=== PATIENT | female | born 1960 | race Caucasian/White ===

== ENCOUNTER 2017-05-07 09:15 | Emergency (ER) | payer OTHER ==
--- OUTSIDE RECORDS SUMMARY | 2017-05-07 09:17 | XMS REPORT | Clinical Summary ---
:1960 Author Organization [facility] Address [address] [place] [address] Care Team Providers Name Role Phone Lizzie Shaffer MD Primary Care Provider Allergies Active Allergy Reactions Severity Noted Date Comments Chlorhexidine Rash Low 12/01/2014 blisters Hydrocodone-Acetaminophen Hives 10/24/2010 Can tolerate acetaminophen Can tolerate acetaminophen Tramadol Hives 09/25/2015 Current Medications Prescription Sig. Disp. Refills Start Date End Date Status diltiazem CD (CARTIA TAKE 1 01/30/2016 Active XT) 120 MG 24 hr CAPSULE BY capsule MOUTH DAILY escitalopram Take 10 mg by Active (LEXAPRO) 10 MG mouth. tablet pantoprazole Take 40 mg by 09/21/2015 Active (PROTONIX) 40 MG EC mouth. tablet zolpidem (AMBIEN) 10 Take 10 mg by Active mg tablet mouth. cholecalciferol, Take 5,000 Active vitamin D3, (VITAMIN Units by D3) 5,000 unit mouth. capsule glatiramer Inject 40 mg 11/03/2015 Active (COPAXONE) 40 mg/mL under the syringe skin. nitroglycerin Place 1 Active (NITROSTAT) 0.4 MG tablet under SL tablet the tongue. ALPRAZolam (XANAX) TK 1 T PO D 2 02/24/2016 Active 0.5 MG tablet PRN. ondansetron ODT Take 4 mg by Active (ZOFRAN-ODT) 4 MG mouth every 8 disintegrating (eight) hours tablet as needed for nausea or vomiting. CALCIUM ORAL Take 1 tablet Active by mouth daily. docusate sodium Take 1 60 capsule 0 04/17/2016 Discontinued (COLACE) 50 MG capsule (50 7 capsule mg total) by mouth 2 (two) times a day for 30 days. docusate sodium Take 1 60 capsule 0 05/06/2016 (COLACE) 50 MG capsule (50 7 capsule mg total) by mouth 2 (two) times a day for 30 days. Active Problems Problem Noted Date S/P laparoscopic surgery 05/04/2016 Encounters Date Type Specialty Care Team Description 04/30/2017 Procedure Pass Gastroenterology 05/16/2016 Office Visit General Surgery Dustin Uriostegui, Stomach pain ( Primary Dx); MD History of dysphagia; Diarrhea, unspecified type; Essential hypertension; History of congestive heart disease; H/O iron deficiency anemia; Status post bariatric surgery; BMI 27.0-27.9,adult 05/04/2016 - Hospital Encounter General Surgery Dustin Uriostegui, 05/06/2016 MD after 05/06/2016 Family History Medical History Relation Name Comments Throat cancer Father Pulmonary fibrosis Maternal Aunt Diabetes Mother Heart disease Mother Pulmonary fibrosis Mother Relation Name Status Comments Father Maternal Aunt Mother Social History Tobacco Use Types Packs/Day Years Used Date Never Smoker Smokeless Tobacco: Never Used Alcohol Use Drinks/Week oz/Week Comments No Sex Assigned at Date Recorded Not on file Last Filed Vital Signs Vital Sign Reading Time Taken Blood Pressure 113/72 05/16/2016 1:52 PM CDT Pulse 85 05/16/2016 1:52 PM CDT Temperature 37.1 C (98.7 F) 05/16/2016 1:52 PM CDT Respiratory Rate 18 05/06/2016 4:01 PM CDT Oxygen Saturation 97% 05/16/2016 1:52 PM CDT Inhaled Oxygen Concentration - - Weight 67.6 kg (149 lb) 05/16/2016 1:52 PM CDT Height 157.5 cm (5' 2") 05/16/2016 1:52 PM CDT Body Mass Index 27.25 05/16/2016 1:52 PM CDT Plan of Treatment Health Maintenance Due Date Last Done Comments PAP SMEAR 1981 COLONOSCOPY 2010 MAMMOGRAM 2010 INFLUENZA VACCINE 09/10/2016 09/13/2013 Implants Implanted Type Area Highway Design Engineer Device Expiration Model / Identifier Date Serial / Lot Pacemaker-05/18/2015 Pacemaker Subclavian [id number] / Implanted: 05/18/2015 (Quantity not on file) [id number] / Dilator Baln Fxdwr [id number] 12-13.5-15mm Cre - [id number] Surgical N/A: N/A [facility] [id number] / Implanted: 04/17/2016 (Quantity not on file) Implants; / Expanders; Extenders; Surgical Wires Results XR Abdomen 2 Vw Ap W Upright And/Or Decubitus (05/06/2016 8:37 AM) Specimen Performing Laboratory [facility] [address] [place] [address] Narrative EXAM:XR ABDOMEN 2 VW AP W UPRIGHT AND OR DECUBITUS HISTORY:ABDOMINAL PAIN COMPARISON:None available IMPRESSION: 1. Bowel gas pattern is nonobstructive. 2. Ill-defined linear radiopaque material projects over the left mid abdomen which may reflect postoperative changes or calcifications in the inferior pole the left kidney. 3. The visualized osseous structures are intact. 4. The patient is status post cholecystectomy. [facility]-[id number] Procedure Note Interface, Radiology Results Incoming - 05/06/2016 8:49 AM CDT EXAM: XR ABDOMEN 2 VW AP W UPRIGHT AND OR DECUBITUS HISTORY: ABDOMINAL PAIN COMPARISON: None available IMPRESSION: 1. Bowel gas pattern is nonobstructive. 2. Ill-defined linear radiopaque material projects over the left mid abdomen which may reflect postoperative changes or calcifications in the inferior pole the left kidney. 3. The visualized osseous structures are intact. 4. The patient is status post cholecystectomy. [facility]-[id number] Urinalysis, automated with microscopy (05/06/2016 8:35 AM) Component Value Ref Range Color, UA Colorless Appearance, UA Clear Specific gravity, UA 1.008 1.001 - 1.035 pH, UA 5.0 5.0 - 8.5 Protein, UA Negative Negative Glucose, UA Negative Negative Ketones, UA 1+ (A) Negative Bilirubin, UA Negative Negative Blood, UA Negative Negative Nitrite, UA Negative Negative Urobilinogen, UA <2.0 <2.0 Leukocyte esterase, UA Trace (A) Negative Epithelial cells, UA <1 /HPF WBC, UA 3 0 - 4 /HPF RBC, UA <1 0 - 2 /HPF Bacteria, UA Few None seen Yeast, UA None seen Yeast with pseudohyphae, UA None seen Specimen Performing Laboratory Urine [facility] DEPARTMENT OF PATHOLOGY AND GENOMIC MEDICINE [address] [place] [address] after 05/06/2016 Insurance Payer Benefit Plan / Group Subscriber ID Type Phone Address MEDICARE MEDICARE PART A AND B xxxxxxxxxx Medicare [place], [place] MEDICA[place] MEDICAID xxxxxxxxx Medicaid Home: [address] [phone] [place] [id number]
--- OUTSIDE RECORDS SUMMARY | 2017-05-07 09:18 | XMS REPORT | Clinical Summary ---
:1960 Author Organization [facility] Address [address] [place] [address] Phone Care Team Providers Name Role Phone Unavailable Primary Care Provider Unavailable Allergies Active Allergy Reactions Severity Noted Date Comments Tramadol Hives High 09/18/2015 Hydrocodone-Acetaminophen Hives 07/18/2014 Can tolerate acetaminophen Chlorhexidine Rash Low 07/18/2014 blisters Current Medications Prescription Sig. Disp. Refills Start End Date Status Date escitalopram Take 10 mg by Active oxalate (LEXAPRO) mouth nightly . 10 MG tablet diltiazem (DILACOR Take 120 mg by Active XR) 120 MG 24 hr mouth nightly . capsule pantoprazole Take 1 tablet (40 30 tablet 2 Active (PROTONIX) 40 MG mg total) by mouth 6 tablet daily. temazepam Take 15 mg by Active (RESTORIL) 15 mg mouth nightly. capsule glatiramer Inject 40 mg Active (COPAXONE) 40 subcutaneously 3 mg/mL Syrg (three) times a week. doxepin (SILENOR) Take 6 mg by mouth Active 6 mg Tab nightly. dicyclomine Take 1 capsule (10 60 capsule 11 03/25/19 Active (BENTYL) 10 MG mg total) by mouth 8 19 capsule 2 (two) times daily. sucralfate Take 1 tablet (1 g 90 tablet 03/25/19 Active (CARAFATE) 1 gram total) by mouth 3 8 19 tablet (three) times daily before meals. zolpidem (AMBIEN) Take 10 mg by Active 10 mg tablet mouth every night as needed for Insomnia. zolpidem (AMBIEN) Take 10 mg by 03/13/19 Discontinued 10 mg tablet mouth every night 18 as needed for Insomnia. aspirin 81 MG EC Take 81 mg by 03/13/19 Discontinued tablet mouth daily. 18 fingolimod 0.5 mg Take 0.5 mg by 03/13/19 Discontinued Cap mouth daily. 18 HYDROmorphone Take 1 tablet (2 30 tablet 0 04/04/19 (DILAUDID) 2 MG mg total) by mouth 8 18 tablet every 4 (four) hours as needed for up to 10 days. Max Daily Amount: 12 mg ondansetron Take 1 tablet (4 20 tablet 0 04/01/19 (ZOFRAN-ODT) 4 MG mg total) by mouth 8 18 disintegrating every 6 (six) tablet hours as needed for up to 7 days. pantoprazole Take 1 tablet (40 60 tablet 11 04/15/19 Discontinued (PROTONIX) 40 MG mg total) by mouth 8 18 tablet 2 (two) times daily. metoclopramide Take 1 tablet (5 120 tablet 04/04/19 (REGLAN) 5 MG mg total) by mouth 8 18 tablet 4 (four) times daily for 10 days. Active Problems Problem Noted Date Chest pain 03/21/2017 S/P ERCP 03/19/2017 Nausea & vomiting 03/19/2017 RUQ abdominal pain 09/12/2015 Multiple sclerosis, relapsing-remitting (HCC) 09/12/2015 Depression 09/12/2015 Biliary dilatation (sphincter of Oddi stricture), h/o Vamshi-en-Y, s/p open 03/2015 ERCP 09/13 History of cholecystectomy 09/12/2015 Esophageal stricture 09/12/2015 Status post balloon dilatation of esophageal stricture 09/12/2015 Cellulitis of chest wall 07/04/2015 Bradycardia 05/18/2015 Complete rupture of rotator cuff 08/04/2014 Encounters Date Type Specialty Care Team Description 04/30/2017 Hospital Encounter Gastroenterology Shoshana Julian MD 04/30/2017 Procedure Pass Gastroenterology 04/30/2017 Surgery Gastroenterology Shoshana Julian UPPER ENDOSCOPY MD Edward 04/29/2017 Anesthesia Event Gastroenterology Wiliam Andujar MD 04/14/2017 Hospital Encounter Pre-Admission Testing 03/21/2017 Orders Only General Internal Medicine 03/19/2017 - Hospital Encounter General Internal Shoshana Julian Bradycardia 03/25/2017 Medicine MD Edward (Primary Dx);Chest Massumi, pain, unspecified Rossy type;History of Abolfathian, cholecystectomy;S/ MD P ERCP;Status post Evelyn Walters balloon dilatation MD Rei of esophageal stricture 03/19/2017 Procedure Pass Gastroenterology 03/19/2017 Surgery Gastroenterology Shoshana Julian ERCP,BILIARY STENT MD Edward 03/18/2017 Anesthesia Event Gastroenterology Spring Luna MD 03/13/2017 Hospital Encounter Pre-Admission Testing Shohsana Julian MD after 05/06/2016 Social History Tobacco Use Types Packs/Day Years Used Date Never Smoker Smokeless Tobacco: Never Used Alcohol Use Drinks/Week oz/Week Comments No Sex Assigned at Date Recorded Not on file Last Filed Vital Signs Vital Sign Reading Time Taken Blood Pressure 105/71 04/30/2017 1:35 PM CDT Pulse 62 04/30/2017 1:35 PM CDT Temperature 36.5 C (97.7 F) 04/30/2017 1:35 PM CDT Respiratory Rate 18 04/30/2017 1:35 PM CDT Oxygen Saturation 100% 04/30/2017 1:35 PM CDT Inhaled Oxygen Concentration - - Weight 73.3 kg (161 lb 11.2 oz) 04/30/2017 11:05 AM CDT Height 157.5 cm (5' 2") 04/30/2017 11:05 AM CDT Body Mass Index 29.58 04/30/2017 11:05 AM CDT Plan of Treatment Not on file Implants Implanted Type Area Bell Person Device Identifier Expiration Date Model / Serial / Lot Advisa Dr Héctor Riley / [id number] [employer] 09/23/2016 [id number] / Implanted: Qty: 1 on 05/18/2015 [id number] / Explanted Type Area Bell Person Device Expiration Date Model / Identifier Serial / Lot Sys Del Axios Stent [id number] - [id number] Stents-Pe [employer] 2018 [id number] / Implanted: Qty: 1 on 03/19/2017 by Shoshana Julian MD ripheral / Explanted: Qty: 1 on 04/30/2017 Procedures Procedure Name Priority Date/Time Associated Diagnosis Comments UPPER ENDOSCOPY 04/30/2017 1:00 PM CDT Bile duct disease Special Needs (OVERSTITCH) ERCP,BALLOON SWEEPING 03/19/2017 1:00 PM STEREOPLOTTER OPERATOR Abnormal results of liver function studies Case Notes Doctor req 90 minutes for this surgery Special Needs (FLUORO, LINEAR SCOPE) PROCEDURE W/ C-ARM 03/19/2017 1:00 PM STEREOPLOTTER OPERATOR Abnormal results of liver function studies Case Notes Doctor req 90 minutes for this surgery Special Needs (FLUORO, LINEAR SCOPE) UPPER ENDOSCOPY,FNA 03/19/2017 1:00 PM STEREOPLOTTER OPERATOR Abnormal results of liver W/ULTRASOUND function studies Case Notes Doctor req 90 minutes for this surgery Special Needs (FLUORO, LINEAR SCOPE) ERCP,BILIARY STENT 03/19/2017 1:00 PM STEREOPLOTTER OPERATOR Abnormal results of liver function studies Case Notes Doctor req 90 minutes for this surgery Special Needs (FLUORO, LINEAR SCOPE) after 05/06/2016 Results REPORT OF PROCEDURE - ENDOSCOPY URL (05/06/2017 9:38 AM)Only the most recent of2 resultswithin the time period is included.RHYTHM STRIP - SCAN (03/27/2017 11 :32 AM)Only the most recent of2 resultswithin the time period is included.ARRYTHMIA IMPLANT REPORT - SCAN (03/27/2017 8:51 AM)POC-Glucose meter (03/25/2017 8:21 AM)Only the most recent of20 resultswithin the time period is included. Component Value Ref Range POC-Glucose Meter 73Comment: TESTED AT [address] 70 - 110 mg/dL [address] Specimen Performing Laboratory Blood [facility] [address] [address] CBC with platelet count + automated diff (03/25/2017 5:05 AM)Only the most recent of6 resultswithin the time period is included. Component Value Ref Range WBC 5.7 3.5 - 10.5 K/L RBC 3.67 (L) 3.93 - 5.22 M/L Hemoglobin 11.8 11.2 - 15.7 GM/DL Hematocrit 36.6 34.1 - 44.9 % MCV 99.7 (H) 79.4 - 94.8 fL MCH 32.2 25.6 - 32.2 pg MCHC 32.2 32.2 - 35.5 GM/DL RDW 12.6 11.7 - 14.4 % Platelets 187 150 - 450 K/CU MM MPV 9.7 9.4 - 12.3 fL nRBC 0 0 - 0 /100 WBC % Neutros 63 % % Lymphs 18 % % Monos 14 % % Eos 5 % % Baso 1 % # Neutros 3.56 1.56 - 6.13 K/L # Lymphs 1.02 (L) 1.18 - 3.74 K/L # Monos 0.78 (H) 0.24 - 0.36 K/L # Eos 0.26 0.04 - 0.36 K/L # Baso 0.03 0.01 - 0.08 K/L Immature Granulocytes-Relative 0 0 - 1 % Specimen Performing Laboratory Blood - Line, Venous [address] [address] CBC with platelet count + automated diff (03/25/2017 5:05 AM)Only the most recent of6 resultswithin the time period is included. Specimen Performing Laboratory Blood Narrative The following orders were created for panel order CBC with platelet count + automated diff. Procedure Abnormality Status --------- ------ CBC with platelet count ...[[id number]]AbnormalFinal result Please view results for these tests on the individual orders. Magnesium (03/25/2017 5:05 AM)Only the most recent of6 resultswithin the time period is included. Component Value Ref Range Magnesium 1.6 1.6 - 2.6 mg/dL Specimen Performing Laboratory Blood - Line, Venous [address] [address] Basic Metabolic Panel (03/25/2017 5:05 AM)Only the most recent of7 resultswithin the time period is included. Component Value Ref Range Sodium 141 136 - 145 meq/L Potassium 4.1 3.5 - 5.1 meq/L Chloride 104 98 - 107 meq/L CO2 29 22 - 29 meq/L BUN 9 7 - 21 mg/dL Creatinine 0.93 0.57 - 1.25 mg/dL Glucose 87 70 - 105 mg/dL Calcium 9.0 8.4 - 10.2 mg/dL EGFR 62Comment: ESTIMATED GFR IS NOT ACCURATE mL/min/1.73 sq m CREATININE CLEARANCE IN PREDICTING GLOMERULAR FILTRATION RATE. ESTIMATED GFR IS NOT APPLICABLE FOR DIALYSIS PATIENTS. Specimen Performing Laboratory Blood - Line, Venous [facility] [address] [address] [address] abdomen/pelvis without iv contrast (03/25/2017 12:08 AM) Specimen Performing Laboratory GE RIS Narrative FINAL REPORT CT of the abdomen and pelvis, without contrast Clinical History:right lower quad pain right lower quadrant pain Technique: CT of the abdomen and pelvis is performed without intravenous contrast administration. This exam was performed according to our departmental dose optimization program which includes automated exposure control, adjustment of the mA and/or kV according to patient's size and/or use of iterative reconstructive technique. Comparison Film:None Discussion: There is mild scarring or atelectasis at the lung bases. Mild pneumobilia, without significant ductal dilatation. No discrete liver lesion is identified on this noncontrast exam. Gallbladder is absent. The spleen, pancreas, adrenal glands have a unremarkable unenhanced appearance. Kidneys demonstrate no hydronephrosis, radiopaque stone, No evidence of bowel obstruction or abnormal bowel wall thickening. Normal appendix. There is postsurgical change of the stomach, with evidence of prior gastric bypass. In the pelvis, bladder is unremarkable. Uterus is absent. No adnexal mass. There is no ascites, free air, or lymphadenopathy. Osseous structures demonstrate mild degenerative changes. Impression: No acute process identified in the abdomen or pelvis. Status post cholecystectomy. Pneumobilia. Postsurgical change of the stomach. Signed: Lillie Carlson MD Report Verified Date/Time:03/25/2017 08:00:47 Reading Location: [facility] Diagnostic Imaging Reading Room - [place] [address] Procedure Note Interface, External Ris In - 03/25/2017 8:03 AM STEREOPLOTTER OPERATOR FINAL REPORT CT of the abdomen and pelvis, without contrast Clinical History: right lower quad pain right lower quadrant pain Technique: CT of the abdomen and pelvis is performed without intravenous contrast administration. This exam was performed according to our departmental dose optimization program which includes automated exposure control, adjustment of the mA and/or kV according to patient's size and/or use of iterative reconstructive technique. Comparison Film: None Discussion: There is mild scarring or atelectasis at the lung bases. Mild pneumobilia, without significant ductal dilatation. No discrete liver lesion is identified on this noncontrast exam. Gallbladder is absent. The spleen, pancreas, adrenal glands have a unremarkable unenhanced appearance. Kidneys demonstrate no hydronephrosis, radiopaque stone, No evidence of bowel obstruction or abnormal bowel wall thickening. Normal appendix. There is postsurgical change of the stomach, with evidence of prior gastric bypass. In the pelvis, bladder is unremarkable. Uterus is absent. No adnexal mass. There is no ascites, free air, or lymphadenopathy. Osseous structures demonstrate mild degenerative changes. Impression: No acute process identified in the abdomen or pelvis. Status post cholecystectomy. Pneumobilia. Postsurgical change of the stomach. Signed: Lillie Carlson MD Report Verified Date/Time: 03/25/2017 08:00:47 Reading Location: [facility] Diagnostic Imaging Reading Room - [place] [address] Urinalysis w/Microscopic + Reflex to Culture (03/23/2017 6:03 PM) Component Value Ref Range Color, UA Light Yellow Clarity, UA Clear Specific [place], UA 1.006 1.001 - 1.035 pH, UA 7.0 5.0 - 8.0 Protein, UA Negative Negative Glucose, UA Negative Negative Ketones, UA Negative Negative Bilirubin, UA Negative Negative Blood, UA Negative Negative Nitrite, UA Negative Negative Leukocytes, UA Negative Negative Urobilinogen, UA 0.2 0.2 - 1.0 mg/dL RBC, UA 0 /HPF WBC, UA 1 /HPF Squam Epithel, UA 1 /HPF Specimen Source Specimen Performing Laboratory Urine - Urine, Sterile Collection [address] [address] XR abdomen / KUB 1 view (03/23/2017 12:27 PM) Specimen Performing Laboratory GE RIS Narrative FINAL REPORT Technique: Frontal images of the abdomen COMPARISON: 03/19/2015 FINDINGS: Bowel gas pattern is nonspecific. Some residual contrast in the colon seen. No gross free intraperitoneal air. A stent projects in the upper abdomen centrally. No acute skeletal abnormality. Signed: Joby Hoffman MD Report Verified Date/Time:03/23/2017 12:49:51 Reading Location: [address] Transitional Reading Room Procedure Note Interface, External Ris In - 03/23/2017 12:52 PM STEREOPLOTTER OPERATOR FINAL REPORT Technique: Frontal images of the abdomen COMPARISON: 03/19/2015 FINDINGS: Bowel gas pattern is nonspecific. Some residual contrast in the colon seen. No gross free intraperitoneal air. A stent projects in the upper abdomen centrally. No acute skeletal abnormality. Signed: Joby Hoffman MD Report Verified Date/Time: 03/23/2017 12:49:51 Reading Location: [address] Transitional Reading Room 12 lead (03/23/2017 11:22 AM)Only the most recent of2 resultswithin the time period is included. Specimen Performing Laboratory GE MUSE Narrative Ventricular Rate 65 BPM Atrial Rate 65 BPM P-R Interval 140 ms QRS Duration 78 ms Q-T Interval 400 ms QTC Calculation(Bazett) 416 ms P [place] 28 degrees R [place] 23 degrees T [place] 22 degrees Normal sinus rhythm Normal ECG When compared with ECG of21 Mar 2017 Sinus rhythm replaced electronic atrial pacing Confirmed by MD BAZZI YOCHAI ([id number]) on 03/24/2017 6:50:30 AM Procedure Note Interface, External Ris In - 03/24/2017 6:50 AM STEREOPLOTTER OPERATOR Ventricular Rate 65 BPM Atrial Rate 65 BPM P-R Interval 140 ms QRS Duration 78 ms Q-T Interval 400 ms QTC Calculation(Bazett) 416 ms P [place] 28 degrees R [place] 23 degrees T [place] 22 degrees Normal sinus rhythm Normal ECG When compared with ECG of 21 Mar 2017 Sinus rhythm replaced electronic atrial pacing Confirmed by MD BAZZI YOCHAI ([id number]) on 03/24/2017 6:50:30 AM Lipase (03/23/2017 4:53 AM)Only the most recent of4 resultswithin the time period is included. Component Value Ref Range Lipase 71 8 - 78 U/L Specimen Performing Laboratory Blood [facility] [address] [address] Amylase (03/23/2017 4:53 AM)Only the most recent of4 resultswithin the time period is included. Component Value Ref Range Amylase 93 25 - 125 U/L Specimen Performing Laboratory Blood [address] [address] Hepatic function panel (03/23/2017 4:53 AM)Only the most recent of3 resultswithin the time period is included. Component Value Ref Range Protein, Total 6.0 6.0 - 8.3 gm/dL Albumin 3.6 3.5 - 5.0 g/dL Total Bilirubin 0.6 0.2 - 1.2 mg/dL Bilirubin, Direct 0.2 0.1 - 0.5 mg/dL Alkaline Phosphatase 78 40 - 150 U/L AST 18 5 - 34 U/L ALT 24 6 - 55 U/L Specimen Performing Laboratory Blood [address] [address] ECHOCARDIOGRAM REPORT - SCAN (03/22/2017 2:20 PM)Troponin I (03/21/2017 4:33 PM)Only the most recent of3 resultswithin the time period is included. Component Value Ref Range Troponin I <0.01 0.00 - 0.03 ng/mL Specimen Performing Laboratory Blood - Central Venous Line [address] [address] Narrative Troponin I (TnI) levels must be interpreted in the context of the presenting symptoms and the clinical findings. Elevated TnI levels indicate myocardial damage, but are not specific for ischemic heart disease. Elevated TnI levels are seen in patients with other cardiac conditions (including myocarditis and congestive heart failure), and slight TnI elevations occur in patients with other conditions, including sepsis, renal failure, acidosis, acute neurological disease, and persistent tachyarrhythmia. Creatine Kinase (CK), Total and MB (03/21/2017 4:33 PM)Only the most recent of2 resultswithin the time period is included. Component Value Ref Range Total CK 116 29 - 200 U/L CK-MB 1.1 0.0 - 6.6 ng/mL MB Relative Index 0.9 % Specimen Performing Laboratory Blood - Central Venous Line [address] [address] Narrative CK-MB Reference Range: <6.7Normal 6.7-10.0Borderline >10.0 Abnormal Limited 2D Echocardiogram (03/21/2017 3:28 PM) Component Value Ref Range Ejection Fraction Specimen Performing Laboratory [facility] ECHO HEARTLAB MKCKPETER CPACS Narrative Transthoracic Echocardiography Report (TTE) Demographics Patient Name Wagner ARMANDOte of Study 03/21/2017 RHEA [id number] GenderFemale Visit Number [id number] RaceCaucasian [id number] Number [id number] Number Date of Birth1960 Referring Physician Evelyn Walters MD Age56 year(s) Church Business Administrator Tawanna Tee, [facility] [place] AnalystIzostacy Barth Interpreting Physician LEONARDA Reyna Procedure Type of Study TTE procedure:LIMITED 2D ECHOCARDIOGRAM (CLARICE) Indications:Suspected Pericardial conditions. Clinical History Anemia HGB 11.1 HCT 34.6 % 2011 PPM Height: 62 inches Weight: 72.12 kg (159 lbs) BSA: 1.73 m^2 BMI: 29.08 kg/m^2 HR: 60 bpm BP: 113/60 mmHg Summary Limited 2D exam (no Doppler) to address study indication (pericardial effusion). No evidence of LV hypertrophy. The left ventricle is chamber size (by PSLAX dimension) is normal (female - LVIDd 3.8-5.2cm) . All of the LV segments contract normally . Global LV systolic function normal . Estimated LVEF by qualitative assessment is normal (55-60%) . Degree of diastolic dysfunction (LAP assessment) is inconclusive due to 2D only . RV pacing wire is visualized . The right ventricular chamber size and systolic function are within normal limits. No pericardial effusion is visualized. Signature Findings Technical Quality: Technically adequate exam. Left Ventricle Limited 2D exam (no Doppler) to address study indication (pericardial effusion). No evidence of LV hypertrophy. The left ventricle is chamber size (by PSLAX dimension) is normal (female - LVIDd 3.8-5.2cm) . All of the LV segments contract normally . Global LV systolic function normal . Estimated LVEF by qualitative assessment is normal (55-60%) . Degree of diastolic dysfunction (LAP assessment) is inconclusive due to 2D only . Left AtriumLA size is normal (16-34 ml/m2) . Right VentricleRV pacing wire is visualized . The right ventricular chamber size and systolic function are within normal limits. Right Atrium RA pacing wire is visualized . RA cavity size is normal . Aortic Valve Normal AoV structure and function. Mitral Valve Normal MV structure. Tricuspid ValveTV structure is normal. Pulmonic Valve PV is not well visualized. AortaAortic root size (SInus of Valsalva diameter) is normal . PericardiumNo pericardial effusion is visualized. IVC/SVC/PA/PV/PleuralThe estimated RA pressure by IVC dynamics 5-10mmHg . Chambers/Structures Left Atrium LA Volume: 40.75 ml LA Area: 17.99 cm^ 2 LA Vol. Index: 24 ml/m^2 Left Ventricle LVIDd: 4.09 cm LV Septum Diastolic: 0.65 cm LV PW Diastolic: 0.69 cm Right Atrium RA Vol. (Sngl Plane): 39.5 ml Aorta Ao Root S of Moni.: 2.74 cm Procedure Note Interface, External Ris In - 03/22/2017 1:51 PM STEREOPLOTTER OPERATOR Transthoracic Echocardiography Report (TTE) Demographics Patient Name ANTONIETTA ARMANDO Date of Study 03/21/2017 RHEA Gender Female Visit Number [id number] Race Room Number [id number] Number Date of 1960 Referring Physician Evelyn Walters MD Age 56 year(s) Church Business Administrator Tawanna Tee [facility] [place] Gas Leak Inspector Mariah Barth Interpreting Physician LEONARDA Reyna Procedure Type of Study TTE procedure:LIMITED 2D ECHOCARDIOGRAM (CLARICE) Indications:Suspected Pericardial conditions. Clinical History Anemia HGB 11.1 HCT 34.6 % 2011 PPM Height: 62 inches Weight: 72.12 kg (159 lbs) BSA: 1.73 m^2 BMI: 29.08 kg/m^2 HR: 60 bpm BP: 113/60 mmHg Summary Limited 2D exam (no Doppler) to address study indication (pericardial effusion). No evidence of LV hypertrophy. The left ventricle is chamber size (by PSLAX dimension) is normal (female - LVIDd 3.8-5.2cm) . All of the LV segments contract normally . Global LV systolic function normal . Estimated LVEF by qualitative assessment is normal (55-60%) . Degree of diastolic dysfunction (LAP assessment) is inconclusive due to 2D only . RV pacing wire is visualized . The right ventricular chamber size and systolic function are within normal limits. No pericardial effusion is visualized. Signature Findings Technical Quality: Technically adequate exam. Left Ventricle Limited 2D exam (no Doppler) to address study indication (pericardial effusion). No evidence of LV hypertrophy. The left ventricle is chamber size (by PSLAX dimension) is normal (female - LVIDd 3.8-5.2cm) . All of the LV segments contract normally . Global LV systolic function normal . Estimated LVEF by qualitative assessment is normal (55-60%) . Degree of diastolic dysfunction (LAP assessment) is inconclusive due to 2D only . Left Atrium LA size is normal (16-34 ml/m2) . Right Ventricle RV pacing wire is visualized . The right ventricular chamber size and systolic function are within normal limits. Right Atrium RA pacing wire is visualized . RA cavity size is normal . Aortic Valve Normal AoV structure and function. Mitral Valve Normal MV structure. Tricuspid Valve TV structure is normal. Pulmonic Valve PV is not well visualized. Aorta Aortic root size (SInus of Valsalva diameter) is normal . Pericardium No pericardial effusion is visualized. IVC/SVC/PA/PV/Pleural The estimated RA pressure by IVC dynamics 5-10mmHg . Chambers/Structures Left Atrium LA Volume: 40.75 ml LA Area: 17.99 cm^2 LA Vol. Index: 24 ml/m^2 Left Ventricle LVIDd: 4.09 cm LV Septum Diastolic: 0.65 cm LV PW Diastolic: 0.69 cm Right Atrium RA Vol. (Sngl Plane): 39.5 ml Aorta Ao Root S of Moni.: 2.74 cm XR chest 1 view portable / bedside (03/21/2017 9:49 AM) Specimen Performing Laboratory [facility] RIS Narrative FINAL REPORT Chest one view AP 03/21/2017 9:51 AM CLINICAL INDICATION: chest pain COMPARISON: 07/04/2015 IMPRESSION: Bibasilar subsegmental opacities suggest atelectasis. Cardiomediastinal contours are within normal limits. The central pulmonary vasculature is not engorged. Signed: Eric Nichols MD Report Verified Date/Time:03/21/2017 09:52:14 Reading Location: [facility] Radiology Reading Room Procedure Note Interface, External Ris In - 03/21/2017 9:54 AM STEREOPLOTTER OPERATOR FINAL REPORT Chest one view AP 03/21/2017 9:51 AM CLINICAL INDICATION: chest pain COMPARISON: 07/04/2015 IMPRESSION: Bibasilar subsegmental opacities suggest atelectasis. Cardiomediastinal contours are within normal limits. The central pulmonary vasculature is not engorged. Signed: Eric Nichols MD Report Verified Date/Time: 03/21/2017 09:52:14 Reading Location: [facility] Radiology Reading Room Endoscopic Retrograde Cholangiopancreatography (03/19/2017 2:50 PM) Specimen Performing Laboratory [facility] RIS Narrative FINAL REPORT Fluoroscopy. History: Intraoperative. Findings:Radiologist was not present for the exam.Fluoroscopy was not performed by the undersigned. Please see operative report for details. Fluoroscopy Time: 166 min. Nine images IMPRESSION: Intraoperative fluoroscopy. Please see operative report for details. Signed: Manny Contreras MD Report Verified Date/Time:03/19/2017 23:51:13 Reading Location: [address] Consult Reading Room Procedure Note Interface, External Ris In - 03/19/2017 11:53 PM STEREOPLOTTER OPERATOR FINAL REPORT Fluoroscopy. History: Intraoperative. Findings: Radiologist was not present for the exam. Fluoroscopy was not performed by the undersigned. Please see operative report for details. Fluoroscopy Time: 166 min. Nine images IMPRESSION: Intraoperative fluoroscopy. Please see operative report for details. Signed: Manny Contreras MD Report Verified Date/Time: 03/19/2017 23:51:13 Reading Location: [address] Consult Reading Room Hemoglobin (03/19/2017 11:28 AM) Component Value Ref Range Hemoglobin 12.6 11.2 - 15.7 GM/DL Specimen Performing Laboratory Blood [facility] [address] [id number] Narrative PREOP after 05/06/2016
--- OUTSIDE RECORDS SUMMARY | 2017-05-07 09:19 | XMS REPORT ---
:1960 [facility] Address [address] [place] [address] [address]. [address] [place] [address] Care Team Providers Name Role Phone GAY SHEPHERD Unavailable Unavailable Problems This patient has no known problems. Allergies, Adverse Reactions, Alerts This patient has no known allergies or adverse reactions. Medications This patient has no known medications. Results Test Description Test Time Test Comments Text Results Atomic Results Result Comments POCT-GLUCOSE METER 2017-03-25 08:31:00 Test Item Value Reference Range Comments POC-GLUCOSE METER (BEEmtrics) (test 73 mg/dL 70-110 TESTED AT [facility] [address] [facility] bocg=0871) [facility] [address] CT, [id number] 08:00:00Reason for exam:->right lower quad painWhat is the patient's sedation requirement?->No SedationIs the patient ?-> NoFINAL REPORT CT of the abdomen and pelvis, without contrast Clinical History: right lower quad painright lower quadrant pain Technique: CT of the abdomen and pelvis is performedwithout intravenous contrast administration. This exam was performed [...] a unremarkable unenhanced appearance. Kidneys demonstrate no hydronephrosis , radiopaque stone, No evidence of bowel obstruction or abnormal bowel wallthickening. Normal appendix. There is postsurgical change of the stomach, with evidence of prior gastric bypass. In the pelvis, bladder is unremarkable. Uterus is absent. No adnexal mass. There is no ascites, free air, or lymphadenopathy. Osseous structures demonstrate mild degenerative changes. Impression: No acute process identified in the abdomen or pelvis. Status post cholecystectomy. Pneumobilia. Postsurgical change of the stomach. Signed: Lillie Carlson Verified Date/Time: 03/25/2017 08:00:47 Reading Location: [facility] Diagnostic Imaging Reading Room - [place] [address] [id number] 06:09:00 Test Item Value Reference Range Comments MAGNESIUM (BEAKER) (test pect=340) 1.6 mg/dL 1.6-2.6 BASIC METABOLIC [id number] 06:09:00 Test Item Value Reference Range Comments SODIUM (BEAKER) (test 141 meq/L 136-145 yvfq=892) POTASSIUM (BEAKER) (test 4.1 meq/L 3.5-5.1 ecdh=015) CHLORIDE (BEAKER) (test 104 meq/L 98-107 dxsm=421) CO2 (BEAKER) (test 29 meq/L 22-29 tpsk=530) BLOOD UREA NITROGEN 9 mg/dL 7-21 (BEAKER) (test fljd=517) CREATININE (BEAKER) (test 0.93 mg/dL 0.57-1.25 dcho=745) GLUCOSE RANDOM (BEAKER) 87 mg/dL 70-105 (test dqfc=981) CALCIUM (BEAKER) (test 9.0 mg/dL 8.4-10.2 hutn=969) EGFR (BEAKER) (test 62 mL/min/1.73 sq m ESTIMATED GFR IS NOT aikr=7625) ACCURATE CREATININE CLEARANCE IN PREDICTING GLOMERULAR FILTRATION RATE. ESTIMATED GFR IS NOT APPLICABLE FOR DIALYSIS PATIENTS. CBC W/PLT COUNT & AUTO [id number] 05:43:00 Test Item Value Reference Range Comments WHITE BLOOD CELL COUNT (BEAKER) (test xqcw=329) 5.7 K/ L 3.5-10.5 RED BLOOD CELL COUNT (BEAKER) (test vwnv=419) 3.67 M/ L 3.93-5.22 HEMOGLOBIN (BEAKER) (test oogu=186) 11.8 GM/DL 11.2-15.7 HEMATOCRIT (BEAKER) (test ugoj=441) 36.6 % 34.1-44.9 MEAN CORPUSCULAR VOLUME (BEAKER) (test lqhp=236) 99.7 fL 79.4-94.8 MEAN CORPUSCULAR HEMOGLOBIN (BEAKER) (test 32.2 pg 25.6-32.2 alom=830) MEAN CORPUSCULAR HEMOGLOBIN CONC (BEAKER) (test 32.2 GM/DL 32.2-35.5 zdfd=523) RED CELL DISTRIBUTION WIDTH (BEAKER) (test 12.6 % 11.7-14.4 zelb=101) PLATELET COUNT (BEAKER) (test iykj=363) 187 K/CU MM 150-450 MEAN PLATELET VOLUME (BEAKER) (test kdak=218) 9.7 fL 9.4-12.3 NUCLEATED RED BLOOD CELLS (BEAKER) (test 0 /100 WBC 0-0 sece=984) NEUTROPHILS RELATIVE PERCENT (BEAKER) (test 63 % nbhw=243) LYMPHOCYTES RELATIVE PERCENT (BEAKER) (test 18 % naww=996) MONOCYTES RELATIVE PERCENT (BEAKER) (test 14 % jlyu=619) EOSINOPHILS RELATIVE PERCENT (BEAKER) (test 5 % ewzc=897) BASOPHILS RELATIVE PERCENT (BEAKER) (test 1 % cixd=556) NEUTROPHILS ABSOLUTE COUNT (BEAKER) (test 3.56 K/ L 1.56-6.13 gmlz=829) LYMPHOCYTES ABSOLUTE COUNT (BEAKER) (test 1.02 K/ L 1.18-3.74 dzzk=544) MONOCYTES ABSOLUTE COUNT (BEAKER) (test 0.78 K/ L 0.24-0.36 jxxp=892) EOSINOPHILS ABSOLUTE COUNT (BEAKER) (test 0.26 K/ L 0.04-0.36 vhkl=928) BASOPHILS ABSOLUTE COUNT (BEAKER) (test 0.03 K/ L 0.01-0.08 emtq=783) IMMATURE GRANULOCYTES-RELATIVE PERCENT (BEAKER) 0 % 0-1 (test dwlj=0977) POCT-GLUCOSE [id number] 23:29:00 Test Item Value Reference Range Comments POC-GLUCOSE METER (BEAKER) 101 mg/dL 70-110 TESTED AT [facility] [address] [facility] (test rbtw=5148) [facility] [address] POCT-GLUCOSE [id number] 17:46:00 Test Item Value Reference Range Comments POC-GLUCOSE METER (BEAKER) 90 mg/dL 70-110 TESTED AT [facility] [address] [facility] (test ombg=3874) [facility] [address] POCT-GLUCOSE [id number] 12:51:00 Test Item Value Reference Range Comments POC-GLUCOSE METER (BEAKER) 89 mg/dL 70-110 TESTED AT [place] [id number] [facility] (test dlfn=3418) [facility] [address] POCT-GLUCOSE [id number] 08:48:00 Test Item Value Reference Range Comments POC-GLUCOSE METER (BEAKER) 199 mg/dL 70-110 TESTED AT [address] (test ieca=8290) [facility] [address] [id number] 08:16:00 Test Item Value Reference Range Comments MAGNESIUM (BEAKER) (test ffft=150) 1.6 mg/dL 1.6-2.6 BASIC METABOLIC [id number] 08:16:00 Test Item Value Reference Range Comments SODIUM (BEAKER) (test 139 meq/L 136-145 npqm=254) POTASSIUM (BEAKER) (test 3.8 meq/L 3.5-5.1 eeyh=378) CHLORIDE (BEAKER) (test 103 meq/L 98-107 dppa=368) CO2 (BEAKER) (test 24 meq/L 22-29 yqzm=537) BLOOD UREA NITROGEN 12 mg/dL 7-21 (BEAKER) (test vzih=035) CREATININE (BEAKER) (test 0.92 mg/dL 0.57-1.25 vufy=255) GLUCOSE RANDOM (BEAKER) 95 mg/dL 70-105 (test biko=759) CALCIUM (BEAKER) (test 8.5 mg/dL 8.4-10.2 zunw=010) EGFR (BEAKER) (test 63 mL/min/1.73 sq m ESTIMATED GFR IS NOT gsvg=6214) ACCURATE CREATININE CLEARANCE IN PREDICTING GLOMERULAR FILTRATION RATE. ESTIMATED GFR IS NOT APPLICABLE FOR DIALYSIS PATIENTS. CBC W/PLT COUNT & AUTO [id number] 06:41:00 Test Item Value Reference Range Comments WHITE BLOOD CELL COUNT (BEAKER) (test smgl=661) 7.1 K/ L 3.5-10.5 RED BLOOD CELL COUNT (BEAKER) (test braa=799) 3.74 M/ L 3.93-5.22 HEMOGLOBIN (BEAKER) (test qfla=844) 12.1 GM/DL 11.2-15.7 HEMATOCRIT (BEAKER) (test lmut=468) 37.9 % 34.1-44.9 MEAN CORPUSCULAR VOLUME (BEAKER) (test bvck=747) 101.3 fL 79.4-94.8 MEAN CORPUSCULAR HEMOGLOBIN (BEAKER) (test 32.4 pg 25.6-32.2 svam=498) MEAN CORPUSCULAR HEMOGLOBIN CONC (BEAKER) (test 31.9 GM/DL 32.2-35.5 vmym=844) RED CELL DISTRIBUTION WIDTH (BEAKER) (test 12.6 % 11.7-14.4 xccx=162) PLATELET COUNT (BEAKER) (test lape=706) 187 K/CU MM 150-450 MEAN PLATELET VOLUME (BEAKER) (test pvqj=529) 9.8 fL 9.4-12.3 NUCLEATED RED BLOOD CELLS (BEAKER) (test 0 /100 WBC 0-0 qrqr=096) NEUTROPHILS RELATIVE PERCENT (BEAKER) (test 67 % rkqr=519) LYMPHOCYTES RELATIVE PERCENT (BEAKER) (test 17 % umkn=814) MONOCYTES RELATIVE PERCENT (BEAKER) (test 12 % xwge=353) EOSINOPHILS RELATIVE PERCENT (BEAKER) (test 4 % mplt=701) BASOPHILS RELATIVE PERCENT (BEAKER) (test 0 % txrs=323) NEUTROPHILS ABSOLUTE COUNT (BEAKER) (test 4.71 K/ L 1.56-6.13 tuln=436) LYMPHOCYTES ABSOLUTE COUNT (BEAKER) (test 1.16 K/ L 1.18-3.74 ghml=055) MONOCYTES ABSOLUTE COUNT (BEAKER) (test 0.87 K/ L 0.24-0.36 eyzr=070) EOSINOPHILS ABSOLUTE COUNT (BEAKER) (test 0.26 K/ L 0.04-0.36 zrwa=562) BASOPHILS ABSOLUTE COUNT (BEAKER) (test 0.03 K/ L 0.01-0.08 ghzb=136) IMMATURE GRANULOCYTES-RELATIVE PERCENT (BEAKER) 0 % 0-1 (test fytp=2036) POCT-GLUCOSE [id number] 22:19:00 Test Item Value Reference Range Comments POC-GLUCOSE METER (BEAKER) 116 mg/dL 70-110 TESTED AT [address] (test lbqp=0615) [place] [id number] POCT-GLUCOSE [id number] 21:16:00 Test Item Value Reference Range Comments POC-GLUCOSE METER (BEAKER) 117 mg/dL 70-110 TESTED AT [address] (test huto=5664) [place] [address] URINALYSIS W/ REFLEX URINE [id number] 18:57:00 Test Item Value Reference Range Comments COLOR (BEAKER) (test nrer=809) Light Yellow CLARITY (BEAKER) (test revf=341) Clear SPECIFIC GRAVITY UA (BEAKER) (test hfcd=352) 1.006 1.001-1.035 PH UA (BEAKER) (test osle=372) 7.0 5.0-8.0 PROTEIN UA (BEAKER) (test tjty=683) Negative Negative GLUCOSE UA (BEAKER) (test ybnt=847) Negative Negative KETONES UA (BEAKER) (test qafx=492) Negative Negative BILIRUBIN UA (BEAKER) (test tzyd=857) Negative Negative BLOOD UA (BEAKER) (test kyib=192) Negative Negative NITRITE UA (BEAKER) (test gpqx=432) Negative Negative LEUKOCYTE ESTERASE UA (BEAKER) (test qzwk=246) Negative Negative UROBILINOGEN UA (BEAKER) (test hdzn=683) 0.2 mg/dL 0.2-1.0 RBC UA (BEAKER) (test yjqu=700) 0 /HPF WBC UA (BEAKER) (test xmut=495) 1 /HPF SQUAMOUS EPITHELIAL (BEAKER) (test rmxu=529) 1 /HPF SOURCE(BEAKER) (test kmwn=1699) POCT-GLUCOSE [id number] 17:05:00 Test Item Value Reference Range Comments POC-GLUCOSE METER (BEAKER) 92 mg/dL 70-110 TESTED AT [address] (test zlum=7720) [place] [address] RAD, ABDOMEN/KUB, 1 VIEW [id number] 12:49:00Reason for exam:->abdominal painShould this be performed at the bedside?->YesFINAL REPORT Technique: Frontal images of the abdomen COMPARISON: 03/19/2015 FINDINGS : Bowel gas pattern is nonspecific. Some residual contrast in the colon seen. No gross free intraperitoneal air. A stent projects in the upper abdomen centrally. No acute skeletal abnormality. Signed: Steph Hoffman MDReport Verified Date/Time: 03/23/2017 12:49:51 Reading Location: [facility] C013T Transitional Reading Room 12: 49 PMPOCT-GLUCOSE [id number] 08:59:00 Test Item Value Reference Range Comments POC-GLUCOSE METER (BEAKER) 107 mg/dL 70-110 TESTED AT [facility] [address] [facility] (test sxes=5807) [facility] [address] [id number] 07:02:00 Test Item Value Reference Range Comments MAGNESIUM (BEAKER) (test qgzi=664) 1.8 mg/dL 1.6-2.6 BASIC METABOLIC [id number] 07:02:00 Test Item Value Reference Range Comments SODIUM (BEAKER) (test 142 meq/L 136-145 yaht=306) POTASSIUM (BEAKER) (test 4.1 meq/L 3.5-5.1 ngym=836) CHLORIDE (BEAKER) (test 103 meq/L 98-107 xloc=855) CO2 (BEAKER) (test 30 meq/L 22-29 tspy=788) BLOOD UREA NITROGEN 15 mg/dL 7-21 (BEAKER) (test dule=665) CREATININE (BEAKER) (test 0.93 mg/dL 0.57-1.25 nlaf=536) GLUCOSE RANDOM (BEAKER) 83 mg/dL 70-105 (test rpey=124) CALCIUM (BEAKER) (test 8.8 mg/dL 8.4-10.2 rczo=668) EGFR (BEAKER) (test 62 mL/min/1.73 sq m ESTIMATED GFR IS NOT xvim=2966) ACCURATE CREATININE CLEARANCE IN PREDICTING GLOMERULAR FILTRATION RATE. ESTIMATED GFR IS NOT APPLICABLE FOR DIALYSIS PATIENTS. HEPATIC FUNCTION [id number] 07:02:00 Test Item Value Reference Range Comments TOTAL PROTEIN (BEAKER) (test vcxe=571) 6.0 gm/dL 6.0-8.3 ALBUMIN (BEAKER) (test nzil=8036) 3.6 g/dL 3.5-5.0 BILIRUBIN TOTAL (BEAKER) (test klix=656) 0.6 mg/dL 0.2-1.2 BILIRUBIN DIRECT (BEAKER) (test hytd=623) 0.2 mg/dL 0.1-0.5 ALKALINE PHOSPHATASE (BEAKER) (test equo=719) 78 U/L 40-150 AST (SGOT) (BEAKER) (test xdsc=424) 18 U/L 5-34 ALT (SGPT) (BEAKER) (test sufl=740) 24 U/L 6-55 [id number] 07:02:00 Test Item Value Reference Range Comments AMYLASE (BEAKER) (test zeoz=196) 93 U/L 25-125 [id number] 07:02:00 Test Item Value Reference Range Comments LIPASE (BEAKER) (test tofr=061) 71 U/L 8-78 CBC W/PLT COUNT & AUTO [id number] 05:52:00 Test Item Value Reference Range Comments WHITE BLOOD CELL COUNT (BEAKER) (test xyyj=488) 7.5 K/ L 3.5-10.5 RED BLOOD CELL COUNT (BEAKER) (test yslg=141) 3.60 M/ L 3.93-5.22 HEMOGLOBIN (BEAKER) (test umxv=400) 11.9 GM/DL 11.2-15.7 HEMATOCRIT (BEAKER) (test omlj=921) 36.4 % 34.1-44.9 MEAN CORPUSCULAR VOLUME (BEAKER) (test rpzx=820) 101.1 fL 79.4-94.8 MEAN CORPUSCULAR HEMOGLOBIN (BEAKER) (test 33.1 pg 25.6-32.2 jeai=518) MEAN CORPUSCULAR HEMOGLOBIN CONC (BEAKER) (test 32.7 GM/DL 32.2-35.5 yvnx=248) RED CELL DISTRIBUTION WIDTH (BEAKER) (test 12.6 % 11.7-14.4 kbuy=074) PLATELET COUNT (BEAKER) (test yptb=468) 182 K/CU MM 150-450 MEAN PLATELET VOLUME (BEAKER) (test naii=022) 9.8 fL 9.4-12.3 NUCLEATED RED BLOOD CELLS (BEAKER) (test 0 /100 WBC 0-0 dtyo=159) NEUTROPHILS RELATIVE PERCENT (BEAKER) (test 70 % nkkc=953) LYMPHOCYTES RELATIVE PERCENT (BEAKER) (test 15 % cheh=992) MONOCYTES RELATIVE PERCENT (BEAKER) (test 12 % pjpo=818) EOSINOPHILS RELATIVE PERCENT (BEAKER) (test 3 % mzso=371) BASOPHILS RELATIVE PERCENT (BEAKER) (test 0 % zfud=097) NEUTROPHILS ABSOLUTE COUNT (BEAKER) (test 5.22 K/ L 1.56-6.13 mcrw=995) LYMPHOCYTES ABSOLUTE COUNT (BEAKER) (test 1.11 K/ L 1.18-3.74 yszc=965) MONOCYTES ABSOLUTE COUNT (BEAKER) (test 0.89 K/ L 0.24-0.36 xyno=474) EOSINOPHILS ABSOLUTE COUNT (BEAKER) (test 0.20 K/ L 0.04-0.36 thwx=022) BASOPHILS ABSOLUTE COUNT (BEAKER) (test 0.02 K/ L 0.01-0.08 iide=155) IMMATURE GRANULOCYTES-RELATIVE PERCENT (BEAKER) 0 % 0-1 (test vypw=8549) POCT-GLUCOSE [id number] 21:26:00 Test Item Value Reference Range Comments POC-GLUCOSE METER (BEAKER) 96 mg/dL 70-110 TESTED AT [address] (test pcba=9400) [place] [address] POCT-GLUCOSE [id number] 17:51:00 Test Item Value Reference Range Comments POC-GLUCOSE METER (BEAKER) 104 mg/dL 70-110 TESTED AT [address] (test fpzk=8564) [place] [address] POCT-GLUCOSE [id number] 15:36:00 Test Item Value Reference Range Comments POC-GLUCOSE METER (BEAKER) 101 mg/dL 70-110 TESTED AT [address] (test wizl=8734) [place] [id number] CBC W/PLT COUNT & AUTO [id number] 07:20:00 Test Item Value Reference Range Comments WHITE BLOOD CELL COUNT (BEAKER) (test epyb=835) 6.3 K/ L 3.5-10.5 RED BLOOD CELL COUNT (BEAKER) (test wkuc=839) 3.58 M/ L 3.93-5.22 HEMOGLOBIN (BEAKER) (test lpgl=919) 11.5 GM/DL 11.2-15.7 HEMATOCRIT (BEAKER) (test zpbr=984) 36.3 % 34.1-44.9 MEAN CORPUSCULAR VOLUME (BEAKER) (test ezgq=343) 101.4 fL 79.4-94.8 MEAN CORPUSCULAR HEMOGLOBIN (BEAKER) (test 32.1 pg 25.6-32.2 qkgp=451) MEAN CORPUSCULAR HEMOGLOBIN CONC (BEAKER) (test 31.7 GM/DL 32.2-35.5 ivna=744) RED CELL DISTRIBUTION WIDTH (BEAKER) (test 12.7 % 11.7-14.4 xnln=393) PLATELET COUNT (BEAKER) (test nhvw=146) 172 K/CU MM 150-450 MEAN PLATELET VOLUME (BEAKER) (test yxwx=957) 10.0 fL 9.4-12.3 NUCLEATED RED BLOOD CELLS (BEAKER) (test 0 /100 WBC 0-0 izcm=331) NEUTROPHILS RELATIVE PERCENT (BEAKER) (test 65 % upaz=426) LYMPHOCYTES RELATIVE PERCENT (BEAKER) (test 18 % xrtv=116) MONOCYTES RELATIVE PERCENT (BEAKER) (test 12 % dsio=107) EOSINOPHILS RELATIVE PERCENT (BEAKER) (test 4 % rpka=564) BASOPHILS RELATIVE PERCENT (BEAKER) (test 1 % ygzu=002) NEUTROPHILS ABSOLUTE COUNT (BEAKER) (test 4.10 K/ L 1.56-6.13 dflv=255) LYMPHOCYTES ABSOLUTE COUNT (BEAKER) (test 1.13 K/ L 1.18-3.74 mcrl=387) MONOCYTES ABSOLUTE COUNT (BEAKER) (test 0.76 K/ L 0.24-0.36 scsh=819) EOSINOPHILS ABSOLUTE COUNT (BEAKER) (test 0.25 K/ L 0.04-0.36 dsvl=925) BASOPHILS ABSOLUTE COUNT (BEAKER) (test 0.03 K/ L 0.01-0.08 ursu=597) IMMATURE GRANULOCYTES-RELATIVE PERCENT (BEAKER) 0 % 0-1 (test hqnn=7614) [id number] 06:50:00 Test Item Value Reference Range Comments MAGNESIUM (BEAKER) (test tdke=419) 2.0 mg/dL 1.6-2.6 BASIC METABOLIC [id number] 06:50:00 Test Item Value Reference Range Comments SODIUM (BEAKER) (test 144 meq/L 136-145 ukkp=109) POTASSIUM (BEAKER) (test 3.8 meq/L 3.5-5.1 vbbs=583) CHLORIDE (BEAKER) (test 107 meq/L 98-107 ndmb=836) CO2 (BEAKER) (test 29 meq/L 22-29 chhk=039) BLOOD UREA NITROGEN 9 mg/dL 7-21 (BEAKER) (test nrlr=771) CREATININE (BEAKER) (test 0.79 mg/dL 0.57-1.25 sdjd=348) GLUCOSE RANDOM (BEAKER) 81 mg/dL 70-105 (test faty=766) CALCIUM (BEAKER) (test 8.6 mg/dL 8.4-10.2 hrnd=035) EGFR (BEAKER) (test 75 mL/min/1.73 sq m ESTIMATED GFR IS NOT odas=3169) ACCURATE CREATININE CLEARANCE IN PREDICTING GLOMERULAR FILTRATION RATE. ESTIMATED GFR IS NOT APPLICABLE FOR DIALYSIS PATIENTS. HEPATIC FUNCTION [id number] 06:50:00 Test Item Value Reference Range Comments TOTAL PROTEIN (BEAKER) (test ucak=949) 5.8 gm/dL 6.0-8.3 ALBUMIN (BEAKER) (test wztb=4648) 3.5 g/dL 3.5-5.0 BILIRUBIN TOTAL (BEAKER) (test nthw=455) 0.8 mg/dL 0.2-1.2 BILIRUBIN DIRECT (BEAKER) (test eqcg=298) 0.3 mg/dL 0.1-0.5 ALKALINE PHOSPHATASE (BEAKER) (test eaqj=277) 75 U/L 40-150 AST (SGOT) (BEAKER) (test dqsw=851) 17 U/L 5-34 ALT (SGPT) (BEAKER) (test maiv=089) 27 U/L 6-55 [id number] 06:50:00 Test Item Value Reference Range Comments AMYLASE (BEAKER) (test uqbm=345) 85 U/L 25-125 [id number] 06:50:00 Test Item Value Reference Range Comments LIPASE (BEAKER) (test subv=604) 49 U/L 8-78 POCT-GLUCOSE [id number] 21:14:00 Test Item Value Reference Range Comments POC-GLUCOSE METER (BEAKER) 107 mg/dL 70-110 TESTED AT [address] (test fpos=0279) [facility] [address] CREATINE KINASE (CK), TOTAL AND [id number] 17:48:00 Test Item Value Reference Range Comments CREATINE KINASE TOTAL (BEAKER) (test gcwv=540) 116 U/L 29-200 CREATINE KINASE-MB (BEAKER) (test byda=744) 1.1 ng/mL 0.0-6.6 CREATINE KINASE-MB INDEX (BEAKER) (test fvjv=493) 0.9 % CK-MB Reference Range:<6.7 Normal6.7-10.0 Borderline>10.0 AbnormalTROPONIN [id number] 17:48:00 Test Item Value Reference Range Comments TROPONIN I (BEAKER) (test oydd=514) < ng/mL 0.00-0.03 Troponin I (TnI) levels must be interpreted [...] failure, acidosis, acute neurological disease, and persistent tachyarrhythmia.TROPONIN [id number] 17:48:00 Test Item Value Reference Range Comments TROPONIN I (BEAKER) (test hehe=579) < ng/mL 0.00-0.03 Troponin I (TnI) levels must be interpreted [...] failure, acidosis, acute neurological disease, and persistent tachyarrhythmia.[id number] 17:46:00 Test Item Value Reference Range Comments LIPASE (BEAKER) (test htsi=896) 108 U/L 8-78 [id number] 17:46:00 Test Item Value Reference Range Comments AMYLASE (BEAKER) (test vucy=470) 122 U/L 25-125 POCT-GLUCOSE [id number] 17:08:00 Test Item Value Reference Range Comments POC-GLUCOSE METER (BEAKER) 112 mg/dL 70-110 TESTED AT [facility] [address] [facility] (test rqdd=5956) [facility] [address] POCT-GLUCOSE [id number] 11:41:00 Test Item Value Reference Range Comments POC-GLUCOSE METER (BEAKER) 100 mg/dL 70-110 TESTED AT [facility] [address] [facility] (test afmm=9292) [facility] [address] CREATINE KINASE (CK), TOTAL AND [id number] 11:13:00 Test Item Value Reference Range Comments CREATINE KINASE TOTAL (BEAKER) (test beja=058) 112 U/L 29-200 CREATINE KINASE-MB (BEAKER) (test eubj=261) 1.1 ng/mL 0.0-6.6 CREATINE KINASE-MB INDEX (BEAKER) (test vugj=657) 1.0 % CK-MB Reference Range:<6.7 Normal6.7-10.0 Borderline>10.0 AbnormalTROPONIN [id number] 11:13:00 Test Item Value Reference Range Comments TROPONIN I (BEAKER) (test kktx=474) < ng/mL 0.00-0.03 Troponin I (TnI) levels must be interpreted [...] failure, acidosis, acute neurological disease, and persistent tachyarrhythmia.[id number] 11:05:00 Test Item Value Reference Range Comments LIPASE (BEAKER) (test zxuh=146) 48 U/L 8-78 [id number] 11:05:00 Test Item Value Reference Range Comments AMYLASE (BEAKER) (test jerh=018) 129 U/L 25-125 HEPATIC FUNCTION [id number] 11:05:00 Test Item Value Reference Range Comments TOTAL PROTEIN (BEAKER) (test bajw=354) 6.0 gm/dL 6.0-8.3 ALBUMIN (BEAKER) (test wyvo=9633) 3.7 g/dL 3.5-5.0 BILIRUBIN TOTAL (BEAKER) (test dimq=565) 0.4 mg/dL 0.2-1.2 BILIRUBIN DIRECT (BEAKER) (test bzwn=549) 0.2 mg/dL 0.1-0.5 ALKALINE PHOSPHATASE (BEAKER) (test fwyf=210) 78 U/L 40-150 AST (SGOT) (BEAKER) (test plsq=946) 22 U/L 5-34 ALT (SGPT) (BEAKER) (test aaaq=049) 33 U/L 6-55 RAD, CHEST, 1 VIEW, NON [id number] 09:52:00Reason for exam:->chest painShould this be performed at the bedside?->YesFINAL REPORT Chest one view AP 03/21/2017 9:51 AM CLINICAL INDICATION: chest pain COMPARISON: 07/04/2015 IMPRESSION: Bibasilar subsegmental opacities suggest atelectasis. Cardiomediastinal contours are within normal limits. The central pulmonary vasculature is not engorged. Signed:Eric Whyte Verified Date/Time: 03/21/2017 09:52:14 Reading Location: [facility] Radiology Reading Room POCT-GLUCOSE [id number] 08:55:00 Test Item Value Reference Range Comments POC-GLUCOSE METER (BEAKER) 104 mg/dL 70-110 TESTED AT [facility] [address] [facility] (test ijwe=4274) [facility] [address] [id number] 02:59:00 Test Item Value Reference Range Comments MAGNESIUM (BEAKER) (test cbhl=691) 1.3 mg/dL 1.6-2.6 BASIC METABOLIC [id number] 02:59:00 Test Item Value Reference Range Comments SODIUM (BEAKER) (test 139 meq/L 136-145 iect=266) POTASSIUM (BEAKER) (test 3.9 meq/L 3.5-5.1 fapy=265) CHLORIDE (BEAKER) (test 105 meq/L 98-107 aesv=485) CO2 (BEAKER) (test 26 meq/L 22-29 putp=549) BLOOD UREA NITROGEN 15 mg/dL 7-21 (BEAKER) (test vjpf=810) CREATININE (BEAKER) (test 0.81 mg/dL 0.57-1.25 ymrd=171) GLUCOSE RANDOM (BEAKER) 95 mg/dL 70-105 (test jitv=927) CALCIUM (BEAKER) (test 8.4 mg/dL 8.4-10.2 kjyh=914) EGFR (BEAKER) (test 73 mL/min/1.73 sq m ESTIMATED GFR IS NOT vltl=8214) ACCURATE CREATININE CLEARANCE IN PREDICTING GLOMERULAR FILTRATION RATE. ESTIMATED GFR IS NOT APPLICABLE FOR DIALYSIS PATIENTS. CBC W/PLT COUNT & AUTO [id number] 02:44:00 Test Item Value Reference Range Comments WHITE BLOOD CELL COUNT (BEAKER) (test iaap=799) 10.8 K/ L 3.5-10.5 RED BLOOD CELL COUNT (BEAKER) (test lkqy=689) 3.44 M/ L 3.93-5.22 HEMOGLOBIN (BEAKER) (test kemv=348) 11.1 GM/DL 11.2-15.7 HEMATOCRIT (BEAKER) (test jhtp=822) 34.6 % 34.1-44.9 MEAN CORPUSCULAR VOLUME (BEAKER) (test rvmb=852) 100.6 fL 79.4-94.8 MEAN CORPUSCULAR HEMOGLOBIN (BEAKER) (test 32.3 pg 25.6-32.2 enag=681) MEAN CORPUSCULAR HEMOGLOBIN CONC (BEAKER) (test 32.1 GM/DL 32.2-35.5 ngpa=154) RED CELL DISTRIBUTION WIDTH (BEAKER) (test 12.9 % 11.7-14.4 uzpw=187) PLATELET COUNT (BEAKER) (test qjqp=174) 168 K/CU MM 150-450 MEAN PLATELET VOLUME (BEAKER) (test gzze=396) 9.6 fL 9.4-12.3 NUCLEATED RED BLOOD CELLS (BEAKER) (test 0 /100 WBC 0-0 nimo=579) NEUTROPHILS RELATIVE PERCENT (BEAKER) (test 74 % knza=691) LYMPHOCYTES RELATIVE PERCENT (BEAKER) (test 15 % noqd=960) MONOCYTES RELATIVE PERCENT (BEAKER) (test 9 % xkbj=587) EOSINOPHILS RELATIVE PERCENT (BEAKER) (test 2 % elbo=069) BASOPHILS RELATIVE PERCENT (BEAKER) (test 0 % notf=485) NEUTROPHILS ABSOLUTE COUNT (BEAKER) (test 7.97 K/ L 1.56-6.13 pyfv=541) LYMPHOCYTES ABSOLUTE COUNT (BEAKER) (test 1.58 K/ L 1.18-3.74 ulos=257) MONOCYTES ABSOLUTE COUNT (BEAKER) (test 0.99 K/ L 0.24-0.36 zrus=917) EOSINOPHILS ABSOLUTE COUNT (BEAKER) (test 0.19 K/ L 0.04-0.36 rqlo=891) BASOPHILS ABSOLUTE COUNT (BEAKER) (test 0.03 K/ L 0.01-0.08 xfea=256) IMMATURE GRANULOCYTES-RELATIVE PERCENT (BEAKER) 0 % 0-1 (test zbim=2433) POCT-GLUCOSE [id number] 22:51:00 Test Item Value Reference Range Comments POC-GLUCOSE METER (BEAKER) 102 mg/dL 70-110 TESTED AT [address] (test dycn=6118) [place] [id number] POCT-GLUCOSE [id number] 17:12:00 Test Item Value Reference Range Comments POC-GLUCOSE METER (BEAKER) 103 mg/dL 70-110 TESTED AT [address] (test jnro=3346) [place] [id number] POCT-GLUCOSE [id number] 13:24:00 Test Item Value Reference Range Comments POC-GLUCOSE METER (BEAKER) 93 mg/dL 70-110 TESTED AT [address] (test tgvi=7161) [place] [id number] 01:37:00 Test Item Value Reference Range Comments MAGNESIUM (BEAKER) (test mitt=909) 1.6 mg/dL 1.6-2.6 BASIC METABOLIC [id number] 01:37:00 Test Item Value Reference Range Comments SODIUM (BEAKER) (test 138 meq/L 136-145 nxgv=137) POTASSIUM (BEAKER) (test 5.0 meq/L 3.5-5.1 dzgk=996) CHLORIDE (BEAKER) (test 107 meq/L 98-107 ydtz=091) CO2 (BEAKER) (test 24 meq/L 22-29 tpnh=935) BLOOD UREA NITROGEN 17 mg/dL 7-21 (BEAKER) (test fcmk=016) CREATININE (BEAKER) (test 0.77 mg/dL 0.57-1.25 fijk=442) GLUCOSE RANDOM (BEAKER) 127 mg/dL 70-105 (test sqfa=706) CALCIUM (BEAKER) (test 8.4 mg/dL 8.4-10.2 koqf=260) EGFR (BEAKER) (test 78 mL/min/1.73 sq m ESTIMATED GFR IS NOT [id number]) ACCURATE CREATININE CLEARANCE IN PREDICTING GLOMERULAR FILTRATION RATE. ESTIMATED GFR IS NOT APPLICABLE FOR DIALYSIS PATIENTS. CBC W/PLT COUNT & AUTO [id number] 01:26:00 Test Item Value Reference Range Comments WHITE BLOOD CELL COUNT (BEAKER) (test fsrq=443) 10.0 K/ L 3.5-10.5 RED BLOOD CELL COUNT (BEAKER) (test tgrb=508) 3.65 M/ L 3.93-5.22 HEMOGLOBIN (BEAKER) (test xsuo=246) 11.9 GM/DL 11.2-15.7 HEMATOCRIT (BEAKER) (test fybh=706) 36.6 % 34.1-44.9 MEAN CORPUSCULAR VOLUME (BEAKER) (test xvyz=559) 100.3 fL 79.4-94.8 MEAN CORPUSCULAR HEMOGLOBIN (BEAKER) (test 32.6 pg 25.6-32.2 hehm=640) MEAN CORPUSCULAR HEMOGLOBIN CONC (BEAKER) (test 32.5 GM/DL 32.2-35.5 edni=058) RED CELL DISTRIBUTION WIDTH (BEAKER) (test 12.6 % 11.7-14.4 mult=142) PLATELET COUNT (BEAKER) (test tsme=647) 174 K/CU MM 150-450 MEAN PLATELET VOLUME (BEAKER) (test cdvo=493) 9.5 fL 9.4-12.3 NUCLEATED RED BLOOD CELLS (BEAKER) (test 0 /100 WBC 0-0 hrmq=722) NEUTROPHILS RELATIVE PERCENT (BEAKER) (test 89 % umjq=436) LYMPHOCYTES RELATIVE PERCENT (BEAKER) (test 7 % vxqz=022) MONOCYTES RELATIVE PERCENT (BEAKER) (test 3 % fjsm=506) EOSINOPHILS RELATIVE PERCENT (BEAKER) (test 0 % djrh=930) BASOPHILS RELATIVE PERCENT (BEAKER) (test 0 % wduw=653) NEUTROPHILS ABSOLUTE COUNT (BEAKER) (test 8.94 K/ L 1.56-6.13 xtjf=630) LYMPHOCYTES ABSOLUTE COUNT (BEAKER) (test 0.67 K/ L 1.18-3.74 uaxv=201) MONOCYTES ABSOLUTE COUNT (BEAKER) (test 0.34 K/ L 0.24-0.36 ixvs=860) EOSINOPHILS ABSOLUTE COUNT (BEAKER) (test 0.01 K/ L 0.04-0.36 rqvs=863) BASOPHILS ABSOLUTE COUNT (BEAKER) (test 0.01 K/ L 0.01-0.08 xlud=328) IMMATURE GRANULOCYTES-RELATIVE PERCENT (BEAKER) 0 % 0-1 (test tpue=2429) [place], [id number] 23:51:00Reason for exam:->abnormal liver function testFINAL REPORT Fluoroscopy. History: Intraoperative. Findings: Radiologist wasnot present for the exam. Fluoroscopy was not performed by the undersigned. Please see operative report for details. Fluoroscopy Time: 166 min.Nine images IMPRESSION:Intraoperative fluoroscopy. Please see operative report for details. Signed: Manny Contreras Verified Date/Time: 03/19/201723:51:13 Reading Location: [address] Consult Reading Room POCT-GLUCOSE [id number] 23:24:00 Test Item Value Reference Range Comments POC-GLUCOSE METER (BEAKER) 135 mg/dL 70-110 TESTED AT [address] (test uzyw=1502) [facility] [id number] BASIC METABOLIC [id number] 12:14:00 Test Item Value Reference Range Comments SODIUM (BEAKER) (test 139 meq/L 136-145 vpbm=550) POTASSIUM (BEAKER) (test 4.0 meq/L 3.5-5.1 bjll=084) CHLORIDE (BEAKER) (test 105 meq/L 98-107 lqxx=896) CO2 (BEAKER) (test 25 meq/L 22-29 ivtg=179) BLOOD UREA NITROGEN 19 mg/dL 7-21 (BEAKER) (test zenu=990) CREATININE (BEAKER) (test 0.76 mg/dL 0.57-1.25 qtey=349) GLUCOSE RANDOM (BEAKER) 83 mg/dL 70-105 (test mkrl=906) CALCIUM (BEAKER) (test 9.2 mg/dL 8.4-10.2 repc=571) EGFR (BEAKER) (test 79 mL/min/1.73 sq m ESTIMATED GFR IS NOT xbnt=2844) ACCURATE CREATININE CLEARANCE IN PREDICTING GLOMERULAR FILTRATION RATE. ESTIMATED GFR IS NOT APPLICABLE FOR DIALYSIS PATIENTS. [id number] 11:49:00 Test Item Value Reference Range Comments HEMOGLOBIN (BEAKER) (test pnog=413) 12.6 GM/DL 11.2-15.7 PREOP
[2017-05-07 12:12] LABS: Absolute Lymphocytes (CBC) 1.5 K/uL (0.7-4.9); Absolute Monocytes 0.6 K/uL (0.1-1.3); Absolute Neutrophil 4.2 K/uL (1.8-8.0); Basophils % 0.6 % (0-1.3); Eosinophils % 8.3 % (0-4.4); Hematocrit 43.3 % (36.0-45.0); Lymphocytes % 21.2 % (15.3-44.8); MCH 31.4 pg (27.0-35.0); MCV 95.7 fL (80-100); MPV 7.7 fL (7.6-11.3); RBC Red Blood Cell Count 4.52 M/uL (3.86-4.86)
[2017-05-07 12:28] LABS: Potassium 4.2 mEq/L (3.6-5.0)
[2017-05-07] MEDS ORDERED: KETOROLAC 30 MG/ML INJ ONE (12:30)
[2017-05-07] MEDS ORDERED: NA CHLORIDE 0.9% 500 ML ONE (12:30)
[2017-05-07 12:31] LABS: Albumin 4.3 g/dL (3.2-5.5); Bilirubin Total 0.5 mg/dL (0.3-1.2); Protein, Total 7.1 g/dL (6.0-8.3)
[2017-05-07] MEDS ORDERED: ONDANSETRON 4 MG/2 ML VIAL ONE (12:34)
--- NOTE | 2017-05-07 12:47 | RAD REPORT ---
EXAM DESCRIPTION: RAD - Chest Single View - 05/07/2017 12:11 pm CLINICAL HISTORY: Chest pain. COMPARISON: 11/13/2016 FINDINGS: Portable technique limits examination quality. The lungs are grossly clear. The heart is normal in size. No displaced fractures.Right-sided port cat heter is in place. Multilead pacer device noted. IMPRESSION: No acute intrathoracic process suspected.
--- NOTE | 2017-05-07 13:32 | EDPHYS ---
Physician Documentation [facility] Name: Antonietta Armando Age: 57 yrs Sex: Female : 1960 Arrival Date: 05/07/2017 Time: 09:18 Bed 23 Private MD: Lizzie Shaffer ED Physician Mark Phillips HPI: 05/07 11:49 This 57 yrs old Female presents to ER via Ambulatory with complaints of clare Swelling by port. 11:49 The patient or guardian reports chest pain that is located primarily in the substernal clare area. Onset: 3 day(s) ago. The pain does not radiate. The patient or guardian reports chest pain that is located primarily in the anterior chest wall. Onset: The symptoms/episode began/occurred 3 day(s) ago. The pain does not radiate. Associated signs and symptoms: The patient has no apparent associated signs or symptoms. The chest pain is described as. Severity of pain: At its worst the pain was moderate in the emergency department the pain is unchanged. 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 - Social history:: Smoking status: Patient/guardian denies using tobacco. - Family history:: not pertinent. ROS: 11:49 Constitutional: Negative for fever, chills, and weight loss, Eyes: Negative for injury, clare pain, redness, and discharge, ENT: Negative for injury, pain, and discharge, Neck: Negative for injury, pain, and swelling, Cardiovascular: Negative for chest pain, palpitations, and edema, Respiratory: Negative for shortness of breath, cough, wheezing, and pleuritic chest pain, Abdomen/GI: Negative for abdominal pain, nausea, vomiting, diarrhea, and constipation, Back: Negative for injury and pain, : Negative for injury, bleeding, discharge, and swelling, Skin: Negative for injury, rash, and discoloration, Neuro: Negative for headache, weakness, numbness, tingling, and seizure, Psych: Negative for depression, anxiety, suicide ideation, homicidal ideation, and hallucinations, Endocrine: Negative for neck swelling, polydipsia, polyuria, polyphagia, and marked weight changes, Hematologic/Lymphatic: Negative for swollen nodes, abnormal bleeding, and unusual bruising. 11:49 MS/extremity: Positive for pain, tenderness, of the anterior aspect of right upper chest. Exam: 11:49 Constitutional: This is a well developed, well nourished patient who is awake, alert, clare and in no acute distress. Head/Face: Normocephalic, atraumatic. Eyes: Pupils equal round and reactive to light, extra-ocular motions intact. Lids and lashes normal. Conjunctiva and sclera are non-icteric and not injected. Cornea within normal limits. Periorbital areas with no swelling, redness, or edema. ENT: Nares patent. No nasal discharge, no septal abnormalities noted. Tympanic membranes are normal and external auditory canals are clear. Oropharynx with no redness, swelling, or masses, exudates, or evidence of obstruction, uvula midline. Mucous membranes moist. Neck: Trachea midline, no thyromegaly or masses palpated, and no cervical lymphadenopathy. Supple, full range of motion without nuchal rigidity, or vertebral point tenderness. No Meningismus. Cardiovascular: Regular rate and rhythm with a normal S1 and S2. No gallops, murmurs, or rubs. Normal PMI, no JVD. No pulse deficits. Respiratory: Lungs have equal breath sounds bilaterally, clear to auscultation and percussion. No rales, rhonchi or wheezes noted. No increased work of breathing, no retractions or nasal flaring. Abdomen/GI: Soft, non-tender, with normal bowel sounds. No distension or tympany. No guarding or rebound. No evidence of tenderness throughout. Back: No spinal tenderness. No costovertebral tenderness. Full range of motion. Female : Normal external genitalia. Skin: Warm, dry with normal turgor. Normal color with no rashes, no lesions, and no evidence of cellulitis. MS/ Extremity: Pulses equal, no cyanosis. Neurovascular intact. Full, normal range of motion. Neuro: Awake and alert, GCS 15, oriented to person, place, time, and situation. Cranial nerves II-XII grossly intact. Motor strength 5/5 in all extremities. Sensory grossly intact. Cerebellar exam normal. Normal gait. Psych: Awake, alert, with orientation to person, place and time. Behavior, mood, and affect are within normal limits. 11:49 Chest/axilla: Inspection: normal, Palpation: tenderness, that is mild, that is moderate, of the right clavicle and anterior aspect of right upper chest. 11:49 Musculoskeletal/extremity: Extremities: all appear grossly normal, with no appreciated pain with palpation, DVT Exam: No signs of deep vein thrombosis. no pain, no swelling, no tenderness, negative Homans' sign noted on exam, no appreciated bluish discoloration, no erythema, no increased warmth. Vital Signs: 09:27 BP 118 / 97; Pulse 78; Resp 16; Temp 97.6(TE); Pulse Ox 98% on R/A; Weight 74.84 kg; ss Height 5 ft. 2 in. (157.48 cm); Pain 5/10; 12:24 BP 140 / 91; Pulse 70; Resp 16; Pulse Ox 99% on R/A; Pain 5/10; ss 09:27 Body Mass Index 30.18 (74.84 kg, 157.48 cm) MDM: 10:41 Patient medically screened. [facility] 11:52 Data reviewed: vital signs, nurses notes, lab test result(s), radiologic studies, plain clare films. 05/07 11:00 Order name: Urine Dipstick--Ancillary (enter results) 05/07 11:44 Order name: CBC with Diff [facility] 05/07 11:44 Order name: Comprehensive Metabolic Panel [facility] 05/07 11:44 Order name: Sed Rate [facility] 05/07 11:45 Order name: CBC with Automated Diff; Complete Time: 13:29 [facility] 05/07 11:45 Order name: Comprehensive Metabolic Panel; Complete Time: 12:35 [facility] 05/07 11:44 Order name: Chest Single View XRAY; Complete Time: 13:29 [facility] 05/07 11:45 Order name: Sedimentation Rate, Westergren; Complete Time: 13:29 [facility] 05/07 11:48 Order name: Blood Culture Adult (2) [facility] 05/07 11:48 Order name: Procalcitonin; Complete Time: 13:29 [facility] Administered Medications: 12:19 Drug: NS 0.9% 500 ml Route: IV; Rate: bolus; Site: left antecubital; 13:42 Follow up: IV Status: Completed infusion; IV Intake: 500ml ss 12:20 Drug: Zofran 4 mg Route: IVP; Site: left antecubital; ss 13:03 Follow up: Response: No adverse reaction; Nausea is decreased ss 12:23 Drug: TORadol 30 mg Route: IVP; Site: left antecubital; ss 13:04 Follow up: Response: No adverse reaction; Pain is unchanged, physician notified ss 13:42 Not Given (pt refused): morphine 2 mg IVP once ss 13:42 Not Given (pt refused): morphine 2 mg IVP once ss Disposition: 05/07/17 13:31 Discharged to Home. Impression: Chest pain, unspecified - right sternoclavicular area. - Condition is Stable. - Discharge Instructions: Chest Wall Pain, Chest Wall Pain, [id number]. - Prescriptions for Children's Motrin 100 mg/5 mL Oral Suspension - take 10 milliliter by ORAL route every 6 hours As needed; 200 milliliter. Tramadol 50 mg Oral Tablet - take 1 tablet by ORAL route every 8 hours as needed; 24 tablet. - Medication Reconciliation Form, Thank You Letter, Antibiotic Education, Prescription Opioid Use form. - Follow up: Lizzie Shaffer MD; When: 2 - 3 days; Reason: Recheck today's complaints, Continuance of care, Re-evaluation by your physician. - Problem is new. - Symptoms have improved. Signatures: Dispatcher [employer] Mark Enriquez MD MD cha Smirch, Shelby, RN RN ss
--- NOTE | 2017-05-07 13:32 | ER ---
Nurse's Notes [facility] Name: Antonietta Armando Age: 57 yrs Sex: Female : 1960 Arrival Date: 05/07/2017 Time: 09:18 Bed 23 Private MD: Lizzie Shaffer Diagnosis: Chest pain, unspecified-right sternoclavicular area Presentation: 05/07 09:25 Presenting complaint: Patient states: pain and swelling to R anterior chest port o cath ss x 2 days. Last accessed on 03/19 and dc'd 03/25. Pt reports pain and swelling began two days ago. Denies fever. Transition of care: patient was not received from another setting of care. Onset of symptoms was May 05, 2017. Care prior to arrival: None. 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 - Social history:: Smoking status: Patient/guardian denies using tobacco. - Family history:: not pertinent. Screenin:00 Abuse screen: Denies threats or abuse. Denies injuries from another. Nutritional ss screening: No deficits noted. Tuberculosis screening: Never had TB. Fall Risk None identified. Assessment: 11:00 General: Appears comfortable, Behavior is calm, cooperative, Denies fever, feeling ill, ss fatigue, chills. Pain: Complains of pain in right supraclavicular area and right clavicle Pain currently is 5 out of 10 on a pain scale. Quality of pain is described as tender, Pain began 2 days ago, worse with palpation. Is continuous. Neuro: Level of Consciousness is awake, alert, obeys commands, Oriented to person, place, time, situation. Cardiovascular: Heart tones S1 S2 present Capillary refill < 3 seconds is brisk in bilateral fingers Patient's skin is warm and dry. Respiratory: Airway is patent Respiratory effort is even, unlabored. GI: No signs and/or symptoms were reported involving the gastrointestinal system. : No signs and/or symptoms were reported regarding the genitourinary system. EENT: Oral mucosa is moist. Derm: Skin is intact, is healthy with good turgor, Skin is pink, warm \T\ dry. normal. Musculoskeletal: Swelling mild swelling noted to R clavicle area where pain is noted to be. 13:17 Reassessment: Patient appears in no apparent distress at this time. Patient and/or ss family updated on plan of care and expected duration. Pain level reassessed. after multiple attempts of attempting to obtain second set of blood cultures, lab unable to collect. Dr. Phillips notified and order canceled. Patient reports that she is feeling better after medication administration. CAll light remains within reach. Awaiting disposition. Patient states feeling better. Vital Signs: 09:27 BP 118 / 97; Pulse 78; Resp 16; Temp 97.6(TE); Pulse Ox 98% on R/A; Weight 74.84 kg; ss Height 5 ft. 2 in. (157.48 cm); Pain 5/10; 12:24 BP 140 / 91; Pulse 70; Resp 16; Pulse Ox 99% on R/A; Pain 5/10; ss 09:27 Body Mass Index 30.18 (74.84 kg, 157.48 cm) ss ED Course: 09:18 Patient arrived in ED. as 09:18 Lizzie Shaffer MD is Private Physician. as 09:27 Triage completed. ss 09:27 Arm band placed on right wrist. ss 10:41 Mark Phillips MD is Attending Physician. clare 11:00 Patient has correct armband on for positive identification. Placed in gown. Bed in low ss position. Call light in reach. Side rails up X 1. Pulse ox on. NIBP on. Warm blanket given. 11:46 Sophia Avila, IONA is Primary Nurse. ss 12:04 Inserted saline lock: 24 gauge in left antecubital area, using aseptic technique. Blood ss collected. 12:11 X-ray completed. Portable x-ray completed in exam room. Patient tolerated procedure jb2 well. 12:12 Chest Single View XRAY In Process Unspecified. EDMS 13:30 Lizzie Shaffer MD is Referral Physician. clare 13:43 No provider procedures requiring assistance completed. IV discontinued, intact, ss bleeding controlled, No redness/swelling at site. Pressure dressing applied. Sling applied to right arm. Administered Medications: 12:19 Drug: NS 0.9% 500 ml Route: IV; Rate: bolus; Site: left antecubital; ss 13:42 Follow up: IV Status: Completed infusion; IV Intake: 500ml ss 12:20 Drug: Zofran 4 mg Route: IVP; Site: left antecubital; ss 13:03 Follow up: Response: No adverse reaction; Nausea is decreased ss 12:23 Drug: TORadol 30 mg Route: IVP; Site: left antecubital; ss 13:04 Follow up: Response: No adverse reaction; Pain is unchanged, physician notified ss 13:42 Not Given (pt refused): morphine 2 mg IVP once ss 13:42 Not Given (pt refused): morphine 2 mg IVP once ss Intake: 13:42 IV: 500ml; Total: 500ml. ss Outcome: 13:31 Discharge ordered by . clare 13:43 Discharged to home ambulatory. 13:43 Condition: good 13:43 Discharge instructions given to patient, Instructed on discharge instructions, follow up and referral plans. medication usage, Demonstrated understanding of instructions, follow-up care, medications, Prescriptions given X 2. 13:43 Patient left the ED. ss Signatures: Dispatcher [employer] EDMark Perdomo MD MD cha Buechter, Jesse jb2 Martinez, Amelia as Smirch, Shelby, IONA RN ss
[2017-05-07 13:48] VITALS: TEMP 97.6
[2017-05-07 13:49] VITALS: BP 140/91; O2SAT 99
[2017-05-07 14:41] LABS: Urine Blood NEGATIVE (NEG); Urine Glucose NEGATIVE (NEG); Urine Protein NEGATIVE (NEG); Urine pH 5.5 (5.0-7.0)
== END 2017-05-07 13:43 | disposition home or self-care (01) ==
LOC: ER 09:15
DX: Z88.5 Allergy status to narcotic agent; G35 Multiple sclerosis; Z95.0 Presence of cardiac pacemaker; R07.89 Other chest pain; Z88.8 Allergy status to other drugs, medicaments and biological substances
CPT/HCPCS: 36415; 71045; 80053; 81003; 84145; 85025; 85652; 87040; 96361; 96374; 96375; 99284; J2405

== ENCOUNTER 2017-08-17 08:55 | Emergency (ER) | payer OTHER ==
--- OUTSIDE RECORDS SUMMARY | 2017-08-17 08:57 | XMS REPORT | Clinical Summary ---
:1960 Author Organization [facility] Address [address] [place] [address] Care Team Providers Name Role Phone Lizzie Shaffer MD Primary Care Provider Allergies Active Allergy Reactions Severity Noted Date Comments Chlorhexidine Rash Low 12/01/2014 blisters Hydrocodone-Acetaminophen Hives 10/24/2010 Can tolerate acetaminophen Can tolerate acetaminophen Tramadol Hives 09/25/2015 Current Medications Prescription Sig. Disp. Refills Start Date End Date Status diltiazem CD (CARTIA XT) TAKE 1 CAPSULE BY 01/30/2016 Active 120 MG 24 hr capsule MOUTH DAILY escitalopram (LEXAPRO) 10 Take 10 mg by Active MG tablet mouth. pantoprazole (PROTONIX) 40 Take 40 mg by 09/21/2015 Active MG EC tablet mouth. zolpidem (AMBIEN) 10 mg Take 10 mg by Active tablet mouth. cholecalciferol, vitamin Take 5,000 Units Active D3, (VITAMIN D3) 5,000 by mouth. unit capsule glatiramer (COPAXONE) 40 Inject 40 mg under 11/03/2015 Active mg/mL syringe the skin. nitroglycerin (NITROSTAT) Place 1 tablet Active 0.4 MG SL tablet under the tongue. ALPRAZolam (XANAX) 0.5 MG TK 1 T PO D PRN. 2 02/24/2016 Active tablet ondansetron ODT Take 4 mg by mouth Active (ZOFRAN-ODT) 4 MG every 8 (eight) disintegrating tablet hours as needed for nausea or vomiting. CALCIUM ORAL Take 1 tablet by Active mouth daily. Active Problems Problem Noted Date S/P laparoscopic surgery 05/04/2016 Encounters Date Type Specialty Care Team Description 04/30/2017 Procedure Pass Gastroenterology after 08/16/2016 Family History Medical History Relation Name Comments Throat cancer Father Pulmonary fibrosis Maternal Aunt Diabetes Mother Heart disease Mother Pulmonary fibrosis Mother Relation Name Status Comments Father Maternal Aunt Mother Social History Tobacco Use Types Packs/Day Years Used Date Never Smoker Smokeless Tobacco: Never Used Alcohol Use Drinks/Week oz/Week Comments No Sex Assigned at Date Recorded Not on file Last Filed Vital Signs Not on file Plan of Treatment Health Maintenance Due Date Last Done Comments CERVICAL CANCER SCREENING 1981 BREAST CANCER SCREENING 2010 COLON CANCER SCREENING 2010 SHINGRIX VACCINE (#1) 2010 INFLUENZA VACCINE 09/10/2017 09/13/2013 Implants Implanted Type Area Roll Dough Divider Device Expiration Model / Identifier Date Serial / Lot Pacemaker-05/18/2015 Pacemaker Subclavian [id number] / Implanted: 05/18/2015 (Quantity not on file) [id number] / Dilator Baln Fxdwr [id number] 12-13.5-15mm Cre - [id number] Surgical N/A: N/A [facility] ENDOSCOPY [id number] / Implanted: 04/17/2016 (Quantity not on file) Implants; / Expanders; Extenders; Surgical Wires Results Not on fileafter 08/16/2016 Insurance Payer Benefit Plan / Group Subscriber ID Type Phone Address MEDICARE MEDICARE PART A AND B xxxxxxxxxx Medicare [place] MEDICA[place] MEDICAID xxxxxxxxx Medicaid Home: [address] [phone] [place] [id number]
--- OUTSIDE RECORDS SUMMARY | 2017-08-17 08:58 | XMS REPORT | Clinical Summary ---
:1960 Author Organization [facility] Address [address] [place] [address] Phone Care Team Providers Name Role Phone [...] pain, unspecified Rossy type;History of Abolfathian, cholecystectomy;S/ P ERCP;Status post Evelyn Walters balloon dilatation MD Rei of esophageal stricture 03/19/2017 Procedure Pass Gastroenterology 03/19/2017 Surgery Gastroenterology Shoshana Julian ERCP,BILIARY STENT MD Edward 03/18/2017 Anesthesia Event Gastroenterology Spring Luna MD 03/13/2017 Hospital Encounter Pre-Admission Testing Shoshana Julian MD after 08/16/2016 Social History Tobacco Use Types Packs/Day Years [...] Not on file Implants Implanted Type Area Exec. Creative Director Device Identifier Expiration Date Model / Serial / Lot Advisa Dr Héctor Riley / [id number] [employer] 09/23/2016 [id number] / Implanted: Qty: 1 on 05/18/2015 [id number] / Explanted Type Area Exec. Creative Director Device Expiration Date Model / Identifier Serial / Lot Sys Del Axios Stent [id number] - [id number] Stents-Pe [employer] 2018 [id number] / Implanted: Qty: 1 on 03/19/2017 by Shoshana Julian MD ripheral / Explanted: Qty: 1 on 04/30/2017 Procedures Procedure Name Priority Date/Time Associated Diagnosis Comments UPPER ENDOSCOPY 04/30/2017 1:00 PM CDT Bile duct disease Special Needs (OVERSTITCH) ERCP,BALLOON SWEEPING 03/19/2017 1:00 PM SHIPFITTER Abnormal results of liver function studies Case Notes Doctor req 90 minutes for this surgery Special Needs (FLUORO, LINEAR SCOPE) PROCEDURE W/ C-ARM 03/19/2017 1:00 PM SHIPFITTER Abnormal results of liver function studies Case Notes Doctor req 90 minutes for this surgery Special Needs (FLUORO, LINEAR SCOPE) UPPER ENDOSCOPY,FNA 03/19/2017 1:00 PM SHIPFITTER Abnormal results of liver W/ULTRASOUND function studies Case Notes Doctor req 90 minutes for this surgery Special Needs (FLUORO, LINEAR SCOPE) ERCP,BILIARY STENT 03/19/2017 1:00 PM SHIPFITTER Abnormal results of liver function studies Case Notes Doctor req 90 minutes for this surgery Special Needs (FLUORO, LINEAR SCOPE) after 08/16/2016 Results ARRYTHMIA IMPLANT REPORT - SCAN (06/13/2017 9:30 AM)Only the most recent of2 resultswithin the time period is included.REPORT OF PROCEDURE - ENDOSCOPY URL ( 05/06/2017 9:38 AM)Only the most recent of2 resultswithin the time period is included.RHYTHM STRIP - SCAN (03/27/2017 11:32 AM)Only the most recent of2 resultswithin the time period is included.POC-Glucose meter (03/25/2017 8:21 AM )Only the most recent of20 resultswithin the time period is included. Component Value Ref Range POC-Glucose Meter 73Comment: TESTED AT [address] 70 - 110 mg/dL [address] Specimen Performing Laboratory Blood [facility] [address] [address] CBC with platelet count + automated diff [...] Specimen Performing Laboratory Blood - Line, Venous [address] [address] CBC with platelet count + automated diff (03/25/2017 5:05 AM)Only the most recent of6 resultswithin the time period is included. Specimen Performing Laboratory Blood Narrative The following orders were created for panel order CBC with platelet count + automated diff. Procedure Abnormality Status --------- ------ CBC with platelet count ...[[id number]]AbnormalFinal result Please view results for these tests on the individual orders. Magnesium (03/25/2017 5:05 AM)Only the most recent of6 resultswithin the time period is included. Component Value Ref Range Magnesium 1.6 1.6 - 2.6 mg/dL Specimen Performing Laboratory Blood - Line, Venous [address] [address] Basic Metabolic Panel (03/25/2017 5:05 AM)Only the [...] Performing Laboratory Blood - Line, Venous [facility] [address] [address] [address] abdomen/pelvis without iv contrast (03/25/2017 12:08 [...] MD Report Verified Date/Time:03/25/2017 08:00:47 Reading Location: [facility] Diagnostic Imaging Reading Room - [place] [address] Procedure Note Interface, External Ris In - 03/25/2017 8:03 AM SHIPFITTER FINAL REPORT CT of the abdomen and [...] Report Verified Date/Time: 03/25/2017 08:00:47 Reading Location: [facility] Diagnostic Imaging Reading Room - [place] [address] Urinalysis w/Microscopic + Reflex to Culture (03/23/2017 6:03 PM) Component Value Ref Range Color, UA Light Yellow Clarity, UA Clear Specific [place], UA 1.006 1.001 - 1.035 pH, UA [...] Performing Laboratory Urine - Urine, Sterile Collection [address] [address] XR abdomen / KUB 1 view (03/23/2017 [...] MD Report Verified Date/Time:03/23/2017 12:49:51 Reading Location: [address] Transitional Reading Room Procedure Note Interface, External Ris In - 03/23/2017 12:52 PM SHIPFITTER FINAL REPORT Technique: Frontal images of the abdomen COMPARISON: 03/19/2015 FINDINGS: Bowel gas pattern is nonspecific. Some residual contrast in the colon seen. No gross free intraperitoneal air. A stent projects in the upper abdomen centrally. No acute skeletal abnormality. Signed: Joby Hoffman MD Report Verified Date/Time: 03/23/2017 12:49:51 Reading Location: [address] Transitional Reading Room 12 lead (03/23/2017 11:22 AM)Only the most recent of2 resultswithin the time period is included. Specimen Performing Laboratory GE MUSE Narrative Ventricular Rate 65 BPM Atrial Rate 65 BPM P-R Interval 140 ms QRS Duration 78 ms Q-T Interval 400 ms QTC Calculation(Bazett) 416 ms P [place] 28 degrees R [place] 23 degrees T [place] 22 degrees Normal sinus rhythm Normal ECG When compared with ECG of21 Mar 2017 Sinus rhythm replaced electronic atrial pacing Confirmed by MD BAZZI YOCHAI ([id number]) on 03/24/2017 6:50:30 AM Procedure Note Interface, External Ris In - 03/24/2017 6:50 AM SHIPFITTER Ventricular Rate 65 BPM Atrial Rate 65 BPM P-R Interval 140 ms QRS Duration 78 ms Q-T Interval 400 ms QTC Calculation(Bazett) 416 ms P [place] 28 degrees R [place] 23 degrees T [place] 22 degrees Normal sinus rhythm Normal ECG When compared with ECG of 21 Mar 2017 Sinus rhythm replaced electronic atrial pacing Confirmed by MD BAZZI YOCHAI ([id number]) on 03/24/2017 6:50:30 AM Lipase (03/23/2017 4:53 AM)Only the most recent of4 resultswithin the time period is included. Component Value Ref Range Lipase 71 8 - 78 U/L Specimen Performing Laboratory [place] [address] Amylase (03/23/2017 4:53 AM)Only the most recent of4 resultswithin the time period is included. Component Value Ref Range Amylase 93 25 - 125 U/L Specimen Performing Laboratory Blood [address] [address] Hepatic function panel (03/23/2017 4:53 AM)Only the [...] - 55 U/L Specimen Performing Laboratory Blood [address] [address] ECHOCARDIOGRAM REPORT - SCAN (03/22/2017 2:20 PM)Troponin I (03/21/2017 4:33 PM)Only the most recent of3 resultswithin the time period is included. Component Value Ref Range Troponin I <0.01 0.00 - 0.03 ng/mL Specimen Performing Laboratory Blood - Central Venous Line [address] [address] Narrative Troponin I (TnI) levels must be [...] Performing Laboratory Blood - Central Venous Line [address] [address] Narrative CK-MB Reference Range: <6.7Normal 6.7-10.0Borderline >10.0 Abnormal Limited 2D Echocardiogram (03/21/2017 3:28 PM) Component Value Ref Range Ejection Fraction Specimen Performing Laboratory [facility] ECHO HEARTLAB MKCKPETER CPA Narrative Transthoracic Echocardiography Report (TTE) Demographics Patient Name Wagner ARMANDOte of Study 03/21/2017 RHEA [id number] GenderFemale Visit Number [id number] RaceCaucasian [id number] Number [id number] Number Date of Birth1960 Referring Physician Evelyn Walters MD Age56 year(s) Design Engineering Intern Tawanna Tee [facility] AnalystIzostacy Barth Interpreting Physician LEONARDA Reyna Procedure [...] External Ris In - 03/22/2017 1:51 PM SHIPFITTER Transthoracic Echocardiography Report (TTE) Demographics Patient Name ANTONIETTA ARMANDO Date of Study 03/21/2017 RHEA Gender Female Visit Number [id number] Race Room Number [id number] Number Date of 1960 Referring Physician Evelyn Walters MD Age 56 year(s) Design Engineering Intern Tawanna Tee, [facility] Wastewater Engineer Mariah Barth Interpreting Cesar Durham Physician Procedure Type of Study TTE procedure:LIMITED 2D [...] bedside (03/21/2017 9:49 AM) Specimen Performing Laboratory [facility] RIS Narrative FINAL REPORT Chest one view AP 03/21/2017 9:51 AM CLINICAL INDICATION: chest pain COMPARISON: 07/04/2015 IMPRESSION: Bibasilar subsegmental opacities suggest atelectasis. Cardiomediastinal contours are within normal limits. The central pulmonary vasculature is not engorged. Signed: Eric Nichols MD Report Verified Date/Time:03/21/2017 09:52:14 Reading Location: [facility] Radiology Reading Room Procedure Note Interface, External Ris In - 03/21/2017 9:54 AM SHIPFITTER FINAL REPORT Chest one view AP 03/21/2017 9:51 AM CLINICAL INDICATION: chest pain COMPARISON: 07/04/2015 IMPRESSION: Bibasilar subsegmental opacities suggest atelectasis. Cardiomediastinal contours are within normal limits. The central pulmonary vasculature is not engorged. Signed: Eric Nichols MD Report Verified Date/Time: 03/21/2017 09:52:14 Reading Location: [facility] Radiology Reading Room Endoscopic Retrograde Cholangiopancreatography (03/19/2017 2:50 PM) Specimen Performing Laboratory [facility] Narrative FINAL REPORT Fluoroscopy. History: Intraoperative. Findings:Radiologist was not present for the exam.Fluoroscopy was not performed by the undersigned. Please see operative report for details. Fluoroscopy Time: 166 min. Nine images IMPRESSION: Intraoperative fluoroscopy. Please see operative report for details. Signed: Manny Contreras MD Report Verified Date/Time:03/19/2017 23:51:13 Reading Location: [address] Consult Reading Room Procedure Note Interface, External Ris In - 03/19/2017 11:53 PM SHIPFITTER FINAL REPORT Fluoroscopy. History: Intraoperative. Findings: Radiologist was not present for the exam. Fluoroscopy was not performed by the undersigned. Please see operative report for details. Fluoroscopy Time: 166 min. Nine images IMPRESSION: Intraoperative fluoroscopy. Please see operative report for details. Signed: Manny Contreras MD Report Verified Date/Time: 03/19/2017 23:51:13 Reading Location: [address] Consult Reading Room Hemoglobin (03/19/2017 11:28 AM) Component Value Ref Range Hemoglobin 12.6 11.2 - 15.7 GM/DL Specimen Performing Laboratory Blood [facility] [address] [address] Narrative PREOP after 08/16/2016
--- OUTSIDE RECORDS SUMMARY | 2017-08-17 08:58 | XMS REPORT | Continuity of Care Document ---
:1960 Author Organization Interface Problems Problem Status Onset Classification Date Comments Source Date Reported UNK Active 05/31/19 [facility] 18 Altered mental Active Problem 06/21/2017 [facility] status Bradycardia Active Problem 06/21/2017 [facility] Depression Active Problem 06/21/2017 [facility] H/O: obesity Resolved Problem 06/21/2017 [facility] History of Active Problem 06/21/2017 [facility] laparoscopic gastric banding device Hypertension Active Problem 06/21/2017 [facility] Anemia, iron Active Problem 06/21/2017 [facility] deficiency Anxiety and Active Problem 06/21/2017 [facility] depression MS (<span Active Problem 06/21/2017 [facility] ID="[id number]">Confirmed</s lambert>) 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 Apnea, sleep Resolved Problem 06/21/2017 [facility] Syncope Active Problem 06/21/2017 [facility] Medications Medication Details Route Status Patient Ordering Order Source Instructions Provider Date Fentanyl 25 Inactive microgram2017 [facility] Route: IVP, ONCE, Dosing Weight 76.864, kg, Start date: 06/18/17 10:14:00 CDT, Stop date: 06/18/17 10:14:00 CDT Fentanyl 25 Inactive microgram, 2017 [facility] Route: IVP, ONCE, Dosing Weight 76.864, kg, Start date: 06/18/17 10:01:00 CDT, Stop date: 06/18/17 10:01:00 CDT Fentanyl 25 Inactive microgram, 2017 [facility] Route: IVP, ONCE, Dosing Weight 76.864, kg, Start date: 06/18/17 9:53:00 CDT, Stop date: 06/18/17 9:53:00 CDT Fentanyl 25 Inactive microgram, 2017 [facility] Route: IVP, ONCE, Dosing Weight 76.864, kg, Start date: 06/18/17 9:48:00 CDT, Stop date: 06/18/17 9:48:00 CDT metoclopramide Route: IV, Inactive (ANES) Drug form: 2017 [facility] INJ, ONCE, Stop date: 06/18/17 9:30:00 CDT ePHEDrine (ANES) Route: IV, Inactive Drug form: 2017 [facility] INJ, ONCE, Stop date: 06/18/17 9:30:00 CDT ceFAZolin (ANES) Route: IV, Inactive Drug form: 2017 [facility] INJ, ONCE, Stop date: 06/18/17 9:30:00 CDT propofol (ANES) Route: IV, Inactive Drug form: 2017 [facility] INJ, ONCE, Stop date: 06/18/17 9:30:00 CDT ondansetron Route: IV, Inactive (ANES) Drug form: 2017 [facility] INJ, ONCE, Stop date: 06/18/17 9:30:00 CDT lidocaine (ANES) Route: IV, Inactive Drug form: 2017 [facility] INJ, ONCE, Stop date: 06/18/17 9:30:00 CDT fentaNYL (ANES) Route: IV, Inactive Drug form: 2017 [facility] INJ, ONCE, Stop date: 06/18/17 9:30:00 CDT midazolam (ANES) Route: IV, Inactive Drug form: 2017 [facility] SOLN, ONCE, Stop date: 06/18/17 9:30:00 CDT Acetaminophen 650 mg, Inactive Route: PO, 2017 [facility] Drug form: TAB, Q4H, Dosing Weight 76.864, kg, PRN Pain 1-3/Temp > 100.4 F, Start date: 06/18/17 9:21:00 CDT, Duration: 30 day, Stop date: 07/18/17 9:20:00 CDT Morphine 2 mg, Route: Inactive IVP, Q3H, 2017 [facility] Dosing Weight 76.864, kg, PRN Pain Score 1-3, Start date: 06/18/17 9:21:00 CDT, Duration: 30 day, Stop date: 07/18/17 9:20:00 CDT Calcium Chloride 1,000 mL, Inactive 0.0014 MEQ/ML / Rate: 25 2017 [facility] Potassium ml/hr, Chloride 0.004 Infuse over: MEQ/ML / Sodium 40 hr, Chloride 0.103 Route: IV, MEQ/ML / Sodium Dosing Lactate 0.028 Weight MEQ/ML 76.864 kg, Injectable Total Solution Volume: 1,000, Start date: 06/18/17 8:48:00 CDT, Duration: 30 day, Stop date: 07/18/17 8:47:00 CDT, 1.86, m2 Lactated Ringers Route: IV, Inactive Injection IV Total 2017 [facility] (ANES) 1000 mL Volume: 1,000, Start date: 06/18/17 8:32:00 CDT, Stop date: 06/18/17 9:32:00 CDT ondansetron 4 mg 4 mg=1 tab, Active oral tablet PO, PRN, 0 2017 [facility] Refill(s) 1 ML glatiramer SUB-Q, 3x/ Active acetate 40 MG/ML week, 0 2017 [facility] Prefilled Refill(s) Syringe [Copaxone] 24 HR Diltiazem 120 mg=1 Active Hydrochloride cap, PO, 2017 120 MG Extended Daily, # 30 Release Capsule cap, 0 [Cartia] Refill(s) zolpidem 10 mg 10 mg=1 tab, Active oral tablet PO, Bedtime, 2017 0 Refill(s) Doxepin 6 MG 6 mg=1 tab, Active Oral Tablet PO, Bedtime, 2017 [Silenor] 0 Refill(s) pantoprazole 40 40 mg=1 tab, Active MG Enteric PO, Daily, # 2018 Coated Tablet 30 tab, 0 [Protonix] Refill(s) mirtazapine 7.5 7.5 mg=1 Active mg oral tablet tab, PO, 2017 Bedtime, # 30 tab, 0 Refill(s) Vancomycin 1 gm, Route: No Longer IVPB, Drug Active 2017 form: INJ, PRE OP, Dosing Weight 72.5, kg, Start date: 06/11/17 10:00:00 CDT, Duration: 1 day, Stop date: 06/12/17 9:59:00 CDT, ABX Indication: Surgical ProphylaxisN otes: TIME CRITICAL MEDICATION (Same As: Vancocin) Infusion rate 2001 mg: infuse over 2.5 hours For adult patients only: Round to nearest 250 mg per Medical Staff approval MEDICATION WASTE Product Size: 1000 mg Product Wasted: ___ mg Ancef + sterile 2 gm, Route: No Longer water 20 mL IV, PRE OP, Active 2017 [facility] Dosing Weight 72.5, kg, Start date: 06/11/17 10:00:00 CDT, Duration: 1 day, Stop date: 06/12/17 9:59:00 CDT, ABX Indication: Surgical ProphylaxisN otes: (Same As: Ancef, Kefzol) MEDICATION WASTE Product Size: 1000 mg Product Wasted: ___ mg Allergies, Adverse Reactions, Alerts Substance Category Reaction Severity Reaction Status Date Comments Source type Reported vicodin Assertion hives Drug Active MH allergy [facility] chlorhexidine Assertion Drug Active MH containing allergy [facility] compounds traMADol Assertion Drug Active MH allergy [facility] Immunizations Immunization Date Given Site Status Last Updated Comments Source Results Order Name Results Value Reference Date Interpretation Comments Source Range Chest 1 v Chest 1 v Portable chest: There has been interval exchange of the right jugular Port-A-Cath since 06/11/2017 with the tip of the catheter at the cavoatrial junction. There is no evidence of pneumothorax. The left 06/18 [facility] for for subclavian pacemaker leads remain in place. The lungs and pleural spaces are clear. There is no other significant change. - [facility] Placement Placement DX DX Read by: Andreas Green MD SL [id number] Dictated Date/time: 06/18/17 10:31 Electronically Signed by: Andreas Green MD 06/18/17 10:34 FINAL REPORT BLOOD BANK ABO/Rh O POS 06/11 RESULTS /2017 [facility] BLOOD BANK Antibody Negative 06/11 RESULTS Scrn [facility] (06/11/17 10:10 AM) ELECTROLYT AGAP 14.3 meq/L 10.0 - 06/11 ES 20.0 [facility] ELECTROLYT eGFR 69 06/11 Result Comment: The eGFR is calculated using the CKD-EPI formula. In most young, healthy individuals the eGFR will be >90 mL/ min/1.73m2. The eGFR declines with age. An eGFR of 60-89 may be normal in [facility] mL/min/1. some populations, particularly the elderly, for whom the CKD-EPI formula has not been extensively validated. Use of the eGFR is not recommended in the following populations: [facility] 3m2 Individuals with unstable creatinine concentrations, including patients and those with serious co-morbid conditions. Patients with extremes in muscle mass or diet. The data above are obtained from the National Kidney Disease Education Program (NKDEP) which additionally recommends that when the eGFR is used in patients with extremes of body mass index for purposes of drug dosing, the eGFR should be multiplied by the estimated BMI. ELECTROLYT CO2 27 meq/L 24 - 32 06/11 [facility] ELECTROLYT Potassium 4.3 meq/L 3.5 - 5.1 06/11 [facility] Lvl [facility] ELECTROLYT Calcium Lvl 9.3 mg/dL 8.5 - 10.5 06/11 [facility] ELECTROLYT Sodium Lvl 143 meq/L 135 - 145 06/11 [facility] ELECTROLYT Creatinine 0.93 mg/dL 0.50 - 06/11 [facility] Lvl 1.40 [facility] ELECTROLYT Chloride Lvl 106 meq/L 95 - 109 06/11 ES [facility] ELECTROLYT BUN 25 mg/dL 7 - 22 06/11 [facility] ELECTROLYT Glucose Lvl 91 mg/dL 70 - 99 06/11 [facility] HEMATOLOGY INR 0.91 0.85 - 06/11 1.17 [facility] HEMATOLOGY PT 12.3 s 12.0 - 06/11 14.7 [facility] HEMATOLOGY WBC 6.7 K/CMM 3.7 - 10.4 06/11 [facility] HEMATOLOGY RBC 4.77 M/CMM 4.20 - 06/11 5.40 [facility] HEMATOLOGY Hgb 15.1 g/dL 12.0 - 06/11 16.0 [facility] HEMATOLOGY MCHC 33.3 g/dL 32.0 - 06/11 36.0 [facility] MCH 31.6 pg 27.0 - 06/11 31.0 [facility] HEMATOLOGY MCV 95.0 fL 80.0 - 06/11 98.0 [facility] HEMATOLOGY Hct 45.3 % 36.0 - 06/11 48.0 /2017 [facility] HEMATOLOGY RDW 13.4 % 11.5 - 06/11 14.5 [facility] HEMATOLOGY MPV 7.4 fL 7.4 - 10.4 06/11 [facility] HEMATOLOGY Platelet 219 K/CMM 133 - 450 06/11 [facility] HEMATOLOGY Segs-Bands # 4.2 K/CMM 1.5 - 8.1 06/11 [facility] HEMATOLOGY Monocytes # 0.7 K/CMM 0.0 - 0.8 06/11 [facility] HEMATOLOGY Lymphocytes 1.6 K/CMM 1.0 - 5.5 06/11 [facility] HEMATOLOGY Eosinophils 0.3 K/CMM 0.0 - 0.5 06/11 [facility] HEMATOLOGY Eosinophils 3.8 % 0.0 - 4.0 06/11 [facility] HEMATOLOGY Basophils 0.7 % 0.0 - 1.0 06/11 [facility] HEMATOLOGY Segs 61.9 % 45.0 - 06/11 75.0 [facility] Lymphocytes 23.0 % 20.0 - 06/11 40.0 [facility] HEMATOLOGY Monocytes 10.6 % 2.0 - 12.0 06/11 [facility] Chest 2 Chest 2 PA and lateral chest: A right jugular Port-A-Cath and left subclavian dual-lead pacemaker seen in satisfactory position, showing interval placement since 09/12/2010. The cardiomediastinal silhouette, pu 06/11 - views DX views DX lmonary vasculature and mariah are otherwise within normal limits. The lungs and pleural spaces are clear. There are no significant osseous abnormalities. There is no other significant change compared to 2017 - the previous exam, other than removal of a right subclavian pacemaker seen on the previous study. Read by: Andreas Green MD Dictated Date/time: 06/11/17 11:00 IMPRESSION: Electronically Signed by: Andreas Green MD 06/11/17 11:03 FINAL REPORT No acute radiographic abnormalities in the chest. [id number] Vital Signs Vital Sign Value Date Comments Source Systolic (mm Hg) 121 06/18/2017 [facility] Diastolic (mm Hg) 82 06/18/2017 [facility] Systolic (mm Hg) 122 06/18/2017 [facility] Diastolic (mm Hg) 88 06/18/2017 [facility] Respitory Rate 18 06/18/2017 [facility] Systolic (mm Hg) 123 06/18/2017 [facility] Diastolic (mm Hg) 85 06/18/2017 [facility] Respitory Rate 16 06/18/2017 [facility] Respitory Rate 16 06/18/2017 [facility] Temperature Oral (F) 98.2 F 06/11/2017 [facility] Heart Rate 73 06/11/2017 [facility] BMI Calculated 30.99 06/11/2017 [facility] Height 157.48 cm 06/11/2017 [facility] Weight 76.864 06/11/2017 [facility] Encounters Location Location Encounter Encounter Reason Attending ADM DC Status Source Details Type Number For Provider Date Date Visit [id number] Mervin 06/18 06/18 [facility] /2017 [facility] Procedures Procedure Code Date Perfomer Comments Source Cholecystectomy [id number] [facility] ERCP<sup>1</sup> [id number] open [facility] Gastric bypass [id number] [facility] operation Hysterectomy [id number] [facility] Pacemaker care [id number] [facility] Rotator cuff [id number] left [facility] repair<sup>2</sup> Vascular access [id number] PAC [facility] incision<sup>3</sup>
--- OUTSIDE RECORDS SUMMARY | 2017-08-17 08:59 | XMS REPORT ---
:1960 [facility] Address [address] [place], [place] [address]lillie Polanco [address] [place] [address] Care Team Providers Name Role Phone DORA SHEPHERD Unavailable Unavailable Problems This patient has no known problems. Allergies, Adverse Reactions, Alerts This patient has no known allergies or adverse reactions. Medications This patient has no known medications. Results Test Description Test Time Test Comments Text Results Atomic Results Result Comments POCT-GLUCOSE METER 2017-03-25 08:31:00 Test Item Value Reference Range Comments POC-GLUCOSE METER (BEOnly [place]) (test 73 mg/dL 70-[address] [facility] [address] [facility] tpui=8398) [facility] [address] [address], [id number] 08:00:00Reason for exam:->right lower quad painWhat is [...] Carlson Verified Date/Time: 03/25/2017 08:00:47 Reading Location: [facility] Diagnostic Imaging Reading Room - [place] [address] [id number] 06:09:00 Test Item Value Reference Range Comments MAGNESIUM (BEAKER) (test pijh=528) 1.6 mg/dL 1.6-2.6 BASIC METABOLIC [id number] 06:09:00 Test Item Value Reference Range Comments SODIUM (BEAKER) (test 141 meq/L 136-145 vjxq=509) POTASSIUM (BEAKER) (test 4.1 meq/L 3.5-5.1 ozzp=762) CHLORIDE (BEAKER) (test 104 meq/L 98-107 ghmc=666) CO2 (BEAKER) (test 29 meq/L 22-29 smad=943) BLOOD UREA NITROGEN 9 mg/dL 7-21 (BEAKER) (test pbzh=218) CREATININE (BEAKER) (test 0.93 mg/dL 0.57-1.25 qxsn=885) GLUCOSE RANDOM (BEAKER) 87 mg/dL 70-105 (test iajv=180) CALCIUM (BEAKER) (test 9.0 mg/dL 8.4-10.2 geqx=658) EGFR (BEAKER) (test 62 mL/min/1.73 sq m ESTIMATED GFR IS NOT qrgm=4487) ACCURATE CREATININE CLEARANCE IN PREDICTING GLOMERULAR FILTRATION RATE. ESTIMATED GFR IS NOT APPLICABLE FOR DIALYSIS PATIENTS. CBC W/PLT COUNT & AUTO [id number] 05:43:00 Test Item Value Reference Range Comments WHITE BLOOD CELL COUNT (BEAKER) (test xjwg=843) 5.7 K/ L 3.5-10.5 RED BLOOD CELL COUNT (BEAKER) (test zdym=363) 3.67 M/ L 3.93-5.22 HEMOGLOBIN (BEAKER) (test tdfs=812) 11.8 GM/DL 11.2-15.7 HEMATOCRIT (BEAKER) (test gqrc=871) 36.6 % 34.1-44.9 MEAN CORPUSCULAR VOLUME (BEAKER) (test chiy=659) 99.7 fL 79.4-94.8 MEAN CORPUSCULAR HEMOGLOBIN (BEAKER) (test 32.2 pg 25.6-32.2 wfgq=686) MEAN CORPUSCULAR HEMOGLOBIN CONC (BEAKER) (test 32.2 GM/DL 32.2-35.5 ynkc=049) RED CELL DISTRIBUTION WIDTH (BEAKER) (test 12.6 % 11.7-14.4 kpva=704) PLATELET COUNT (BEAKER) (test ggnr=086) 187 K/CU MM 150-450 MEAN PLATELET VOLUME (BEAKER) (test tjkz=440) 9.7 fL 9.4-12.3 NUCLEATED RED BLOOD CELLS (BEAKER) (test 0 /100 WBC 0-0 ylek=599) NEUTROPHILS RELATIVE PERCENT (BEAKER) (test 63 % chbf=766) LYMPHOCYTES RELATIVE PERCENT (BEAKER) (test 18 % sqiq=995) MONOCYTES RELATIVE PERCENT (BEAKER) (test 14 % rrfp=735) EOSINOPHILS RELATIVE PERCENT (BEAKER) (test 5 % mxec=365) BASOPHILS RELATIVE PERCENT (BEAKER) (test 1 % ctwx=400) NEUTROPHILS ABSOLUTE COUNT (BEAKER) (test 3.56 K/ L 1.56-6.13 kpdk=132) LYMPHOCYTES ABSOLUTE COUNT (BEAKER) (test 1.02 K/ L 1.18-3.74 cesx=249) MONOCYTES ABSOLUTE COUNT (BEAKER) (test 0.78 K/ L 0.24-0.36 irsc=342) EOSINOPHILS ABSOLUTE COUNT (BEAKER) (test 0.26 K/ L 0.04-0.36 iexz=776) BASOPHILS ABSOLUTE COUNT (BEAKER) (test 0.03 K/ L 0.01-0.08 tmtw=867) IMMATURE GRANULOCYTES-RELATIVE PERCENT (BEAKER) 0 % 0-1 (test eemq=6433) POCT-GLUCOSE [id number] 23:29:00 Test Item Value Reference Range Comments POC-GLUCOSE METER (BEAKER) 101 mg/dL 70-[address] [facility] [address] [facility] (test tdvc=8761) [facility] [address] POCT-GLUCOSE [id number] 17:46:00 Test Item Value Reference Range Comments POC-GLUCOSE METER (BEAKER) 90 mg/dL 70-[address] [facility] [address] [facility] (test umyr=4125) [facility] [address] POCT-GLUCOSE [id number] 12:51:00 Test Item Value Reference Range Comments POC-GLUCOSE METER (BEAKER) 89 mg/dL 70-110 TESTED AT [place] [id number] [facility] (test rzrf=7413) [facility] [address] POCT-GLUCOSE [id number] 08:48:00 Test Item Value Reference Range Comments POC-GLUCOSE METER (BEAKER) 199 mg/dL 70-110 TESTED AT [address] (test kafp=0449) [facility] [address] [id number] 08:16:00 Test Item Value Reference Range Comments MAGNESIUM (BEAKER) (test oefp=681) 1.6 mg/dL 1.6-2.6 BASIC METABOLIC [id number] 08:16:00 Test Item Value Reference Range Comments SODIUM (BEAKER) (test 139 meq/L 136-145 luah=401) POTASSIUM (BEAKER) (test 3.8 meq/L 3.5-5.1 ocij=789) CHLORIDE (BEAKER) (test 103 meq/L 98-107 ivhb=543) CO2 (BEAKER) (test 24 meq/L 22-29 sprr=856) BLOOD UREA NITROGEN 12 mg/dL 7-21 (BEAKER) (test rxaq=281) CREATININE (BEAKER) (test 0.92 mg/dL 0.57-1.25 mlna=517) GLUCOSE RANDOM (BEAKER) 95 mg/dL 70-105 (test mwuh=917) CALCIUM (BEAKER) (test 8.5 mg/dL 8.4-10.2 jncj=811) EGFR (BEAKER) (test 63 mL/min/1.73 sq m ESTIMATED GFR IS NOT kmip=2615) ACCURATE CREATININE CLEARANCE IN PREDICTING GLOMERULAR FILTRATION RATE. ESTIMATED GFR IS NOT APPLICABLE FOR DIALYSIS PATIENTS. CBC W/PLT COUNT & AUTO [id number] 06:41:00 Test Item Value Reference Range Comments WHITE BLOOD CELL COUNT (BEAKER) (test rvbd=073) 7.1 K/ L 3.5-10.5 RED BLOOD CELL COUNT (BEAKER) (test tjpx=950) 3.74 M/ L 3.93-5.22 HEMOGLOBIN (BEAKER) (test ymeo=280) 12.1 GM/DL 11.2-15.7 HEMATOCRIT (BEAKER) (test vtvp=939) 37.9 % 34.1-44.9 MEAN CORPUSCULAR VOLUME (BEAKER) (test mspm=420) 101.3 fL 79.4-94.8 MEAN CORPUSCULAR HEMOGLOBIN (BEAKER) (test 32.4 pg 25.6-32.2 iwvr=879) MEAN CORPUSCULAR HEMOGLOBIN CONC (BEAKER) (test 31.9 GM/DL 32.2-35.5 oxht=072) RED CELL DISTRIBUTION WIDTH (BEAKER) (test 12.6 % 11.7-14.4 zyel=143) PLATELET COUNT (BEAKER) (test sosx=272) 187 K/CU MM 150-450 MEAN PLATELET VOLUME (BEAKER) (test aetz=095) 9.8 fL 9.4-12.3 NUCLEATED RED BLOOD CELLS (BEAKER) (test 0 /100 WBC 0-0 hyuk=347) NEUTROPHILS RELATIVE PERCENT (BEAKER) (test 67 % yvrm=753) LYMPHOCYTES RELATIVE PERCENT (BEAKER) (test 17 % gane=734) MONOCYTES RELATIVE PERCENT (BEAKER) (test 12 % nqva=486) EOSINOPHILS RELATIVE PERCENT (BEAKER) (test 4 % yzbj=408) BASOPHILS RELATIVE PERCENT (BEAKER) (test 0 % uksh=598) NEUTROPHILS ABSOLUTE COUNT (BEAKER) (test 4.71 K/ L 1.56-6.13 xcyk=014) LYMPHOCYTES ABSOLUTE COUNT (BEAKER) (test 1.16 K/ L 1.18-3.74 hqux=694) MONOCYTES ABSOLUTE COUNT (BEAKER) (test 0.87 K/ L 0.24-0.36 rgeb=321) EOSINOPHILS ABSOLUTE COUNT (BEAKER) (test 0.26 K/ L 0.04-0.36 ecip=297) BASOPHILS ABSOLUTE COUNT (BEAKER) (test 0.03 K/ L 0.01-0.08 ucph=525) IMMATURE GRANULOCYTES-RELATIVE PERCENT (BEAKER) 0 % 0-1 (test cifo=2940) POCT-GLUCOSE [id number] 22:19:00 Test Item Value Reference Range Comments POC-GLUCOSE METER (BEAKER) 116 mg/dL 70-110 TESTED AT [address] (test uoln=6990) [place] [id number] POCT-GLUCOSE [id number] 21:16:00 Test Item Value Reference Range Comments POC-GLUCOSE METER (BEAKER) 117 mg/dL 70-110 TESTED AT [address] (test mlfr=6718) [place] [address] URINALYSIS W/ REFLEX URINE [id number] 18:57:00 Test Item Value Reference Range Comments COLOR (BEAKER) (test pwxq=395) Light Yellow CLARITY (BEAKER) (test bynn=342) Clear SPECIFIC GRAVITY UA (BEAKER) (test dsmv=613) 1.006 1.001-1.035 PH UA (BEAKER) (test qyig=904) 7.0 5.0-8.0 PROTEIN UA (BEAKER) (test ztje=860) Negative Negative GLUCOSE UA (BEAKER) (test wydj=734) Negative Negative KETONES UA (BEAKER) (test ettu=945) Negative Negative BILIRUBIN UA (BEAKER) (test qouk=010) Negative Negative BLOOD UA (BEAKER) (test wqyv=782) Negative Negative NITRITE UA (BEAKER) (test wqvg=294) Negative Negative LEUKOCYTE ESTERASE UA (BEAKER) (test dohl=267) Negative Negative UROBILINOGEN UA (BEAKER) (test xjqu=889) 0.2 mg/dL 0.2-1.0 RBC UA (BEAKER) (test peqz=682) 0 /HPF WBC UA (BEAKER) (test xssx=784) 1 /HPF SQUAMOUS EPITHELIAL (BEAKER) (test ydpt=939) 1 /HPF SOURCE(BEAKER) (test khsc=0875) POCT-GLUCOSE [id number] 17:05:00 Test Item Value Reference Range Comments POC-GLUCOSE METER (BEAKER) 92 mg/dL 70-110 TESTED AT [address] (test mrzv=8426) [place] [address] RAD, ABDOMEN/KUB, 1 VIEW [id number] 12:49:00Reason for exam:->abdominal painShould this be performed at the bedside?->YesFINAL REPORT Technique: Frontal images of the abdomen COMPARISON: 03/19/2015 FINDINGS : Bowel gas pattern is nonspecific. Some residual contrast in the colon seen. No gross free intraperitoneal air. A stent projects in the upper abdomen centrally. No acute skeletal abnormality. Signed: Steph Hoffman MDReport Verified Date/Time: 03/23/2017 12:49:51 Reading Location: [facility] C013T Transitional Reading Room 12: 49 PMPOCT-GLUCOSE [id number] 08:59:00 Test Item Value Reference Range Comments POC-GLUCOSE METER (BEAKER) 107 mg/dL 70-[address] [facility] [address] [facility] (test bddu=2898) [facility] [address] [id number] 07:02:00 Test Item Value Reference Range Comments MAGNESIUM (BEAKER) (test levf=722) 1.8 mg/dL 1.6-2.6 BASIC METABOLIC [id number] 07:02:00 Test Item Value Reference Range Comments SODIUM (BEAKER) (test 142 meq/L 136-145 otlt=948) POTASSIUM (BEAKER) (test 4.1 meq/L 3.5-5.1 deep=628) CHLORIDE (BEAKER) (test 103 meq/L 98-107 lcep=341) CO2 (BEAKER) (test 30 meq/L 22-29 zcti=254) BLOOD UREA NITROGEN 15 mg/dL 7-21 (BEAKER) (test pkuk=399) CREATININE (BEAKER) (test 0.93 mg/dL 0.57-1.25 init=142) GLUCOSE RANDOM (BEAKER) 83 mg/dL 70-105 (test mlgs=260) CALCIUM (BEAKER) (test 8.8 mg/dL 8.4-10.2 huvb=258) EGFR (BEAKER) (test 62 mL/min/1.73 sq m ESTIMATED GFR IS NOT brqe=4697) ACCURATE CREATININE CLEARANCE IN PREDICTING GLOMERULAR FILTRATION RATE. ESTIMATED GFR IS NOT APPLICABLE FOR DIALYSIS PATIENTS. HEPATIC FUNCTION [id number] 07:02:00 Test Item Value Reference Range Comments TOTAL PROTEIN (BEAKER) (test lfwa=813) 6.0 gm/dL 6.0-8.3 ALBUMIN (BEAKER) (test qrwf=4933) 3.6 g/dL 3.5-5.0 BILIRUBIN TOTAL (BEAKER) (test ekql=085) 0.6 mg/dL 0.2-1.2 BILIRUBIN DIRECT (BEAKER) (test wtcs=123) 0.2 mg/dL 0.1-0.5 ALKALINE PHOSPHATASE (BEAKER) (test quyo=695) 78 U/L 40-150 AST (SGOT) (BEAKER) (test vkur=762) 18 U/L 5-34 ALT (SGPT) (BEAKER) (test anqe=766) 24 U/L 6-55 [id number] 07:02:00 Test Item Value Reference Range Comments AMYLASE (BEAKER) (test uenh=620) 93 U/L 25-125 [id number] 07:02:00 Test Item Value Reference Range Comments LIPASE (BEAKER) (test vamr=604) 71 U/L 8-78 CBC W/PLT COUNT & AUTO [id number] 05:52:00 Test Item Value Reference Range Comments WHITE BLOOD CELL COUNT (BEAKER) (test vwmr=119) 7.5 K/ L 3.5-10.5 RED BLOOD CELL COUNT (BEAKER) (test xomw=240) 3.60 M/ L 3.93-5.22 HEMOGLOBIN (BEAKER) (test wtui=658) 11.9 GM/DL 11.2-15.7 HEMATOCRIT (BEAKER) (test qslh=635) 36.4 % 34.1-44.9 MEAN CORPUSCULAR VOLUME (BEAKER) (test lsxt=753) 101.1 fL 79.4-94.8 MEAN CORPUSCULAR HEMOGLOBIN (BEAKER) (test 33.1 pg 25.6-32.2 umge=250) MEAN CORPUSCULAR HEMOGLOBIN CONC (BEAKER) (test 32.7 GM/DL 32.2-35.5 cctb=411) RED CELL DISTRIBUTION WIDTH (BEAKER) (test 12.6 % 11.7-14.4 rjbv=895) PLATELET COUNT (BEAKER) (test jedm=287) 182 K/CU MM 150-450 MEAN PLATELET VOLUME (BEAKER) (test liik=892) 9.8 fL 9.4-12.3 NUCLEATED RED BLOOD CELLS (BEAKER) (test 0 /100 WBC 0-0 dhhn=450) NEUTROPHILS RELATIVE PERCENT (BEAKER) (test 70 % fylb=303) LYMPHOCYTES RELATIVE PERCENT (BEAKER) (test 15 % yyjh=523) MONOCYTES RELATIVE PERCENT (BEAKER) (test 12 % gcnt=311) EOSINOPHILS RELATIVE PERCENT (BEAKER) (test 3 % mwxc=812) BASOPHILS RELATIVE PERCENT (BEAKER) (test 0 % ivfe=448) NEUTROPHILS ABSOLUTE COUNT (BEAKER) (test 5.22 K/ L 1.56-6.13 joou=929) LYMPHOCYTES ABSOLUTE COUNT (BEAKER) (test 1.11 K/ L 1.18-3.74 dyrp=371) MONOCYTES ABSOLUTE COUNT (BEAKER) (test 0.89 K/ L 0.24-0.36 yjnk=541) EOSINOPHILS ABSOLUTE COUNT (BEAKER) (test 0.20 K/ L 0.04-0.36 rpfy=294) BASOPHILS ABSOLUTE COUNT (BEAKER) (test 0.02 K/ L 0.01-0.08 ewar=407) IMMATURE GRANULOCYTES-RELATIVE PERCENT (BEAKER) 0 % 0-1 (test rbmp=7579) POCT-GLUCOSE [id number] 21:26:00 Test Item Value Reference Range Comments POC-GLUCOSE METER (BEAKER) 96 mg/dL 70-110 TESTED AT [address] (test leeg=9397) [place] [address] POCT-GLUCOSE [id number] 17:51:00 Test Item Value Reference Range Comments POC-GLUCOSE METER (BEAKER) 104 mg/dL 70-110 TESTED AT [address] (test tdmi=3541) [place] [address] POCT-GLUCOSE [id number] 15:36:00 Test Item Value Reference Range Comments POC-GLUCOSE METER (BEAKER) 101 mg/dL 70-110 TESTED AT [address] (test dezk=2997) [place] [id number] CBC W/PLT COUNT & AUTO [id number] 07:20:00 Test Item Value Reference Range Comments WHITE BLOOD CELL COUNT (BEAKER) (test ezkk=771) 6.3 K/ L 3.5-10.5 RED BLOOD CELL COUNT (BEAKER) (test cbpu=926) 3.58 M/ L 3.93-5.22 HEMOGLOBIN (BEAKER) (test sitg=135) 11.5 GM/DL 11.2-15.7 HEMATOCRIT (BEAKER) (test dwin=396) 36.3 % 34.1-44.9 MEAN CORPUSCULAR VOLUME (BEAKER) (test hezj=493) 101.4 fL 79.4-94.8 MEAN CORPUSCULAR HEMOGLOBIN (BEAKER) (test 32.1 pg 25.6-32.2 umhz=676) MEAN CORPUSCULAR HEMOGLOBIN CONC (BEAKER) (test 31.7 GM/DL 32.2-35.5 gawi=849) RED CELL DISTRIBUTION WIDTH (BEAKER) (test 12.7 % 11.7-14.4 pyus=766) PLATELET COUNT (BEAKER) (test hmgb=598) 172 K/CU MM 150-450 MEAN PLATELET VOLUME (BEAKER) (test tccm=393) 10.0 fL 9.4-12.3 NUCLEATED RED BLOOD CELLS (BEAKER) (test 0 /100 WBC 0-0 konx=619) NEUTROPHILS RELATIVE PERCENT (BEAKER) (test 65 % rcoj=564) LYMPHOCYTES RELATIVE PERCENT (BEAKER) (test 18 % cisw=435) MONOCYTES RELATIVE PERCENT (BEAKER) (test 12 % ehhs=518) EOSINOPHILS RELATIVE PERCENT (BEAKER) (test 4 % mgkc=507) BASOPHILS RELATIVE PERCENT (BEAKER) (test 1 % tjig=999) NEUTROPHILS ABSOLUTE COUNT (BEAKER) (test 4.10 K/ L 1.56-6.13 toio=374) LYMPHOCYTES ABSOLUTE COUNT (BEAKER) (test 1.13 K/ L 1.18-3.74 sqed=496) MONOCYTES ABSOLUTE COUNT (BEAKER) (test 0.76 K/ L 0.24-0.36 qaex=253) EOSINOPHILS ABSOLUTE COUNT (BEAKER) (test 0.25 K/ L 0.04-0.36 cdak=072) BASOPHILS ABSOLUTE COUNT (BEAKER) (test 0.03 K/ L 0.01-0.08 hmnm=371) IMMATURE GRANULOCYTES-RELATIVE PERCENT (BEAKER) 0 % 0-1 (test szzg=1419) [id number] 06:50:00 Test Item Value Reference Range Comments MAGNESIUM (BEAKER) (test yftm=994) 2.0 mg/dL 1.6-2.6 BASIC METABOLIC [id number] 06:50:00 Test Item Value Reference Range Comments SODIUM (BEAKER) (test 144 meq/L 136-145 rkry=202) POTASSIUM (BEAKER) (test 3.8 meq/L 3.5-5.1 wmzs=385) CHLORIDE (BEAKER) (test 107 meq/L 98-107 wirn=873) CO2 (BEAKER) (test 29 meq/L 22-29 bjai=674) BLOOD UREA NITROGEN 9 mg/dL 7-21 (BEAKER) (test vvrm=317) CREATININE (BEAKER) (test 0.79 mg/dL 0.57-1.25 wlgt=103) GLUCOSE RANDOM (BEAKER) 81 mg/dL 70-105 (test ktuq=808) CALCIUM (BEAKER) (test 8.6 mg/dL 8.4-10.2 wvrk=646) EGFR (BEAKER) (test 75 mL/min/1.73 sq m ESTIMATED GFR IS NOT pnsd=3632) ACCURATE CREATININE CLEARANCE IN PREDICTING GLOMERULAR FILTRATION RATE. ESTIMATED GFR IS NOT APPLICABLE FOR DIALYSIS PATIENTS. HEPATIC FUNCTION [id number] 06:50:00 Test Item Value Reference Range Comments TOTAL PROTEIN (BEAKER) (test wykk=750) 5.8 gm/dL 6.0-8.3 ALBUMIN (BEAKER) (test vuuu=9173) 3.5 g/dL 3.5-5.0 BILIRUBIN TOTAL (BEAKER) (test nzke=105) 0.8 mg/dL 0.2-1.2 BILIRUBIN DIRECT (BEAKER) (test ipsk=224) 0.3 mg/dL 0.1-0.5 ALKALINE PHOSPHATASE (BEAKER) (test sbee=837) 75 U/L 40-150 AST (SGOT) (BEAKER) (test irpp=108) 17 U/L 5-34 ALT (SGPT) (BEAKER) (test iblj=177) 27 U/L 6-55 [id number] 06:50:00 Test Item Value Reference Range Comments AMYLASE (BEAKER) (test ftqx=752) 85 U/L 25-125 [id number] 06:50:00 Test Item Value Reference Range Comments LIPASE (BEAKER) (test rvnz=184) 49 U/L 8-78 POCT-GLUCOSE [id number] 21:14:00 Test Item Value Reference Range Comments POC-GLUCOSE METER (BEAKER) 107 mg/dL 70-110 TESTED AT [address] (test ngzr=7933) [facility] [address] CREATINE KINASE (CK), TOTAL AND [id number] 17:48:00 Test Item Value Reference Range Comments CREATINE KINASE TOTAL (BEAKER) (test docf=510) 116 U/L 29-200 CREATINE KINASE-MB (BEAKER) (test ghrx=728) 1.1 ng/mL 0.0-6.6 CREATINE KINASE-MB INDEX (BEAKER) (test lkmt=376) 0.9 % CK-MB Reference Range:<6.7 Normal6.7-10.0 Borderline>10.0 AbnormalTROPONIN [id number] 17:48:00 Test Item Value Reference Range Comments TROPONIN I (BEAKER) (test hipo=338) < ng/mL 0.00-0.03 Troponin I (TnI) levels [...] acidosis, acute neurological disease, and persistent tachyarrhythmia.TROPONIN [id number] 17:48:00 Test Item Value Reference Range Comments TROPONIN I (BEAKER) (test fdcq=824) < ng/mL 0.00-0.03 Troponin I (TnI) levels [...] failure, acidosis, acute neurological disease, and persistent tachyarrhythmia.[id number] 17:46:00 Test Item Value Reference Range Comments LIPASE (BEAKER) (test jjfq=815) 108 U/L 8-78 [id number] 17:46:00 Test Item Value Reference Range Comments AMYLASE (BEAKER) (test hpuo=386) 122 U/L 25-125 POCT-GLUCOSE [id number] 17:08:00 Test Item Value Reference Range Comments POC-GLUCOSE METER (BEAKER) 112 mg/dL 70-[address] [facility] [address] [facility] (test piev=3256) [facility] [address] POCT-GLUCOSE [id number] 11:41:00 Test Item Value Reference Range Comments POC-GLUCOSE METER (BEAKER) 100 mg/dL 70-[address] [facility] [address] [facility] (test wigu=7561) [facility] [address] CREATINE KINASE (CK), TOTAL AND [id number] 11:13:00 Test Item Value Reference Range Comments CREATINE KINASE TOTAL (BEAKER) (test nxiz=744) 112 U/L 29-200 CREATINE KINASE-MB (BEAKER) (test obfk=768) 1.1 ng/mL 0.0-6.6 CREATINE KINASE-MB INDEX (BEAKER) (test ossb=982) 1.0 % CK-MB Reference Range:<6.7 Normal6.7-10.0 Borderline>10.0 AbnormalTROPONIN [id number] 11:13:00 Test Item Value Reference Range Comments TROPONIN I (BEAKER) (test wcyu=351) < ng/mL 0.00-0.03 Troponin I (TnI) levels [...] failure, acidosis, acute neurological disease, and persistent tachyarrhythmia.[id number] 11:05:00 Test Item Value Reference Range Comments LIPASE (BEAKER) (test yqqj=333) 48 U/L 8-78 [id number] 11:05:00 Test Item Value Reference Range Comments AMYLASE (BEAKER) (test stku=546) 129 U/L 25-125 HEPATIC FUNCTION [id number] 11:05:00 Test Item Value Reference Range Comments TOTAL PROTEIN (BEAKER) (test tgeg=531) 6.0 gm/dL 6.0-8.3 ALBUMIN (BEAKER) (test fbwv=7775) 3.7 g/dL 3.5-5.0 BILIRUBIN TOTAL (BEAKER) (test vffy=002) 0.4 mg/dL 0.2-1.2 BILIRUBIN DIRECT (BEAKER) (test xvrf=275) 0.2 mg/dL 0.1-0.5 ALKALINE PHOSPHATASE (BEAKER) (test gzwr=425) 78 U/L 40-150 AST (SGOT) (BEAKER) (test ates=491) 22 U/L 5-34 ALT (SGPT) (BEAKER) (test zbxs=877) 33 U/L 6-55 RAD, CHEST, 1 VIEW, NON [id number] 09:52:00Reason for exam:->chest painShould this be performed at the bedside?->YesFINAL REPORT Chest one view AP 03/21/2017 9:51 AM CLINICAL INDICATION: chest pain COMPARISON: 07/04/2015 IMPRESSION: Bibasilar subsegmental opacities suggest atelectasis. Cardiomediastinal contours are within normal limits. The central pulmonary vasculature is not engorged. Signed:Eric Whyteort Verified Date/Time: 03/21/2017 09:52:14 Reading Location: [facility] Radiology Reading Room POCT-GLUCOSE [id number] 08:55:00 Test Item Value Reference Range Comments POC-GLUCOSE METER (BEAKER) 104 mg/dL 70-[address] [facility] [address] [facility] (test delw=9006) [facility] [address] [id number] 02:59:00 Test Item Value Reference Range Comments MAGNESIUM (BEAKER) (test yvbm=133) 1.3 mg/dL 1.6-2.6 BASIC METABOLIC [id number] 02:59:00 Test Item Value Reference Range Comments SODIUM (BEAKER) (test 139 meq/L 136-145 tcnw=234) POTASSIUM (BEAKER) (test 3.9 meq/L 3.5-5.1 ryzn=314) CHLORIDE (BEAKER) (test 105 meq/L 98-107 tupp=292) CO2 (BEAKER) (test 26 meq/L 22-29 wgoh=160) BLOOD UREA NITROGEN 15 mg/dL 7-21 (BEAKER) (test iubn=098) CREATININE (BEAKER) (test 0.81 mg/dL 0.57-1.25 bfjc=235) GLUCOSE RANDOM (BEAKER) 95 mg/dL 70-105 (test onol=184) CALCIUM (BEAKER) (test 8.4 mg/dL 8.4-10.2 mqdv=232) EGFR (BEAKER) (test 73 mL/min/1.73 sq m ESTIMATED GFR IS NOT vftw=0948) ACCURATE CREATININE CLEARANCE IN PREDICTING GLOMERULAR FILTRATION RATE. ESTIMATED GFR IS NOT APPLICABLE FOR DIALYSIS PATIENTS. CBC W/PLT COUNT & AUTO [id number] 02:44:00 Test Item Value Reference Range Comments WHITE BLOOD CELL COUNT (BEAKER) (test scxk=918) 10.8 K/ L 3.5-10.5 RED BLOOD CELL COUNT (BEAKER) (test vtlc=447) 3.44 M/ L 3.93-5.22 HEMOGLOBIN (BEAKER) (test ujph=758) 11.1 GM/DL 11.2-15.7 HEMATOCRIT (BEAKER) (test yodu=628) 34.6 % 34.1-44.9 MEAN CORPUSCULAR VOLUME (BEAKER) (test hvru=372) 100.6 fL 79.4-94.8 MEAN CORPUSCULAR HEMOGLOBIN (BEAKER) (test 32.3 pg 25.6-32.2 mrts=605) MEAN CORPUSCULAR HEMOGLOBIN CONC (BEAKER) (test 32.1 GM/DL 32.2-35.5 zjse=777) RED CELL DISTRIBUTION WIDTH (BEAKER) (test 12.9 % 11.7-14.4 mhij=910) PLATELET COUNT (BEAKER) (test xljr=425) 168 K/CU MM 150-450 MEAN PLATELET VOLUME (BEAKER) (test ulqw=708) 9.6 fL 9.4-12.3 NUCLEATED RED BLOOD CELLS (BEAKER) (test 0 /100 WBC 0-0 awuo=871) NEUTROPHILS RELATIVE PERCENT (BEAKER) (test 74 % kkbt=144) LYMPHOCYTES RELATIVE PERCENT (BEAKER) (test 15 % cghi=813) MONOCYTES RELATIVE PERCENT (BEAKER) (test 9 % atta=507) EOSINOPHILS RELATIVE PERCENT (BEAKER) (test 2 % ssiy=878) BASOPHILS RELATIVE PERCENT (BEAKER) (test 0 % ixio=186) NEUTROPHILS ABSOLUTE COUNT (BEAKER) (test 7.97 K/ L 1.56-6.13 yhjm=466) LYMPHOCYTES ABSOLUTE COUNT (BEAKER) (test 1.58 K/ L 1.18-3.74 somp=409) MONOCYTES ABSOLUTE COUNT (BEAKER) (test 0.99 K/ L 0.24-0.36 ltvq=245) EOSINOPHILS ABSOLUTE COUNT (BEAKER) (test 0.19 K/ L 0.04-0.36 vkcw=269) BASOPHILS ABSOLUTE COUNT (BEAKER) (test 0.03 K/ L 0.01-0.08 nnwv=241) IMMATURE GRANULOCYTES-RELATIVE PERCENT (BEAKER) 0 % 0-1 (test zasn=3168) POCT-GLUCOSE [id number] 22:51:00 Test Item Value Reference Range Comments POC-GLUCOSE METER (BEAKER) 102 mg/dL 70-110 TESTED AT [address] (test jgge=5920) [facility] [address] POCT-GLUCOSE [id number] 17:12:00 Test Item Value Reference Range Comments POC-GLUCOSE METER (BEAKER) 103 mg/dL 70-110 TESTED AT [address] (test nzvq=7821) [facility] [address] POCT-GLUCOSE [id number] 13:24:00 Test Item Value Reference Range Comments POC-GLUCOSE METER (BEAKER) 93 mg/dL 70-110 TESTED AT [address] (test zvts=9620) [facility] [address] [id number] 01:37:00 Test Item Value Reference Range Comments MAGNESIUM (BEAKER) (test hmop=185) 1.6 mg/dL 1.6-2.6 BASIC METABOLIC [id number] 01:37:00 Test Item Value Reference Range Comments SODIUM (BEAKER) (test 138 meq/L 136-145 kkhp=442) POTASSIUM (BEAKER) (test 5.0 meq/L 3.5-5.1 euva=178) CHLORIDE (BEAKER) (test 107 meq/L 98-107 yasq=355) CO2 (BEAKER) (test 24 meq/L 22-29 bofw=248) BLOOD UREA NITROGEN 17 mg/dL 7-21 (BEAKER) (test wgjh=816) CREATININE (BEAKER) (test 0.77 mg/dL 0.57-1.25 kcii=289) GLUCOSE RANDOM (BEAKER) 127 mg/dL 70-105 (test ymex=476) CALCIUM (BEAKER) (test 8.4 mg/dL 8.4-10.2 uxmt=412) EGFR (BEAKER) (test 78 mL/min/1.73 sq m ESTIMATED GFR IS NOT zntl=4947) ACCURATE CREATININE CLEARANCE IN PREDICTING GLOMERULAR FILTRATION RATE. ESTIMATED GFR IS NOT APPLICABLE FOR DIALYSIS PATIENTS. CBC W/PLT COUNT & AUTO [id number] 01:26:00 Test Item Value Reference Range Comments WHITE BLOOD CELL COUNT (BEAKER) (test qjdh=043) 10.0 K/ L 3.5-10.5 RED BLOOD CELL COUNT (BEAKER) (test bbjw=686) 3.65 M/ L 3.93-5.22 HEMOGLOBIN (BEAKER) (test xyqx=816) 11.9 GM/DL 11.2-15.7 HEMATOCRIT (BEAKER) (test szzq=985) 36.6 % 34.1-44.9 MEAN CORPUSCULAR VOLUME (BEAKER) (test qaxt=800) 100.3 fL 79.4-94.8 MEAN CORPUSCULAR HEMOGLOBIN (BEAKER) (test 32.6 pg 25.6-32.2 jjov=405) MEAN CORPUSCULAR HEMOGLOBIN CONC (BEAKER) (test 32.5 GM/DL 32.2-35.5 bqtn=936) RED CELL DISTRIBUTION WIDTH (BEAKER) (test 12.6 % 11.7-14.4 lkyo=271) PLATELET COUNT (BEAKER) (test blam=158) 174 K/CU MM 150-450 MEAN PLATELET VOLUME (BEAKER) (test lydn=311) 9.5 fL 9.4-12.3 NUCLEATED RED BLOOD CELLS (BEAKER) (test 0 /100 WBC 0-0 htie=084) NEUTROPHILS RELATIVE PERCENT (BEAKER) (test 89 % oufg=286) LYMPHOCYTES RELATIVE PERCENT (BEAKER) (test 7 % rgyf=477) MONOCYTES RELATIVE PERCENT (BEAKER) (test 3 % oyiy=947) EOSINOPHILS RELATIVE PERCENT (BEAKER) (test 0 % hhlh=798) BASOPHILS RELATIVE PERCENT (BEAKER) (test 0 % dnig=599) NEUTROPHILS ABSOLUTE COUNT (BEAKER) (test 8.94 K/ L 1.56-6.13 zvbm=277) LYMPHOCYTES ABSOLUTE COUNT (BEAKER) (test 0.67 K/ L 1.18-3.74 xgpw=862) MONOCYTES ABSOLUTE COUNT (BEAKER) (test 0.34 K/ L 0.24-0.36 jkks=041) EOSINOPHILS ABSOLUTE COUNT (BEAKER) (test 0.01 K/ L 0.04-0.36 bmdo=627) BASOPHILS ABSOLUTE COUNT (BEAKER) (test 0.01 K/ L 0.01-0.08 yjbp=787) IMMATURE GRANULOCYTES-RELATIVE PERCENT (BEAKER) 0 % 0-1 (test iyxu=5307) [place], [id number] 23:51:00Reason for exam:->abnormal liver function testFINAL REPORT Fluoroscopy. History: Intraoperative. Findings: Radiologist wasnot present for the exam. Fluoroscopy was not performed by the undersigned. Please see operative report for details. Fluoroscopy Time: 166 min.Nine images IMPRESSION:Intraoperative fluoroscopy. Please see operative report for details. Signed: Manny Contreras Verified Date/Time: 03/19/201723:51:13 Reading Location: [facility] [id number] Consult Reading Room POCT-GLUCOSE [id number] 23:24:00 Test Item Value Reference Range Comments POC-GLUCOSE METER (BEAKER) 135 mg/dL 70-[address] [facility] [address] [facility] (test fnzh=2588) [facility] [address] BASIC METABOLIC [id number] 12:14:00 Test Item Value Reference Range Comments SODIUM (BEAKER) (test 139 meq/L 136-145 twtd=932) POTASSIUM (BEAKER) (test 4.0 meq/L 3.5-5.1 evwp=722) CHLORIDE (BEAKER) (test 105 meq/L 98-107 xoxq=693) CO2 (BEAKER) (test 25 meq/L 22-29 wojp=846) BLOOD UREA NITROGEN 19 mg/dL 7-21 (BEAKER) (test mkme=798) CREATININE (BEAKER) (test 0.76 mg/dL 0.57-1.25 rtgr=959) GLUCOSE RANDOM (BEAKER) 83 mg/dL 70-105 (test gyzy=622) CALCIUM (BEAKER) (test 9.2 mg/dL 8.4-10.2 jlvf=090) EGFR (BRIGITTE) (test 79 mL/min/1.73 sq m ESTIMATED GFR IS NOT tuzy=7424) ACCURATE CREATININE CLEARANCE IN PREDICTING GLOMERULAR FILTRATION RATE. ESTIMATED GFR IS NOT APPLICABLE FOR DIALYSIS PATIENTS. [id number] 11:49:00 Test Item Value Reference Range Comments HEMOGLOBIN (BRIGITTE) (test xyhl=161) 12.6 GM/DL 11.2-15.7 PREOP
[2017-08-17 10:02] LABS: Absolute Lymphocytes (CBC) 1.4 K/uL (0.7-4.9); Absolute Monocytes 0.5 K/uL (0.1-1.3); Absolute Neutrophil 3.2 K/uL (1.8-8.0); Basophils % 0.6 % (0-1.3); Eosinophils % 4.5 % (0-4.4); Hematocrit 42.7 % (36.0-45.0); Lymphocytes % 25.7 % (15.3-44.8); MCV 95.3 fL (80-100); MPV 8.4 fL (7.6-11.3); Monocytes % 9.5 % (3.3-12.3); RBC Red Blood Cell Count 4.48 M/uL (3.86-4.86)
[2017-08-17 10:08] LABS: Potassium 4.3 mmol/L (3.5-5.1)
--- NOTE | 2017-08-17 11:23 | RAD REPORT ---
EXAM DESCRIPTION: VAS - Extremity Venous Uni Ltd - 08/17/2017 10:49 am CLINICAL HISTORY: PAIN Leg swelling and edema. COMPARISON: No comparisons FINDINGS: Left lower extremity venous system was interrogated with Doppler technique. Normal flow, c ompressibility and augmentation was noted. There is no DVT present. IMPRESSION: No evidence of left lower extremity deep venous thrombosis.
--- NOTE | 2017-08-17 11:29 | RAD REPORT ---
EXAM DESCRIPTION: CT - Lower Extremity W/ Cont - 08/17/2017 10:56 am CLINICAL HISTORY: thigh pain Difficulty with ambulation. COMPARISON: Stone Protocol dated 05/04/2016 FINDINGS: No fracture, dislocation or aggressive marrow lesion. No AVN pattern. Mild left hip osteoa rthritis. No pathologic enhancement is seen to suggest tumor or infection. Moderate stool is present in the rec tosigmoid colon. No soft tissue mass or hematoma. A knee joint effusion is not seen. All CT scans are performed using dose optimization technique as appropriate and may include automated exposure control or mA/KV adjustment according to patient size. IMPRESSION: No acute or worrisome abnormality is detected.
[2017-08-17] MEDS ORDERED: IBUPROFEN 200 MG TAB PO ONE (11:44)
[2017-08-17] MEDS ORDERED: IBUPROFEN 400 MG TAB ONE (11:44)
--- NOTE | 2017-08-17 11:44 | EDPHYS ---
Physician Documentation [facility] Name: Antonietta Armando Age: 57 yrs Sex: Female : 1960 Arrival Date: 08/17/2017 Time: 08:58 Bed 19 Private MD: Lizzie Shaffer ED Physician Ej Mina HPI: 08/17 11:33 This 57 yrs old Female presents to ER via Wheelchair with complaints of Leg gs Pain. 11:33 The patient presents with pain, that is acute. The complaints affect the left gs quadriceps. Context: acute numbness and pain to anterior left thigh onset 4 days ago, no injury. Onset: The symptoms/episode began/occurred acutely. Modifying factors: The symptoms are alleviated by nothing. the symptoms are aggravated by touching. Associated signs and symptoms: Pertinent positives: numbness. Severity of symptoms: At their worst the symptoms were moderate, in the emergency department the symptoms are unchanged. The patient has not experienced similar symptoms in the past. 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 - Ebola Screening: : Patient negative for fever greater than or equal to 101.5 degrees Fahrenheit, and additional compatible Ebola Virus Disease symptoms Patient denies exposure to infectious person Patient denies travel to an Ebola-affected area in the 21 days before illness onset No symptoms or risks identified at this time. - Social history:: Smoking status: unknown. ROS: 11:33 All other systems are negative. gs Exam: 11:33 Head/Face: Normocephalic, atraumatic. Eyes: Pupils equal round and reactive to light, gs extra-ocular motions intact. Lids and lashes normal. Conjunctiva and sclera are non-icteric and not injected. Cornea within normal limits. Periorbital areas with no swelling, redness, or edema. ENT: Nares patent. No nasal discharge, no septal abnormalities noted. Tympanic membranes are normal and external auditory canals are clear. Oropharynx with no redness, swelling, or masses, exudates, or evidence of obstruction, uvula midline. Mucous membranes moist. Neck: Trachea midline, no thyromegaly or masses palpated, and no cervical lymphadenopathy. Supple, full range of motion without nuchal rigidity, or vertebral point tenderness. No Meningismus. Chest/axilla: Normal chest wall appearance and motion. Nontender with no deformity. No lesions are appreciated. Cardiovascular: Regular rate and rhythm with a normal S1 and S2. No gallops, murmurs, or rubs. Normal PMI, no JVD. No pulse deficits. Respiratory: Lungs have equal breath sounds bilaterally, clear to auscultation and percussion. No rales, rhonchi or wheezes noted. No increased work of breathing, no retractions or nasal flaring. Abdomen/GI: Soft, non-tender, with normal bowel sounds. No distension or tympany. No guarding or rebound. No evidence of tenderness throughout. Back: No spinal tenderness. No costovertebral tenderness. Full range of motion. Skin: Warm, dry with normal turgor. Normal color with no rashes, no lesions, and no evidence of cellulitis. 11:33 Constitutional: The patient appears alert, awake. 11:33 Musculoskeletal/extremity: Extremities: noted in the left quadriceps: tenderness, There is no evidence of erythema, ROM: no acute changes, Circulation is intact in all extremities. the left quadriceps numbness, small area over left thigh 11:33 Neuro: Exam negative for motor deficits, confusion, Sensation: numbness, that is mild, of the left quadriceps. Vital Signs: 09:12 Pulse 73; Resp 18; Temp 98.2; Pulse Ox 98% on R/A; Weight 79.38 kg; Height 5 ft. 2 in. iw (157.48 cm); Pain 8/10; 10:12 BP 108 / 69; Pulse 59; Resp 16; Pulse Ox 95% on R/A; em 11:48 BP 106 / 71; Pulse 61; Resp 18; Pulse Ox 99% on R/A; em 09:12 Body Mass Index 32.01 (79.38 kg, 157.48 cm) iw MDM: 09:10 Patient medically screened. gs 11:33 Differential diagnosis: dvt, myositis, rhabdo, neuropathic pain. Data reviewed: vital gs signs, nurses notes. 08/17 09:18 Order name: CPK; Complete Time: 10:10 08/17 09:18 Order name: CBC with Diff; Complete Time: 10:10 08/17 09:18 Order name: Basic Metabolic Panel; Complete Time: 10:10 08/17 09:18 Order name: US Extremity Venous Unilateral Ltd; Complete Time: 11:32 08/17 09:37 Order name: Lower Extremity W/ Cont; Complete Time: 11:32 EDMS Administered Medications: 11:40 Drug: Ibuprofen 600 mg Route: PO; em 11:58 Follow up: Response: No adverse reaction em Disposition: 08/17/17 11:43 Discharged to Home. Impression: Neuralgia and neuritis, unspecified. - Condition is Stable. - Discharge Instructions: Neuropathic Pain. - Medication Reconciliation Form, Thank You Letter, Antibiotic Education, Prescription Opioid Use form. - Follow up: Private Physician; When: 2 - 3 days; Reason: Re-evaluation by your physician. Signatures: Dispatcher [employer] EDZachery Foy, CALL CIRCUIT WORKER CALL CIRCUIT WORKER em Rosio Lowe RN RN Ej Mina MD MD Corrections: (The following items were deleted from the chart) 11:59 11:43 08/17/2017 11:43 Discharged to Home. Impression: Neuralgia and neuritis, em unspecified. Condition is Stable. Forms are Medication Reconciliation Form, Thank You Letter, Antibiotic Education, Prescription Opioid Use. Follow up: Private Physician; When: 2 - 3 days; Reason: Re-evaluation by your physician. gs
--- NOTE | 2017-08-17 11:44 | ER ---
Nurse's Notes [facility] Name: Antonietta Armando Age: 57 yrs Sex: Female : 1960 Arrival Date: 08/17/2017 Time: 08:58 Bed 19 Private MD: Lizzie Shaffer Diagnosis: Neuralgia and neuritis, unspecified Presentation: 08/17 09:06 Presenting complaint: Patient states: has had numbness and pain to left anterior thigh iw X 2 weeks, pain got worse over past 2 days, hasn't been able to walk on it, pain feels like "ripping, tearing" 09/19, hx of MS. Transition of care: patient was not received from another setting of care. Onset of symptoms was August 10, 2017. Risk Assessment: Do you want to hurt yourself or someone else? Patient reports no desire to harm self or others. Initial Sepsis Screen: Does the patient meet any 2 criteria? No. Patient's initial sepsis screen is negative. Does the patient have a suspected source of infection? No. Patient's initial sepsis screen is negative. Care prior to arrival: None. 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 - Ebola Screening: : Patient negative for fever greater than or equal to 101.5 degrees Fahrenheit, and additional compatible Ebola Virus Disease symptoms Patient denies exposure to infectious person Patient denies travel to an Ebola-affected area in the 21 days before illness onset No symptoms or risks identified at this time. - Social history:: Smoking status: unknown. Screenin:13 Abuse screen: Denies threats or abuse. Denies injuries from another. Nutritional iw screening: No deficits noted. Tuberculosis screening: No symptoms or risk factors identified. Fall Risk None identified. Assessment: 09:30 General: Appears Behavior is calm, cooperative, Reports pain in left thigh for 2 weeks em that feels like tearing and tried to call her neurologist but is unable to get appt until end of the week. Pain: Complains of pain in left quadriceps Pain radiates to left lew Quality of pain is described as tearing. Neuro: Level of Consciousness is awake, alert, obeys commands, Oriented to person, place, time, situation. Cardiovascular: Denies chest pain, lightheadedness, shortness of breath, Capillary refill < 3 seconds Patient's skin is warm and dry. Respiratory: Airway is patent Respiratory effort is even, unlabored, Respiratory pattern is regular, symmetrical. Derm: Skin is intact, Skin is pink, warm \\T\\ dry. Musculoskeletal: Range of motion: intact in all extremities. Musculoskeletal: Swelling absent Reports pain in left quadriceps since for 2 weeks. 09:40 Reassessment: Patient appears in no apparent distress at this time. I agree with above iw assessment by Zachery Fairbanks LVN. 10:00 Reassessment: Patient appears in no apparent distress at this time. Patient and/or em family updated on plan of care and expected duration. Pain level reassessed. Patient is alert, oriented x 3, equal unlabored respirations, skin warm/dry/pink. IV infiltrated, D/C taped and bandaged, warm compresses applied to site restarted new IV for CT. 11:38 Reassessment: Patient appears in no apparent distress at this time. Patient and/or em family updated on plan of care and expected duration. Pain level reassessed. Patient is alert, oriented x 3, equal unlabored respirations, skin warm/dry/pink. pt request pain medication, Dr. Mina notified. Vital Signs: 09:12 Pulse 73; Resp 18; Temp 98.2; Pulse Ox 98% on R/A; Weight 79.38 kg; Height 5 ft. 2 in. iw (157.48 cm); Pain 8/10; 10:12 BP 108 / 69; Pulse 59; Resp 16; Pulse Ox 95% on R/A; em 11:48 BP 106 / 71; Pulse 61; Resp 18; Pulse Ox 99% on R/A; em 09:12 Body Mass Index 32.01 (79.38 kg, 157.48 cm) ED Course: 08:58 Patient arrived in ED. rg4 08:58 Lizzie Shaffer MD is Private Physician. rg4 08:59 Ej Mina MD is Attending Physician. gs 09:05 Zachery Fairbanks LVN is Primary Nurse. em 09:08 Triage completed. iw 09:23 Arm band placed on. em 09:24 Patient has correct armband on for positive identification. Bed in low position. Call em light in reach. 09:24 No provider procedures requiring assistance completed. em 09:45 Initial lab(s) drawn, by me, sent to lab. Inserted saline lock: 22 gauge in right em forearm, using aseptic technique. Blood collected. 10:08 Ultrasound completed. Patient tolerated well. Notified ED Physician sg3 10:55 CT completed. Patient moved to CT via wheelchair. Patient moved back from CT. cw1 10:56 Lower Extremity W/ Cont In Process Unspecified. EDMS 11:59 IV discontinued, intact, bleeding controlled, No redness/swelling at site. Pressure em dressing applied. Administered Medications: 11:40 Drug: Ibuprofen 600 mg Route: PO; em 11:58 Follow up: Response: No adverse reaction em Outcome: 11:43 Discharge ordered by MD. gs 11:59 Discharged to home ambulatory. em 11:59 Condition: good 11:59 Discharge instructions given to patient, Instructed on discharge instructions, follow up and referral plans. Demonstrated understanding of instructions, follow-up care, Prescriptions given X 1. 11:59 Patient left the ED. em Signatures: Dispatcher [employer] EDMD Zachery Fairbanks LVN RECONCILIATION MACHINE OPERATOR em Rosio Lowe RN RN Brunilda Marc cw1 Monserrat Man rg4 Ej Mina MD MD Rosaura Turcios sg3 Corrections: (The following items were deleted from the chart) 10:53 10:50 In radiology for Extremity Venous Uni Ltd+[email or web address]. EDMS sg3
[2017-08-17 12:06] VITALS: TEMP 98.2
[2017-08-17 12:08] VITALS: BP 106/71; O2SAT 99
== END 2017-08-17 11:59 | disposition home or self-care (01) ==
LOC: ER 08:55
DX: M79.2 Neuralgia and neuritis, unspecified (principal); Z88.5 Allergy status to narcotic agent; Z88.8 Allergy status to other drugs, medicaments and biological substances; Z95.0 Presence of cardiac pacemaker
CPT/HCPCS: 36415; 73701; 80048; 82550; 85025; 93971; 99284; Q9967

== ENCOUNTER 2019-06-21 11:57 | Emergency (ER) | payer OTHER ==
--- OUTSIDE RECORDS SUMMARY | 2019-06-21 11:59 | XMS REPORT | Clinical Summary ---
:1960 Author Organization [facility] Address [address] [place] [address] Care Team Providers Name Role Phone MD Deena Primary Care Provider Allergies Active Allergy Reactions Severity Noted Date Comments Chlorhexidine Rash Low 12/01/2014 blisters Hydrocodone-Acetaminophen Hives 10/24/2010 Ca n tolerate acetaminophen Can tolerate ac etaminophen Tramadol Hives 09/25/2015 Medications Medication Sig Dispensed Refills Start Date End Date Status diltiazem CD (CARTIA XT) TAKE 1 CAPSULE 0 01/30/2016 Active 120 MG 24 hr capsule BY MOUTH DAILY escitalopram (LEXAPRO) Take 10 mg by 0 Active 10 MG tablet mouth. pantoprazole (PROTONIX) Take 40 mg by 0 09/21/2015 Active 40 MG EC tablet mouth. zolpidem (AMBIEN) 10 mg Take 10 mg by 0 Active tablet mouth. cholecalciferol, vitamin Take 5,000 Units 0 Active D3, (VITAMIN D3) 5,000 by mouth. unit capsule glatiramer (COPAXONE) 40 Inject 40 mg 0 11/03/2015 Active mg/mL syringe under the skin. nitroglycerin Place 1 tablet 0 A ctive (NITROSTAT) 0.4 MG SL under the tablet tongue. ALPRAZolam (XANAX) 0.5 TK 1 T PO D PRN. 2 02/24/2016 Active MG tablet ondansetron ODT Take 4 mg by 0 A ctive (ZOFRAN-ODT) 4 MG mouth every 8 disintegrating tablet (eight) hours as needed for nausea or vomiting. CALCIUM ORAL Take 1 tablet by 0 Active mouth daily. doxepin (SILENOR) 6 mg Take 6 mg by 0 Active tablet mouth daily. zolpidem CR (AMBIEN CR) Take 12.5 mg by 0 Active 12.5 MG CR tablet mouth daily. mirtazapine (REMERON) 45 Take 45 mg by 0 Active MG tablet mouth nightly. Active Problems Problem Noted Date S/P laparoscopic surgery 05/04/2016 Family History Medical History Relation Name Comments Throat cancer Father Pulmonary fibrosis Maternal Aunt Diabetes Mother Heart disease Mother Pulmonary fibrosis Mother Relation Name Status Comments Father Maternal Aunt Mother Social History Tobacco Use Types Packs/Day Years Used Date Never Smoker Smokeless Tobacco: Never Used Alcohol Use Drinks/Week oz/Week Comments No Sex Assigned at Date Recorded Not on file Job Start Date Occupation Industry Not on file Not on file Not on file Travel History Travel Start Travel End No recent travel history available. Last Filed Vital Signs Not on file Plan of Treatment Health Maintenance Due Date Last Done Comments CERVICAL CANCER SCREENING 1981 BREAST CANCER SCREENING 2010 COLONOSCOPY SCREENING 2010 SHINGLES VACCINES (#1) 2010 INFLUENZA VACCINE 09/11/2019 09/13/2013 Implants Implanted Type Area Still Operator Whiskey Device Shelf Model / Identifier Expiration Serial / Date Lot Pacemaker-05/18/2015 Pacemaker Subclavian [id number] / Implanted: 05/18/2015 (Quantity not on file) [id number] / Dilator Baln Fxdwr [id number] 12-13.5-15mm Cre - [id number] Surgical N/A: N/A [facility] ENDOSCOPY [id number] / Implanted: 04/17/2016 at [facility] (Quantity not on file) Implants; / Expanders; Extenders; Surgical Wires Results Not on fileafter 06/20/2018 Insurance Payer Benefit Plan / Subscriber ID Effective Dates Phone Addre ss Type Group MEDICARE MEDICARE PART A xxxxxxxxxx 2002-Present [place] Medicare [place] B [place]ICA[place] xxxxxxxxx 2011-Present [place]ives For more information, please contact: [phone] Type Date Recorded Patient Ops Manager Explanati on Advance Directives, Living Will and T Medical Power of Perinatal Specialist
--- OUTSIDE RECORDS SUMMARY | 2019-06-21 12:00 | XMS REPORT | Clinical Summary ---
:1960 Author Organization [facility] Address [address] [place] [address] Care Team Providers Name Role Phone Cesar Lombardi MD Unavailable Unavailable Jessica Shaffer MD Primary Care Provider Allergies Active Allergy Reactions Severity Noted Date Comments Chlorhexidine Rash Low 07/18/2014 blisters Tramadol Hives High 09/18/2015 Hydrocodone-Acetaminophen Hives 07/18/2014 Ca n tolerate acetaminophen Medications Medication Sig Dispensed Refills Start Date End Date Status diltiazem (DILACOR XR) Take 120 mg by 0 Active 120 MG 24 hr capsule mouth nightly . pantoprazole (PROTONIX) Take 1 tablet (40 30 tablet 2 09/21/19 16 Active 40 MG tablet mg total) by mouth daily. doxepin (SILENOR) 6 mg Take 6 mg by 0 Active Tab mouth nightly. zolpidem (AMBIEN CR) Take 12.5 mg by 0 Active 12.5 MG CR tablet mouth every night as needed for Insomnia. mirtazapine (REMERON) Take 45 mg by 0 Active 45 MG tablet mouth nightly. Active Problems Problem Noted Date Chest pain 03/21/2017 S/P ERCP 03/19/2017 Nausea & vomiting 03/19/2017 RUQ abdominal pain 09/12/2015 Multiple sclerosis, relapsing-remitting 09/12/2015 Depression 09/12/2015 Biliary dilatation (sphincter of Oddi stricture), h/o Vamshi-en-Y, s/p open 09/12/2015 ERCP 8/4 History of cholecystectomy 09/12/2015 Esophageal stricture 09/12/2015 Status post balloon dilatation of esophageal stricture 09/12/2015 Cellulitis of chest wall 07/04/2015 Bradycardia 05/18/2015 Complete rupture of rotator cuff 08/04/2014 Encounters Date Type Specialty Care Team Description 05/12/2019 Hospital Encounter Radiology Ramya Noel MD 05/12/2019 Hospital Encounter Magnetic Resonance [place], Mul tiple sclerosis Imaging MD Robb ([facility] Magnetic Resonance [place], Mul tiple sclerosis Imaging MD Robb ([facility]2019 [facility] Encounter Magnetic Resonance [place], Mul tiple sclerosis Imaging MD Robb ([facility]2019 Outside Orders Central Scheduling [place], Multipl e sclerosis MD Robb ([facility]) after 06/20/2018 Social History Tobacco Use Types Packs/Day Years Used Date Never Smoker Smokeless Tobacco: Never Used Alcohol Use Drinks/Week oz/Week Comments No Sex Assigned at Date Recorded Not on file Job Start Date Occupation Industry Not on file Not on file Not on file Travel History Travel Start Travel End No recent travel history available. Last Filed Vital Signs Vital Sign Reading Time Taken Blood Pressure 116/87 05/12/2019 12:33 PM CDT Pulse 75 05/12/2019 12:33 PM CDT Temperature - - Respiratory Rate 20 05/12/2019 10:45 AM CDT Oxygen Saturation 96% 05/12/2019 12:33 PM CDT Inhaled Oxygen Concentration - - Weight - - Height - - Body Mass Index - - Plan of Treatment Not on file Implants Implanted Type Area Tobacco Checkout Clerk Device Identifier Shelf Exp iration Model / Date Serial / L ot Advisa Mri Surescan / [id number] [employer] 09/23/2016 [id number] / Implanted: Qty: 1 on 05/18/2015 [id number] / Procedures Procedure Name Priority Date/Time Associated Diagnosis Comme nts MR BRAIN WITH & Routine 05/12/2019 1:05 PM Multiple sclerosis Results for this WITHOUT IV CONTRAST CDT (HCC) procedur e are in the results section. MR CERVICAL SPINE Routine 05/12/2019 1:05 PM Multiple scleros is Results for this WITH & WITHOUT IV CDT ([facility]) procedure are in CONTRAST the results section. MR THORACIC SPINE Routine 05/12/2019 1:05 PM Multiple scleros is Results for this WITH & WITHOUT IV CDT (HCC) procedure are in CONTRAST the results section. POCT-CREATININE Routine 05/12/2019 9:02 AM Resul ts for this CDT procedure are i n the results section. XR CHEST 2 VIEWS Routine 05/12/2019 8:40 AM Resu lts for this CDT procedure are i n the results section. after 06/20/2018 Results MR thoracic spine without & with IV contrast (05/12/2019 1:05 PM CDT) Specimen Narrative Performed At FINAL REPORT [facility] Examination:MR, SPINE, THORACIC, WITHOUT / WITH IV CONTRAST HISTORY: 59-year-old female with relapsi ng remitting multiple sclerosis, not currently on disease loretta fying therapy and presents for follow-up. Patient states she has no new symptoms or concerns for relapse. COMPARISON: None. TECHNIQUE: Sagittal [id number]; sagittal T2 an d STIR.Axial T1 postcontrast, T2. Intravenous contrast: 7 mLGadavist. FINDINGS: Spinal cord size: Normal. Enhancing lesions: None. T2 lesions: None. T1 lesions: None. Vertebrae: Normal alignment, height, and signal intensity. Superior endplate Schmorl's node at T11. Discs: No disc herniation or canal steno sis. Incidental finding: A 5.7 mm nerve root sleeve cyst in the right neural foramen at T6-T7. An 8 mm nerve r oot sleeve cyst in the left neural foramen at T10-T11. IMPRESSION: No nonenhancing or enhancing lesion with in the cord. Signed: Ramya Noel MD Report Verified Date/Time:05/12/2019 15:56:57 Reading Location: [facility] [place] 2 - B01.626 Procedure Note Interface, External Ris In - 05/12/2019 3:59 PM CDT FINAL REPORT Examination:MR, SPINE, THORACIC, WITHOUT / WITH IV CONTRAST HISTORY: 59-year-old female with relapsi ng remitting multiple sclerosis, not currently on disease loretta fying therapy and presents for follow-up. Patient states she has no new symptoms or concerns for relapse. COMPARISON: None. TECHNIQUE: Sagittal T1 postcontrast; sa gittal T2 and STIR. Axial T1 postcontrast, T2. Intravenous contrast: 7 mL Gadavist. FINDINGS: Spinal cord size: Normal. Enhancing lesions: None. T2 lesions: None. T1 lesions: None. Vertebrae: Normal alignment, height, and signal intensity. Superior endplate Schmorl's node at T11. Discs: No disc herniation or canal steno sis. Incidental finding: A 5.7 mm nerve root sleeve cyst in the right neural foramen at T6-T7. An 8 mm nerve r oot sleeve cyst in the left neural foramen at T10-T11. IMPRESSION: No nonenhancing or enhancing lesion with in the cord. Signed: Ramya Noel MD Report Verified Date/Time: 05/12/2019 1 5:56:57 Reading Location: [facility] [place] [address] Performing Organization Address City/State/Zipcode Phone Number [facility] MR cervical spine without & with IV contrast (05/12/2019 1:05 PM CDT) Specimen Narrative Performed At FINAL REPORT [facility] Examination:MR, SPINE, CERVICAL, WIT HOUT / WITH IV CONTRAST HISTORY: 59-year-old female with relapsi ng remitting multiple sclerosis, not currently on disease loretta fying therapy and presents for follow-up. Patient states she has no new symptoms or concerns for relapse. COMPARISON: None. TECHNIQUE: Sagittal and axial T1 postcon trast; sagittal T2 and STIR. Axial T2. Intravenous contrast: 7 mLGadavist. FINDINGS: Spinal cord size: Normal. Enhancing lesions: None. T2 lesions: Small lesion in the right posterior cord at mid C4. No additional lesions. T1 lesions: There are no lesions of cere brospinal fluid equivalent intensity. Vertebrae: Normal alignment, height, and signal intensity. Discs: Diffuse disc bulges from C3 throu gh C6 without canal stenosis. Foramen magnum: No Chiari malformation, mass, or basilar invagination. Additional findings:None. IMPRESSION: Single tiny nonenhancing lesion within t he cord. No enhancing additional nonenhancing les ions. Signed: Ramya Noel MD Report Verified Date/Time:05/12/2019 15:51:43 Reading Location: [employer] [place] 2 - B01.626 Procedure Note Interface, External Ris In - 05/12/2019 3:53 PM CDT FINAL REPORT Examination: MR, SPINE, CERVICAL, WITHO UT / WITH IV CONTRAST HISTORY: 59-year-old female with relapsi ng remitting multiple sclerosis, not currently on disease loretta fying therapy and presents for follow-up. Patient states she has no new symptoms or concerns for relapse. COMPARISON: None. TECHNIQUE: Sagittal and axial T1 postcon trast; sagittal T2 and STIR. Axial T2. Intravenous contrast: 7 mL Gadavist. FINDINGS: Spinal cord size: Normal. Enhancing lesions: None. T2 lesions: Small lesion in the right posterior cord at mid C4. No additional lesions. T1 lesions: There are no lesions of cere brospinal fluid equivalent intensity. Vertebrae: Normal alignment, height, and signal intensity. Discs: Diffuse disc bulges from C3 throu gh C6 without canal stenosis. Foramen magnum: No Chiari malformation, mass, or basilar invagination. Additional findings:None. IMPRESSION: Single tiny nonenhancing lesion within t he cord. No enhancing additional nonenhancing les ions. Signed: Ramya Noel MD Report Verified Date/Time: 05/12/2019 1 5:51:43 Reading Location: [facility] [place] 2 - B01.626 Performing Organization Address City/State/Zipcode Phone Number [facility] MR brain without & with IV contrast (05/12/2019 1:05 PM CDT) Specimen Narrative Performed At FINAL REPORT [facility] Examination: MR, BRAIN, WITHOUT / WITH I V CONTRAST HISTORY: 59-year-old female with relapsi ng remitting multiple sclerosis, not currently on disease loretta fying therapy and presents for follow-up. Patient states she has no new symptoms or concerns for relapse. COMPARISON: Brain MRI performed at [facility] on July 24, 2015 TECHNIQUE: Sagittal FLAIR with axial and coronal reconstructions; axial precontrast T1, postcontrast T2, F LAIR; axial, sagittal and coronal postcontrast T1. Contrast: Seven mLGadavist. FINDINGS: T2 lesions: Number: Innumerable discrete T2 lesions . No new lesions. Size: Range in size from1 mm to 14 mm. Location: Periventricular, deep, callos al septal interface, juxtacortical white matter.Luz. T1 "black holes": There are no lesions o f cerebrospinal fluid equivalent intensity. Enhancing lesions: None. Corpus callosum volume: Normal, unchange d. Brain volume: Within normal limits for a ge, unchanged. Additional finding: Retention cyst in th e right maxillary sinus. IMPRESSION: No new nonenhancing or enhancing lesion within the brain when compared to prior brain MRI performed at [facility] on July 24, 2015. Unchanged nonenhancing lesions, consiste nt with multiple sclerosis. Signed: Ramya Noel MD Report Verified Date/Time:05/12/2019 15:47:11 Reading Location: [place] [address] Procedure Note Interface, External Ris In - 05/12/2019 3:49 PM CDT FINAL REPORT Examination: MR, BRAIN, WITHOUT / WITH I V CONTRAST HISTORY: 59-year-old female with relapsi ng remitting multiple sclerosis, not currently on disease loretta fying therapy and presents for follow-up. Patient states she has no new symptoms or concerns for relapse. COMPARISON: Brain MRI performed at [facility] on July 24, 2015 TECHNIQUE: Sagittal FLAIR with axial and coronal reconstructions; axial precontrast T1, postcontrast T2, F LAIR; axial, sagittal and coronal postcontrast T1. Contrast: Seven mL Gadavist. FINDINGS: T2 lesions: Number: Innumerable discrete T2 lesions . No new lesions. Size: Range in size from 1 mm to 14 mm . Location: Periventricular, deep, callos al septal interface, juxtacortical white matter. Luz. T1 "black holes": There are no lesions o f cerebrospinal fluid equivalent intensity. Enhancing lesions: None. Corpus callosum volume: Normal, unchange d. Brain volume: Within normal limits for a ge, unchanged. Additional finding: Retention cyst in th e right maxillary sinus. IMPRESSION: No new nonenhancing or enhancing lesion within the brain when compared to prior brain MRI performed at [facility] on July 24, 2015. Unchanged nonenhancing lesions, consiste nt with multiple sclerosis. Signed: Ramya Noel MD Report Verified Date/Time: 05/12/2019 1 5:47:11 Reading Location: [facility] [place] Molly m 2 - B01.626 Performing Organization Address City/[facility]/Zipcode Phone Number [facility] POC-Creatinine (05/12/2019 9:02 AM CDT) POC-Creatinine 1.0Comment: : TESTED AT 0.6 - 1.3 mg/dL [facility] [address] [id number]: Supervisor Assembly/Supervisor Water Treatment Plant ID = [id number] for CANDIDA MCKOY POC-EGFR 57 mL/min/1.73M2 [facility] Specimen Blood Performing Organization Address [facility] Phone Number [facility] [address] [place] [id number] CENTER XR chest 2 views (05/12/2019 8:40 AM CDT) Specimen Narrative Performed At FINAL REPORT [facility] Chest, 2 views, 05/12/2019 8:54 AM. History: Pacemaker check. Comparison: 03/21/2017. Discussion:The cardiomediastinal tamara houette and pulmonary vasculature are within normal limits. Th e lungs are clear without evidence of consolidation or effusion. Left subclavian dual-lead pacer leads are unchanged in position. R ight IJ Port-A-Cath is also noted terminating in the cavoatrial junc tion. There are no acute osseous abnormalities. The soft tissues are unremarkable. IMPRESSION: No acute cardiopulmonary abnormality. Signed: Cyrus Pretty MD Report Verified Date/Time:05/12/2019 09:02:30 Reading Location: [facility] Mammo Reading Ro om Procedure Note Interface, External Ris In - 05/12/2019 9:04 AM CDT FINAL REPORT Chest, 2 views, 05/12/2019 8:54 AM. History: Pacemaker check. Comparison: 03/21/2017. Discussion: The cardiomediastinal silho uette and pulmonary vasculature are within normal limits. Th e lungs are clear without evidence of consolidation or effusion. Left subclavian dual-lead pacer leads are unchanged in position. R ight IJ Port-A-Cath is also noted terminating in the cavoatrial junc tion. There are no acute osseous abnormalities. The soft tissues are unremarkable. IMPRESSION: No acute cardiopulmonary abnormality. Signed: Cyrus Pretty MD Report Verified Date/Time: 05/12/2019 0 9:02:30 Reading Location: [facility] Mammo Reading Ro om Performing Organization Address City/State/Zipcode Phone Number [facility] RIS after 06/20/2018 Insurance Payer Benefit Plan / Group Subscriber ID Type Phone A ddress MEDICARE MEDICARE A B xxxxxxxxxxx Medicare MEDICAID [place] xxxxxxxxx Medicaid Advance Directives For more information, please contact:[facility] [place], [place] [phone] Code Status Date Activated Date Inactivated Comments Full Code 03/19/2017 3:02 PM 03/25/2017 8:55 PM This code status was determined by: Patient Full Code 09/12/2015 10:20 PM 09/21/2015 6:43 PM This code status was determined by: Patient Full Code 05/18/2015 11:42 AM 05/18/2015 9:55 PM This code status was determined by: Patient Full Code 08/04/2014 8:49 AM 08/04/2014 4:19 PM This code status was determined by: Patient
--- OUTSIDE RECORDS SUMMARY | 2019-06-21 12:00 | XMS REPORT | Continuity of Care Document ---
:1960 Author Organization [facility] Care Team Providers Name Role Phone [facility] Unavailable Un available Problems Problem Status Onset Classification Date Comments Sourc e Date Reported UNK Active 05/31/[address] 18 Altered mental Active Problem 06/21/2017 [place] status (finding) Bradycardia Active Problem 06/21/2017 [place] (disorder) Depressive Active Problem 06/21/2017 [facility] disorder (disorder) History of - Resolved Problem 06/21/2017 [facility] obesity (context-depend ent category) History of Active Problem 06/21/2017 [facility] laparoscopic adjustable gastric banding (situation) Hypertensive Active Problem 06/21/2017 [place] [facility] disorder, systemic arterial (disorder) Iron deficiency Active Problem 06/21/2017 [place] anemia (disorder) Mixed anxiety Active Problem 06/21/2017 [place] and depressive disorder (disorder) Multiple Active Problem 06/21/2017 [facility] ast sclerosis (disorder) Sleep apnea Resolved Problem 06/21/2017 [place] (finding) Syncope Active Problem 06/21/2017 [facility] (disorder) Medications Medication Details Route Status Patient Ordering Order Source Instructions Provider Date Fentanyl 25 Inactive microgram2017 [facility] Route: IVP, ONCE, Dosing Weight 76.864, kg, Start date: 06/18/17 10:14:00 CDT, Stop date: 06/18/17 10:14:00 CDT Fentanyl 25 Inactive microgram, 2017 [facility] Route: IVP, ONCE, Dosing Weight 76.864, kg, Start date: 06/18/17 10:01:00 CDT, Stop date: 06/18/17 10:01:00 CDT Fentanyl 25 Inactive microgram, 2017 [facility] Route: IVP, ONCE, Dosing Weight 76.864, kg, Start date: 06/18/17 9:53:00 CDT, Stop date: 06/18/17 9:53:00 CDT Fentanyl 25 Inactive microgram, 2017 [facility] Route: IVP, ONCE, Dosing Weight 76.864, kg, Start date: 06/18/17 9:48:00 CDT, Stop date: 06/18/17 9:48:00 CDT metoclopramide Route: IV, Inactive (ANES) Drug form: 2017 [facility] INJ, ONCE, Stop date: 06/18/17 9:30:00 CDT ePHEDrine (ANES) Route: IV, Inactive Drug form: 2017 [facility] INJ, ONCE, Stop date: 06/18/17 9:30:00 CDT ceFAZolin (ANES) Route: IV, Inactive Drug form: 2017 [facility] INJ, ONCE, Stop date: 06/18/17 9:30:00 CDT propofol (ANES) Route: IV, Inactive Drug form: 2017 [facility] INJ, ONCE, Stop date: 06/18/17 9:30:00 CDT ondansetron Route: IV, Inactive (ANES) Drug form: 2017 [facility] INJ, ONCE, Stop date: 06/18/17 9:30:00 CDT lidocaine (ANES) Route: IV, Inactive Drug form: 2017 [facility] INJ, ONCE, Stop date: 06/18/17 9:30:00 CDT fentaNYL (ANES) Route: IV, Inactive Drug form: 2017 [facility] INJ, ONCE, Stop date: 06/18/17 9:30:00 CDT midazolam (ANES) Route: IV, Inactive Drug form: 2017 [facility] SOLN, ONCE, Stop date: 06/18/17 9:30:00 CDT Acetaminophen 100.4 F, Inactive Start date: 2017 [facility] 06/18/17 9:21:00 CDT, Duration: 30 day, Stop date: 07/18/17 9:20:00 CDT Morphine 2 mg, Route: Inactive IVP, Q3H, 2017 [facility] Dosing Weight 76.864, kg, PRN Pain Score 1-3, Start date: 06/18/17 9:21:00 CDT, Duration: 30 day, Stop date: 07/18/17 9:20:00 CDT Calcium Chloride 1,000 mL, Inactive 0.0014 MEQ/ML / Rate: 25 2017 [facility] Potassium ml/hr, Chloride 0.004 Infuse over: MEQ/ML / Sodium 40 hr, Chloride 0.103 Route: IV, MEQ/ML / Sodium Dosing Lactate 0.028 Weight MEQ/ML 76.864 kg, Injectable Total Solution Volume: 1,000, Start date: 06/18/17 8:48:00 CDT, Duration: 30 day, Stop date: 07/18/17 8:47:00 CDT, 1.86, m2 Lactated Ringers Route: IV, Inactive Injection IV Total 2017 [facility] (ANES) 1000 mL Volume: 1,000, Start date: 06/18/17 8:32:00 CDT, Stop date: 06/18/17 9:32:00 CDT ondansetron 4 mg 4 mg = 1 Active oral tablet tab, PO, 2017 [facility] PRN, 0 Refill(s) 1 ML glatiramer SUB-Q, 3x/ Active acetate 40 MG/ML week, 0 2017 [facility] Prefilled Refill(s) Syringe [Copaxone] 24 HR Diltiazem 120 mg = 1 Active Hydrochloride cap, PO, 2017 120 MG Extended Daily, # 30 Release Capsule cap, 0 [Cartia] Refill(s) zolpidem 10 mg 10 mg = 1 Active oral tablet tab, PO, 2017 [facility] Bedtime, 0 Refill(s) Doxepin 6 MG 6 mg = 1 Active Oral Tablet tab, PO, 2017 [Silenor] Bedtime, 0 Refill(s) pantoprazole 40 40 mg = 1 Active MG Enteric tab, PO, 2017 [facility] Tablet Daily, # 30 [Protonix] tab, 0 Refill(s) mirtazapine 7.5 7.5 mg = 1 Active mg oral tablet tab, PO, 2017 [facility] Bedtime, # 30 tab, 0 Refill(s) Vancomycin 2001 mg: No Longer infuse over Active 2017 [facility] 2.5 hours For adult patients only: Round to nearest 250 mg per Medical Staff approval MEDICATION WASTE Product Size: 1000 mg Product Wasted: ___ mg Ancef + sterile Notes: (Same No Longer 06/11/ H water 20 mL As: Ancef, Active 2017 [facility] Kefzol) MEDICATION WASTE Product Size: 1000 mg Product Wasted: ___ mg Allergies, Adverse Reactions, Alerts Substance Category Reaction Severity Reaction Status Date Comments S ource type Reported vicodin Assertion hives Drug Active MH allergy [place] chlorhexidine Assertion Drug Active MH containing allergy [facility] compounds traMADol Assertion Drug Active MH allergy [place] Immunizations No Data Provided for This Section Results Order Name Results Value Reference Date Interpretation Comments [facility] r[facility] Range BLOOD BANK ABO/Rh O POS 06/11 RESULTS /2017 [facility] BLOOD BANK Antibody Negative 06/11 RESULTS Scrn (06/11/17 10:10 AM) [place] ELECTROLYTE AGAP 14.3 10.0 - 06/11 S 20.0 [place] ELECTROLYTE eGFR 69 06/11 Result S Comment: The [facility] eGFR is calculated using the CKD-EPI formula. In most young, healthy individuals the eGFR will be >90 mL/min/1.73m2 . The eGFR declines with age. An eGFR of 60-89 may be normal in some populations, particularly the elderly, for whom the CKD-EPI formula has not been extensively validated. Use of the eGFR is not recommended in the following populations:< br/>
Perla viduals with unstable creatinine concentration s, including patients and those with serious co-morbid conditions.<b r/>
Patie nts with extremes in muscle mass or diet.

The data above are obtained from the National Kidney Disease Education Program (NKDEP) which additionally recommends that when the eGFR is used in patients with extremes of body mass index for purposes of drug dosing, the eGFR should be multiplied by the estimated BMI. ELECTROLYTE CO2 27 24 - 32 06/11 MH S [facility] ELECTROLYTE Potassium 4.3 3.5 - 5.1 06/11 MH S Lvl /2017 [facility] ELECTROLYTE Calcium Lvl 9.3 8.5 - 10.5 06/11 S [facility] ELECTROLYTE Sodium Lvl 143 135 - 145 06/11 S [facility] ELECTROLYTE Creatinine 0.93 0.50 - 05 S Lvl 1.40 /2017 [facility] ELECTROLYTE Chloride Lvl 106 95 - 109 / S /2017 [facility] ELECTROLYTE BUN 25 7 - 22 05/ S /2017 [facility] ELECTROLYTE Glucose Lvl 91 70 - 99 05/ S /2017 [facility] HEMATOLOGY INR 0.91 0.85 - 06/11 1.17 /2017 [facility] HEMATOLOGY PT 12.3 12.0 - 06/11 MH 14.7 /2017 [facility] HEMATOLOGY WBC 6.7 3.7 - 10.4 05/ /2017 [facility] HEMATOLOGY RBC 4.77 4.20 - 05 MH 5.40 /2017 [facility] HEMATOLOGY Hgb 15.1 12.0 - 06/11 16.0 /2017 [facility] HEMATOLOGY MCHC 33.3 32.0 - 05 36.0 /2017 [facility] HEMATOLOGY MCH 31.6 27.0 - 06/11 31.0 /2017 [facility] HEMATOLOGY MCV 95.0 80.0 - 06/11 98.0 /2017 [facility] HEMATOLOGY Hct 45.3 36.0 - 06/11 48.0 /2017 [facility] HEMATOLOGY RDW 13.4 11.5 - 05 MH 14.5 /2017 [facility] HEMATOLOGY MPV 7.4 7.4 - 10.4 / /2017 [facility] HEMATOLOGY Platelet 219 133 - 450 06/11 /2017 [facility] HEMATOLOGY Segs-Bands # 4.2 1.5 - 8.1 06/11 /2017 [facility] HEMATOLOGY Monocytes # 0.7 0.0 - 0.8 / /2017 [facility] HEMATOLOGY Lymphocytes 1.6 1.0 - 5.5 / MH # /2018 [facility] HEMATOLOGY Eosinophils 0.3 0.0 - 0.5 / MH # /2018 [facility] HEMATOLOGY Eosinophils 3.8 0.0 - 4.0 / /2017 [facility] HEMATOLOGY Basophils 0.7 0.0 - 1.0 / /2017 [facility] HEMATOLOGY Segs 61.9 45.0 - 05 75.0 /2017 [facility] HEMATOLOGY Lymphocytes 23.0 20.0 - 05/ MH 40.0 /2017 [facility] HEMATOLOGY Monocytes 10.6 2.0 - 12.0 / /2017 [facility] Pathology Reports No Data Provided for This Section Diagnostic Reports Report Value Date Source Chest 1 v for Portable chest: There has be en interval exchange of the right jugular Port-A-Cath since 06/11/2017 with the tip of the catheter at the cavoatrial junction. There is no evidence of pneumothorax. The left 06/18/2017 [facility] Placement DX subclavian pacemaker leads remain in place. The lungs and pleural spaces are clear. There is no other significant change. [id number] Chest 2 views DX PA and lateral chest: A righ t jugular Port-A-Cath and left subclavian dual-lead pacemaker seen in satisfactory position, showing interval placement since 09/12/2010. The cardiomediastinal silhouette, pu 06/11/2017 [facility] lmonary vasculature and mariah are otherwise within normal limits. The lungs and pleural spaces are clear. There are no significant osseous abnormalities. There is no other significant change compared to the previous exam, other edward n removal of a right subclavian pacemaker seen on the previous study. IMPRESSION: No acute radiographic abnormalities in the chest . [id number] Consultation Notes No Data Provided for This Section Discharge Summaries No Data Provided for This Section History and Physicals No Data Provided for This Section Vital Signs Vital Sign Value Date Comments Source Systolic (mm Hg) 121 06/18/2017 [place] Diastolic (mm Hg) 82 06/18/[address] [facility] [address] Systolic (mm Hg) 122 [facility]18/[facility] Diastolic (mm Hg) 88 06/18/[address] [facility] [address] Respitory Rate 18 06/18/2017 [facility] Systolic (mm Hg) 123 06/18/2017 [place] Diastolic (mm Hg) 85 06/18/[address] [facility] [address] Respitory Rate 16 06/18/2017 [facility] Respitory Rate 16 06/18/2017 [facility] Temperature Oral (F) 98.2 F 06/11/2017 [place] Heart Rate 73 06/11/2017 [facility] BMI Calculated 30.99 06/11/2017 [facility] Height 157.48 cm 06/11/2017 [facility] Weight 76.864 06/11/2017 [facility] Encounters Location Location Encounter Encounter Reason Attending ADM DC Stat Source Details Type Number For Provider Date Date Visit [id number] Mervin 06/18 06/18 [facility] /2017 [facility] Procedures Procedure Code Date Perfomer Comments Source Cholecystectomy [id number] [facility] ast ERCP<sup>1</sup> [id number] open [facility] Gastric bypass [id number] [facility] operation Hysterectomy [id number] [facility] Pacemaker care [id number] [facility] Rotator cuff [id number] left [facility] repair<sup>2</sup> Vascular access [id number] [facility] incision<sup>3</sup> Assessment and Plan Assessment and Plan Date Source Extracted from:Title: Clinical Document 06/18/2017 [place] Author: Mervin Griffith MD Date: 06/18/17 DATE OF :1960 DATE OF OPERATION:06/18/2017 PREOPERATIVE DIAGNOSIS: Anemia need for repeat infusion therapy and malfunctional po rtacath POSTOPERATIVE DIAGNOSIS: Anemia need for repeat infusion therapy and malfunctional po rtacath OPERATION: Ultrasound-guided right IJ access Powerport implantable Port-A-Cath placement under fluoroscop ic guidance Removal of previous portacath SURGEON: Dr. Mervin Griffith. ASSISTING SURGEON: Dr. Babar Fraire ANESTHESIA: General INDICATIONS FOR PROCEDURE: Port-A-Cath placement is indicated for i nfusion therapy in setting of inaccessible peripheral veins. Risks benefits and options were discussed with the patient who appropriately consented for the procedure. Informed consent was obtained PROCEDURE IN DETAIL: Prior to surgery, the risks, benefits an d complications, and alternatives were discussed with the patient and appropriately consent was obtained. Patient was transferred to the operating room and made comfortable in the supine position. Neck and chest was prepared using Chlora Prep solution and sterile drapes were placed. Previously place d port a cath was removed with incision on the chest wall and mobilizing the connective tissue. Ultrasound-guided right IJ access was ob tained and maintained by using an 035 wire.Serial dilation of the tract was then performed. Peel-away sheath was then prepped placed. Skin incision was made in the chest wall and hub was created for port. Open ended 8 Malay catheter was tunnele d in the subcutaneous tissue and exteriorized through the cervical incision. Catheter was then introduced into the SVC atrial junction under fluoroscopic guidanc e. Under fluoroscopic copy guidance john quate length of catheter was obtained the catheter was then cut and connected to the port. Port was then secured fashion by using P rolene suture. The port was then accessed aspirated and flushed and then packed with heparin. The wounds were approximated by using Vicryl and Monocryl. Sterile dressing was then placed. Plan of Care No Data Provided for This Section Social History Social History Date Source Social History TypeResponse 06/11/2017 [facility] Alcohol Never Smoking Status Never smoker; Exposure to Tobacco Smoke None; Cigarette Smoking Last 365 Days No; Reg Smoking Cessation Counseling No entered on: 06/18/17 Family History No Data Provided for This Section Advance Directives No Data Provided for This Section Functional Status No Data Provided for This Section
--- OUTSIDE RECORDS SUMMARY | 2019-06-21 12:02 | XMS REPORT ---
:1960 Author Organization [facility] t Address [address] [place] [address] Care Team Providers Name Role Phone CUASCUT Unavailable Unavailable SHEPHERD, GAY Unavailable Unavailable Problems This patient has no known problems. Allergies, Adverse Reactions, Alerts This patient has no known allergies or adverse reactions. Medications This patient has no known medications. Results Test Description Test Time Test Comments Text Results Atomic Results Result Comments MR, SPINE, THORACIC, 2019-05-12 15:56:00 FINAL REPORT WITHOUT / WITH IV CONTRAST Examination:MR , SPINE, THORACIC, WITHOUT / WITH IV CONTRAST H ISTORY: 59-year-old female with rela psing remitting multiple sclerosis , not currently on disease modifyi ng therapy and presents for [facility] low-up. Patient states she has no ne w symptoms or concerns for relapse.COMPARISON: None.JACOB HNIQUE: Sagittal T1 postcontrast; s agittal T2 and STIR. Axial T1 postcontrast, T2. Intraveno us contrast: 7 mL Gadavist. FINDINGS:Spinal cord size: N ormal. Enhancing lesions: None. T2 lesions: None. T1 lesions: N one. Vertebrae: Normal alignment, height, and signal intensity . Superior endplate Schmorl's node at T11.Discs: No disc herniatio n or canal stenosis. Incidental f inding: A 5.7 mm nerve root sleeve c yst in the right neural foramen at T6-T7. An 8 mm nerve root sleeve cy st in the left neural foramen at T 10-T11. IMPRESSION:No nonenhancing o r enhancing lesion within the cord. Signed: Ramya Noel MD Report Verified Date/Time: 020 15:56:57 Reading Location: [facility] Reading Room [address] [place] [address] 03:5 6 PM MR, SPINE, CERVICAL, 2019-05-12 15:51:00 FINAL REPORT WITHOUT / WITH IV CONTRAST Examination: MR, SPINE, CERVICAL, WITHOUT / WITH IV CONTRAST H ISTORY: 59-year-old female with rela psing remitting multiple sclerosis , not currently on disease modifyi ng therapy and presents for fol low-up. Patient states she has no ne w symptoms or concerns for relapse.COMPARISON: None.JACOB HNIQUE: Sagittal and axial T1 postco ntrast; sagittal T2 and STIR. Axial T2. Intravenous contrast: 7 mL Gadavist. FINDINGS:Spinal cord size: Normal. Enhancing lesi ons: None. T2 lesions: Small lesi on in the right posterior cord at mid C4.No additional lesions. T1 lesions: There are no lesion s of cerebrospinal fluid equivale nt intensity. Vertebrae: Normal alignment, height, and signa l intensity. Discs: Diffuse di sc bulges from C3 through C6 wi thout canal stenosis.Foramen magnu m: No Chiari malformation, mass, o r basilar invagination. Jason tional findings:None. IMPRESSION:Si ngle tiny nonenhancing lesion wit hin the cord. No enhancing addition al nonenhancing lesions. Signed : Ramya Noel V erified Date/Time: 05/12/2019 15:51 :43 Reading Location: [facility] Reading Room [address] [place] [address] 03:5 1 PM MR, BRAIN, WITHOUT / WITH 2019-05-12 15:47:00 FI NAL REPORT IV CONTRAST Examination: MR, BRAIN, WITH OUT / WITH IV CONTRAST HISTORY: 59-year-old female with rela psing remitting multiple sclerosis , not currently on disease modifyi ng therapy and presents for fol low-up. Patient states she has no ne w symptoms or concerns for relapse.COMPARISON: Brain MR I performed at [facility] on July 24, [facility] HNIQUE: Sagittal FLAIR with axial an d coronal reconstructions; axi al precontrast T1, postcontrast T2, FLAIR; axial, sagittal and c oronal postcontrast T1. Contrast: Seven mL Gadavist. FINDINGS:T2 le sions: Number: Innumerable discrete T2 lesions. No new lesions. Siz e: Range in size from 1 mm to 14 mm. Location: Periventricular, d eep, callosal septal interface, juxtacortical white matter. Luz. T1 "black holes": There are no lesions of cerebrospinal flu id equivalent intensity. Enhanc ing lesions: None. Corpus callos um volume: Normal, unchanged. B rain volume: Within normal limits for age, unchanged. Additional f inding: Retention cyst in the right maxillary sinus. IMPRESSION :No new nonenhancing or enhancing le nitesh within the brain when compar ed to prior brain MRI performed at [facility] on July 24, 2015. Unchanged nonenhancing lesions, consistent with mul tiple sclerosis. Signed: Ramya Noel Verified Date/Time: 05/12/2019 15:47 :11 Reading Location: [facility] Reading Room [address] [place] [address] 03:4 7 PM POCT-CREATININE 2019-05-12 09:13:00 Test Item Value Reference Range Comments POC-CREATININE (AKER) 1.0 mg/dL 0.6-1.3 : TESTED AT [facility] [address] (test code = 1859) [facility] [place] [address]: Supervisor Grove/Technic becky ID = [id number] for LUPIS MCKOY [facility] (test code 57 mL/min/1.73M2 = 1860) RAD, CHEST, 2 [id number] 09:02:00Reason for exam:->MRI pacemaker check FINAL REPORT Chest, 2 views, 05/12/2019 8:54 AM. History: Pacemaker check. Comparison: 03/21/2017. Discussion: The cardiomediastinal silhouette and pulmonary vasculature are withinnormal limits. The lungs are clear without evidence of consolidation or effusion. Left subclavian dual-lead pacer leads are unchanged in position. Right IJ Port-A-Cath is also noted terminating in thecavoatrial junction. There are no acute osseous abnormalities. The soft tissues are unremarkable. IMPRESSION: No acute cardiopulmonary abnormality. Signed: Cyrus Prettyort Verified Date/Time:05/12/2019 09:02:30 Reading Location: [facility] Mammo Reading Room TISSUE [id number] 10:19:00 Surgical Pathology Report Case: [id number] Authorizing Provider: Shoshana Shepherd MD Collected: 05/06/2018 1434 Ordering Location: [facility] Received: 05/06/2018 1603 Services Pathologist: Augustus Lentz MD Specimen: Biopsy, Gastric, BX GASTRIC POUCH ERYTHEMA PART A GASTRIC POUCH, BIOPSY:CHRONIC INACTIVE GASTRITIS.NEGATIVE FOR INTESTINAL METAPLASIA, DYSPLASIA, OR INVASIVE CARCINOMA.WARTHIN STARRY STAIN FOR HELICOBACTER IS NEGATIVE. Signing Pathologist Direct Phone Line: [phone] signed by Augustus Lentz MD on 05/07/2018 at 10:19 [id number], [id number] abdominal pain, erythema Gastric pouch biopsy The specimen is received in a formalin-filled container labeled with the patient's information and labeled "gastric pouch biopsy" and consists ofthree fragments of bolden-red soft tissue ranging from 0.1 to 0.2 cm, submitted entirely in A1. CG/ew PERFORMED.The interpretation of this case included the use of immunohistochemistry or special stains.BLOCK A1- WARTHIN STARRYImmunohistochemistry technical testing was performed at [facility], Pathology Laboratory where it was developed and its performance characteristics were determined. It has not been cleared or approved by the U.S. Food and Drug Administration. The FDA has determined that such clearance or approval is not necessary. The test is used for clinical purposes. It should not be regarded as investigational or for research. This laboratory is certified under the Clinical Laboratory Improvement Amendments of 1988 (CLIA-88) as qualified to perform high complexity clinical laboratory testing.POCT-GLUCOSE [id number] 08:31:00 Test Item Value Reference Range Comments POC-GLUCOSE METER (BEAKER) 73 mg/dL 70-[address] [facility] [address] (test code = 1538) [facility] [address], [id number] 08:00:00Reason for exam:->right lower quad painWhat is the patient's sedation requirement?->No SedationIs the patient ?->NoFINAL REPORT CT of the abdomen and pelvis, [...] Carlson Verified Date/Time: 03/25/2017 08:00:47 Reading Location: [facility] Diagnostic Imaging Reading Room - [place] [address] [id number] 06:09:00 Test Item Value Reference Range Comments MAGNESIUM (BEAKER) (test code = 627) 1.6 mg/dL 1.6-2.6 BASIC METABOLIC [id number] 06:09:00 Test Item Value Reference Range Comments SODIUM (BEAKER) (test 141 meq/L 136-145 code = 381) POTASSIUM (BEAKER) (test 4.1 meq/L 3.5-5.1 code = 379) CHLORIDE (BEAKER) (test 104 meq/L 98-107 code = 382) CO2 (BEAKER) (test code = 29 meq/L 22-29 355) BLOOD UREA NITROGEN 9 mg/dL 7-21 (BEAKER) (test code = 354) CREATININE (BEAKER) (test 0.93 mg/dL 0.57-1.25 code = 358) GLUCOSE RANDOM (BEAKER) 87 mg/dL 70-105 (test code = 652) CALCIUM (BEAKER) (test 9.0 mg/dL 8.4-10.2 code = 697) EGFR (BEAKER) (test code 62 mL/min/1.73 sq m EST IMATED GFR IS NOT = 1092) ACCURATE CREA TININE CLEARANCE IN PRE DICTING GLOMERULAR FILTR ATION RATE. ESTIMATED GFR IS NOT APPLICABLE F OR DIALYSIS PATIENT S. CBC W/PLT COUNT & AUTO [id number] 05:43:00 Test Item Value Reference Range Comments WHITE BLOOD CELL COUNT (BEAKER) (test code = 5.7 K/ L 3.5 -10.5 775) RED BLOOD CELL COUNT (BEAKER) (test code = 761) 3.67 M/ L 3.93-5.22 HEMOGLOBIN (BEAKER) (test code = 410) 11.8 GM/DL 11.2-15.7 HEMATOCRIT (BEAKER) (test code = 411) 36.6 % 34.1-44.9 MEAN CORPUSCULAR VOLUME (BEAKER) (test code = 99.7 fL 79 .4-94.8 753) MEAN CORPUSCULAR HEMOGLOBIN (BEAKER) (test code 32.2 pg 25.6-32.2 = 751) MEAN CORPUSCULAR HEMOGLOBIN CONC (BEAKER) (test 32.2 GM/DL 32.2-35.5 code = 752) RED CELL DISTRIBUTION WIDTH (BEAKER) (test code 12.6 % 11.7-14.4 = 412) PLATELET COUNT (BEAKER) (test code = 756) 187 K/CU MM 150-45 0 MEAN PLATELET VOLUME (BEAKER) (test code = 754) 9.7 fL 9.4-12.3 NUCLEATED RED BLOOD CELLS (BEAKER) (test code = 0 /100 WBC 0-0 413) NEUTROPHILS RELATIVE PERCENT (BEAKER) (test code 63 % = 429) LYMPHOCYTES RELATIVE PERCENT (BEAKER) (test code 18 % = 430) MONOCYTES RELATIVE PERCENT (BEAKER) (test code = 14 % 431) EOSINOPHILS RELATIVE PERCENT (BEAKER) (test code 5 % = 432) BASOPHILS RELATIVE PERCENT (BEAKER) (test code = 1 % 437) NEUTROPHILS ABSOLUTE COUNT (BEAKER) (test code = 3.56 K/ L 1.56-6.13 670) LYMPHOCYTES ABSOLUTE COUNT (BEAKER) (test code = 1.02 K/ L 1.18-3.74 414) MONOCYTES ABSOLUTE COUNT (BEAKER) (test code = 0.78 K/ L 0 .24-0.36 415) EOSINOPHILS ABSOLUTE COUNT (BEAKER) (test code = 0.26 K/ L 0.04-0.36 416) BASOPHILS ABSOLUTE COUNT (BEAKER) (test code = 0.03 K/ L 0 .01-0.08 417) IMMATURE GRANULOCYTES-RELATIVE PERCENT (BEAKER) 0 % 0-1 (test code = 2801) POCT-GLUCOSE [id number] 23:29:00 Test Item Value Reference Range Comments POC-GLUCOSE METER (BEAKER) 101 mg/dL 70-110 TESTE D AT [address] (test code = 1538) [place] [address] POCT-GLUCOSE [id number] 17:46:00 Test Item Value Reference Range Comments POC-GLUCOSE METER (BEAKER) 90 mg/dL 70-110 TESTE D AT [address] (test code = 1538) [place] [address] POCT-GLUCOSE [id number] 12:51:00 Test Item Value Reference Range Comments POC-GLUCOSE METER (BEAKER) 89 mg/dL 70-110 TESTE D AT [address] (test code = 1538) [place] [address] POCT-GLUCOSE [id number] 08:48:00 Test Item Value Reference Range Comments POC-GLUCOSE METER (BEAKER) 199 mg/dL 70-110 TESTE D AT [address] (test code = 1538) [place] [address] [id number] 08:16:00 Test Item Value Reference Range Comments MAGNESIUM (BEAKER) (test code = 627) 1.6 mg/dL 1.6-2.6 BASIC METABOLIC [id number] 08:16:00 Test Item Value Reference Range Comments SODIUM (BEAKER) (test 139 meq/L 136-145 code = 381) POTASSIUM (BEAKER) (test 3.8 meq/L 3.5-5.1 code = 379) CHLORIDE (BEAKER) (test 103 meq/L 98-107 code = 382) CO2 (BEAKER) (test code = 24 meq/L 22-29 355) BLOOD UREA NITROGEN 12 mg/dL 7-21 (BEAKER) (test code = 354) CREATININE (BEAKER) (test 0.92 mg/dL 0.57-1.25 code = 358) GLUCOSE RANDOM (BEAKER) 95 mg/dL 70-105 (test code = 652) CALCIUM (BEAKER) (test 8.5 mg/dL 8.4-10.2 code = 697) EGFR (BEAKER) (test code 63 mL/min/1.73 sq m EST IMATED GFR IS NOT = 1092) ACCURATE CREA TININE CLEARANCE IN PRE DICTING GLOMERULAR FILTR ATION RATE. ESTIMATED GFR IS NOT APPLICABLE F OR DIALYSIS PATIENT S. CBC W/PLT COUNT & AUTO [id number] 06:41:00 Test Item Value Reference Range Comments WHITE BLOOD CELL COUNT (BEAKER) (test code = 7.1 K/ L 3.5 -10.5 775) RED BLOOD CELL COUNT (BEAKER) (test code = 761) 3.74 M/ L 3.93-5.22 HEMOGLOBIN (BEAKER) (test code = 410) 12.1 GM/DL 11.2-15.7 HEMATOCRIT (BEAKER) (test code = 411) 37.9 % 34.1-44.9 MEAN CORPUSCULAR VOLUME (BEAKER) (test code = 101.3 fL 79 .4-94.8 753) MEAN CORPUSCULAR HEMOGLOBIN (BEAKER) (test code 32.4 pg 25.6-32.2 = 751) MEAN CORPUSCULAR HEMOGLOBIN CONC (BEAKER) (test 31.9 GM/DL 32.2-35.5 code = 752) RED CELL DISTRIBUTION WIDTH (BEAKER) (test code 12.6 % 11.7-14.4 = 412) PLATELET COUNT (BEAKER) (test code = 756) 187 K/CU MM 150-45 0 MEAN PLATELET VOLUME (BEAKER) (test code = 754) 9.8 fL 9.4-12.3 NUCLEATED RED BLOOD CELLS (BEAKER) (test code = 0 /100 WBC 0-0 413) NEUTROPHILS RELATIVE PERCENT (BEAKER) (test code 67 % = 429) LYMPHOCYTES RELATIVE PERCENT (BEAKER) (test code 17 % = 430) MONOCYTES RELATIVE PERCENT (BEAKER) (test code = 12 % 431) EOSINOPHILS RELATIVE PERCENT (BEAKER) (test code 4 % = 432) BASOPHILS RELATIVE PERCENT (BEAKER) (test code = 0 % 437) NEUTROPHILS ABSOLUTE COUNT (BEAKER) (test code = 4.71 K/ L 1.56-6.13 670) LYMPHOCYTES ABSOLUTE COUNT (BEAKER) (test code = 1.16 K/ L 1.18-3.74 414) MONOCYTES ABSOLUTE COUNT (BEAKER) (test code = 0.87 K/ L 0 .24-0.36 415) EOSINOPHILS ABSOLUTE COUNT (BEAKER) (test code = 0.26 K/ L 0.04-0.36 416) BASOPHILS ABSOLUTE COUNT (BEAKER) (test code = 0.03 K/ L 0 .01-0.08 417) IMMATURE GRANULOCYTES-RELATIVE PERCENT (BEAKER) 0 % 0-1 (test code = 2801) POCT-GLUCOSE [id number] 22:19:00 Test Item Value Reference Range Comments POC-GLUCOSE METER (BEAKER) 116 mg/dL 70-110 TESTE D AT [address] (test code = 1538) [place] [address] POCT-GLUCOSE [id number] 21:16:00 Test Item Value Reference Range Comments POC-GLUCOSE METER (BEAKER) 117 mg/dL 70-110 TESTE D AT [address] (test code = 1538) [place] [address] URINALYSIS W/ REFLEX URINE [id number] 18:57:00 Test Item Value Reference Range Comments COLOR (BEAKER) (test code = 470) Light Yellow CLARITY (BEAKER) (test code = 469) Clear SPECIFIC GRAVITY UA (BEAKER) (test code = 468) 1.006 1 .001-1.035 PH UA (BEAKER) (test code = 467) 7.0 5.0-8.0 PROTEIN UA (BEAKER) (test code = 464) Negative Negative GLUCOSE UA (BEAKER) (test code = 365) Negative Negative KETONES UA (BEAKER) (test code = 371) Negative Negative BILIRUBIN UA (BEAKER) (test code = 462) Negative Negative BLOOD UA (BEAKER) (test code = 461) Negative Negative NITRITE UA (BEAKER) (test code = 465) Negative Negative LEUKOCYTE ESTERASE UA (BEAKER) (test code = Negative Nega tive 466) UROBILINOGEN UA (BEAKER) (test code = 463) 0.2 mg/dL 0.2-1 .0 RBC UA (BEAKER) (test code = 519) 0 /HPF WBC UA (BEAKER) (test code = 520) 1 /HPF SQUAMOUS EPITHELIAL (BEAKER) (test code = 516) 1 /HPF SOURCE(BEAKER) (test code = 2795) POCT-GLUCOSE [id number] 17:05:00 Test Item Value Reference Range Comments POC-GLUCOSE METER (BEAKER) 92 mg/dL 70-[address] [facility] [address] [facility] (test code = 1538) [place] [address] RAD, ABDOMEN/KUB, 1 VIEW [id number] 12:49:00Reason for exam:->abdominal painShould this be performed at the bedside?->YesFINAL REPORT Technique: Frontal images of the abdomen COMPARISON: 03/19/2015 FINDINGS: Bowel gas pattern is nonspecific. Some residual contrast in the colon seen. No gross free intraperitoneal air. A stent projects in the upper abdomen centrally. No acute skeletal abnormality. Signed: Joby Hoffman Verified Date/Time: 03/23/2017 12:49:51 Reading Location: [address] Transitional Reading Room POCT-GLUCOSE [id number] 08:59:00 Test Item Value Reference Range Comments POC-GLUCOSE METER (BEAKER) 107 mg/dL 70-110 TESTE D AT [address] (test code = 1538) [place] [address] [id number] 07:02:00 Test Item Value Reference Range Comments MAGNESIUM (BEAKER) (test code = 627) 1.8 mg/dL 1.6-2.6 BASIC METABOLIC [id number] 07:02:00 Test Item Value Reference Range Comments SODIUM (BEAKER) (test 142 meq/L 136-145 code = 381) POTASSIUM (BEAKER) (test 4.1 meq/L 3.5-5.1 code = 379) CHLORIDE (BEAKER) (test 103 meq/L 98-107 code = 382) CO2 (BEAKER) (test code = 30 meq/L 22-29 355) BLOOD UREA NITROGEN 15 mg/dL 7-21 (BEAKER) (test code = 354) CREATININE (BEAKER) (test 0.93 mg/dL 0.57-1.25 code = 358) GLUCOSE RANDOM (BEAKER) 83 mg/dL 70-105 (test code = 652) CALCIUM (BEAKER) (test 8.8 mg/dL 8.4-10.2 code = 697) EGFR (BEAKER) (test code 62 mL/min/1.73 sq m EST IMATED GFR IS NOT = 1092) ACCURATE CREA TININE CLEARANCE IN PRE DICTING GLOMERULAR FILTR ATION RATE. ESTIMATED GFR IS NOT APPLICABLE F OR DIALYSIS PATIENT S. HEPATIC FUNCTION [id number] 07:02:00 Test Item Value Reference Range Comments TOTAL PROTEIN (BEAKER) (test code = 770) 6.0 gm/dL 6.0-8.3 ALBUMIN (BEAKER) (test code = 1145) 3.6 g/dL 3.5-5.0 BILIRUBIN TOTAL (BEAKER) (test code = 377) 0.6 mg/dL 0.2-1 .2 BILIRUBIN DIRECT (BEAKER) (test code = 706) 0.2 mg/dL 0.1- 0.5 ALKALINE PHOSPHATASE (BEAKER) (test code = 346) 78 U/L 40-150 AST (SGOT) (BEAKER) (test code = 353) 18 U/L 5-34 ALT (SGPT) (BEAKER) (test code = 347) 24 U/L 6-55 [id number] 07:02:00 Test Item Value Reference Range Comments AMYLASE (BEAKER) (test code = 349) 93 U/L 25-125 [id number] 07:02:00 Test Item Value Reference Range Comments LIPASE (BEAKER) (test code = 749) 71 U/L 8-78 CBC W/PLT COUNT & AUTO [id number] 05:52:00 Test Item Value Reference Range Comments WHITE BLOOD CELL COUNT (BEAKER) (test code = 7.5 K/ L 3.5 -10.5 775) RED BLOOD CELL COUNT (BEAKER) (test code = 761) 3.60 M/ L 3.93-5.22 HEMOGLOBIN (BEAKER) (test code = 410) 11.9 GM/DL 11.2-15.7 HEMATOCRIT (BEAKER) (test code = 411) 36.4 % 34.1-44.9 MEAN CORPUSCULAR VOLUME (BEAKER) (test code = 101.1 fL 79 .4-94.8 753) MEAN CORPUSCULAR HEMOGLOBIN (BEAKER) (test code 33.1 pg 25.6-32.2 = 751) MEAN CORPUSCULAR HEMOGLOBIN CONC (BEAKER) (test 32.7 GM/DL 32.2-35.5 code = 752) RED CELL DISTRIBUTION WIDTH (BEAKER) (test code 12.6 % 11.7-14.4 = 412) PLATELET COUNT (BEAKER) (test code = 756) 182 K/CU MM 150-45 0 MEAN PLATELET VOLUME (BEAKER) (test code = 754) 9.8 fL 9.4-12.3 NUCLEATED RED BLOOD CELLS (BEAKER) (test code = 0 /100 WBC 0-0 413) NEUTROPHILS RELATIVE PERCENT (BEAKER) (test code 70 % = 429) LYMPHOCYTES RELATIVE PERCENT (BEAKER) (test code 15 % = 430) MONOCYTES RELATIVE PERCENT (BEAKER) (test code = 12 % 431) EOSINOPHILS RELATIVE PERCENT (BEAKER) (test code 3 % = 432) BASOPHILS RELATIVE PERCENT (BEAKER) (test code = 0 % 437) NEUTROPHILS ABSOLUTE COUNT (BEAKER) (test code = 5.22 K/ L 1.56-6.13 670) LYMPHOCYTES ABSOLUTE COUNT (BEAKER) (test code = 1.11 K/ L 1.18-3.74 414) MONOCYTES ABSOLUTE COUNT (BEAKER) (test code = 0.89 K/ L 0 .24-0.36 415) EOSINOPHILS ABSOLUTE COUNT (BEAKER) (test code = 0.20 K/ L 0.04-0.36 416) BASOPHILS ABSOLUTE COUNT (BEAKER) (test code = 0.02 K/ L 0 .01-0.08 417) IMMATURE GRANULOCYTES-RELATIVE PERCENT (BEAKER) 0 % 0-1 (test code = 2801) POCT-GLUCOSE [id number] 21:26:00 Test Item Value Reference Range Comments POC-GLUCOSE METER (BEAKER) 96 mg/dL 70-110 TESTE D AT [place] [id number] [facility] (test code = 1538) [place] [address] POCT-GLUCOSE [id number] 17:51:00 Test Item Value Reference Range Comments POC-GLUCOSE METER (BEAKER) 104 mg/dL 70-110 TESTE D AT [address] (test code = 1538) [place] [address] POCT-GLUCOSE [id number] 15:36:00 Test Item Value Reference Range Comments POC-GLUCOSE METER (BEAKER) 101 mg/dL 70-110 TESTE D AT [address] (test code = 1538) [place] [address] CBC W/PLT COUNT & AUTO [id number] 07:20:00 Test Item Value Reference Range Comments WHITE BLOOD CELL COUNT (BEAKER) (test code = 6.3 K/ L 3.5 -10.5 775) RED BLOOD CELL COUNT (BEAKER) (test code = 761) 3.58 M/ L 3.93-5.22 HEMOGLOBIN (BEAKER) (test code = 410) 11.5 GM/DL 11.2-15.7 HEMATOCRIT (BEAKER) (test code = 411) 36.3 % 34.1-44.9 MEAN CORPUSCULAR VOLUME (BEAKER) (test code = 101.4 fL 79 .4-94.8 753) MEAN CORPUSCULAR HEMOGLOBIN (BEAKER) (test code 32.1 pg 25.6-32.2 = 751) MEAN CORPUSCULAR HEMOGLOBIN CONC (BEAKER) (test 31.7 GM/DL 32.2-35.5 code = 752) RED CELL DISTRIBUTION WIDTH (BEAKER) (test code 12.7 % 11.7-14.4 = 412) PLATELET COUNT (BEAKER) (test code = 756) 172 K/CU MM 150-45 0 MEAN PLATELET VOLUME (BEAKER) (test code = 754) 10.0 fL 9.4-12.3 NUCLEATED RED BLOOD CELLS (BEAKER) (test code = 0 /100 WBC 0-0 413) NEUTROPHILS RELATIVE PERCENT (BEAKER) (test code 65 % = 429) LYMPHOCYTES RELATIVE PERCENT (BEAKER) (test code 18 % = 430) MONOCYTES RELATIVE PERCENT (BEAKER) (test code = 12 % 431) EOSINOPHILS RELATIVE PERCENT (BEAKER) (test code 4 % = 432) BASOPHILS RELATIVE PERCENT (BEAKER) (test code = 1 % 437) NEUTROPHILS ABSOLUTE COUNT (BEAKER) (test code = 4.10 K/ L 1.56-6.13 670) LYMPHOCYTES ABSOLUTE COUNT (BEAKER) (test code = 1.13 K/ L 1.18-3.74 414) MONOCYTES ABSOLUTE COUNT (BEAKER) (test code = 0.76 K/ L 0 .24-0.36 415) EOSINOPHILS ABSOLUTE COUNT (BEAKER) (test code = 0.25 K/ L 0.04-0.36 416) BASOPHILS ABSOLUTE COUNT (BEAKER) (test code = 0.03 K/ L 0 .01-0.08 417) IMMATURE GRANULOCYTES-RELATIVE PERCENT (BEAKER) 0 % 0-1 (test code = 2801) [id number] 06:50:00 Test Item Value Reference Range Comments MAGNESIUM (BEAKER) (test code = 627) 2.0 mg/dL 1.6-2.6 BASIC METABOLIC [id number] 06:50:00 Test Item Value Reference Range Comments SODIUM (BEAKER) (test 144 meq/L 136-145 code = 381) POTASSIUM (BEAKER) (test 3.8 meq/L 3.5-5.1 code = 379) CHLORIDE (BEAKER) (test 107 meq/L 98-107 code = 382) CO2 (BEAKER) (test code = 29 meq/L 22-29 355) BLOOD UREA NITROGEN 9 mg/dL 7-21 (BEAKER) (test code = 354) CREATININE (BEAKER) (test 0.79 mg/dL 0.57-1.25 code = 358) GLUCOSE RANDOM (BEAKER) 81 mg/dL 70-105 (test code = 652) CALCIUM (BEAKER) (test 8.6 mg/dL 8.4-10.2 code = 697) EGFR (BEAKER) (test code 75 mL/min/1.73 sq m EST IMATED GFR IS NOT = 1092) ACCURATE CREA TININE CLEARANCE IN PRE DICTING GLOMERULAR FILTR ATION RATE. ESTIMATED GFR IS NOT APPLICABLE F OR DIALYSIS PATIENT S. HEPATIC FUNCTION [id number] 06:50:00 Test Item Value Reference Range Comments TOTAL PROTEIN (BEAKER) (test code = 770) 5.8 gm/dL 6.0-8.3 ALBUMIN (BEAKER) (test code = 1145) 3.5 g/dL 3.5-5.0 BILIRUBIN TOTAL (BEAKER) (test code = 377) 0.8 mg/dL 0.2-1 .2 BILIRUBIN DIRECT (BEAKER) (test code = 706) 0.3 mg/dL 0.1- 0.5 ALKALINE PHOSPHATASE (BEAKER) (test code = 346) 75 U/L 40-150 AST (SGOT) (BEAKER) (test code = 353) 17 U/L 5-34 ALT (SGPT) (BEAKER) (test code = 347) 27 U/L 6-55 [id number] 06:50:00 Test Item Value Reference Range Comments AMYLASE (BEAKER) (test code = 349) 85 U/L 25-125 [id number] 06:50:00 Test Item Value Reference Range Comments LIPASE (BEAKER) (test code = 749) 49 U/L 8-78 POCT-GLUCOSE [id number] 21:14:00 Test Item Value Reference Range Comments POC-GLUCOSE METER (BEAKER) 107 mg/dL 70-[address] [facility] [address] [facility] (test code = 1538) [facility] [id number] [phone] CREATINE KINASE (CK), TOTAL AND [id number] 17:48:00 Test Item Value Reference Range Comments CREATINE KINASE TOTAL (BEAKER) (test code = 380) 116 U/L 29-200 CREATINE KINASE-MB (BEAKER) (test code = 750) 1.1 ng/mL 0. 0-6.6 CREATINE KINASE-MB INDEX (BEAKER) (test code = 0.9 % 395) CK-MB Reference Range:<6.7 Normal6.7-10.0 Borderline>10.0 AbnormalTROPONIN [id number] 17:48:00 Test Item Value Reference Range Comments TROPONIN I (BEAKER) (test code = 397) < ng/mL 0.00-0.03 Troponin I (TnI) levels [...] acidosis, acute neurological disease, and persistent tachyarrhythmia.TROPONIN [id number] 17:48:00 Test Item Value Reference Range Comments TROPONIN I (BEAKER) (test code = 397) < ng/mL 0.00-0.03 Troponin I (TnI) levels [...] failure, acidosis, acute neurological disease, and persistent tachyarrhythmia.[id number] 17:46:00 Test Item Value Reference Range Comments LIPASE (BEAKER) (test code = 749) 108 U/L 8-78 [id number] 17:46:00 Test Item Value Reference Range Comments AMYLASE (BEAKER) (test code = 349) 122 U/L 25-125 POCT-GLUCOSE [id number] 17:08:00 Test Item Value Reference Range Comments POC-GLUCOSE METER (BEAKER) 112 mg/dL 70-110 TESTE D AT [address] (test code = 1538) [place] [id number] POCT-GLUCOSE [id number] 11:41:00 Test Item Value Reference Range Comments POC-GLUCOSE METER (BEAKER) 100 mg/dL 70-110 TESTE D AT [address] (test code = 1538) [place] [id number] CREATINE KINASE (CK), TOTAL AND [id number] 11:13:00 Test Item Value Reference Range Comments CREATINE KINASE TOTAL (BEAKER) (test code = 380) 112 U/L 29-200 CREATINE KINASE-MB (BEAKER) (test code = 750) 1.1 ng/mL 0. 0-6.6 CREATINE KINASE-MB INDEX (BEAKER) (test code = 1.0 % 395) CK-MB Reference Range:<6.7 Normal6.7-10.0 Borderline>10.0 AbnormalTROPONIN [id number] 11:13:00 Test Item Value Reference Range Comments TROPONIN I (BEAKER) (test code = 397) < ng/mL 0.00-0.03 Troponin I (TnI) levels [...] failure, acidosis, acute neurological disease, and persistent tachyarrhythmia.[id number] 11:05:00 Test Item Value Reference Range Comments LIPASE (BEAKER) (test code = 749) 48 U/L 8-78 [id number] 11:05:00 Test Item Value Reference Range Comments AMYLASE (BEAKER) (test code = 349) 129 U/L 25-125 HEPATIC FUNCTION [id number] 11:05:00 Test Item Value Reference Range Comments TOTAL PROTEIN (BEAKER) (test code = 770) 6.0 gm/dL 6.0-8.3 ALBUMIN (BEAKER) (test code = 1145) 3.7 g/dL 3.5-5.0 BILIRUBIN TOTAL (BEAKER) (test code = 377) 0.4 mg/dL 0.2-1 .2 BILIRUBIN DIRECT (BEAKER) (test code = 706) 0.2 mg/dL 0.1- 0.5 ALKALINE PHOSPHATASE (BEAKER) (test code = 346) 78 U/L 40-150 AST (SGOT) (BEAKER) (test code = 353) 22 U/L 5-34 ALT (SGPT) (BEAKER) (test code = 347) 33 U/L 6-55 RAD, CHEST, 1 VIEW, NON [id number] 09:52:00Reason for exam:->chest painShould this be performed at the bedside?->YesFINAL REPORT Chest one view AP 03/21/2017 9:51 AM CLINICAL INDICATION: chest pain COMPARISON: 07/04/2015 IMPRESSION: Bibasilar subsegmental opacities suggest atelectasis. Cardiomediastinal contours are within normal limits. The central pulmonary vasculature is not engorged. Signed:Eric Nicholseport Verified Date/Time: 03/21/2017 09:52:14 Reading Location: [facility] Reading Room POCT-GLUCOSE [id number] 08:55:00 Test Item Value Reference Range Comments POC-GLUCOSE METER (BEAKER) 104 mg/dL 70-[address] [facility] [address] [facility] (test code = 1538) [facility] [address] [id number] 02:59:00 Test Item Value Reference Range Comments MAGNESIUM (BEAKER) (test code = 627) 1.3 mg/dL 1.6-2.6 BASIC METABOLIC [id number] 02:59:00 Test Item Value Reference Range Comments SODIUM (BEAKER) (test 139 meq/L 136-145 code = 381) POTASSIUM (BEAKER) (test 3.9 meq/L 3.5-5.1 code = 379) CHLORIDE (BEAKER) (test 105 meq/L 98-107 code = 382) CO2 (BEAKER) (test code = 26 meq/L 22-29 355) BLOOD UREA NITROGEN 15 mg/dL 7-21 (BEAKER) (test code = 354) CREATININE (BEAKER) (test 0.81 mg/dL 0.57-1.25 code = 358) GLUCOSE RANDOM (BEAKER) 95 mg/dL 70-105 (test code = 652) CALCIUM (BEAKER) (test 8.4 mg/dL 8.4-10.2 code = 697) EGFR (BEAKER) (test code 73 mL/min/1.73 sq m EST IMATED GFR IS NOT = 1092) ACCURATE CREA TININE CLEARANCE IN PRE DICTING GLOMERULAR FILTR ATION RATE. ESTIMATED GFR IS NOT APPLICABLE F OR DIALYSIS PATIENT S. CBC W/PLT COUNT & AUTO [id number] 02:44:00 Test Item Value Reference Range Comments WHITE BLOOD CELL COUNT (BEAKER) (test code = 10.8 K/ L 3.5 -10.5 775) RED BLOOD CELL COUNT (BEAKER) (test code = 761) 3.44 M/ L 3.93-5.22 HEMOGLOBIN (BEAKER) (test code = 410) 11.1 GM/DL 11.2-15.7 HEMATOCRIT (BEAKER) (test code = 411) 34.6 % 34.1-44.9 MEAN CORPUSCULAR VOLUME (BEAKER) (test code = 100.6 fL 79 .4-94.8 753) MEAN CORPUSCULAR HEMOGLOBIN (BEAKER) (test code 32.3 pg 25.6-32.2 = 751) MEAN CORPUSCULAR HEMOGLOBIN CONC (BEAKER) (test 32.1 GM/DL 32.2-35.5 code = 752) RED CELL DISTRIBUTION WIDTH (BEAKER) (test code 12.9 % 11.7-14.4 = 412) PLATELET COUNT (BEAKER) (test code = 756) 168 K/CU MM 150-45 0 MEAN PLATELET VOLUME (BEAKER) (test code = 754) 9.6 fL 9.4-12.3 NUCLEATED RED BLOOD CELLS (BEAKER) (test code = 0 /100 WBC 0-0 413) NEUTROPHILS RELATIVE PERCENT (BEAKER) (test code 74 % = 429) LYMPHOCYTES RELATIVE PERCENT (BEAKER) (test code 15 % = 430) MONOCYTES RELATIVE PERCENT (BEAKER) (test code = 9 % 431) EOSINOPHILS RELATIVE PERCENT (BEAKER) (test code 2 % = 432) BASOPHILS RELATIVE PERCENT (BEAKER) (test code = 0 % 437) NEUTROPHILS ABSOLUTE COUNT (BEAKER) (test code = 7.97 K/ L 1.56-6.13 670) LYMPHOCYTES ABSOLUTE COUNT (BEAKER) (test code = 1.58 K/ L 1.18-3.74 414) MONOCYTES ABSOLUTE COUNT (BEAKER) (test code = 0.99 K/ L 0 .24-0.36 415) EOSINOPHILS ABSOLUTE COUNT (BEAKER) (test code = 0.19 K/ L 0.04-0.36 416) BASOPHILS ABSOLUTE COUNT (BEAKER) (test code = 0.03 K/ L 0 .01-0.08 417) IMMATURE GRANULOCYTES-RELATIVE PERCENT (BEAKER) 0 % 0-1 (test code = 2801) POCT-GLUCOSE [id number] 22:51:00 Test Item Value Reference Range Comments POC-GLUCOSE METER (BEAKER) 102 mg/dL 70-[address] [facility] [address] [facility] (test code = 1538) [facility] [address] POCT-GLUCOSE [id number] 17:12:00 Test Item Value Reference Range Comments POC-GLUCOSE METER (BEAKER) 103 mg/dL 70-[address] [facility] [address] [facility] (test code = 1538) [place] [address] POCT-GLUCOSE [id number] 13:24:00 Test Item Value Reference Range Comments POC-GLUCOSE METER (BEAKER) 93 mg/dL 70-[address] [facility] [address] [facility] (test code = 1538) [place] [address] [id number] 01:37:00 Test Item Value Reference Range Comments MAGNESIUM (BEAKER) (test code = 627) 1.6 mg/dL 1.6-2.6 BASIC METABOLIC [id number] 01:37:00 Test Item Value Reference Range Comments SODIUM (BEAKER) (test 138 meq/L 136-145 code = 381) POTASSIUM (BEAKER) (test 5.0 meq/L 3.5-5.1 code = 379) CHLORIDE (BEAKER) (test 107 meq/L 98-107 code = 382) CO2 (BEAKER) (test code = 24 meq/L 22-29 355) BLOOD UREA NITROGEN 17 mg/dL 7-21 (BEAKER) (test code = 354) CREATININE (BEAKER) (test 0.77 mg/dL 0.57-1.25 code = 358) GLUCOSE RANDOM (BEAKER) 127 mg/dL 70-105 (test code = 652) CALCIUM (BEAKER) (test 8.4 mg/dL 8.4-10.2 code = 697) EGFR (BEAKER) (test code 78 mL/min/1.73 sq m EST IMATED GFR IS NOT = 1092) ACCURATE CREA TININE CLEARANCE IN PRE DICTING GLOMERULAR FILTR ATION RATE. ESTIMATED GFR IS NOT APPLICABLE F OR DIALYSIS PATIENT S. CBC W/PLT COUNT & AUTO [id number] 01:26:00 Test Item Value Reference Range Comments WHITE BLOOD CELL COUNT (BEAKER) (test code = 10.0 K/ L 3.5 -10.5 775) RED BLOOD CELL COUNT (BEAKER) (test code = 761) 3.65 M/ L 3.93-5.22 HEMOGLOBIN (BEAKER) (test code = 410) 11.9 GM/DL 11.2-15.7 HEMATOCRIT (BEAKER) (test code = 411) 36.6 % 34.1-44.9 MEAN CORPUSCULAR VOLUME (BEAKER) (test code = 100.3 fL 79 .4-94.8 753) MEAN CORPUSCULAR HEMOGLOBIN (BEAKER) (test code 32.6 pg 25.6-32.2 = 751) MEAN CORPUSCULAR HEMOGLOBIN CONC (BEAKER) (test 32.5 GM/DL 32.2-35.5 code = 752) RED CELL DISTRIBUTION WIDTH (BEAKER) (test code 12.6 % 11.7-14.4 = 412) PLATELET COUNT (BEAKER) (test code = 756) 174 K/CU MM 150-45 0 MEAN PLATELET VOLUME (BEAKER) (test code = 754) 9.5 fL 9.4-12.3 NUCLEATED RED BLOOD CELLS (BEAKER) (test code = 0 /100 WBC 0-0 413) NEUTROPHILS RELATIVE PERCENT (BEAKER) (test code 89 % = 429) LYMPHOCYTES RELATIVE PERCENT (BEAKER) (test code 7 % = 430) MONOCYTES RELATIVE PERCENT (BEAKER) (test code = 3 % 431) EOSINOPHILS RELATIVE PERCENT (BEAKER) (test code 0 % = 432) BASOPHILS RELATIVE PERCENT (BEAKER) (test code = 0 % 437) NEUTROPHILS ABSOLUTE COUNT (BEAKER) (test code = 8.94 K/ L 1.56-6.13 670) LYMPHOCYTES ABSOLUTE COUNT (BEAKER) (test code = 0.67 K/ L 1.18-3.74 414) MONOCYTES ABSOLUTE COUNT (BEAKER) (test code = 0.34 K/ L 0 .24-0.36 415) EOSINOPHILS ABSOLUTE COUNT (BEAKER) (test code = 0.01 K/ L 0.04-0.36 416) BASOPHILS ABSOLUTE COUNT (BEAKER) (test code = 0.01 K/ L 0 .01-0.08 417) IMMATURE GRANULOCYTES-RELATIVE PERCENT (BEAKER) 0 % 0-1 (test code = 2801) [place], [id number] 23:51:00Reason for exam:->abnormal liver function test FINAL REPORT Fluoroscopy. History: Intraoperative. Findings: Radiologist wasnot present for the exam. Fluoroscopy was not performed by the undersigned. Please see operative report for details. Fluoroscopy Time: 166 min.Nine images IMPRESSION:Intraoperative fluoroscopy. Please see operative report for details. Signed: Manny Contreras MDReport Verified Date/Time: 03/19/201723:51:13 Reading Location: [facility] [id number] Consult Reading Room POCT-GLUCOSE [id number] 23:24:00 Test Item Value Reference Range Comments POC-GLUCOSE METER (BEAKER) 135 mg/dL 70-[address] [facility] [address] [facility] (test code = 1538) [facility] [address] BASIC METABOLIC [id number] 12:14:00 Test Item Value Reference Range Comments SODIUM (BEAKER) (test 139 meq/L 136-145 code = 381) POTASSIUM (BEAKER) (test 4.0 meq/L 3.5-5.1 code = 379) CHLORIDE (BEAKER) (test 105 meq/L 98-107 code = 382) CO2 (BEAKER) (test code = 25 meq/L 22-29 355) BLOOD UREA NITROGEN 19 mg/dL 7-21 (BEAKER) (test code = 354) CREATININE (BEAKER) (test 0.76 mg/dL 0.57-1.25 code = 358) GLUCOSE RANDOM (BEAKER) 83 mg/dL 70-105 (test code = 652) CALCIUM (BEAKER) (test 9.2 mg/dL 8.4-10.2 code = 697) EGFR (BEAKER) (test code 79 mL/min/1.73 sq m EST IMATED GFR IS NOT = 1092) ACCURATE CREA TININE CLEARANCE IN PRE DICTING GLOMERULAR FILTR ATION RATE. ESTIMATED GFR IS NOT APPLICABLE F OR DIALYSIS PATIENT S. [id number] 11:49:00 Test Item Value Reference Range Comments HEMOGLOBIN (BEAKER) (test code = 410) 12.6 GM/DL 11.2-15.7 PREOP
--- NOTE | 2019-06-21 14:11 | RAD REPORT ---
EXAM DESCRIPTION: CT - Head Brain Wo Cont - 06/21/2019 1:59 pm CLINICAL HISTORY: Dizziness COMPARISON: None TECHNIQUE: Computed axial tomography of the head was obtained. IV contrast was not requested. All CT scans are performed using dose optimization technique as appropriate and may include automated exposure control or mA/KV adjustment according to patient size. FINDINGS: An intracranial bleed is not seen . The ventricles are normal in caliber. No extra-axial fluid collection is noted. Mild low-density areas within periventricular, deep and subcortical white matter likely represent is chemic changes secondary to small vessel disease. Fluid within the sinuses/ mastoids is not seen. A mucus retention cyst right maxillary sinus IMPRESSION: No acute intracranial abnormality is seen. If patient's symptoms persist MRI of the bra in would be recommended.
[2019-06-21] MEDS ORDERED: NA CHLORIDE 0.9% 500 ML ONE (14:50)
[2019-06-21 15:17] LABS: Absolute Lymphocytes (CBC) 1.4 K/uL (0.7-4.9); Hematocrit 41.7 % (36.0-45.0); Lymphocytes % 19.9 % (15.3-44.8); MPV 8.6 fL (7.6-11.3); RBC Red Blood Cell Count 4.51 M/uL (3.86-4.86)
--- NOTE | 2019-06-21 15:22 | RAD REPORT ---
EXAM DESCRIPTION: Alice Single View06/21/2019 3:06 pm CLINICAL HISTORY: Chest pain COMPARISON: 2018 FINDINGS: The lungs appear clear of acute infiltrate. The heart is mildly enlarged. Pacemaker leads are in place. A central venous line has its tip the superior vena cava IMPRESSION: No acute abnormalities displayed
[2019-06-21 15:24] LABS: Urine Blood NEGATIVE (NEG); Urine Glucose NEGATIVE (NEG); Urine Protein NEGATIVE (NEG); Urine Specific Gravity 1.025 (1.005-1.030)
[2019-06-21 15:26] LABS: Urine Bacteria <20 /HPF (<20); Urine Culture Reflex Order NOT NEEDED; Urine RBC NONE SEEN /HPF (NONE SEEN)
[2019-06-21 15:38] LABS: ALT/SGPT 37 U/L (12-78); AST/SGOT 31 U/L (15-37); Albumin 3.6 g/dL (3.4-5.0); Alkaline Phosphatase 94 U/L (45-117); BUN Blood Urea Nitrogen 18 mg/dL (7-18); Bicarbonate 28 mmol/L (21-32); Bilirubin Direct 0.1 mg/dL (0-0.2); Bilirubin Total 0.4 mg/dL (0.2-1.0); Glucose Level 90 mg/dL (74-106); Magnesium 2.1 mg/dL (1.8-2.4); NT PRO-BNP 83 pg/mL (<125); Potassium 3.8 mmol/L (3.5-5.1); Protein, Total 6.8 g/dL (6.4-8.2); Sodium Level 140 mmol/L (136-145); Troponin (Emerg Dept Use Only) < 0.02 ng/mL (0.0-0.045)
[2019-06-21 15:41] LABS: Protime INR 1.09
--- NOTE | 2019-06-21 15:47 | ER ---
Nurse's Notes [facility] Name: Antonietta Armando Age: 59 yrs Sex: Female : 1960 Arrival Date: 06/21/2019 Time: 11:58 Bed 5 Private MD: Lizzie Shaffer Diagnosis: Benign paroxysmal vertigo Presentation: 06/20 12:14 Chief complaint: Patient states: Dizziness since Friday night. felt ca1 fatigued and very tired, and has been worse today. Started a new MS drug, thought it was that, but the nurse said it wasn't. Coronavirus screen: Proceed with normal triage. Patient denies a cough. Patient denies shortness of breath or difficulty breathing. Patient denies measured and/or subjective temperature greater than 100.4F prior to today's visit. Patient denies travel on a cruise ship or to a country [facility] currently lists as an affected area. Patient denies contact with known and/or suspected case of COVID-19. Ebola Screen: Patient negative for fever greater than or equal to 101.5 degrees Fahrenheit, and additional compatible Ebola Virus Disease symptoms Patient denies exposure to infectious person. Patient denies travel to an Ebola-affected area in the 21 days before illness onset. No symptoms or risks identified at this time. Initial Sepsis Screen: Does the patient meet any 2 criteria? No. Patient's initial sepsis screen is negative. Does the patient have a suspected source of infection? No. Patient's initial sepsis screen is negative. Risk Assessment: Do you want to hurt yourself or someone else? Patient reports no desire to harm self or others. Onset of symptoms was June 21, 2019. 12:14 Method Of Arrival: Ambulatory ca1 12:14 Acuity: MAIRA 3 ca1 12:15 No acute neurological deficit is noted. Pre-hospital glucose is not applicable to this bp patient. Triage Assessment: 12:15 The onset of the patients symptoms was more than six hours ago. General: Appears in no bp apparent distress. comfortable, Behavior is cooperative, appropriate for age, anxious. Pain: Denies pain. EENT: No deficits noted. Neuro: Reports weakness in GENERALIZED. Cardiovascular: No deficits noted. Respiratory: No deficits noted. GI: No signs and/or symptoms were reported involving the gastrointestinal system. : No signs and/or symptoms were reported regarding the genitourinary system. Derm: No deficits noted. Musculoskeletal: No deficits noted. 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 - Social history:: Smoking status: Patient denies any tobacco usage or history of. Screenin:39 Abuse screen: Denies threats or abuse. Denies injuries from another. Nutritional bp screening: No deficits noted. Tuberculosis screening: No symptoms or risk factors identified. Fall Risk None identified. Assessment: 13:30 VAN Scoring: Arm Drift: Patients demonstrates NO arm weakness. Patient is VAN Negative. bp The patient has not been NPO before screening. The patient is alert, and able to follow commands. The patient does not exhibit slurred or garbled speech. The patient is not exhibiting difficulty speaking. The patient does not exhibit difficulty understanding words. The patient is able to swallow own secretions with no drooling or need for suction. Patient tolerated one teaspoon of water. No drooling, immediate coughing, gurgling, or clearing of the throat was noted. The patient tolerated 90mL of water. No drooling, immediate coughing, gurgling, or clearing of the throat was noted. The patient passed the bedside swallow screening. Oral medications may be given as ordered. Contact Physician for further diet orders. Provider notified of bedside swallow screening results: Tenzin Atwood NP. T-PA (Activase) Screening: Contraindications: Patient reports onset of signs and symptoms of stroke greater than 6 hours ago: Yes. General: SEE TRIAGE NOTE. 15:00 Reassessment: IVF INFUSING. ALL CURRENT ORDERS COMPLETED, NO S/S ACUTE DISTRESS. bp 15:55 Reassessment: D/C ON HOLD FOR VERTIGO. bp 16:49 Reassessment: PT D/C HOME AMBULATORY, STATES RELIEF OF ALL S/S, DX WITH VERTIGO. bp Vital Signs: 12:14 BP 140 / 106; Pulse 86; Resp 18 S; Temp 98.4(O); Pulse Ox 98% on R/A; Weight 72.57 kg ca1 (R); Height 5 ft. 2 in. (157.48 cm) (R); Pain 0/10; 15:09 BP 151 / 92; Pulse 61; Resp 11; Pulse Ox 99% ; bp 15:46 BP 164 / 84; Pulse 61; Resp 11; Pulse Ox 97% ; sv 12:14 Body Mass Index 29.26 (72.57 kg, 157.48 cm) ca1 NIH Stroke Scale Scores: 13:30 NIHSS Score: 0 bp ED Course: 11:58 Patient arrived in ED. as 11:58 Lizzie Shaffer MD is Private Physician. as 12:16 Triage completed. ca1 12:16 Arm band placed on right wrist. ca1 13:32 Tenzin Atwood NP is PHCP. pm1 13:32 Mark Phillips MD is Attending Physician. pm1 13:37 Darius Tim, IONA is Primary Nurse. bp 13:39 Patient has correct armband on for positive identification. Bed in low position. Call bp light in reach. Side rails up X2. 13:58 CT Head Brain wo Cont In Process Unspecified. EDMS 14:59 Accessed Port-a-Cath. using accessed w/ #19 Norris needle, Clean \T\ dry. Dressing intact. bp Good blood return. Flushes easily. 15:07 XRAY Chest (1 view) In Process Unspecified. EDMS 15:08 EKG done, by ED staff, reviewed by Tenzin Atwood NP. dh3 16:49 No provider procedures requiring assistance completed. IV discontinued, intact, bp bleeding controlled, No redness/swelling at site. Pressure dressing applied. Administered Medications: 14:58 Drug: NS 0.9% 500 ml Route: IV; Rate: bolus; Site: Port-a-cath; bp 16:51 Follow up: IV Status: Completed infusion; IV Intake: 500ml bp 16:14 Drug: Meclizine 50 mg Route: PO; bp 16:51 Follow up: Response: Marked relief of symptoms bp Intake: 16:51 IV: 500ml; Total: 500ml. bp Outcome: 15:47 Discharge ordered by . pm1 16:50 Discharged to home ambulatory. bp 16:50 Condition: stable 16:50 Discharge instructions given to patient, Instructed on discharge instructions, follow up and referral plans. Demonstrated understanding of instructions, follow-up care. 16:52 Patient left the ED. bp NIH Stroke Scale - NIH Stroke Score Date: 06/21/2019 Time: 13:30 Total Score = 0 1a. Level of Consciousness (LOC) - 0(Alert) 1b. Level of Consciousness (LOC) (Year \T\ Age) - 0(Both) 1c. LOC Commands (Open \T\ Closes Eyes/Certified Ophthalmic Technician) - 0(Both) 2. Best Gaze (Lateral Gaze Paresis) - 0(Normal) 3. Visual Field Loss - 0(No visual loss) 4. Facial Palsy - 0(Normal) 5a. Left Arm: Motor (10-second hold) - 0(No drift) 5b. Right Arm: Motor (10-second hold) - 0(No drift) 6a. Left Leg: Motor (5-second hold - always test supine) - 0(No drift) 6b. Right Leg: Motor (5-second hold - always test supine) - 0(No drift) 7. Limb Ataxia (finger/nose \T\ heel/lew - test with eyes open) - 0(Absent) 8. Sensory Loss (pinprick arms/legs/face) - 0(Normal) 9. Best Language: Aphasia (description/naming/reading) - 0(No aphasia) 10. Dysarthria (speech clarity - read or repeat words) - 0(Normal) 11. Extinction and Inattention (visual/tactile/auditory/spatial/personal) - 0(No abnormality) Initials: bp Signatures: Dispatcher [employer] EDPR Elza Tavarez RN RN sv Martinez, Amelia as Marinas, Patrick, SAWYER RE EXAMINER pm1 Tricia Gibbs 3 Darius Tim RN RN bp Paola Arnold RN RN ca1
--- NOTE | 2019-06-21 15:47 | EDPHYS ---
Physician Documentation [facility] Name: Antonietta Armando Age: 59 yrs Sex: Female : 1960 Arrival Date: 06/21/2019 Time: 11:58 Bed 5 Private MD: Lizzie Shaffer ED Physician Mark Phillips HPI: 06/20 13:45 This 59 yrs old Female presents to ER via Ambulatory with complaints of pm1 Weakness. 13:45 The patient presents to the emergency department with weakness of the entire body, pm1 generalized weakness. Onset: The symptoms/episode began/occurred 5 day(s) ago. Context: occurred at home. Associated signs and symptoms: Pertinent positives: dizziness, headache, Generalized weakness, Pertinent negatives: fever. Severity of symptoms: in the emergency department the symptoms are worse. Patient was recently started on a new medication for MS 3 weeks ago. Patient reports onset of generalized weakness and poor PO intake 5 days ago. Believes that it might be the new medication. 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 - Social history:: Smoking status: Patient denies any tobacco usage or history of. ROS: 13:45 ENT: Negative for injury, pain, and discharge, Neck: Negative for injury, pain, and pm1 swelling, Cardiovascular: Negative for chest pain, palpitations, and edema, Respiratory: Negative for shortness of breath, cough, wheezing, and pleuritic chest pain, Abdomen/GI: Negative for abdominal pain, nausea, vomiting, diarrhea, and constipation, Back: Negative for injury and pain, MS/Extremity: Negative for injury and deformity, Skin: Negative for injury, rash, and discoloration. 13:45 Constitutional: Positive for malaise, poor PO intake, Negative for fever. 13:45 Neuro: Positive for dizziness, headache, weakness, Negative for numbness, tingling. Exam: 13:45 Constitutional: This is a well developed, well nourished patient who is awake, alert, pm1 and in no acute distress. Head/Face: Normocephalic, atraumatic. Neck: Trachea midline, no thyromegaly or masses palpated, and no cervical lymphadenopathy. Supple, full range of motion without nuchal rigidity, or vertebral point tenderness. No Meningismus. Chest/axilla: Normal chest wall appearance and motion. Nontender with no deformity. No lesions are appreciated. 13:45 Abdomen/GI: Soft, non-tender, with normal bowel sounds. No distension or tympany. No guarding or rebound. No evidence of tenderness throughout. Back: No spinal tenderness. No costovertebral tenderness. Full range of motion. Skin: Warm, dry with normal turgor. Normal color with no rashes, no lesions, and no evidence of cellulitis. MS/ Extremity: Pulses equal, no cyanosis. Neurovascular intact. Full, normal range of motion. 13:45 Cardiovascular: Exam negative for acute changes, Rate: normal, Rhythm: regular, Pulses: no pulse deficits are appreciated. 13:45 Respiratory: Exam negative for acute changes, respiratory distress, shortness of breath. 13:45 Neuro: Exam negative for acute changes, Orientation: is normal, Mentation: is normal, Motor: is normal. Vital Signs: 12:14 BP 140 / 106; Pulse 86; Resp 18 S; Temp 98.4(O); Pulse Ox 98% on R/A; Weight 72.57 kg ca1 (R); Height 5 ft. 2 in. (157.48 cm) (R); Pain 0/10; 15:09 BP 151 / 92; Pulse 61; Resp 11; Pulse Ox 99% ; bp 15:46 BP 164 / 84; Pulse 61; Resp 11; Pulse Ox 97% ; sv 12:14 Body Mass Index 29.26 (72.57 kg, 157.48 cm) ca1 NIH Stroke Scale Scores: 13:30 NIHSS Score: 0 bp MDM: 13:32 Patient medically screened. pm1 13:49 Data reviewed: vital signs. Data interpreted: Pulse oximetry: on room air is 98 %. pm1 Interpretation: normal. 15:45 Counseling: I had a detailed discussion with the patient and/or guardian regarding: the pm1 historical points, exam findings, and any diagnostic results supporting the discharge/admit diagnosis, lab results, radiology results, the need for outpatient follow up, to return to the emergency department if symptoms worsen or persist or if there are any questions or concerns that arise at home. 16:37 ED course: Patient's symptoms resolved with meclizine. Patient states she feels ready pm1 to go home and is happy with the care provided. 06/20 13:40 Order name: Basic Metabolic Panel; Complete Time: 15:40 pm06/20 13:40 Order name: CBC with Diff; Complete Time: 15:27 pm06/20 13:40 Order name: LFT's; Complete Time: 15:40 pm06/20 13:40 Order name: Magnesium; Complete Time: 15:40 pm06/20 13:40 Order name: NT PRO-BNP; Complete Time: 15:40 pm1 06/20 13:40 Order name: PT-INR; Complete Time: 15:56 pm06/20 13:40 Order name: Troponin (emerg Dept Use Only); Complete Time: 15:40 pm1 06/20 13:40 Order name: XRAY Chest (1 view); Complete Time: 15:27 pm06/20 13:40 Order name: CT Head Brain wo Cont; Complete Time: 14:17 pm06/20 13:40 Order name: Urine Microscopic Only; Complete Time: 15:27 pm06/20 15:11 Order name: Urine Dipstick--Ancillary (enter results); Complete Time: 15:27 em06/20 15:11 Order name: Urine --Ancillary (enter results); Complete Time: 15:27 em06/20 13:40 Order name: EKG; Complete Time: 13:41 pm1 06/20 13:40 Order name: Cardiac monitoring; Complete Time: 14:58 pm06/20 13:40 Order name: EKG - Nurse/Tech; Complete Time: 14:58 pm06/20 13:40 Order name: IV Saline Lock; Complete Time: 14:58 pm06/20 13:40 Order name: Labs collected and sent; Complete Time: 14:58 pm06/20 13:40 Order name: O2 Per Protocol; Complete Time: 14:58 pm06/20 13:40 Order name: O2 Sat Monitoring; Complete Time: 14:58 pm06/20 13:40 Order name: Urine Dipstick-Ancillary (obtain specimen); Complete Time: 14:58 pm1 Administered Medications: 14:58 Drug: NS 0.9% 500 ml Route: IV; Rate: bolus; Site: Port-a-cath; bp 16:51 Follow up: IV Status: Completed infusion; IV Intake: 500ml bp 16:14 Drug: Meclizine 50 mg Route: PO; bp 16:51 Follow up: Response: Marked relief of symptoms bp Disposition: 20:25 Co-signature as Attending Physician, Mark Phillips MD I agree with the assessment and clare plan of care. Disposition: 06/21/19 15:47 Discharged to Home. Impression: Benign paroxysmal vertigo. - Condition is Stable. - Discharge Instructions: Benign Positional Vertigo. - Prescriptions for Meclizine 25 mg Oral Tablet - take 1 tablet by ORAL route every 8 hours As needed; 30 tablet. - Medication Reconciliation Form, Thank You Letter, Antibiotic Education, Prescription Opioid Use form. - Follow up: Emergency Department; When: As needed; Reason: Worsening of condition. Follow up: Private Physician; When: 2 - 3 days; Reason: Recheck today's complaints, Continuance of care, Re-evaluation by your physician. - Problem is new. - Symptoms have improved. NIH Stroke Scale - NIH Stroke Score Date: 06/21/2019 Time: 13:30 Total Score = 0 1a. Level of Consciousness (LOC) - 0(Alert) 1b. Level of Consciousness (LOC) (Year \T\ Age) - 0(Both) 1c. LOC Commands (Open \T\ Closes Eyes/Tape Edge Machine Operator) - 0(Both) 2. Best Gaze (Lateral Gaze Paresis) - 0(Normal) 3. Visual Field Loss - 0(No visual loss) 4. Facial Palsy - 0(Normal) 5a. Left Arm: Motor (10-second hold) - 0(No drift) 5b. Right Arm: Motor (10-second hold) - 0(No drift) 6a. Left Leg: Motor (5-second hold - always test supine) - 0(No drift) 6b. Right Leg: Motor (5-second hold - always test supine) - 0(No drift) 7. Limb Ataxia (finger/nose \T\ heel/lew - test with eyes open) - 0(Absent) 8. Sensory Loss (pinprick arms/legs/face) - 0(Normal) 9. Best Language: Aphasia (description/naming/reading) - 0(No aphasia) 10. Dysarthria (speech clarity - read or repeat words) - 0(Normal) 11. Extinction and Inattention (visual/tactile/auditory/spatial/personal) - 0(No abnormality) Initials: bp Signatures: Dispatcher [employer] EDMark Perdomo, Tenzin Hernadez MD, cha, ENVIRONMENTAL HEALTH SANITARIAN ENVIRONMENTAL HEALTH SANITARIAN pm1 Darius Tim, INOA RN bp Paola Arnold RN RN ca1 Corrections: (The following items were deleted from the chart) 15:48 15:47 06/21/2019 15:47 Discharged to Home. Impression: Malaise and fatigue. pm1 Condition is Stable. Forms are Medication Reconciliation Form, Thank You Letter, Antibiotic Education, Prescription Opioid Use. Follow up: Emergency Department; When: As needed; Reason: Worsening of condition. Follow up: Private Physician; When: 2 - 3 days; Reason: Recheck today's complaints, Continuance of care, Re-evaluation by your physician. Problem is new. Symptoms have improved. pm1 15:55 15:48 06/21/2019 15:47 Discharged to Home. Impression: Dizziness and pm1 giddinessMalaise and fatigue. Condition is Stable. Forms are Medication Reconciliation Form, Thank You Letter, Antibiotic Education, Prescription Opioid Use. Follow up: Emergency Department; When: As needed; Reason: Worsening of condition. Follow up: Private Physician; When: 2 - 3 days; Reason: Recheck today's complaints, Continuance of care, Re-evaluation by your physician. Problem is new. Symptoms have improved. pm1 16:52 15:55 06/21/2019 15:47 Discharged to Home. Impression: Benign paroxysmal bp vertigo. Condition is Stable. Discharge Instructions: Dizziness, Fatigue. Forms are Medication Reconciliation Form, Thank You Letter, Antibiotic Education, Prescription Opioid Use. Follow up: Emergency Department; When: As needed; Reason: Worsening of condition. Follow up: Private Physician; When: 2 - 3 days; Reason: Recheck today's complaints, Continuance of care, Re-evaluation by your physician. Problem is new. Symptoms have improved. pm1
[2019-06-21] MEDS ORDERED: MECLIZINE HCL 12.5 MG TAB ONE (16:18)
[2019-06-21 17:08] VITALS: TEMP 98.4
[2019-06-21 17:10] VITALS: BP 164/84; O2SAT 97
--- NOTE | 2019-06-21 18:44 | EKG ---
Test Date: 2019-06-21 Test Time: 15:05:26 Web Project Manager: TWYLA MEASUREMENT RESULTS: Intervals: Rate: 63 TN: 134 QRSD: 78 QT: 440 QTc: 450 [place]: P: 12 TN: 134 QRS: 49 T: 55 INTERPRETIVE STATEMENTS: Electronic atrial pacemaker Low voltage QRS Borderline ECG Compared to ECG 05/04/2016 16:38:58 Low QRS voltage now present Electronically Signed On 06-21-19 18:43:50 CDT by Dustin Underwood
== END 2019-06-21 16:52 | disposition home or self-care (01) ==
LOC: ER 11:57
DX: H81.10 Benign paroxysmal vertigo, unspecified ear (principal); Z95.0 Presence of cardiac pacemaker; Z88.5 Allergy status to narcotic agent; Z88.8 Allergy status to other drugs, medicaments and biological substances
CPT/HCPCS: 96361; 93005; 85025; 80048; 36415; 83735; 81025; 85610; 80076; 84484; 83880; 70450; 71045; 96360; 99284; J7040; 81003; 81015; J8597

== ENCOUNTER 2020-10-08 21:17 | Emergency (ER) | payer OTHER ==
--- OUTSIDE RECORDS SUMMARY | 2020-10-08 21:24 | XMS REPORT | Continuity of Care Document ---
:1960 Author Organization [facility] t Address [address] [place] [address] Care Team Providers Name Role Phone Deena BROWER Primary Care Physician FRANCISCO Attending Clinician Unavailable KARUNA Attending Clinician Unavailable Laly BROWER Attending Clinician 1.5, Kenyon Barnhart Attending Clinician Unavailable Markus Horner MD Attending Clinician Bill Yin MD Attending Clinician John Ruffin MD Attending Clinician LALY Attending Clinician Unavailable GAY SHEPHERD Attending Clinician Unavailable Sacha Griffith Attending Clinician GAY SHEPHERD Admitting Clinician Unavailable Payers Payer Name Policy Type Policy Number Effective Date Expiration Source Date MEDICARE PART A \\T\\ [id number] - [facility]-MEDICAID - [id number] 2018 MEDICAID 00:00:00 MEDICAREMEDICARE A [id number] MARIBEL cotto [id number] 2002- 00:00:00 [facility] MEDICAIDMEDICAID OF [id number] MARIBEL cotto [id number] 00:00:00 [address] [facility] Problems Condition Condition Condition Status Onset Resolution Last Treating Co mments Source Name Details Category Date Date Treatment Clinician Date UNK Diagnosis Active 2017-06-19 Mem oria 05-30 09:43:00 l UNK 00:00: Ryan 00 Active 05/30/2017 [place] Chest pain Chest pain Disease Active [facility] 00 Center S/P ERCP S/P ERCP Disease [facility] Medical [place] Nausea & Nausea & Disease Active [facility] vomiting vomiting 2- [facility] - 00:[facility]: Medical 00 [place] S/P S/P Disease Active Methodi laparoscop laparoscop 3 st ic surgery ic surgery 00:00: Ho spita 00 l RUQ RUQ Disease Active [facility] abdominal abdominal 8- Luke s - pain pain 00:00: Medical 00 [place] Multiple Multiple Disease Active [facility] sclerosis, sclerosis, 09-11 Christine kes - relapsing- relapsing- 00:00: Me dical remitting remitting 00 Cent er Depression Depression Disease Active [facility] - 00:00: Medical 00 [place] Biliary Biliary Disease Active [facility] dilatation dilatation 09-11 Christine kes - (sphincter (sphincter 00:00: Me dical of [facility] 00 Center stricture) stricture) , h/o , h/o Vamshi-en-Y, Vamshi-en-Y, s/p open s/p open ERCP 09/13 ERCP 09/13 History of History of Disease Active [facility] cholecyste cholecyste 09-11 Christine kes - ctomy ctomy 00:00: Medical 00 [place] Esophageal Esophageal Disease Active [facility] stricture stricture 8- Luke s - 00:00: Medical 00 [place] Status Status Disease Active [facility] post post 8 [facility] - balloon balloon 00:00: Medical dilatation dilatation 00 Ce nter of of esophageal esophageal stricture stricture Cellulitis Cellulitis Disease Active [facility] of chest of chest 5-24 [facility] - wall wall 00:00: Medical 00 [place] Bradycardi Bradycardi Disease Active [facility] a a 4- [facility] - 00:00: Medical 00 [place] 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 6-25 Christine kes - rotator rotator 00:00: Medical cuff cuff 00 Center History of Problem Active 2017-06-21 M emoria laparoscop 11:51:55 l ic History [place] adjustable of gastric laparoscop banding ic (situation adjustable ) gastric banding (situation ) Active Problem 06/21/2017 [facility] Hypertensi Problem Active 2017-06-21 M emoria ve 11:51:55 l disorder, Ryan systemic Hypertensi arterial ve (disorder) disorder, systemic arterial (disorder) Active Problem 06/21/2017 [facility] Iron Problem Active 2017-06-21 Memor ia deficiency 11:51:55 l anemia Iron Ryan (disorder) deficiency anemia (disorder) Active Problem 06/21/2017 [facility] Mixed Problem Active 2017-06-21 Memor ia anxiety 11:51:55 l and Mixed Ryan depressive anxiety disorder and (disorder) depressive disorder (disorder) Active Problem 06/21/2017 [facility] Multiple Problem Active 2017-06-21 Mem oria sclerosis 11:51:55 l (disorder) Multiple He rmann sclerosis (disorder) Active Problem 06/21/2017 [facility] Syncope Problem Active 2017-06-21 Percy clary (disorder) 11:51:55 l Syncope Ryan (disorder) Active Problem 06/21/2017 [facility] History of Problem Resolve 2017-06-21 Memoria - obesity d 11:51:55 l (context-d History Her funez ependent of - category) obesity (context-d ependent category) Resolved Problem 06/21/2017 [facility] Sleep Problem Resolve 2017-06-21 Percy clary apnea d 11:51:55 l (finding) Sleep Corey n apnea (finding) Resolved Problem 06/21/2017 [facility] Altered Problem Active 2017-06-21 Percy clary mental 11:51:55 l status Altered [place] (finding) mental status (finding) Active Problem 06/21/2017 [facility] Allergies, Adverse Reactions, Alerts Allergy Allergy Status Severity Reaction(s) Onset Inactive Treating Comm ents Source Name Type Date Date Clinician Tramadol Propensi Active Hives Method i ty to 8-15 st adverse 00:00: Hospita reaction 00 l s to drug Tramadol Drug Active Hives [facility] Allergy 8-08 [facility] - 00:[facility]: Medical 00 Center Chlorhex Propensi Active Rash 2014-02 blisters Meth phu idine ty to 0-22 st adverse 00:00: Hospita reaction 00 l s to drug Hydrocod Propensi Active Hives Can [facility] one-Acet ty to 07-18 tolerate [facility] - aminophe adverse 00:00: acetamino Medi radha n reaction 00 phen Center s Chlorhex Propensi Active Rash blisters [facility] idine ty to 08 [facility] - adverse 00:00: Medical reaction 00 Center s Hydrocod Propensi Active Hives Can Method i one-Acet ty to 10-[address] aminophe adverse 00:00: acetamino Hosp cassie n reaction 00 phenCan l s to tolerate drug acetamino phen vicodin vicodin Active Memoria l [place] chlorhex chlorhex Active Memori a idine idine l containi containi Corey n ng ng compound compound s s traMADol traMADol Active Memori a l [place] Family History Family Member Diagnosis Comments Start Date Stop Date Source Natural father Throat cancer [facility] Maternal aunt Pulmonary fibrosis [facility] Natural mother Diabetes [facility] Natural mother Heart disease [facility] Natural mother Pulmonary fibrosis [facility] Social History Social Habit Start Date Stop Date Quantity Comments Source Sex Assigned At [facility] Tobacco use and 2018-05-06 2018-05-06 Never used [facility] exposure 00:00:00 00:00:00 [facility] Alcohol intake 2018-05-06 2018-05-06 Current [facility] es - 00:00:00 00:00:00 non-drinker of [facility] nter alcohol (finding) Social History 2017-06-11 2017-06-11 [facility] 14:36:00 14:36:00 Smoking Status Start Date Stop Date Source Never smoker [facility] Medications Ordered Filled Start Stop Current Ordering Indication Dosage Frequency Signature Comments Components Source Medication Medication Date Date Medication? Clinician (SIG) Name Name diltiazem Yes 120mg QD Take [address] (DILACOR 3-27 mg by [facility]ukes - XR) 120 MG 16:03: mouth Medica l 24 hr 45 nightly . Center capsule doxepin Yes 6mg QD Take 6 mg [facility] t (SILENOR) 6 3-27 by mouth Luke s - mg Tab 16:03: nightly. Medical 45 Center zolpidem 2019 Yes 12.5mg Take 12.[address] (AMBIEN CR) 3-27 mg by [facility]ukes - 12.5 MG CR 16:03: mouth Medica l tablet 45 every Center night as needed for Insomnia. mirtazapine Yes 45mg QD Take [address] (REMERON) 3-27 by mouth [facility] - 45 MG 16:03: nightly. Medical tablet 45 [place] escitalopra Yes 10mg Take 10 mg Methodi m (LEXAPRO) 2-[address] 10 MG 20:41: Hospita tablet 03 zolpidem Yes 10mg Take 10 mg Met hodi (AMBIEN) 10 2-[address] mg tablet 20:41: Hospita 03 nitroglycer Yes 1{tbl} Place 1 M ethodi in 2-[address] (NITROSTAT) 20:41: under the H ospita 0.4 MG SL 03 tongue. l tablet ondansetron Yes 4mg Q8H Take 4 mg M ethodi ODT 2-[address] (ZOFRAN-ODT 20:41: every 8 Hos esvin ) 4 MG 03 (eight) l disintegrat hours as ing tablet needed for nausea or vomiting. doxepin Yes 6mg QD Take 6 mg Metho di (SILENOR) 6 2-[address] mg tablet 20:41: daily. Hospit a 03 l zolpidem CR Yes 12.5mg QD Take 12.5 Methodi (AMBIEN CR) 2-[address] 12.5 MG CR 20:41: mouth Hospit a tablet 03 daily. l mirtazapine Yes 45mg QD Take 45 mg Methodi (REMERON) 2-[address] 45 MG 20:41: nightly. Hospita tablet 03 l Fentanyl 2017-0 No 25 Memoria 5-09 microgram, l 15:14: Route: Ryan 00 IVP, ONCE, Dosing Weight 76.864, kg, Start date: 06/18/17 10:14:00 CDT, Stop date: 06/18/17 10:14:00 CDT Fentanyl 2018-0 No 25 Memoria 5-09 microgram, l 15:14: Route: Ryan 00 IVP, ONCE, Dosing Weight 76.864, kg, Start date: 06/18/17 10:14:00 CDT, Stop date: 06/18/17 10:14:00 CDT Fentanyl 2018-0 No 25 Memoria 5-09 microgram, l 15:01: Route: [place] 00 IVP, ONCE, Dosing Weight 76.864, kg, Start date: 06/18/17 10:01:00 CDT, Stop date: 06/18/17 10:01:00 CDT Fentanyl 2018-0 No 25 Memoria 5-09 microgram, l 15:01: Route: Ryan 00 IVP, ONCE, Dosing Weight 76.864, kg, Start date: 06/18/17 10:01:00 CDT, Stop date: 06/18/17 10:01:00 CDT Fentanyl 2018-0 No 25 Memoria 5-09 microgram, l 14:53: Route: [place] 00 IVP, ONCE, Dosing Weight 76.864, kg, Start date: 06/18/17 9:53:00 CDT, Stop date: 06/18/17 9:53:00 CDT Fentanyl 2018-0 No 25 Memoria 5-09 microgram, l 14:53: Route: Ryan 00 IVP, ONCE, Dosing Weight 76.864, kg, Start date: 06/18/17 9:53:00 CDT, Stop date: 06/18/17 9:53:00 CDT Fentanyl 2018-0 No 25 Memoria 5-09 microgram, l 14:48: Route: [place] 00 IVP, ONCE, Dosing Weight 76.864, kg, Start date: 06/18/17 9:48:00 CDT, Stop date: 06/18/17 9:48:00 CDT Fentanyl 2018-0 No 25 Memoria 5-09 microgram, l 14:48: Route: Ryan 00 IVP, ONCE, Dosing Weight 76.864, kg, Start date: 06/18/17 9:48:00 CDT, Stop date: 06/18/17 9:48:00 CDT metoclopram 2018-0 No Route: IV, Memoria raman (ANES) 5-09 Drug form: l 14:30: INJ, ONCE, Stop date: 06/18/17 9:30:00 CDT ePHEDrine 2018-0 No Route: IV, Me moria (ANES) 06-18 Drug form: l 14:30: INJ, ONCE, Stop date: 06/18/17 9:30:00 CDT ceFAZolin 2017-0 No Route: IV, Me moria (ANES) 06-18 Drug form: l 14:30: INJ, ONCE, Stop date: 06/18/17 9:30:00 CDT propofol 2018-0 No Route: IV, Mem oria (ANES) 06-18 Drug form: l 14:30: INJ, ONCE, Stop date: 06/18/17 9:30:00 CDT ondansetron 2017-0 No Route: IV, Memoria (ANES) 06-18 Drug form: l 14:30: INJ, ONCE, Stop date: 06/18/17 9:30:00 CDT lidocaine 2017-0 No Route: IV, Me moria (ANES) 06-18 Drug form: l 14:30: INJ, ONCE, Stop date: 06/18/17 9:30:00 CDT fentaNYL 2017-0 No Route: IV, Mem oria (ANES) 06-18 Drug form: l 14:30: INJ, ONCE, Stop date: 06/18/17 9:30:00 CDT midazolam 2018-0 No Route: IV, Me moria (ANES) 06-18 Drug form: l 14:30: SOLN, 00 ONCE, Stop date: 06/18/17 9:30:00 CDT metoclopram 2017-0 No Route: IV, Memoria raman (ANES) 06-18 Drug form: l 14:30: INJ, ONCE, Stop date: 06/18/17 9:30:00 CDT ePHEDrine 2017-0 No Route: IV, Me moria (ANES) 06-18 Drug form: l 14:30: INJ, ONCE, Stop date: 06/18/17 9:30:00 CDT ceFAZolin 2017-0 No Route: IV, Me moria (ANES) 06-18 Drug form: l 14:30: INJ, ONCE, Stop date: 06/18/17 9:30:00 CDT propofol 2018-0 No Route: IV, Mem oria (ANES) 06-18 Drug form: l 14:30: INJ, ONCE, Stop date: 06/18/17 9:30:00 CDT ondansetron 2017-0 No Route: IV, Memoria (ANES) 06-18 Drug form: l 14:30: INJ, ONCE, Stop date: 06/18/17 9:30:00 CDT lidocaine 2018-0 No Route: IV, Me moria (ANES) 06-18 Drug form: l 14:30: INJ, ONCE, Stop date: 06/18/17 9:30:00 CDT fentaNYL 2017-0 No Route: IV, Mem oria (ANES) 06-18 Drug form: l 14:30: INJ, ONCE, Stop date: 06/18/17 9:30:00 CDT midazolam 2017-0 No Route: IV, Me moria (ANES) 06-18 Drug form: l 14:30: SOLN, ONCE, Stop date: 06/18/17 9:30:00 CDT Acetaminoph 2017-0 No 100.4 F, M emoria en 06-18 Start l 14:21: date: 06/18/17 9:21:00 CDT, Duration: 30 day, Stop date: 07/18/17 9:20:00 CDT Morphine 2017-0 No 2 mg, Memoria 06-18 Route: l 14:21: IVP, Q3H, Dosing Weight 76.864, kg, PRN Pain Score 1-3, Start date: 06/18/17 9:21:00 CDT, Duration: 30 day, Stop date: 07/18/17 9:20:00 CDT Acetaminoph 2017-0 No 100.4 F, M emoria en 06-18 Start l 14:21: date: 06/18/17 9:21:00 CDT, Duration: 30 day, Stop date: 07/18/17 9:20:00 CDT Morphine 2017-0 No 2 mg, Memoria 06-18 Route: l 14:21: IVP, Q3H, Ryan 00 Dosing Weight 76.864, kg, PRN Pain Score 1-3, Start date: 06/18/17 9:21:00 CDT, Duration: 30 day, Stop date: 07/18/17 9:20:00 CDT Calcium 2018-0 No 1,000 mL, Memor ia Chloride 06-18 Rate: 25 l 0.0014 13:48: ml/hr, [place] MEQ/ML / 00 Infuse Potassium over: 40 Chloride hr, Route: 0.004 IV, Dosing MEQ/ML / Weight Sodium 76.864 kg, Chloride Total 0.103 Volume: MEQ/ML / 1,000, Sodium Start Lactate date: 0.028 06/18/17 MEQ/ML 8:48:00 Injectable CDT, Solution Duration: 30 day, Stop date: 07/18/17 8:47:00 CDT, 1.86, m2 Calcium 2017-0 No 1,000 mL, Memor ia Chloride 06-18 Rate: 25 l 0.0014 13:48: ml/hr, [place] MEQ/ML / 00 Infuse Potassium over: 40 Chloride hr, Route: 0.004 IV, Dosing MEQ/ML / Weight Sodium 76.864 kg, Chloride Total 0.103 Volume: MEQ/ML / 1,000, Sodium Start Lactate date: 0.028 06/18/17 MEQ/ML 8:48:00 Injectable CDT, Solution Duration: 30 day, Stop date: 07/18/17 8:47:00 CDT, 1.86, m2 Lactated No Route: IV, Mem oria Ringers 06-18 Total l Injection 13:32: Volume: Kamini nn IV (ANES) 00 1,000, 1000 mL Start date: 06/18/17 8:32:00 CDT, Stop date: 06/18/17 9:32:00 CDT Lactated No Route: IV, Mem oria Ringers - Total l Injection 13:32: Volume: Kamini nn IV (ANES) 00 1,000, 1000 mL Start date: 06/18/17 8:32:00 CDT, Stop date: 06/18/17 9:32:00 CDT ondansetron Yes 4 mg = 1 Me moria 4 mg oral 5-02 tab, PO, l tablet 15:33: PRN, 0 [place] 00 Refill(s) 1 ML Yes SUB-Q, 3x/ Memoria glatiramer 06-11 week, 0 l acetate 40 15:33: Refill(s) He rmann MG/ML 00 Prefilled Syringe [Copaxone] ondansetron Yes 4 mg = 1 Me moria 4 mg oral 5-02 tab, PO, l tablet 15:33: PRN, 0 [place] 00 Refill(s) 1 ML Yes SUB-Q, 3x/ Memoria glatiramer 06-11 week, 0 l acetate 40 15:33: Refill(s) He rmann MG/ML 00 Prefilled Syringe [Copaxone] 24 HR Yes 120 mg = 1 Memori a Diltiazem 5-02 cap, PO, l Hydrochlori 15:32: Daily, # He rmann de 120 MG 00 30 cap, 0 Extended Refill(s) Release Capsule [Cartia] zolpidem Yes 10 mg = 1 M emoria mg oral 5-02 tab, PO, l tablet 15:32: Bedtime, 0 Kamini nn 00 Refill(s) Doxepin 6 Yes 6 mg = 1 Percy clary MG Oral 5-02 tab, PO, l Tablet 15:32: Bedtime, 0 Kamini nn [Silenor] 00 Refill(s) pantoprazol Yes 40 mg = 1 M emoria e 40 MG 5-02 tab, PO, l Enteric 15:32: Daily, # Corey n Coated 00 30 tab, 0 Tablet Refill(s) [Protonix] mirtazapine Yes 7.5 mg = 1 Memoria 7.5 mg oral 5-02 tab, PO, l tablet 15:32: Bedtime, # Kamini nn 00 30 tab, 0 Refill(s) 24 HR Yes 120 mg = 1 Memori a Diltiazem 5-02 cap, PO, l Hydrochlori 15:32: Daily, # He rmann de 120 MG 00 30 cap, 0 Extended Refill(s) Release Capsule [Cartia] zolpidem 10 Yes 10 mg = 1 M emoria mg oral 5-02 tab, PO, l tablet 15:32: Bedtime, 0 Kamini nn 00 Refill(s) Doxepin 6 2018 Yes 6 mg = 1 Percy clary MG Oral 5-02 tab, PO, l Tablet 15:32: Bedtime, 0 Kamini nn [Silenor] 00 Refill(s) pantoprazol Yes 40 mg = 1 M emoria e 40 MG 5-02 tab, PO, l Enteric 15:32: Daily, # Corey n Coated 00 30 tab, 0 Tablet Refill(s) [Protonix] mirtazapine Yes 7.5 mg = 1 Memoria 7.5 mg oral 5-02 tab, PO, l tablet 15:32: Bedtime, # Kamini nn 00 30 tab, 0 Refill(s) Vancomycin No 2000 mg: Me moria 5- infuse l 15:00: over 2.5 [place] 00 hours For adult patients only: Round to nearest 250 mg per Medical Staff approval MEDICATION WASTE Product Size: 1000 mg Product Wasted: ___ mg Ancef + No Notes: Memoria sterile - (Same As: l water 20 mL 15:00: Ancef, Herm lillie 00 Kefzol) MEDICATION WASTE Product Size: 1000 mg Product Wasted: ___ mg Vancomycin No 2000 mg: Me moria 5- infuse l 15:00: over 2.5 [place] 00 hours For adult patients only: Round to nearest 250 mg per Medical Staff approval MEDICATION WASTE Product Size: 1000 mg Product Wasted: ___ mg Ancef + No Notes: Memoria sterile 5- (Same As: l water 20 mL 15:00: Ancef, Herm lillie 00 Kefzol) MEDICATION WASTE Product Size: 1000 mg Product Wasted: ___ mg cholecalcif Yes 5000U Take 5,000 Methodi kirill, 4-[address] vitamin D3, 18:53: mouth. Hosp cassie (VITAMIN 57 l D3) 5,000 unit capsule CALCIUM Yes 1{tbl} QD Take 1 Method i ORAL 4-[address] 18:53: mouth Hospita 57 daily. l ALPRAZolam 2016-0 Yes TK 1 T PO Me thodi (XANAX) 0.5 1-[address] MG tablet 00:00: Hospita 00 l diltiazem 2015-02 Yes TAKE 1 Method i CD (CARTIA 2-[address] XT) 120 MG 00:00: MOUTH Hospit a 24 hr 00 DAILY l capsule glatiramer Yes 40mg Inject 40 Me thodi (COPAXONE) 9-[address] 40 mg/mL 00:00: the skin. Hosp cassie syringe 00 l pantoprazol Yes 40mg Take 40 mg Methodi e 8-[address] (PROTONIX) 00:00: Hospita 40 MG EC 00 l tablet pantoprazol Yes 40mg QD Take [address] e 8-11 tablet (40 [facility] - (PROTONIX) 00:00: mg total) Me dical 40 MG 00 by mouth Center tablet daily. Vital Signs Vital Name Observation Time Observation Value Comments Source Systolic blood 2020-06-14 13:59:00 125 mm[Hg] [facility] Diastolic blood 2020-06-14 13:59:00 87 mm[Hg] [facility] Heart rate 2020-06-14 13:59:00 80 /min [facility] Oxygen saturation in 2020-06-14 13:59:00 93 /min [facility] Arterial blood by Medical nter Pulse oximetry Respiratory rate 2020-06-14 12:23:00 20 /min [facility] Systolic (mm Hg) 2017-06-18 16:00:00 Percy rial [place] Diastolic (mm Hg) 2017-06-18 16:00:00 Mem orial Yran Systolic (mm Hg) 2017-06-18 15:30:00 Percy rial [place] Diastolic (mm Hg) 2017-06-18 15:30:00 Mem orial Ryan Respitory Rate 2017-06-18 15:15:00 Memori al [place] Systolic (mm Hg) 2017-06-18 15:15:00 Percy rial [place] Diastolic (mm Hg) 2017-06-18 15:15:00 Mem orial Ryan Respitory Rate 2017-06-18 15:00:00 Khadra Kaiserann Respitory Rate 2017-06-18 14:45:00 Khadra Britton Temperature Oral (F) 2017-06-11 15:30:00 98.2 F [facility] [place] Heart Rate 2017-06-11 15:30:00 Cheryl Davis BMI Calculated 2017-06-11 14:39:00 Khadra Britton Height 2017-06-11 14:39:00 157.48 cm Cheryl Davis Weight 2017-06-11 14:39:00 [facility] Procedures Procedure Date / Time Performing Clinician Source Performed MR THORACIC SPINE WITH & 2020-06-14 14:15:00 [place] Robb [facility] - WITHOUT IV CONTRAST Medical [facility] er MR CERVICAL SPINE WITH & 2020-06-14 14:15:00 [place], Robb [facility] - WITHOUT IV CONTRAST Medical [facility] er MR BRAIN WITH & WITHOUT IV 2020-06-14 14:15:[address] [facility] XR CHEST 2 VIEWS 2020-06-14 12:04:00 Pedro Horner [facility] Hysterectomy [facility] Pacemaker care [facility] Rotator cuff [facility] repair<sup>2</sup> Vascular access [facility] incision<sup>3</sup> Cholecystectomy [facility] ERCP<sup>1</sup> Cheryl Nicole n Gastric bypass operation Candelario Davis Plan of Care Planned Activity Planned Date Details Comments Source Future Scheduled 2020-10-[address] [facility] - Test 00:00:00 (Season Ended) [code Medical Center = INFLUENZA VACCINE (Season Ended)] Future Scheduled 2016-10-[address] [facility] - Test 00:00:00 (procedure) [code = Medical Center [id number]] Future Scheduled 2010 SHINGLES VACCINES ([address] [facility] - Test 00:00:00 of 2) [code = Medical Center SHINGLES VACCINES (1 of 2)] Future Scheduled 2003-05-[address] [facility] - Test 00:00:00 WELLNESS (YEAR 2 or Medical Center FIRST YEAR if no IPPE) [code = MEDICARE ANNUAL WELLNESS (YEAR 2 or FIRST YEAR if no IPPE)] Future Scheduled [address] [facility] - Test 00:00:00 [facility] cervix (procedure) [code = 069088527] Future Scheduled 1979 DTAP/TDAP/TD VACCINES [facility] Test 00:00:00 (1 - Tdap) [code = Medical C enter DTAP/TDAP/TD VACCINES (1 - Tdap)] Future Scheduled 1978 HEPATITIS C SCREENING [facility] Test 00:00:00 [code = HEPATITIS C Medical Center SCREENING] Future Scheduled [address] [facility] Test 00:00:00 [facility] breast (procedure) [code = 338279609] Future Scheduled [address] Test 00:00:00 [facility] colon (procedure) [code = 851479504] Future Scheduled COVID-19 VACCINE (1) [facility] [code = COVID-19 VACCINE (1)] Future Scheduled [facility] ([facility] [code = 037037795] Future Scheduled Screening for [facility] Test malignant neoplasm of cervix (procedure) [code = 511921432] Future Scheduled BREAST CANCER [facility] Test SCREENING [code = BREAST CANCER SCREENING] Future Scheduled [facility] [code = COLONOSCOPY SCREENING] Future Scheduled SHINGLES VACCINES [facility] (#1) [code = SHINGLES VACCINES (#1)] Future Scheduled INFLUENZA VACCINE [facility] Test [code = INFLUENZA VACCINE] Encounters Start End Encounter Admission Attending Care Care Encounter Source Date/Time Date/Time Type Type Clinicians Facility Department ID 2020-10-02 2020-10-02 Outpatient ROBERTO CARLOS SINGH [facility] [id number] [facility] 08:07:40 08:07:40 [place] [facility] 2020-09-25 2020-09-25 Outpatient ROBERTO CARLOS SINGH [facility] [id number] [facility] 07:45:42 08:57:26 [place] [facility] 2020-09-19 2020-09-19 Outpatient ROBERTO CARLOS SINGH [facility] [id number] [facility] 07:44:48 11:47:17 [place] [facility] 2020-09-04 2020-09-05 Outpatient FRANCISCO, [facility] [id number] [facility] 07:44:23 10:56:07 [place] [facility] 2020-08-28 2020-08-28 Outpatient FRANCISCO [facility] [id number] [facility] 08:04:16 08:59:08 [place] [facility] 2020-08-21 2020-08-21 Outpatient FRANCISCO, [facility] [id number] [facility] 10:43:36 13:31:22 [place] [facility] 2020-08-10 2020-08-10 Outpatient KARUNA [facility] [id number] [facility] 13:58:44 14:45:16 ROGELIO Colle ge of Medicin e 2020-06-14 2020-06-14 [facility] [id number] 11:39:25 23:59:00 [facility] 2020-06-14 2020-06-14 [facility] [id number] 11:38:48 11:38:48 [facility] 2020-06-14 2020-06-14 [facility] [id number] 11:38:41 11:38:41 [facility] 2020-06-14 2020-06-14 [facility] [id number] 11:00:00 11:37:00 Encounter [facility] 2020-06-14 2020-06-14 [facility], [facility] [id number] 00:00:00 00:00:00 Orders [facility] 2020-06-06 2020-06-06 Office ROBERTO CARLOS Yin [id number] 14:30:44 15:00:44 Visit Cassius Khan AMBULATOR [id number] 2020-05-18 2020-05-18 Outside [place], [facility] [id number] 00:00:00 00:00:00 [facility] 2020-05-17 2020-05-17 Office Laly, BCM 1.2.840.114 [id number] 13:55:07 16:45:44 Visit Robb AMBULATOR 350.1.13.21 John Y 0.2.7.2.686 [id number] 2019-09-27 2019-09-27 Office Humphrey, BCM 1.2.840.114 [id number] 13:56:54 14:26:54 Visit Cassius Khan AMBULATOR 350.1.13.21 Y 0.2.7.2.686 [id number] 2019-04-22 2019-04-22 Office Laly, BCM 1.2.840.114 [id number] 08:50:14 10:51:00 Visit Robb AMBULATOR 350.1.13.21 John Y 0.2.7.2.686 [id number] 2019-03-19 2019-03-19 Office Humphrey, BCM 1.2.840.114 [id number] 08:06:22 10:32:22 Visit Cassius Khan AMBULATOR 350.1.13.21 Y 0.2.7.2.686 [id number] 2017-06-18 2017-06-18 Day [facility] [id number] Memoria 12:54:00 16:05:00 Surgery r [place] 02 [facility] 2017-06-18 2017-06-18 Day [facility] [id number] Memoria 12:54:00 16:05:00 Surgery r [place] 02 l [facility] 2017-06-18 2017-06-18 Outpatient [place], [place] [id number] 07:54:00 11:05:00 Mervin Goncalves 2017-06-18 2017-06-18 Outpatient KE Griffith [facility] [id number] 07:54:00 11:05:00 Mervin Goncalves Results Test Description Test Time Test Comments Results Result [facility] e Comments MR, SPINE, Unlisted Reason THORACIC, 6 for Exam - WITHOUT / WITH 12:12:00 Click Yes and IV CONTRAST Enter Reason [facility] LASHELL WRIGHT Exam->G35 RHEA : (ICD-10-CM) - 1960 Multiple Sex: sclerosis F (HCCode)Anesthe shahab:->NoneDeos the patient *FINAL REPORT have an PATIENT ID: implanted [id number] Exam: MRI electronic cervical and device?->YesPAC thoracic spine with EMAKER and without contrast History: 60-year-old female presenting for follow-up of multiple sclerosis.Comparison studies: MRI 05/12/2019 Technique:Precontras t spine: Sagittal T1, T2 and inversion recovery, axial T1 and T2 cervical and thoracic. Postcontrast axial and sagittal M0Ntokdgpeapj contrast: 7.0 cc of Gadavist. Findings: Cervical spine: Spinal Cord: Normal in size and signal from the foramen magnum through T1.T2 lesion load: None identified. Previously described lesion in the cord at C4 is not visualized on the current exam.T1 hypointense foci: None.Enhancement: None. Thoracic spine: Spinal Cord: Normal in size and signal from the T1 through the tip of the conus at L1 toT2 lesion load: None identified.T1 hypointense foci: None.Enhancement: None. Incidental findings: Small perineural nerve root sleeve cysts on the right at T7-T8 and on the left at T11-T12 are unchanged. Additional comments:Alignment: Normal cervical lordosis and thoracic kyphosis.Cervicomedu llary junction: No abnormalities. The foramen magnum is patent. 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 No compression fracture, infection or neoplasm. Schmorl's node along the superior T12 endplate with mild endplate depression is unchanged Cervical degenerative changes:Multilevel disc degeneration, worst/moderate at C5-C6. Disc osteophyte complexes from C4 to C7 do not result significant canal stenosis. Moderate foraminal stenosis on the left at C5-C6 due to uncovertebral arthrosis. Thoracic degenerative changes: Mild multilevel disc degeneration. Patent canal and foramina. IMPRESSION: 1.No definite demyelinating spinal cord lesion identified.2.Previou s single lesion described on the prior cervical spine MRI 05/12/2019 is not visualized on the current exam. No abnormal cord enhancement. Signed: Andreas Hernandez [facility] Verified Date/Time: 06/15/2020 12:12:49 , SPINE, 2020-06-0 Unlisted Reason CERVICAL, 6 for Exam - WITHOUT / WITH 12:12:00 Click Yes and IV CONTRAST Enter Reason [facility] Reason for LASHELL WRIGHT Exam->G35 RHEA : (ICD-10-CM) - 1960 Multiple Sex: sclerosis F (HCCode)Anesthe shahab:->NoneDeos the patient *FINAL REPORT have an PATIENT ID: implanted [id number] Exam: MRI electronic cervical and device?->YesPAC thoracic spine with EMAKER and without contrast History: 60-year-old female presenting for follow-up of multiple sclerosis.Comparison studies: MRI 05/12/2019 Technique:Precontras t spine: Sagittal T1, T2 and inversion recovery, axial T1 and T2 cervical and thoracic. Postcontrast axial and sagittal X5Nyzxzeljeus contrast: 7.0 cc of Gadavist. Findings: Cervical spine: Spinal Cord: Normal in size and signal from the foramen magnum through T1.T2 lesion load: None identified. Previously described lesion in the cord at C4 is not visualized on the current exam.T1 hypointense foci: None.Enhancement: None. Thoracic spine: Spinal Cord: Normal in size and signal from the T1 through the tip of the conus at L1 toT2 lesion load: None identified.T1 hypointense foci: None.Enhancement: None. Incidental findings: Small perineural nerve root sleeve cysts on the right at T7-T8 and on the left at T11-T12 are unchanged. Additional comments:Alignment: Normal cervical lordosis and thoracic kyphosis.Cervicomedu llary junction: No abnormalities. The foramen magnum is patent. 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 No compression fracture, infection or neoplasm. Schmorl's node along the superior T12 endplate with mild endplate depression is unchanged Cervical degenerative changes:Multilevel disc degeneration, worst/moderate at C5-C6. Disc osteophyte complexes from C4 to C7 do not result significant canal stenosis. Moderate foraminal stenosis on the left at C5-C6 due to uncovertebral arthrosis. Thoracic degenerative changes: Mild multilevel disc degeneration. Patent canal and foramina. IMPRESSION: 1.No definite demyelinating spinal cord lesion identified.2.Previou s single lesion described on the prior cervical spine MRI 05/12/2019 is not visualized on the current exam. No abnormal cord enhancement. Signed: [facility] Verified Date/Time: 06/15/2020 12:12:49 cervical 2020--0 Interface, External [facility] spine without & 6 Ris In - 06/15/2020 - Medical with IV contrast 12:12:00 12:15 PM CDTFINAL C enter REPORT Exam: MRI cervical and thoracic spine with and without contrast History: 60-year-old female presenting for follow-up of multiple sclerosis.Comparison studies: MRI 05/12/2019 Technique:Precontras t spine: Sagittal T1, T2 and inversion recovery, axial T1 and T2 cervical and thoracic. Postcontrast axial and sagittal M1Qyolqocgkyd contrast: 7.0 cc of Gadavist. Findings: Cervical spine: Spinal Cord: Normal in size and signal from the foramen magnum through T1.T2 lesion load: None identified. Previously described lesion in the cord at C4 is not visualized on the current exam.T1 hypointense foci: None.Enhancement: None. Thoracic spine: Spinal Cord: Normal in size and signal from the T1 through the tip of the conus at L1 toT2 lesion load: None identified.T1 hypointense foci: None.Enhancement: None. Incidental findings: Small perineural nerve root sleeve cysts on the right at T7-T8 and on the left at T11-T12 are unchanged. Additional comments:Alignment: Normal cervical lordosis and thoracic kyphosis.Cervicomedu llary junction: No abnormalities. The foramen magnum is patent. 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 No compression fracture, infection or neoplasm. Schmorl's node along the superior T12 endplate with mild endplate depression is unchanged Cervical degenerative changes:Multilevel disc degeneration, worst/moderate at C5-C6. Disc osteophyte complexes from C4 to C7 do not result significant canal stenosis. Moderate foraminal stenosis on the left at C5-C6 due to uncovertebral arthrosis. Thoracic degenerative changes: Mild multilevel disc degeneration. Patent canal and foramina. IMPRESSION: 1.No definite demyelinating spinal cord lesion identified.2.Previou s single lesion described on the prior cervical spine MRI 05/12/2019 is not visualized on the current exam. No abnormal cord enhancement. Signed: [facility] Verified Date/Time: 06/15/2020 12:12:49 thoracic Interface, External [facility] spine without & 6 Ris In - 06/15/2020 - Medical with IV contrast 12:12:00 12:14 PM CDTFINAL C enter REPORT Exam: MRI cervical and thoracic spine with and without contrast History: 60-year-old female presenting for follow-up of multiple sclerosis.Comparison studies: MRI 05/12/2019 Technique:Precontras t spine: Sagittal T1, T2 and inversion recovery, axial T1 and T2 cervical and thoracic. Postcontrast axial and sagittal I3Ycsttxqrfyn contrast: 7.0 cc of Gadavist. Findings: Cervical spine: Spinal Cord: Normal in size and signal from the foramen magnum through T1.T2 lesion load: None identified. Previously described lesion in the cord at C4 is not visualized on the current exam.T1 hypointense foci: None.Enhancement: None. Thoracic spine: Spinal Cord: Normal in size and signal from the T1 through the tip of the conus at L1 toT2 lesion load: None identified.T1 hypointense foci: None.Enhancement: None. Incidental findings: Small perineural nerve root sleeve cysts on the right at T7-T8 and on the left at T11-T12 are unchanged. Additional comments:Alignment: Normal cervical lordosis and thoracic kyphosis.Cervicomedu llary junction: No abnormalities. The foramen magnum is patent. 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 No compression fracture, infection or neoplasm. Schmorl's node along the superior T12 endplate with mild endplate depression is unchanged Cervical degenerative changes:Multilevel disc degeneration, worst/moderate at C5-C6. Disc osteophyte complexes from C4 to C7 do not result significant canal stenosis. Moderate foraminal stenosis on the left at C5-C6 due to uncovertebral arthrosis. Thoracic degenerative changes: Mild multilevel disc degeneration. Patent canal and foramina. IMPRESSION: 1.No definite demyelinating spinal cord lesion identified.2.Previou s single lesion described on the prior cervical spine MRI 05/12/2019 is not visualized on the current exam. No abnormal cord enhancement. Signed: Andreas Hernandez [facility] Verified Date/Time: 06/15/2020 12:12:49 , BRAIN, Unlisted Reason WITHOUT / WITH 6 for Exam - IV CONTRAST 11:52:00 Click Yes and Enter Reason [facility] - Below->[facility] Reason for LASHELL WRIGHT Exam->G35 RHEA : (ICD-10-CM) - 1960 Multiple Sex: sclerosis F (HCCode)Anesthe shahab:->NoneDeos the patient *FINAL REPORT have an PATIENT ID: implanted [id number] Exam: MRI electronic brain with and device?->YesPAC without contrast EMAKER History: 60-year-old female with multiple sclerosis.Comparison studies: Brain MRI 05/12/2019 Technique:Pre contrast: 3D cube T2 flair, T1 flair, SWI, DWI Post contrast: 3D T1 cubeIntravenous contrast: 7.0 mL Gadavist. Findings: T2 lesion load: Number: Innumerable discreet T2/FLAIR hyperintense lesions are unchanged. No new lesions when compared to the prior MRI.Size: Lesions range in size from 1 mm to 14 mm.Location: Juxtacortical, subcortical, deep supratentorial and periventricular, colossal septal interface, and in the right mari. T1 hypointense foci: No significant T1 hypointense lesions.Enhancing lesions: NoneCorpus callosum volume: Adequate for age in size and morphologyBrain volume: Adequate for age. Additional abnormalities: Small bilateral maxillary sinus retention cysts. IMPRESSION: 1.No new or enhancing lesions.2.Nonenhanci ng demyelinating lesions are unchanged from the prior brain MRI of 05/12/2019. Signed: Andreas Hernandez [facility] Verified Date/Time: 06/15/2020 11:52:36 brain without Interface, External [facility] & with IV 6 Ris In - 06/15/2020 - Med ical contrast 11:52:00 11:54 AM [facility] Exam: MRI brain with and without contrast History: 60-year-old female with multiple sclerosis.Comparison studies: Brain MRI 05/12/2019 Technique:Pre contrast: 3D cube T2 flair, T1 flair, SWI, DWI Post contrast: 3D T1 cubeIntravenous contrast: 7.0 mL Gadavist. Findings: T2 lesion load: Number: Innumerable discreet T2/FLAIR hyperintense lesions are unchanged. No new lesions when compared to the prior MRI.Size: Lesions range in size from 1 mm to 14 mm.Location: Juxtacortical, subcortical, deep supratentorial and periventricular, colossal septal interface, and in the right mari. T1 hypointense foci: No significant T1 hypointense lesions.Enhancing lesions: NoneCorpus callosum volume: Adequate for age in size and morphologyBrain volume: Adequate for age. Additional abnormalities: Small bilateral maxillary sinus retention cysts. IMPRESSION: 1.No new or enhancing lesions.2.Nonenhanci ng demyelinating lesions are unchanged from the prior brain MRI of 05/12/2019. Signed: Andreas Hernandez [facility] Verified Date/Time: 06/15/2020 11:52:36 , CHEST, 2 Reason for VIEWS 5 Exam:->MULTIPLE 12:12:00 [facility] : 1960 Sex: F *FINAL REPORT EXAM: RAD, CHEST, 2 VIEWSDATE: 06/14/2020 12:04 PM INDICATION: MULTIPLE SCLEROSISCOMPARISON: Chest x-ray, 05/12/2019 FINDINGS:Lines and tubes: There is a chest port on the right with catheter extending to the distal SVC, stable from last exam. There is an implanted cardiac device in the left anterior chest with transvenous intact leads extending to the right atrium and right ventricle, stable in appearance since last exam. There are no new or residual leads. Heart size normal. No focal pulmonary opacity, pleural effusion or pneumothorax. Upper abdomen unremarkable. Cholecystectomy clips seen. No acute bony abnormality. An anchor is again noted in the left humeral head. IMPRESSION:No evidence for acute disease. Stable appearance of chest port on the right and implanted cardiac device on the left. Signed: Ravinder Segura Verified Date/Time: 06/14/2020 12:12:57 Reading Location: [facility] Reading Room [address] [place] [address] Chest 2 Views 2020-05-0 Interface, External [facility] 5 Ris In - 06/14/2020 - Med ical 12:12:00 12:15 PM CDINAL Center REPORT EXAM: RAD, CHEST, 2 VIEWSDATE: 06/14/2020 12:04 PM INDICATION: MULTIPLE SCLEROSISCOMPARISON: Chest x-ray, 05/12/2019 FINDINGS:Lines and tubes: There is a chest port on the right with catheter extending to the distal SVC, stable from last exam. There is an implanted cardiac device in the left anterior chest with transvenous intact leads extending to the right atrium and right ventricle, stable in appearance since last exam. There are no new or residual leads. Heart size normal. No focal pulmonary opacity, pleural effusion or pneumothorax. Upper abdomen unremarkable. Cholecystectomy clips seen. No acute bony abnormality. An anchor is again noted in the left humeral head. IMPRESSION:No evidence for acute disease. Stable appearance of chest port on the right and implanted cardiac device on the left. Signed: Ravinder Segura Verified Date/Time: 06/14/2020 12:12:57 Reading Location: [facility] Reading Room [address] [place] [address] , SPINE, FINAL REPORT PATIENT THORACIC, 1 ID: [id number] WITHOUT / WITH 15:56:00 Examination:MR, IV CONTRAST SPINE, THORACIC, WITHOUT / WITH IV CONTRAST HISTORY: 59-year-old female with relapsing remitting multiple sclerosis, not currently on disease modifying therapy and presents for follow-up. Patient states she has no new symptoms or concerns for relapse.COMPARISON: None.TECHNIQUE: Sagittal T1 postcontrast; sagittal T2 and STIR. Axial T1 postcontrast, T2. Intravenous contrast: 7 mL Gadavist. FINDINGS:Spinal cord size: Normal. Enhancing lesions: None. T2 lesions: None. T1 lesions: None. Vertebrae: Normal alignment, height, and signal intensity. Superior endplate Schmorl's node at T11.Discs: No disc herniation or canal stenosis. Incidental finding: A 5.7 mm nerve root sleeve cyst in the right neural foramen at T6-T7. An 8 mm nerve root sleeve cyst in the left neural foramen at T10-T11. IMPRESSION:No nonenhancing or enhancing lesion within the cord. Signed: Ramya Noel [facility] Verified Date/Time: 05/12/2019 15:56:57 Reading Location: [facility] Reading Room [address] [address] , SPINE, FINAL REPORT PATIENT CERVICAL, 1 ID: [id number] WITHOUT / WITH 15:51:00 Examination: MR, IV CONTRAST SPINE, CERVICAL, WITHOUT / WITH IV CONTRAST HISTORY: 59-year-old female with relapsing remitting multiple sclerosis, not currently on disease modifying therapy and presents for follow-up. Patient states she has no new symptoms or concerns for relapse.COMPARISON: None.TECHNIQUE: Sagittal and axial T1 postcontrast; sagittal T2 and STIR. Axial T2. Intravenous contrast: 7 mL Gadavist. FINDINGS:Spinal cord size: Normal. Enhancing lesions: None. T2 lesions: Small lesion in the right posterior cord at mid C4.No additional lesions. T1 lesions: There are no lesions of cerebrospinal fluid equivalent intensity. Vertebrae: Normal alignment, height, and signal intensity. Discs: Diffuse disc bulges from C3 through C6 without canal stenosis.Foramen magnum: No Chiari malformation, mass, or basilar invagination. Additional findings:None. IMPRESSION:Single tiny nonenhancing lesion within the cord. No enhancing additional nonenhancing lesions. Signed: Ramya [facility] Verified Date/Time: 05/12/2019 15:51:43 Reading Location: [facility] Reading Room [address] [place] [address] , BRAIN, FINAL REPORT PATIENT WITHOUT / WITH 1 ID: [id number] IV CONTRAST 15:47:00 Examination: MR, BRAIN, WITHOUT / WITH IV CONTRAST HISTORY: 59-year-old female with relapsing remitting multiple sclerosis, not currently on disease modifying therapy and presents for follow-up. Patient states she has no new symptoms or concerns for relapse.COMPARISON: Brain MRI performed at [facility] on July 24, 2015TECHNIQUE: Sagittal FLAIR with axial and coronal reconstructions; axial precontrast T1, postcontrast T2, FLAIR; axial, sagittal and coronal postcontrast T1. Contrast: Seven mL Gadavist. FINDINGS:T2 lesions: Number: Innumerable discrete T2 lesions. No new lesions. Size: Range in size from 1 mm to 14 mm. Location: Periventricular, deep, callosal septal interface, juxtacortical white matter. Mari. T1 "black holes": There are no lesions of cerebrospinal fluid equivalent intensity. Enhancing lesions: None. Corpus callosum volume: Normal, unchanged. Brain volume: Within normal limits for age, unchanged. Additional finding: Retention cyst in the right maxillary sinus. IMPRESSION:No new nonenhancing or enhancing lesion within the brain when compared to prior brain MRI performed at [facility] on July 24, 2015. Unchanged nonenhancing lesions, consistent with multiple sclerosis. Signed: Ramya Noel [facility] Verified Date/Time: 05/12/2019 15:47:11 Reading Location: [facility] Reading Room [address] [place] [address] -CREATININE 2019-05-12 09:13:00 Test Item Value Reference Range Interpretation Comme nts POC-CREATININE (BEAKER) 1.0 mg/dL 0.6-1.3 : TE STED AT [facility] 7200 (test code = 1859) [facility], [facility] [address]: Audio Visual Coordinator /It Program Manager ID = [id number] for CANDIDA ROSS POC-EGFR (BRIGITTE) (test 57 mL/min/1.73M2 code = 1860) RAD, CHEST, 2 [id number] 09:02:00Reason for exam:->MRI pacemaker check FINAL REPORT [...] No acute cardiopulmonary abnormality. Signed: Cyrus Pretty Verified Date/Time:05/12/2019 09:02:30 Reading Location: [facility] Mammo Reading Room TISSUE [id number] 10:19:00 Surgical Pathology Report Case: [id number] Authorizing Provider: Shoshana Shepherd MD Collected: 05/06/2018 1434 Ordering Location: [facility] Endoscopy Received: 05/06/2018 1603 Services Pathologist: Augustus Lentz MD Specimen: Biopsy, Gastric, BX GASTRIC POUCH ERYTHEMA PART A GASTRIC POUCH, BIOPSY:CHRONIC INACTIVE GASTRITIS.NEGATIVE FOR INTESTINAL METAPLASIA, DYSPLASIA, OR INVASIVE CARCINOMA.WARTHIN STARRY STAIN FOR HELICOBACTER IS NEGATIVE. Signing Pathologist Direct Phone Line: [phone] signed by Augustus Lentz MD on 05/07/2018 at 10:19 [id number], [id number] abdominal pain, erythema Gastric pouch biopsy The [...] WARTHIN STARRYImmunohistochemistry technical testing was performed at [facility], Pathology Laboratory where it was developed and [...] qualified to perform high complexity clinical laboratory testing.BLOOD BANK [id number] 15:10:00Negative (06/11/17 10:10 AM)[facility] 2017-[facility]-11 15:10:0014.3[facility] RcwrygjBALIVQANHLRK3443-22-96 15:10:0069[facility] YnjlhsoQJYTQEIVQSJE2695-52-55 15:10:0027[facility] EwznctuDBDYHTMALQXX0407-88-45 15:10:004.3[facility] LeuhthuEBNTGLPHSEYQ6290-60-36 15:10:009.3[facility] BLOOD BANK OPVAVTM6200-09-95 15:10:00Negative (06/11/17 10:10 AM)[facility] [place] QTCMUJWVCQYN2463-43-03 15:10:03022Oqwubqwc QahnkdkSHGIQBWEAZKQ7937-44-44 15:10:0014.3[facility] SqhkyviPDWXPRRUINTV3375-90-88 15:10:0069[facility] [place] YYPEKEVSWBCO3943-69-91 15:10:0027[facility] EfywzjyENERDRLZHFLX9500-55-60 15:10:00 4.3[facility] FphpuxjIKTWWOEIWVAS4065-22-91 15:10:009.3[facility] [place] YLWZUZUIQEIH8282-62-30 15:10:59116Casgmsoc AfmxwvlQJECBAYEEABW3409-24-77 15:10:000.93[facility] XzhmeyvWFRMFJFOPZAB6774-18-47 15:10:41533Tvgrdtcz Ryan FJOGTRMKVTYW6232-85-30 15:10:0025[facility] TvgnmtmWOXXTCIKIBCZ5854-66-93 15:10:00 91[facility] EqlezlwXGFZLWJSTWNC9198-17-23 15:10:000.93[facility]ann[facility] 2017-06-11 15:10:00 Test Item Value Reference Range Interpretation Comments INR (test code = INR) 0.91 1 0.85-1.17 [facility] CjhbrlzWSLHANPEFY4525-42-60 15:10:00 Test Item Value Reference Range Interpretation Comments PT (test code = PT) 12.3 s 12.0-14.7 [facility] LkhcqzmMAWNBOLEGS3284-07-78 15:10:006.7[facility]ann[facility]MATOLOGY 2017-06-11 15:10:004.77[facility] DrdgbayDRVXHXVIQQ4954-49-85 15:10:0015.1[facility] QbsjegvYIFSKHPFTJ0470-55-55 15:10:0033.3[facility] KbzlwlrZFCEGIINVK9845-97-02 15:10:00 Test Item Value Reference Range Interpretation Comments MCH (test code = MCH) 31.6 pg 27.0-31.0 [facility] GfpverkELWVSDTJER4994-23-09 15:10:0095.0[facility] 2017-06-11 15:10:0045.3[facility] MmgrwxxKOYKOXROTK4342-41-73 15:10:0013.4[facility] GbipnuhILTQKCPXXOHJ1510-24-32 15:10:63786Txisudrl RtyawwuAYZQQSOFPL2112-20-73 15:10:007.4[facility] XklidouZMGDJHTFHX5651-02-51 15:10:09873Zlpzucgi [place] NWJWYJFMTN8476-14-84 15:10:004.2[facility] WothgdmWFHPDTYGPK8760-71-58 15:10:000.7 [facility] ErqyexiMMAOLXFFZG7730-21-37 15:10:001.6[facility] 2017-06-11 15:10:000.3[facility] KanhsoyVDAVBBQHMW2797-71-60 15:10:003.8[facility] TkonkdsQVCOXKOCJS0347-49-80 15:10:000.7[facility] BmhxjwwNIAWFEBBCX3328-80-38 15:10:0061.9[facility] SojdeuiXXFDHOWQEE8952-36-36 15:10:0023.0[facility] [place] QMFBNVRCABLZ7657-68-98 15:10:0025[facility] FdxicxoTCPFXHODCD9054-70-63 15:10:00 10.6[facility] IjrmcgzRLDOJOULAECR2862-17-86 15:10:0091[facility] 2017-06-11 15:10:00 Test Item Value Reference Range Interpretation Comments INR (test code = INR) 0.91 1 0.85-1.17 [facility] KvyislxGLFBTERNHC4443-54-81 15:10:00 Test Item Value Reference Range Interpretation Comments PT (test code = PT) 12.3 s 12.0-14.7 [facility] SdizhidBBPSKXZFMP0734-24-18 15:10:006.7[facility]ann[facility] 2017-06-11 15:10:004.77[facility] TbbgbnxGCXEQXDTNQ7598-63-55 15:10:0015.1[facility] DemusybCMFVXNBCYT9863-57-88 15:10:0033.3[facility] UtseoxwNOMTAEKCDF4483-19-95 15:10:00 Test Item Value Reference Range Interpretation Comments MCH (test code = MCH) 31.6 pg 27.0-31.0 [facility] QktshdaACLAAMNUQS3951-97-05 15:10:0095.0[facility]ann[facility]MAT[facility] 2017-06-11 15:10:0045.3[facility] GlykpjuIYQPEZASUD5599-03-59 15:10:0013.4[facility] DdkbjubGFRYVZATSG9564-35-41 15:10:007.4[facility] FeagysfYODERJBZHF2737-84-67 15:10:25732Nsvsbwrk ThxejydFRZVUATKDB5302-95-51 15:10:004.2[facility] [id number] 15:10:000.7[facility] FvibtoxHMUDRTHSAH4093-27-92 15:10:001.6 [facility] SxgtrzaOOILLFEHAY1711-04-18 15:10:000.3[facility] HermannHEMATOLOGY 2017-06-11 15:10:003.8[facility] FnzxqobLCHRFAQYKO3161-05-67 15:10:000.7[facility] WzlkexoMMQSWYRTBN7660-98-95 15:10:0061.9[facility] PtjizpgGFWFXOQJVI8164-16-68 15:10:0023.0[facility] EqbjiiaZIDOQRXCJR5206-54-51 15:10:0010.6[facility] POCT-GLUCOSE [id number] 08:31:00 Test Item Value Reference Range Interpretation Comments POC-GLUCOSE METER 73 mg/dL 70-110 TESTED AT [facility] (test [place] = [place] [address] 1538) [address], [id number] 08:00:00Reason for exam:->right lower quad painWhat is [...] Carlson Verified Date/Time: 03/25/2017 08:00:47 Reading Location: [facility] Diagnostic Imaging Reading Room - [place] [address] [id number] 06:09:00 Test Item Value Reference Range Interpretation Comments MAGNESIUM (BEAKER) (test code = 1.6 mg/dL 1.6-2.6 627) BASIC METABOLIC [id number] 06:09:00 Test Item Value Reference Range Interpretation Comments SODIUM (BEAKER) 141 meq/L 136-145 (test code = 381) POTASSIUM (BEAKER) 4.1 meq/L 3.5-5.1 (test code = 379) CHLORIDE (BEAKER) 104 meq/L 98-107 (test code = 382) CO2 (BEAKER) (test 29 meq/L 22-29 code = 355) BLOOD UREA NITROGEN 9 mg/dL 7-21 (BEAKER) (test code = 354) CREATININE (BEAKER) 0.93 mg/dL 0.57-1.25 (test code = 358) GLUCOSE RANDOM 87 mg/dL 70-105 (BEAKER) (test code = 652) CALCIUM (BEAKER) 9.0 mg/dL 8.4-10.2 (test code = 697) EGFR (BEAKER) (test 62 mL/min/1.73 ESTIMA VIDAL GFR IS code = 1092) sq m NOT ACCURATE CREATININE CLEARANCE IN PREDICTING GLOMERULAR FILTRATION RATE . ESTIMATED GFR I S NOT APPLICABLE FOR DIALYSIS PATIEN TS. CBC W/PLT COUNT & AUTO [id number] 05:43:00 Test Item Value Reference Range Interpretation Comments WHITE BLOOD CELL COUNT (BEAKER) 5.7 K/ L 3.5-10.5 (test code = 775) RED BLOOD CELL COUNT (BEAKER) 3.67 M/ L 3.93-5.22 L (test code = 761) HEMOGLOBIN (BEAKER) (test code = 11.8 GM/DL 11.2-15.7 410) HEMATOCRIT (BEAKER) (test code = 36.6 % 34.1-44.9 411) MEAN CORPUSCULAR VOLUME (BEAKER) 99.7 fL 79.4-94.8 H (test code = 753) MEAN CORPUSCULAR HEMOGLOBIN 32.2 pg 25.6-32.2 (BEAKER) (test code = 751) MEAN CORPUSCULAR HEMOGLOBIN CONC 32.2 GM/DL 32.2-35.5 (BEAKER) (test code = 752) RED CELL DISTRIBUTION WIDTH 12.6 % 11.7-14.4 (BEAKER) (test code = 412) PLATELET COUNT (BEAKER) (test 187 K/CU MM 150-450 code = 756) MEAN PLATELET VOLUME (BEAKER) 9.7 fL 9.4-12.3 (test code = 754) NUCLEATED RED BLOOD CELLS 0 /100 WBC 0-0 (BEAKER) (test code = 413) NEUTROPHILS RELATIVE PERCENT 63 % (BEAKER) (test code = 429) LYMPHOCYTES RELATIVE PERCENT 18 % (BEAKER) (test code = 430) MONOCYTES RELATIVE PERCENT 14 % (BEAKER) (test code = 431) EOSINOPHILS RELATIVE PERCENT 5 % (BEAKER) (test code = 432) BASOPHILS RELATIVE PERCENT 1 % (BEAKER) (test code = 437) NEUTROPHILS ABSOLUTE COUNT 3.56 K/ L 1.56-6.13 (BEAKER) (test code = 670) LYMPHOCYTES ABSOLUTE COUNT 1.02 K/ L 1.18-3.74 L (BEAKER) (test code = 414) MONOCYTES ABSOLUTE COUNT (BEAKER) 0.78 K/ L 0.24-0.36 H (test code = 415) EOSINOPHILS ABSOLUTE COUNT 0.26 K/ L 0.04-0.36 (BEAKER) (test code = 416) BASOPHILS ABSOLUTE COUNT (BEAKER) 0.03 K/ L 0.01-0.08 (test code = 417) IMMATURE GRANULOCYTES-RELATIVE 0 % 0-1 PERCENT (BEAKER) (test code = 2801) POCT-GLUCOSE [id number] 23:29:00 Test Item Value Reference Range Interpretation Comments POC-GLUCOSE METER 101 mg/dL 70-110 TESTED AT [place] [address] [facility] (test code = [place] [facility] 1538) [address] POCT-GLUCOSE [id number] 17:46:00 Test Item Value Reference Range Interpretation Comments POC-GLUCOSE METER 90 mg/dL 70-110 TESTED AT [facility] 67[address] [facility] (test code = [place] [facility] [address] 1538) POCT-GLUCOSE [id number] 12:51:00 Test Item Value Reference Range Interpretation Comments POC-GLUCOSE METER 89 mg/dL 70-110 TESTED AT [facility] 67[address] (BEAKER) (test code = [place] [address] 1538) POCT-GLUCOSE [id number] 08:48:00 Test Item Value Reference Range Interpretation Comments POC-GLUCOSE METER 199 mg/dL 70-110 H TESTED AT [facility] 67[address] (BEAKER) (test code = [place] 1538) [address] [id number] 08:16:00 Test Item Value Reference Range Interpretation Comments MAGNESIUM (BEAKER) (test code = 1.6 mg/dL 1.6-2.6 627) BASIC METABOLIC [id number] 08:16:00 Test Item Value Reference Range Interpretation Comments SODIUM (BEAKER) 139 meq/L 136-145 (test code = 381) POTASSIUM (BEAKER) 3.8 meq/L 3.5-5.1 (test code = 379) CHLORIDE (BEAKER) 103 meq/L 98-107 (test code = 382) CO2 (BEAKER) (test 24 meq/L 22-29 code = 355) BLOOD UREA NITROGEN 12 mg/dL 7-21 (BEAKER) (test code = 354) CREATININE (BEAKER) 0.92 mg/dL 0.57-1.25 (test code = 358) GLUCOSE RANDOM 95 mg/dL 70-105 (BEAKER) (test code = 652) CALCIUM (BEAKER) 8.5 mg/dL 8.4-10.2 (test code = 697) EGFR (BEAKER) (test 63 mL/min/1.73 ESTIMA VIDAL GFR IS code = 1092) sq m NOT ACCURATE CREATININE CLEARANCE IN PREDICTING GLOMERULAR FILTRATION RATE . ESTIMATED GFR I S NOT APPLICABLE FOR DIALYSIS PATIEN TS. CBC W/PLT COUNT & AUTO [id number] 06:41:00 Test Item Value Reference Range Interpretation Comments WHITE BLOOD CELL COUNT (BEAKER) 7.1 K/ L 3.5-10.5 (test code = 775) RED BLOOD CELL COUNT (BEAKER) 3.74 M/ L 3.93-5.22 L (test code = 761) HEMOGLOBIN (BEAKER) (test code = 12.1 GM/DL 11.2-15.7 410) HEMATOCRIT (BEAKER) (test code = 37.9 % 34.1-44.9 411) MEAN CORPUSCULAR VOLUME (BEAKER) 101.3 fL 79.4-94.8 H (test code = 753) MEAN CORPUSCULAR HEMOGLOBIN 32.4 pg 25.6-32.2 H (BEAKER) (test code = 751) MEAN CORPUSCULAR HEMOGLOBIN CONC 31.9 GM/DL 32.2-35.5 L (BEAKER) (test code = 752) RED CELL DISTRIBUTION WIDTH 12.6 % 11.7-14.4 (BEAKER) (test code = 412) PLATELET COUNT (BEAKER) (test 187 K/CU MM 150-450 code = 756) MEAN PLATELET VOLUME (BEAKER) 9.8 fL 9.4-12.3 (test code = 754) NUCLEATED RED BLOOD CELLS 0 /100 WBC 0-0 (BEAKER) (test code = 413) NEUTROPHILS RELATIVE PERCENT 67 % (BEAKER) (test code = 429) LYMPHOCYTES RELATIVE PERCENT 17 % (BEAKER) (test code = 430) MONOCYTES RELATIVE PERCENT 12 % (BEAKER) (test code = 431) EOSINOPHILS RELATIVE PERCENT 4 % (BEAKER) (test code = 432) BASOPHILS RELATIVE PERCENT 0 % (BEAKER) (test code = 437) NEUTROPHILS ABSOLUTE COUNT 4.71 K/ L 1.56-6.13 (BEAKER) (test code = 670) LYMPHOCYTES ABSOLUTE COUNT 1.16 K/ L 1.18-3.74 L (BEAKER) (test code = 414) MONOCYTES ABSOLUTE COUNT (BEAKER) 0.87 K/ L 0.24-0.36 H (test code = 415) EOSINOPHILS ABSOLUTE COUNT 0.26 K/ L 0.04-0.36 (BEAKER) (test code = 416) BASOPHILS ABSOLUTE COUNT (BEAKER) 0.03 K/ L 0.01-0.08 (test code = 417) IMMATURE GRANULOCYTES-RELATIVE 0 % 0-1 PERCENT (BEAKER) (test code = 2801) POCT-GLUCOSE [id number] 22:19:00 Test Item Value Reference Range Interpretation Comments POC-GLUCOSE METER 116 mg/dL 70-110 H TESTED AT [facility] 6720 (BEAKER) (test code = [place] 1538) [address] POCT-GLUCOSE [id number] 21:16:00 Test Item Value Reference Range Interpretation Comments POC-GLUCOSE METER 117 mg/dL 70-110 H TESTED AT [facility] 67[address] (BEAKER) (test code = [place] [facility] 1538) [address] URINALYSIS W/ REFLEX URINE [id number] 18:57:00 Test Item Value Reference Range Interpretation Comments COLOR (BEAKER) (test code = 470) Light Yellow CLARITY (BEAKER) (test code = Clear 469) SPECIFIC GRAVITY UA (BEAKER) 1.006 1.001-1.035 (test code = 468) PH UA (BEAKER) (test code = 467) 7.0 5.0-8.0 PROTEIN UA (BEAKER) (test code = Negative Negative 464) GLUCOSE UA (BEAKER) (test code = Negative Negative 365) KETONES UA (BEAKER) (test code = Negative Negative 371) BILIRUBIN UA (BEAKER) (test code Negative Negative = 462) BLOOD UA (BEAKER) (test code = Negative Negative 461) NITRITE UA (BEAKER) (test code = Negative Negative 465) LEUKOCYTE ESTERASE UA (BEAKER) Negative Negative (test code = 466) UROBILINOGEN UA (BEAKER) (test 0.2 mg/dL 0.2-1.0 code = 463) RBC UA (BEAKER) (test code = 0 /HPF 519) WBC UA (BEAKER) (test code = 1 /HPF 520) SQUAMOUS EPITHELIAL (BEAKER) 1 /HPF (test code = 516) SOURCE(BEAKER) (test code = 2795) POCT-GLUCOSE [id number] 17:05:00 Test Item Value Reference Range Interpretation Comments POC-GLUCOSE METER 92 mg/dL 70-110 TESTED AT [place] [id number] (BEAKER) (test code = JIMMY [place] [facility] [address] 1538) RAD, ABDOMEN/KUB, 1 VIEW [id number] 12:49:00Reason for exam:->abdominal painShould this be performed at the bedside?->YesFINAL REPORT Technique: Frontal images of the abdomen COMPARISON: 03/19/2015 FINDINGS: Bowel gas pattern is nonspecific. Some residual contrast in the colon seen. No gross free intraperitoneal air. A stent projects in the upper abdomen centrally. No acute skeletal abnormality. Signed: Joby Johnson MDReport Verified Date/Time: 03/23/2017 12:49:51 Reading Location: [address] Transitional Reading Room POCT-GLUCOSE [id number] 08:59:00 Test Item Value Reference Range Interpretation Comments POC-GLUCOSE METER 107 mg/dL 70-110 TESTED AT [facility] 67[address] (BEAKER) (test code = JIMMY [place] [facility] 1538) [address] [id number] 07:02:00 Test Item Value Reference Range Interpretation Comments MAGNESIUM (BEAKER) (test code = 1.8 mg/dL 1.6-2.6 627) BASIC METABOLIC [id number] 07:02:00 Test Item Value Reference Range Interpretation Comments SODIUM (BEAKER) 142 meq/L 136-145 (test code = 381) POTASSIUM (BEAKER) 4.1 meq/L 3.5-5.1 (test code = 379) CHLORIDE (BEAKER) 103 meq/L 98-107 (test code = 382) CO2 (BEAKER) (test 30 meq/L 22-29 H code = 355) BLOOD UREA NITROGEN 15 mg/dL 7-21 (BEAKER) (test code = 354) CREATININE (BEAKER) 0.93 mg/dL 0.57-1.25 (test code = 358) GLUCOSE RANDOM 83 mg/dL 70-105 (BEAKER) (test code = 652) CALCIUM (BEAKER) 8.8 mg/dL 8.4-10.2 (test code = 697) EGFR (BEAKER) (test 62 mL/min/1.73 ESTIMA VIDAL GFR IS code = 1092) sq m NOT ACCURATE CREATININE CLEARANCE IN PREDICTING GLOMERULAR FILTRATION RATE . ESTIMATED GFR I S NOT APPLICABLE FOR DIALYSIS PATIEN TS. HEPATIC FUNCTION [id number] 07:02:00 Test Item Value Reference Range Interpretation Comments TOTAL PROTEIN (BEAKER) (test code = 6.0 gm/dL 6.0-8.3 770) ALBUMIN (BEAKER) (test code = 1145) 3.6 g/dL 3.5-5.0 BILIRUBIN TOTAL (BEAKER) (test code 0.6 mg/dL 0.2-1.2 = 377) BILIRUBIN DIRECT (BEAKER) (test 0.2 mg/dL 0.1-0.5 code = 706) ALKALINE PHOSPHATASE (BEAKER) (test 78 U/L 40-150 code = 346) AST (SGOT) (BEAKER) (test code = 18 U/L 5-34 353) ALT (SGPT) (BEAKER) (test code = 24 U/L 6-55 347) [id number] 07:02:00 Test Item Value Reference Range Interpretation Comments AMYLASE (BEAKER) (test code = 349) 93 U/L 25-125 [id number] 07:02:00 Test Item Value Reference Range Interpretation Comments LIPASE (BEAKER) (test code = 749) 71 U/L 8-78 CBC W/PLT COUNT & AUTO [id number] 05:52:00 Test Item Value Reference Range Interpretation Comments WHITE BLOOD CELL COUNT (BEAKER) 7.5 K/ L 3.5-10.5 (test code = 775) RED BLOOD CELL COUNT (BEAKER) 3.60 M/ L 3.93-5.22 L (test code = 761) HEMOGLOBIN (BEAKER) (test code = 11.9 GM/DL 11.2-15.7 410) HEMATOCRIT (BEAKER) (test code = 36.4 % 34.1-44.9 411) MEAN CORPUSCULAR VOLUME (BEAKER) 101.1 fL 79.4-94.8 H (test code = 753) MEAN CORPUSCULAR HEMOGLOBIN 33.1 pg 25.6-32.2 H (BEAKER) (test code = 751) MEAN CORPUSCULAR HEMOGLOBIN CONC 32.7 GM/DL 32.2-35.5 (BEAKER) (test code = 752) RED CELL DISTRIBUTION WIDTH 12.6 % 11.7-14.4 (BEAKER) (test code = 412) PLATELET COUNT (BEAKER) (test 182 K/CU MM 150-450 code = 756) MEAN PLATELET VOLUME (BEAKER) 9.8 fL 9.4-12.3 (test code = 754) NUCLEATED RED BLOOD CELLS 0 /100 WBC 0-0 (BEAKER) (test code = 413) NEUTROPHILS RELATIVE PERCENT 70 % (BEAKER) (test code = 429) LYMPHOCYTES RELATIVE PERCENT 15 % (BEAKER) (test code = 430) MONOCYTES RELATIVE PERCENT 12 % (BEAKER) (test code = 431) EOSINOPHILS RELATIVE PERCENT 3 % (BEAKER) (test code = 432) BASOPHILS RELATIVE PERCENT 0 % (BEAKER) (test code = 437) NEUTROPHILS ABSOLUTE COUNT 5.22 K/ L 1.56-6.13 (BEAKER) (test code = 670) LYMPHOCYTES ABSOLUTE COUNT 1.11 K/ L 1.18-3.74 L (BEAKER) (test code = 414) MONOCYTES ABSOLUTE COUNT (BEAKER) 0.89 K/ L 0.24-0.36 H (test code = 415) EOSINOPHILS ABSOLUTE COUNT 0.20 K/ L 0.04-0.36 (BEAKER) (test code = 416) BASOPHILS ABSOLUTE COUNT (BEAKER) 0.02 K/ L 0.01-0.08 (test code = 417) IMMATURE GRANULOCYTES-RELATIVE 0 % 0-1 PERCENT (AKER) (test code = 2801) POCT-GLUCOSE [id number] 21:26:00 Test Item Value Reference Range Interpretation Comments POC-GLUCOSE METER 96 mg/dL 70-110 TESTED AT [place] [address] ([facility]) (test code = [facility] [address] 1538) POCT-GLUCOSE [id number] 17:51:00 Test Item Value Reference Range Interpretation Comments POC-GLUCOSE METER 104 mg/dL 70-110 TESTED AT [place] [address] ([facility]) (test code = [facility] 1538) [id number] POCT-GLUCOSE [id number] 15:36:00 Test Item Value Reference Range Interpretation Comments POC-GLUCOSE METER 101 mg/dL 70-110 TESTED AT [place] [address] ([facility]) (test code = [facility] 1538) [address] CBC W/PLT COUNT & AUTO [id number] 07:20:00 Test Item Value Reference Range Interpretation Comments WHITE BLOOD CELL COUNT ([facility]) 6.3 K/ L 3.5-10.5 (test code = 775) RED BLOOD CELL COUNT ([facility]) 3.58 M/ L 3.93-5.22 L (test code = 761) HEMOGLOBIN ([facility]) (test code = 11.5 GM/DL 11.2-15.7 410) HEMATOCRIT ([facility]) (test code = 36.3 % 34.1-44.9 411) MEAN CORPUSCULAR VOLUME (BEAKER) 101.4 fL 79.4-94.8 H (test code = 753) MEAN CORPUSCULAR HEMOGLOBIN 32.1 pg 25.6-32.2 (BEAKER) (test code = 751) MEAN CORPUSCULAR HEMOGLOBIN CONC 31.7 GM/DL 32.2-35.5 L (BEAKER) (test code = 752) RED CELL DISTRIBUTION WIDTH 12.7 % 11.7-14.4 (BEAKER) (test code = 412) PLATELET COUNT (BEAKER) (test 172 K/CU MM 150-450 code = 756) MEAN PLATELET VOLUME (BEAKER) 10.0 fL 9.4-12.3 (test code = 754) NUCLEATED RED BLOOD CELLS 0 /100 WBC 0-0 (BEAKER) (test code = 413) NEUTROPHILS RELATIVE PERCENT 65 % (BEAKER) (test code = 429) LYMPHOCYTES RELATIVE PERCENT 18 % (BEAKER) (test code = 430) MONOCYTES RELATIVE PERCENT 12 % (BEAKER) (test code = 431) EOSINOPHILS RELATIVE PERCENT 4 % (BEAKER) (test code = 432) BASOPHILS RELATIVE PERCENT 1 % (BEAKER) (test code = 437) NEUTROPHILS ABSOLUTE COUNT 4.10 K/ L 1.56-6.13 (BEAKER) (test code = 670) LYMPHOCYTES ABSOLUTE COUNT 1.13 K/ L 1.18-3.74 L (BEAKER) (test code = 414) MONOCYTES ABSOLUTE COUNT (BEAKER) 0.76 K/ L 0.24-0.36 H (test code = 415) EOSINOPHILS ABSOLUTE COUNT 0.25 K/ L 0.04-0.36 (BEAKER) (test code = 416) BASOPHILS ABSOLUTE COUNT (BEAKER) 0.03 K/ L 0.01-0.08 (test code = 417) IMMATURE GRANULOCYTES-RELATIVE 0 % 0-1 PERCENT (BEAKER) (test code = 2801) [id number] 06:50:00 Test Item Value Reference Range Interpretation Comments MAGNESIUM (BEAKER) (test code = 2.0 mg/dL 1.6-2.6 627) BASIC METABOLIC [id number] 06:50:00 Test Item Value Reference Range Interpretation Comments SODIUM (BEAKER) 144 meq/L 136-145 (test code = 381) POTASSIUM (BEAKER) 3.8 meq/L 3.5-5.1 (test code = 379) CHLORIDE (BEAKER) 107 meq/L 98-107 (test code = 382) CO2 (BEAKER) (test 29 meq/L 22-29 code = 355) BLOOD UREA NITROGEN 9 mg/dL 7-21 (BEAKER) (test code = 354) CREATININE (BEAKER) 0.79 mg/dL 0.57-1.25 (test code = 358) GLUCOSE RANDOM 81 mg/dL 70-105 (BEAKER) (test code = 652) CALCIUM (BEAKER) 8.6 mg/dL 8.4-10.2 (test code = 697) EGFR (BEAKER) (test 75 mL/min/1.73 ESTIMA VIDAL GFR IS code = 1092) sq m NOT ACCURATE CREATININE CLEARANCE IN PREDICTING GLOMERULAR FILTRATION RATE . ESTIMATED GFR I S NOT APPLICABLE FOR DIALYSIS PATIEN TS. HEPATIC FUNCTION [id number] 06:50:00 Test Item Value Reference Range Interpretation Comments TOTAL PROTEIN (BEAKER) (test code = 5.8 gm/dL 6.0-8.3 L 770) ALBUMIN (BEAKER) (test code = 1145) 3.5 g/dL 3.5-5.0 BILIRUBIN TOTAL (BEAKER) (test code 0.8 mg/dL 0.2-1.2 = 377) BILIRUBIN DIRECT (BEAKER) (test 0.3 mg/dL 0.1-0.5 code = 706) ALKALINE PHOSPHATASE (BEAKER) (test 75 U/L 40-150 code = 346) AST (SGOT) (BEAKER) (test code = 17 U/L 5-34 353) ALT (SGPT) (BEAKER) (test code = 27 U/L 6-55 347) [id number] 06:50:00 Test Item Value Reference Range Interpretation Comments AMYLASE (BEAKER) (test code = 349) 85 U/L 25-125 [id number] 06:50:00 Test Item Value Reference Range Interpretation Comments LIPASE (BEAKER) (test code = 749) 49 U/L 8-78 POCT-GLUCOSE [id number] 21:14:00 Test Item Value Reference Range Interpretation Comments POC-GLUCOSE METER 107 mg/dL 70-110 TESTED AT [facility] 67 (BEAKER) (test code = [place] 1538) [address] CREATINE KINASE (CK), TOTAL AND [id number] 17:48:00 Test Item Value Reference Range Interpretation Comments CREATINE KINASE TOTAL (BEAKER) 116 U/L 29-200 (test code = 380) CREATINE KINASE-MB (BEAKER) (test 1.1 ng/mL 0.0-6.6 code = 750) CREATINE KINASE-MB INDEX (BEAKER) 0.9 % (test code = 395) CK-MB Reference Range:<6.7 Normal6.7-10.0 Borderline>10.0 AbnormalTROPONIN [id number] 17:48:00 Test Item Value Reference Range Interpretation Comments TROPONIN I (BEAKER) (test code = [...] acidosis, acute neurological disease, and persistent tachyarrhythmia.TROPONIN [id number] 17:48:00 Test Item Value Reference Range Interpretation Comments TROPONIN I (BEAKER) (test code = [...] failure, acidosis, acute neurological disease, and persistent tachyarrhythmia.[id number] 17:46:00 Test Item Value Reference Range Interpretation Comments LIPASE (BEAKER) (test code = 749) 108 U/L 8-78 H [id number] 17:46:00 Test Item Value Reference Range Interpretation Comments AMYLASE (BEAKER) (test code = 349) 122 U/L 25-125 POCT-GLUCOSE [id number] 17:08:00 Test Item Value Reference Range Interpretation Comments POC-GLUCOSE METER 112 mg/dL 70-110 H TESTED AT [facility] 6720 [facility] (test code = [place] 1538) [address] POCT-GLUCOSE [id number] 11:41:00 Test Item Value Reference Range Interpretation Comments POC-GLUCOSE METER 100 mg/dL 70-110 TESTED AT [facility] 6720 (BEAKER) (test code = [place] 1538) [address] CREATINE KINASE (CK), TOTAL AND [id number] 11:13:00 Test Item Value Reference Range Interpretation Comments CREATINE KINASE TOTAL (BEAKER) 112 U/L 29-200 (test code = 380) CREATINE KINASE-MB (BEAKER) (test 1.1 ng/mL 0.0-6.6 code = 750) CREATINE KINASE-MB INDEX (BEAKER) 1.0 % (test code = 395) CK-MB Reference Range:<6.7 Normal6.7-10.0 Borderline>10.0 AbnormalTROPONIN [id number] 11:13:00 Test Item Value Reference Range Interpretation Comments TROPONIN I (BEAKER) (test code = [...] failure, acidosis, acute neurological disease, and persistent tachyarrhythmia.[id number] 11:05:00 Test Item Value Reference Range Interpretation Comments LIPASE (BEAKER) (test code = 749) 48 U/L 8-78 [id number] 11:05:00 Test Item Value Reference Range Interpretation Comments AMYLASE (BEAKER) (test code = 349) 129 U/L 25-125 H HEPATIC FUNCTION [id number] 11:05:00 Test Item Value Reference Range Interpretation Comments TOTAL PROTEIN (BEAKER) (test code = 6.0 gm/dL 6.0-8.3 770) ALBUMIN (BEAKER) (test code = 1145) 3.7 g/dL 3.5-5.0 BILIRUBIN TOTAL (BEAKER) (test code 0.4 mg/dL 0.2-1.2 = 377) BILIRUBIN DIRECT (BEAKER) (test 0.2 mg/dL 0.1-0.5 code = 706) ALKALINE PHOSPHATASE (BEAKER) (test 78 U/L 40-150 code = 346) AST (SGOT) (BEAKER) (test code = 22 U/L 5-34 353) ALT (SGPT) (BEAKER) (test code = 33 U/L 6-55 347) RAD, CHEST, 1 VIEW, NON [id number] 09:52:00Reason for exam:->chest painShould this be performed at the bedside?->YesFINAL REPORT Chest one view AP 03/21/2017 9:51 AM CLINICAL INDICATION: chest pain COMPARISON: 07/04/2015 IMPRESSION: Bibasilar subsegmental opacities suggest atelectasis. Cardiomediastinal contours are within normal limits. The central pulmonary vasculature is not engorged. Signed:Eric Nichols Verified Date/Time: 03/21/2017 09:52:14 Reading Location: [facility] Radiology Reading Room POCT-GLUCOSE [id number] 08:55:00 Test Item Value Reference Range Interpretation Comments POC-GLUCOSE METER 104 mg/dL 70-110 TESTED AT [facility] 6720 (BEAKER) (test code = ADRIANNEALEXANDRE Vieira [facility] 1538) [id number] 02:59:00 Test Item Value Reference Range Interpretation Comments MAGNESIUM (BEAKER) (test code = 1.3 mg/dL 1.6-2.6 L 627) BASIC METABOLIC [id number] 02:59:00 Test Item Value Reference Range Interpretation Comments SODIUM (BEAKER) 139 meq/L 136-145 (test code = 381) POTASSIUM (BEAKER) 3.9 meq/L 3.5-5.1 (test code = 379) CHLORIDE (BEAKER) 105 meq/L 98-107 (test code = 382) CO2 (BEAKER) (test 26 meq/L 22-29 code = 355) BLOOD UREA NITROGEN 15 mg/dL 7-21 (BEAKER) (test code = 354) CREATININE (BEAKER) 0.81 mg/dL 0.57-1.25 (test code = 358) GLUCOSE RANDOM 95 mg/dL 70-105 (BEAKER) (test code = 652) CALCIUM (BEAKER) 8.4 mg/dL 8.4-10.2 (test code = 697) EGFR (BEAKER) (test 73 mL/min/1.73 ESTIMA VIDAL GFR IS code = 1092) sq m NOT ACCURATE CREATININE CLEARANCE IN PREDICTING GLOMERULAR FILTRATION RATE . ESTIMATED GFR I S NOT APPLICABLE FOR DIALYSIS PATIEN TS. CBC W/PLT COUNT & AUTO [id number] 02:44:00 Test Item Value Reference Range Interpretation Comments WHITE BLOOD CELL COUNT (BEAKER) 10.8 K/ L 3.5-10.5 H (test code = 775) RED BLOOD CELL COUNT (BEAKER) 3.44 M/ L 3.93-5.22 L (test code = 761) HEMOGLOBIN (BEAKER) (test code = 11.1 GM/DL 11.2-15.7 L 410) HEMATOCRIT (BEAKER) (test code = 34.6 % 34.1-44.9 411) MEAN CORPUSCULAR VOLUME (BEAKER) 100.6 fL 79.4-94.8 H (test code = 753) MEAN CORPUSCULAR HEMOGLOBIN 32.3 pg 25.6-32.2 H (BEAKER) (test code = 751) MEAN CORPUSCULAR HEMOGLOBIN CONC 32.1 GM/DL 32.2-35.5 L (BEAKER) (test code = 752) RED CELL DISTRIBUTION WIDTH 12.9 % 11.7-14.4 (BEAKER) (test code = 412) PLATELET COUNT (BEAKER) (test 168 K/CU MM 150-450 code = 756) MEAN PLATELET VOLUME (BEAKER) 9.6 fL 9.4-12.3 (test code = 754) NUCLEATED RED BLOOD CELLS 0 /100 WBC 0-0 (BEAKER) (test code = 413) NEUTROPHILS RELATIVE PERCENT 74 % (BEAKER) (test code = 429) LYMPHOCYTES RELATIVE PERCENT 15 % (BEAKER) (test code = 430) MONOCYTES RELATIVE PERCENT 9 % (BEAKER) (test code = 431) EOSINOPHILS RELATIVE PERCENT 2 % (BEAKER) (test code = 432) BASOPHILS RELATIVE PERCENT 0 % (BEAKER) (test code = 437) NEUTROPHILS ABSOLUTE COUNT 7.97 K/ L 1.56-6.13 H (BEAKER) (test code = 670) LYMPHOCYTES ABSOLUTE COUNT 1.58 K/ L 1.18-3.74 (BEAKER) (test code = 414) MONOCYTES ABSOLUTE COUNT (BEAKER) 0.99 K/ L 0.24-0.36 H (test code = 415) EOSINOPHILS ABSOLUTE COUNT 0.19 K/ L 0.04-0.36 (BEAKER) (test code = 416) BASOPHILS ABSOLUTE COUNT (BEAKER) 0.03 K/ L 0.01-0.08 (test code = 417) IMMATURE GRANULOCYTES-RELATIVE 0 % 0-1 PERCENT (BEAKER) (test code = 2801) POCT-GLUCOSE [id number] 22:51:00 Test Item Value Reference Range Interpretation Comments POC-GLUCOSE METER 102 mg/dL 70-110 TESTED AT [place] [address] [facility] (test code = [facility] 1538) [id number] POCT-GLUCOSE [id number] 17:12:00 Test Item Value Reference Range Interpretation Comments POC-GLUCOSE METER 103 mg/dL 70-110 TESTED AT [place] [address] ([facility]) (test code = [facility] 1538) [id number] POCT-GLUCOSE [id number] 13:24:00 Test Item Value Reference Range Interpretation Comments POC-GLUCOSE METER 93 mg/dL 70-110 TESTED AT [place] [address] ([facility]) (test code = [facility] [address] 1538) [id number] 01:37:00 Test Item Value Reference Range Interpretation Comments MAGNESIUM (BEAKER) (test code = 1.6 mg/dL 1.6-2.6 627) BASIC METABOLIC [id number] 01:37:00 Test Item Value Reference Range Interpretation Comments SODIUM (BEAKER) 138 meq/L 136-145 (test code = 381) POTASSIUM (BEAKER) 5.0 meq/L 3.5-5.1 (test code = 379) CHLORIDE (BEAKER) 107 meq/L 98-107 (test code = 382) CO2 (BEAKER) (test 24 meq/L 22-29 code = 355) BLOOD UREA NITROGEN 17 mg/dL 7-21 (BEAKER) (test code = 354) CREATININE (BEAKER) 0.77 mg/dL 0.57-1.25 (test code = 358) GLUCOSE RANDOM 127 mg/dL 70-105 H (BEAKER) (test code = 652) CALCIUM (BEAKER) 8.4 mg/dL 8.4-10.2 (test code = 697) EGFR (BEAKER) (test 78 mL/min/1.73 ESTIMA VIDAL GFR IS code = 1092) sq m NOT ACCURATE CREATININE CLEARANCE IN PREDICTING GLOMERULAR FILTRATION RATE . ESTIMATED GFR I S NOT APPLICABLE FOR DIALYSIS PATIEN TS. CBC W/PLT COUNT & AUTO [id number] 01:26:00 Test Item Value Reference Range Interpretation Comments WHITE BLOOD CELL COUNT (BEAKER) 10.0 K/ L 3.5-10.5 (test code = 775) RED BLOOD CELL COUNT (BEAKER) 3.65 M/ L 3.93-5.22 L (test code = 761) HEMOGLOBIN (BEAKER) (test code = 11.9 GM/DL 11.2-15.7 410) HEMATOCRIT (BEAKER) (test code = 36.6 % 34.1-44.9 411) MEAN CORPUSCULAR VOLUME (BEAKER) 100.3 fL 79.4-94.8 H (test code = 753) MEAN CORPUSCULAR HEMOGLOBIN 32.6 pg 25.6-32.2 H (BEAKER) (test code = 751) MEAN CORPUSCULAR HEMOGLOBIN CONC 32.5 GM/DL 32.2-35.5 (BEAKER) (test code = 752) RED CELL DISTRIBUTION WIDTH 12.6 % 11.7-14.4 (BEAKER) (test code = 412) PLATELET COUNT (BEAKER) (test 174 K/CU MM 150-450 code = 756) MEAN PLATELET VOLUME (BEAKER) 9.5 fL 9.4-12.3 (test code = 754) NUCLEATED RED BLOOD CELLS 0 /100 WBC 0-0 (BEAKER) (test code = 413) NEUTROPHILS RELATIVE PERCENT 89 % (BEAKER) (test code = 429) LYMPHOCYTES RELATIVE PERCENT 7 % (BEAKER) (test code = 430) MONOCYTES RELATIVE PERCENT 3 % (BEAKER) (test code = 431) EOSINOPHILS RELATIVE PERCENT 0 % (BEAKER) (test code = 432) BASOPHILS RELATIVE PERCENT 0 % (BEAKER) (test code = 437) NEUTROPHILS ABSOLUTE COUNT 8.94 K/ L 1.56-6.13 H (BEAKER) (test code = 670) LYMPHOCYTES ABSOLUTE COUNT 0.67 K/ L 1.18-3.74 L (BEAKER) (test code = 414) MONOCYTES ABSOLUTE COUNT (BEAKER) 0.34 K/ L 0.24-0.36 (test code = 415) EOSINOPHILS ABSOLUTE COUNT 0.01 K/ L 0.04-0.36 L (BEAKER) (test code = 416) BASOPHILS ABSOLUTE COUNT (BEAKER) 0.01 K/ L 0.01-0.08 (test code = 417) IMMATURE GRANULOCYTES-RELATIVE 0 % 0-1 PERCENT (BEAKER) (test code = 2801) NE, [id number] 23:51:00Reason for exam:->abnormal liver function test FINAL REPORT Fluoroscopy. History: Intraoperative. Findings: Radiologist wasnot present for the exam. Fluoroscopy was not performed by the undersigned. Please see operative report for details. Fluoroscopy Time: 166 min.Nine images IMPRESSION:Intraoperative fluoroscopy. Please see operative report for details. Signed: Manny Contreras Verified Date/Time: 03/19/201723:51:13 Reading Location: [address] Consult Reading Room POCT-GLUCOSE [id number] 23:24:00 Test Item Value Reference Range Interpretation Comments POC-GLUCOSE METER 135 mg/dL 70-110 H TESTED AT [facility] 6720 (BEAKER) (test code = JIMMY Vieira [facility] 1538) [address] BASIC METABOLIC [id number] 12:14:00 Test Item Value Reference Range Interpretation Comments SODIUM (BEAKER) 139 meq/L 136-145 (test code = 381) POTASSIUM (BEAKER) 4.0 meq/L 3.5-5.1 (test code = 379) CHLORIDE (BEAKER) 105 meq/L 98-107 (test code = 382) CO2 (BEAKER) (test 25 meq/L 22-29 code = 355) BLOOD UREA NITROGEN 19 mg/dL 7-21 (BEAKER) (test code = 354) CREATININE (BEAKER) 0.76 mg/dL 0.57-1.25 (test code = 358) GLUCOSE RANDOM 83 mg/dL 70-105 (BEAKER) (test code = 652) CALCIUM (BEAKER) 9.2 mg/dL 8.4-10.2 (test code = 697) EGFR (BEAKER) (test 79 mL/min/1.73 ESTIMA VIDAL GFR IS code = 1092) sq m NOT ACCURATE CREATININE CLEARANCE IN PREDICTING GLOMERULAR FILTRATION RATE . ESTIMATED GFR I S NOT APPLICABLE FOR DIALYSIS PATIEN TS. [id number] 11:49:00 Test Item Value Reference Range Interpretation Comments HEMOGLOBIN (BEAKER) (test code = 12.6 GM/DL 11.2-15.7 410) PREOP
[2020-10-08] MEDS ORDERED: CODEINE 30MG/APAP 300MG TAB ONE (22:56)
[2020-10-09] MEDS ORDERED: ONDANSETRON 4 MG (ODT) TAB ONE (00:33)
--- NOTE | 2020-10-09 01:18 | ER ---
Nurse's Notes [facility] Name: Antonietta Armando Age: 60 yrs Sex: Female : 1960 Arrival Date: 10/08/2020 Time: 21:19 Bed 9 Private MD: Diagnosis: Other specified sprain of right wrist Presentation: 10/08 22:26 Chief complaint: Patient states: she was standing on a chair and fell injuring her bb right wrist earlier this afternoon denies LOC. Coronavirus screen: At this time, the client does not indicate any symptoms associated with coronavirus-19. Ebola Screen: No symptoms or risks identified at this time. Initial Sepsis Screen: Does the patient meet any 2 criteria? No. Patient's initial sepsis screen is negative. Does the patient have a suspected source of infection? No. Patient's initial sepsis screen is negative. Risk Assessment: Do you want to hurt yourself or someone else? Patient reports no desire to harm self or others. Onset of symptoms was October 08, 2020. 22:26 Method Of Arrival: Ambulatory 22:26 Acuity: MAIRA 4 bb Triage Assessment: 22:28 General: Appears in no apparent distress. uncomfortable, Behavior is calm, cooperative. bb Pain: Complains of pain in right wrist Pain currently is 10 out of 10 on a pain scale. Neuro: Level of Consciousness is awake, alert, obeys commands, Oriented to person, place, time, situation. Cardiovascular: Capillary refill < 3 seconds Patient's skin is warm and dry. Respiratory: Respiratory effort is even, unlabored, Respiratory pattern is regular. GI: No signs and/or symptoms were reported involving the gastrointestinal system. Derm: Skin is pink, warm \T\ dry. Musculoskeletal: Reports pain in right wrist. Injury Description: fall injury- tried to break fall with right arm. Historical: - Allergies: 22:28 Chlorhexidine Gluconate; bb 22:28 Vicodin; bb - Home Meds: 22:28 Tramadol Oral [Active]; bb - Immunization history:: Adult Immunizations up to date, Client reports receiving the 2nd dose of the Covid vaccine. - Social history:: Smoking status: Patient denies any tobacco usage or history of. Screenin/30 01:30 Abuse screen: Denies threats or abuse. Nutritional screening: No deficits noted. em Tuberculosis screening: No symptoms or risk factors identified. Fall Risk None identified. Assessment: 00:10 General: Appears in no apparent distress. uncomfortable, Behavior is calm, cooperative, em appropriate for age. Pain: Complains of pain in lateral aspect of right wrist. Neuro: Level of Consciousness is awake, alert, obeys commands, Oriented to person, place, time, situation. Cardiovascular: Capillary refill < 3 seconds Patient's skin is warm and dry. Respiratory: Airway is patent Respiratory effort is even, unlabored, Respiratory pattern is regular, symmetrical. Derm: Skin is intact, is fragile, is thin, Skin is pink, warm \T\ dry. Musculoskeletal: Range of motion: limited in right wrist. 01:53 Reassessment: Patient appears in no apparent distress at this time. Patient and/or em family updated on plan of care and expected duration. Pain level reassessed. Patient is alert, oriented x 3, equal unlabored respirations, skin warm/dry/pink. Patient denies pain at this time. Patient states feeling better. Patient states symptoms have improved. Vital Signs: 10/08 22:26 BP 138 / 106; Pulse 87; Resp 18 S; Temp 97.7(TE); Pulse Ox 99% ; Weight 68.04 kg (R); bb Height 5 ft. 2 in. (157.48 cm) (R); Pain 10/10; 22:26 Body Mass Index 27.44 (68.04 kg, 157.48 cm) bb ED Course: 21:19 Patient arrived in ED. cf2 22:28 Triage completed. bb 22:28 Arm band placed on Patient placed in waiting room, Patient notified of wait time. X-ray bb ordered. 23:07 XRAY Wrist RIGHT 3 view In Process Unspecified. EDMS 10/09 00:08 Zachery Fairbanks, IONA is Primary Nurse. em 00:17 Tenzin Atwood NP is PHCP. pm1 00:18 Neftaly Miranda MD is Attending Physician. pm1 01:28 Velcro wrist splint applied to right wrist. ds4 01:30 Patient has correct armband on for positive identification. Bed in low position. Side em rails up X2. Adult w/ patient. 01:52 No provider procedures requiring assistance completed. Inserted Patient did not have IV em access during this emergency room visit. Administered Medications: 10/08 22:34 Drug: Acetaminophen-Codeine (300 mg-30 mg) 1 tablet {Note: RASS 0.} Route: PO; bb 10/09 01:17 Follow up: Response: No adverse reaction; No change in condition em 00:10 Drug: Zofran (Ondansetron) 4 mg Route: PO; em 01:17 Follow up: Response: No adverse reaction em 01:26 Drug: GI Cocktail without - (Maalox Suspension 30 ml, Lidocaine Liquid 2 % 15 em ml) Route: PO; 01:52 Follow up: Response: No adverse reaction; Marked relief of symptoms; Pain is decreased em 01:26 Drug: Pepcid (famotidine) 20 mg Route: PO; em 01:52 Follow up: Response: No adverse reaction; Marked relief of symptoms em Outcome: 01:17 Discharge ordered by . pm1 01:52 Discharged to home ambulatory. em 01:52 Condition: good 01:52 Discharge instructions given to patient, Instructed on discharge instructions, follow up and referral plans. Demonstrated understanding of instructions, follow-up care. 01:54 Patient left the ED. em Signatures: Dispatcher [employer] Zachery Galarza RN RN em Masha Lind RN RN Fredi Hardwick ds4 Tenzin Atwood NP EVENT SPECIALIST pm1 Tamiko Willingham cf2
--- NOTE | 2020-10-09 01:18 | EDPHYS ---
Physician Documentation [facility] Name: Antonietta Armando Age: 60 yrs Sex: Female : 1960 Arrival Date: 10/08/2020 Time: 21:19 Bed 9 Private MD: RAKAN Physician Neftaly Miranda HPI: 10/09 00:05 This 60 yrs old Female presents to ER via Ambulatory with complaints of Wrist pm1 Injury, Wrist Pain. 00:05 The patient or guardian reports pain. The complaints affect the right wrist diffusely. pm1 Context: The problem was sustained at home, resulted from a fall, from a standing position, On chair. Onset: The symptoms/episode began/occurred today. Modifying factors: The symptoms are alleviated by holding still, the symptoms are aggravated by movement. Associated signs and symptoms: Pertinent negatives: cyanosis distally, decreased sensation distally, numbness distally, tingling distally. The patient has not experienced similar symptoms in the past. The patient has not recently seen a physician. Historical: - Allergies: 10/08 22:28 Chlorhexidine Gluconate; bb 22:28 Vicodin; bb - Home Meds: 22:28 Tramadol Oral [Active]; bb - Immunization history:: Adult Immunizations up to date, Client reports receiving the 2nd dose of the Covid vaccine. - Social history:: Smoking status: Patient denies any tobacco usage or history of. ROS: 10/09 00:05 Constitutional: Negative for fever, chills, and weight loss, Cardiovascular: Negative pm1 for chest pain, palpitations, and edema, Respiratory: Negative for shortness of breath, cough, wheezing, and pleuritic chest pain. Skin: Negative for injury, rash, and discoloration, Neuro: Negative for headache, weakness, numbness, tingling, and seizure. MS/extremity: Positive for pain, of the lateral aspect of right wrist, Pain with movement, Negative for deformity. All other systems are negative. Exam: 00:05 Hand exam: is negative for decreased range of motion, deformity, snuff box/scaphoid pm1 tenderness, Exam is positive for tenderness, Lateral aspect of right wrist. Circulation is intact in all extremities. sensation intact. 00:05 Skin: Exam negative for injury, is not appreciated. 00:05 Constitutional: This is a well developed, well nourished patient who is awake, alert, and in no acute distress. Head/Face: Normocephalic, atraumatic. 00:05 Cardiovascular: Exam negative for acute changes, Rate: normal, Rhythm: regular, Pulses: no pulse deficits are appreciated. 00:05 Respiratory: Exam negative for acute changes, respiratory distress, shortness of breath. 00:05 Abdomen/GI: Inspection: abdomen appears normal, Palpation: abdomen is soft and non-tender, in all quadrants. 00:05 Neuro: Exam negative for acute changes, Orientation: is normal, Mentation: is normal, Motor: is normal, moves all fours. Vital Signs: 10/08 22:26 BP 138 / 106; Pulse 87; Resp 18 S; Temp 97.7(TE); Pulse Ox 99% ; Weight 68.04 kg (R); bb Height 5 ft. 2 in. (157.48 cm) (R); Pain 10/10; 22:26 Body Mass Index 27.44 (68.04 kg, 157.48 cm) bb MDM: 10/09 00:10 ED course: Patient currently complaining of abdominal pain post taking Tylenol 3. pm1 Patient reports that she has not taken Tylenol 3 in a long time. She reports allergy to Vicodin and tramadol, but reported no issues with Tylenol 3 prior to administration from RN. Will give patient Zofran for initial treatment of reaction to Tylenol 3. 00:18 Patient medically screened. pm1 01:15 ED course: Patient with improvement from Zofran, but reports upset stomach returning. pm1 Will give the patient pepcid and Gi cocktail to relieve GI upset from codeine. 01:15 Data reviewed: vital signs. Data interpreted: Pulse oximetry: on room air is 99 %. pm1 Interpretation: normal. Counseling: I had a detailed discussion with the patient and/or guardian regarding: the historical points, exam findings, and any diagnostic results supporting the discharge/admit diagnosis, radiology results, the need for outpatient follow up, a orthopedic surgeon, to return to the emergency department if symptoms worsen or persist or if there are any questions or concerns that arise at home. 10/08 22:30 Order name: XRAY Wrist RIGHT 3 view bb 10/09 01:15 Order name: Wrist Splint; Complete Time: 01:28 pm1 Administered Medications: 10/08 22:34 Drug: Acetaminophen-Codeine (300 mg-30 mg) 1 tablet {Note: RASS 0.} Route: PO; bb 10/09 01:17 Follow up: Response: No adverse reaction; No change in condition em 00:10 Drug: Zofran (Ondansetron) 4 mg Route: PO; em 01:17 Follow up: Response: No adverse reaction em 01:26 Drug: GI Cocktail without - (Maalox Suspension 30 ml, Lidocaine Liquid 2 % 15 em ml) Route: PO; 01:52 Follow up: Response: No adverse reaction; Marked relief of symptoms; Pain is decreased em 01:26 Drug: Pepcid (famotidine) 20 mg Route: PO; em 01:52 Follow up: Response: No adverse reaction; Marked relief of symptoms em Disposition: 05:15 Co-signature as Attending Physician, Neftaly Miranda MD. [email or web address] Disposition Summary: 10/09/20 01:17 Discharge Ordered Location: Home pm1 Problem: new pm1 Symptoms: have improved pm1 Condition: Stable pm1 Diagnosis - Other specified sprain of right wrist pm1 Followup: pm1 - With: Emergency Department - When: As needed - Reason: Worsening of condition Followup: pm1 - With: Private Physician - When: 2 - 3 days - Reason: Recheck today's complaints, Continuance of care, Re-evaluation by your physician Discharge Instructions: - Discharge Summary Sheet pm1 - Cast or Splint Care, Adult pm1 - Wrist Sprain, Adult pm1 Forms: - Medication Reconciliation Form pm1 - Thank You Letter pm1 - Antibiotic Education pm1 - Prescription Opioid Use pm1 Signatures: Dispatcher [employer] Zachery Galarza, RN RN em Masha Lind, RN RN bb Tenzin Atwood, MEDICAL ASSOCIATE MEDICAL ASSOCIATE pm1 Neftaly Miranda MD MD [email or web address]
[2020-10-09] MEDS ORDERED: LIDOCAINE VISCOUS 2% SOLN 15 ML UDC ONE (01:43)
[2020-10-09] MEDS ORDERED: MAGNES/ALUMIN/SIMET 30ML UCUP ONE (01:43)
[2020-10-09] MEDS ORDERED: FAMOTIDINE 20 MG TAB ONE (01:43)
[2020-10-09 01:59] VITALS: BP 138/106; TEMP 97.7; O2SAT 99
--- NOTE | 2020-10-09 08:54 | RAD REPORT ---
EXAM DESCRIPTION: RAD - Wrist Right 3 View - 10/08/2020 11:07 pm CLINICAL HISTORY: PAIN, fall with wrist pain COMPARISON: No comparisons FINDINGS: No fracture is identified. There is no dislocation or periosteal reaction noted. Epiphyses and growth plates are normal in appearance. No foreign body or other soft tissue abnormality. IMPRESSION: Negative right wrist examination.
== END 2020-10-09 01:54 | disposition home or self-care (01) ==
LOC: ER 21:17
DX: S63.591A Other specified sprain of right wrist, initial encounter (principal); W18.39XA Other fall on same level, initial encounter; Y92.009 Unspecified place in unspecified non-institutional (private) residence as the place of occurrence of the external cause; Z88.5 Allergy status to narcotic agent; Z88.8 Allergy status to other drugs, medicaments and biological substances
CPT/HCPCS: 99283

== ENCOUNTER 2021-02-09 20:23 | Emergency (ER) | payer OTHER ==
--- OUTSIDE RECORDS SUMMARY | 2021-02-09 20:29 | XMS REPORT | Continuity of Care Document ---
:1960 Author Organization [facility] t Address [address] [place] [address] Care Team Providers Name Role Phone Deena BROWER Primary Care Physician RADU YIN Attending Clinician Unavailable FRANCISCO Attending Clinician Unavailable HEATHER Attending Clinician Unavailable KARUNA Attending Clinician Unavailable Juvencio BROWER Attending Clinician 1.5, Kenyon Barnhart Attending Clinician Unavailable Markus Horner MD Attending Clinician JUVENCIO Attending Clinician Unavailable MARKUS HORNER Attending Clinician Unavailable Radu Yin MD Attending Clinician John Ruffin MD Attending Clinician Mary Ellen Attending Clinician Unavailable GAY SHEPHERD Attending Clinician Unavailable Mary Ellen Admitting Clinician Unavailable GAY SHEPHERD Admitting Clinician Unavailable Payers Payer Name Policy Type Policy Number Effective Date Expiration Source Date MEDICARE PART A \\T\\ B [id number] - MEDICARE [facility]-MEDICAID - [id number] 2018 MEDICAID 00:00:00 MEDICAREMEDICARE A [id number] MARIBEL cotto [id number] 2002- 00:00:00 [facility] MEDICAIDMEDICA[facility] OF [id number] MARIBEL cotto [id number] 00:00:00 Casi es - 12-PresentMedicaid Medica l Center Problems Condition Condition Condition Status Onset Resolution Last Treating Co mments Source Name Details Category Date Date Treatment Clinician Date UNK Diagnosis Active 2017-06-19 Mem [facility]ria 4-20 09:43:00 l UNK 00:00: [place] 00 Active 05/30/2017 [facility] 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 Co llege 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 00:00: of 00 Medicin e Chest pain Chest pain Disease [facility] S/P ERCP S/P ERCP [facility] Nausea & Nausea & Disease [facility] Eye pain Eye pain Disease Active [facility] r 7-31 College 00:00: of 00 Medicin e S/P S/P Disease Active [facility] laparoscop laparoscop [address] ic surgery ic surgery 00:00: Ho sp[facility] 00 l Abnormalit Abnormalit Disease Active [facility] y of gait y of gait 9-14 [facility] 00:00: of 00 Medicin e Bariatric Bariatric Disease Active [facility] surgery surgery 09-11 College status status 00:00: of 00 Medicin e Esophageal Esophageal Disease Active [facility] stenosis stenosis 09-11 Colleg e 00:00: of 00 Medicin e History of History of Disease Active [facility] cholecyste cholecyste 09-11 Co llege ctomy ctomy 00:00: of 00 Medicin e 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, sclerosis, 09-11 Co llege relapsing- relapsing- 00:00: of remitting remitting 00 Medi max (HCCode) (HCCode) e H/O H/O Disease Active [facility] surgical surgical 09-11 Colleg e procedure procedure 00:00: of 00 Medicin e RUQ RUQ Disease Active [facility] abdominal abdominal 09-11 [facility] - pain pain 00:00: Medical 00 Center Depression Depression Disease [facility] Biliary Biliary Disease Active [facility] dilatation dilatation 09-11 Christine kes - (sphincter (sphincter 00:00: Me [facility] stricture) stricture) , h/o , h/o Vamshi-en-Y, Vamshi-en-Y, s/p open s/p open ERCP 09/13 ERCP 09/13 Esophageal Esophageal Disease Active [facility] stricture stricture 09-11 [facility] - 00:00: Medical 00 Center Cellulitis Cellulitis Disease Active [facility] of chest of chest - [facility] - wall wall 00:00: Medical [place] Bradycardi Bradycardi Disease Active [facility] Neuropathi Neuropathi Disease Active [facility] pain c pain 1-20 College 00:00: of 00 Medicin e Multiple Multiple Disease Active 2014-02 [facility] sclerosis sclerosis 0-22 [facility] (HCCode) (HCCode) 00:00: of 00 Medicin e High risk High risk Disease Active 2014-02 [facility] medication medication 0-22 Co llege use use 00:00: of 00 Medicin e Pacemaker Pacemaker Disease Active 2014-02 [facility] 0-22 College 00:00: of 00 Medicin e 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 6-25 Christine kes - rotator rotator 00:00: Medical cuff cuff 00 Center ABNORMAL ABNORMAL Disease Active [facility] RADIOLOGIA RADIOLOGIA - Co llege L L 00:00: of EXAMINATIO EXAMINATIO 00 La dicin N N e SHORTNESS SHORTNESS Disease Active [facility] OF BREATH OF BREATH - [facility] (SOB) (SOB) 00:00: of 00 Medicin e AIRWAY AIRWAY Disease Active [facility] ANOMALIES ANOMALIES 07-07 [facility] 00:00: of 00 Medicin e G E REFLUX G E REFLUX Disease Active [facility] - College 00:00: of 00 Medicin e History of Problem Active 2017-06-21 M [facility] laparoscop 11:51:55 l ic History [place] adjustable of gastric laparoscop banding ic (situation adjustable ) gastric banding (situation ) Active Problem 06/21/2017 [facility] Hypertensi Problem Active 2017-06-21 M emoria ve 11:51:55 l disorder, Ryan systemic Hypertensi arterial ve (disorder) disorder, systemic arterial (disorder) Active Problem 06/21/2017 [facility] Iron Problem Active 2017-06-21 Memor ia deficiency 11:51:55 l anemia Iron Ryan (disorder) deficiency anemia (disorder) Active Problem 06/21/2017 [facility] Mixed Problem Active 2017-06-21 Memor ia anxiety 11:51:55 l and Mixed Ryan depressive anxiety disorder and (disorder) depressive disorder (disorder) Active Problem 06/21/2017 [facility] Syncope Problem Active 2017-06-21 Percy clary (disorder) 11:51:55 l Syncope Ryan (disorder) Active Problem 06/21/2017 [facility] History of Problem Resolve 2017-06-21 Memoria - obesity d 11:51:55 l (context-d History Her funez ependent of - category) obesity (context-d ependent category) Resolved Problem 06/21/2017 [facility] Sleep Problem Resolve 2017-06-21 Percy clary apnea d 11:51:55 l (finding) Sleep Corey n apnea (finding) Resolved Problem 06/21/2017 [facility] Altered Problem Active 2017-06-21 Percy clary mental 11:51:55 l status Altered Ryan (finding) mental status (finding) Active Problem 06/21/2017 [facility] Allergies, Adverse Reactions, Alerts Allergy Allergy Status Severity Reaction(s) Onset Inactive Treating Comm ents Source Name Type Date Date Clinician Tylenol Propensi Active Nausea And [facility] With ty to Vomiting 10-09 College Codeine adverse 00:00: of reaction 00 Medicin s to e drug Tramadol Propensi Active Hives [facility] ty to [facility] adverse 00:00: Hospita reaction 00 l s to drug Tramadol Propensi Active Hives [facility] ty to 808 College adverse 00:00: of reaction 00 Medicin s to e drug Tramadol Drug Active Hives [facility] Allergy 09-17 [facility] [place] TRAMADOL Allergy Active High Hives [facility] 09-17 [facility] Chlorhex Propensi Active Rash 2014- blisters Meth phu idine ty to 0-22 st adverse 00:00: Hospita reaction 00 l s to drug Chlorhex Propensi Active Rash blistersb [facility] [facility] idine ty to 07-18 [facility] adverse 00:00: of reaction 00 Medicin s to e drug Chlorhex Propensi Active Rash blisters [facility] idine ty to 07-18 [facility] - adverse 00:00: Medical reaction 00 Center s Hydrocod Propensi Active Hives Can [facility] one-Acet ty to 07-18 tolerate [facility] - aminophe adverse 00:00: acetamino Medi radha n reaction 00 phen Center s HYDROCOD Allergy Active Hives [facility] ONE-ACET 07-18 [facility] - AMINOPHE 00:00: Medical N 00 Center CHLORHEX Allergy Active Low Rash [facility] IDINE 07-18 [facility] - 00:[facility]: Medical 00 [place] Hydrocod Propensi Active Hives Can [facility] one-Acet ty to 10-24 tolerate Colleg e aminophe adverse 00:00: acetamino of n reaction 00 phen Medicin s to e drug vicodin vicodin Active Memoria l [place] chlorhex chlorhex Active Memori a idine idine l containi containi Corey n ng ng compound compound s s traMADol traMADol Active Memori a l [place] Family History Family Member Diagnosis Comments Start Date Stop Date Source Natural mother Heart disease [facility] Natural mother Pulmonary fibrosis [facility] Natural mother Diabetes [facility] Natural father Throat cancer [facility] Maternal aunt Pulmonary fibrosis Met [facility] Social History Social Habit Start Date Stop Date Quantity Comments Source History [facility] Alcohol Comment of Medici ne History [facility] Alcohol Std Drinks of Med icine Exposure to Not sure [facility] Colleg e SARS-CoV-2 (event) of Med icine Alcohol intake 2021-01-16 2021-01-16 Current [facility] Col lege 00:00:00 00:00:00 non-drinker of of Medicin e alcohol (finding) Tobacco use and 2020-06-06 2020-06-06 Never used [facility] Co llege exposure 00:00:00 00:00:00 of Medicine History [facility] 2019-09-27 2019-09-27 1 [facility] Colle ge Alcohol Frequency 00:00:00 00:00:00 of Medi cine History [facility] 2019-09-27 2019-09-27 1 [facility] Colle ge Alcohol Binge 00:00:00 00:00:00 of Medicine Social History 2017-06-11 2017-06-11 [facility] hari 14:36:00 14:36:00 Sex [birth year] [facility] Co [facility] 00:00:00 00:00:00 of Medicine Smoking Status Start Date Stop Date Source Never smoked tobacco [facility] of Medicine Medications Ordered Filled Start Stop Current Ordering Indication Dosage Frequency Signature Comments Components Source Medication Medication Date Date Medication? Clinician (SIG) Name Name omeprazole 2020-02 Yes 40mg Take 40 mg [facility] (PRILOSEC) 2-07 by mouth Colle ge 40 MG 09:02: daily. of capsule 21 Medicin e prazosin 2020-02 Yes 4mg Take 2 [facility] (MINIPRESS) 1-29 Capsules [facility] 2 MG 00:00: by mouth of capsule 00 nightly. Medicin e diltiazem 2020-02 Yes [facility] (CARDIZEM 1-09 College CD) 120 MG 00:00: of ER capsule 00 Medicin e zolpidem 2020-02 Yes 12.5mg Take 1 [facility] (AMBIEN CR) 1-07 Tablet by Col lege 12.5 MG CR 00:00: mouth of tablet 00 nightly as Medicin needed for e Sleep. sertraline 2020-02 Yes 100mg Take 1 [facility] (ZOLOFT) 1-07 Tablet by Colleg e 100 MG 00:00: mouth of tablet 00 daily. Medicin e hydrOXYzine 2020-02 Yes 25mg Take 1 [facility] (ATARAX) 25 1-07 Tablet by Col lege MG tablet 00:00: mouth 3 of 00 times Medicin daily as e needed for Anxiety. omeprazole 2020-02 Yes 40mg Take 40 mg [facility] (PRILOSEC) 0-11 by mouth Colle ge 40 MG 09:28: daily. of capsule 35 Medicin e diltiazem 2020-02 Yes 180mg Take 1 [facility] (DILACOR 0-11 capsule by Colle ge XR) 180 MG 00:00: mouth of XR capsule 00 daily. Medicin e hydrOXYzine 0 Yes 25mg Take 1 [facility] (ATARAX) 25 9-03 Tablet by Col lege MG tablet 00:00: mouth 3 of 00 times Medicin daily as e needed for Anxiety. zolpidem 2020-0 Yes 12.5mg Take 1 [facility] (AMBIEN CR) 9-03 Tablet by Col lege 12.5 MG CR 00:00: mouth of tablet 00 nightly as Medicin needed for e Sleep. prazosin 0 Yes 4mg Take 2 [facility] (MINIPRESS) 8-30 Capsules [facility] 2 MG 00:00: by mouth of capsule 00 nightly. Medicin e diltiazem 2020-0 Yes [id number] TAKE 1 [facility] (CARDIZEM 8-11 CAPSULE BY [facility] CD) 120 MG 00:00: MOUTH of ER capsule 00 EVERY DAY Medi max e sertraline 0 Yes 150mg Take 1.5 [facility] (ZOLOFT) 7-02 Tablets by Colle ge 100 MG 00:00: mouth of tablet 00 daily. Medicin e omeprazole 0 Yes 40mg Take 40 mg [facility] (PRILOSEC) 4-27 by mouth Colle ge 40 MG 19:54: daily. of capsule 54 Medicin e cholestyram 0 Yes 1{packe Take 1 [facility] ine 4-07 t} Packet by [facility] (QUESTRAN) 00:00: mouth 3 of 4 g packet 00 times Medicin daily. e methylPREDN 2020-0 Yes Take by [facility] ISolone 4-07 mouth as College (MEDROL) 4 00:00: directed. of MG TBPK 00 Medicin e topiramate 0 Yes 25mg Take 1 [facility] (TOPAMAX) 4-07 Tablet by Colle ge 25 MG 00:00: mouth two of tablet 00 times Medicin daily. e cholestyram 2020-0 Yes 1{packe Take 1 [facility] ine 4-07 t} Packet by [facility] (QUESTRAN) 00:00: mouth 3 of 4 g packet 00 times Medicin daily. e topiramate 2020-0 Yes 25mg Take 1 [facility] (TOPAMAX) 4-07 Tablet by Colle ge 25 MG 00:00: mouth two of tablet 00 times Medicin daily. e topiramate 0 Yes 25mg Take 1 [facility] (TOPAMAX) 4-07 Tablet by Colle ge 25 MG 00:00: mouth two of tablet 00 times Medicin daily. e methylPREDN 2020- No Take by [facility] ISolone 407 04-27 mouth as College (MEDROL) 4 00:00: 00:00 directed. o f MG TBPK 00 :00 Medicin e prazosin 0 Yes 4mg Take 2 [facility] (MINIPRESS) 2-20 Capsules [facility] 2 MG 00:00: by mouth of capsule 00 nightly. Medicin e sertraline 0 Yes 100mg Take 1 [facility] (ZOLOFT) 2-20 Tablet by Colleg e 100 MG 00:00: mouth of tablet 00 daily. Medicin e zolpidem 0 Yes 6.25mg Take 1 [facility] (AMBIEN CR) 2-20 Tablet by Col lege 6.25 MG CR 00:00: mouth of tablet 00 nightly as Medicin needed for e Sleep. prazosin Yes 4mg Take 2 [facility] (MINIPRESS) 2-20 Capsules [facility] 2 MG 00:00: by mouth of capsule 00 nightly. Medicin e sertraline 0 Yes 100mg Take 1 [facility] (ZOLOFT) 2-20 Tablet by Colleg e 100 MG 00:00: mouth of tablet 00 daily. Medicin e zolpidem 0 Yes 6.25mg Take 1 [facility] (AMBIEN CR) 2-20 Tablet by Col lege 6.25 MG CR 00:00: mouth of tablet 00 nightly as Medicin needed for e Sleep. omeprazole 2019-02 Yes 40mg Take 40 mg [facility] (PRILOSEC) 0-15 by mouth Colle ge 40 MG 14:28: daily. of capsule 57 Medicin e diltiazem 2019-0 Yes [id number] TAKE 1 [facility] (CARDIZEM 8-17 CAPSULE BY John du[facility] CD) 120 MG 00:00: MOUTH of ER capsule 00 EVERY DAY Medi max e diltiazem 2019-0 Yes [id number] TAKE 1 [facility] (CARDIZEM 8-17 CAPSULE BY John [facility] CD) 120 MG 00:00: MOUTH of ER capsule 00 EVERY DAY Medi max e AUBAGIO 14 2020-0 Yes 14mg Take 14 mg [facility] MG TABS 8-[address] [place] 00:00: daily. of 00 Medicin e AUBAGIO 14 2020-0 Yes 14mg Take 14 mg [facility] MG TABS 8-[address] [place] 00:00: daily. of Medicin e AUBAGIO 14 2019-0 2020- No 14mg Take 14 mg [facility] MG TABS 8- 04-[address] [place] 00:00: 00:00 daily. of 00 :00 Medicin e zolpidem 2020-0 Yes 12.5mg Take 1 Tab [facility] (AMBIEN CR) 8-03 by mouth [facility] 12.5 MG CR 00:00: nightly as o f tablet 00 needed for Medicin Sleep. e sertraline 2019-0 Yes 50mg Take 1 Tab [facility] (ZOLOFT) 50 7-27 by mouth [facility] MG tablet 00:00: daily. of 00 Medicin e topiramate 2020-0 Yes 25mg Take 1 Tab [facility] (TOPAMAX) 3-12 by mouth Colleg e 25 MG 00:00: two times of tablet 00 daily. Medicin Take one e tablet at night for one week then increase to twice a day sertraline 2020-0 Yes 50mg Take 1 Tab [facility] (ZOLOFT) 50 1-31 by mouth [facility] MG tablet 00:00: daily. of 00 Medicin e zolpidem 2020-0 Yes 12.5mg Take 1 Tab [facility] (AMBIEN CR) 1-31 by mouth [facility] 12.5 MG CR 00:00: nightly as o f tablet 00 needed for Medicin Sleep. e sertraline 2020-0 Yes 50mg Take 1 Tab [facility] (ZOLOFT) 50 1-31 by mouth [facility] MG tablet 00:00: daily. of 00 Medicin e zolpidem 2020-0 Yes 12.5mg Take 1 Tab [facility] (AMBIEN CR) 1-31 by mouth [facility] 12.5 MG CR 00:00: nightly as o f tablet 00 needed for Medicin Sleep. e trazodone 2018-0 Yes May take [facility] (DESYREL) 11-09 0.5 Tabs Colleg e 50 MG 00:00: by mouth 2 of tablet 00 times Medicin daily as e needed for Sleep. May also take 1 Tab nightly as needed. trazodone 2020- No May take [facility] (DESYREL) 11-09 03-12 0.5 Tabs Colle ge 50 MG 00:00: 00:00 by mouth 2 of tablet 00 :00 times Medicin daily as e needed for Sleep. May also take 1 Tab nightly as needed. CARTIA XT Yes [id number] TAKE 1 [facility] 120 MG ER 8-19 CAPSULE BY [facility] capsule 00:00: MOUTH of 00 EVERY DAY Medicin e CARTIA XT Yes [id number] TAKE 1 [facility] 120 MG ER 8-19 CAPSULE BY [facility] capsule 00:00: MOUTH of 00 EVERY DAY Medicin e CARTIA XT Yes [id number] TAKE 1 [facility] 120 MG ER 8-19 CAPSULE BY [facility] capsule 00:00: MOUTH of 00 EVERY DAY Medicin e diltiazem Yes 120mg QD Take [address] [facility] (DILACOR 3-27 mg by [facility] - XR) 120 MG 16:03: mouth Medica l 24 hr 45 nightly . Center capsule doxepin Yes 6mg QD Take 6 mg [facility] (SILENOR) 6 3-27 by mouth [facility] - mg Tab 16:03: nightly. Medical 45 Center zolpidem Yes 12.5mg Take 12.[address] (AMBIEN CR) 3-27 mg by [facility] - 12.5 MG CR 16:03: mouth Medica l tablet 45 every Center night as needed for Insomnia. mirtazapine Yes 45mg QD Take [address] (REMERON) 3-27 by mouth [facility] - 45 MG 16:03: nightly. Medical tablet 45 Center escitalopra Yes 10mg Take 10 mg [facility] (LEXAPRO) 2-[address] 10 MG 20:41: Hospita tablet 03 l zolpidem Yes 10mg Take 10 mg [facility] (AMBIEN) 10 2-[address] mg tablet 20:41: Hospita 03 l nitroglycer 2019-0 Yes 1{tbl} Place 1 M ethodi in 2-[address] (NITROSTAT) 20:41: under the H ospita 0.4 MG SL 03 tongue. l tablet ondansetron 2018-0 Yes 4mg Q8H Take 4 mg M ethodi ODT 2-[address] (ZOFRAN-ODT 20:41: every 8 Hos esvin ) 4 MG 03 (eight) l disintegrat hours as ing tablet needed for nausea or vomiting. doxepin 2018-0 Yes 6mg QD Take 6 mg [facility] (SILENOR) 6 2-[address] mg tablet 20:41: daily. Hospit a 03 l zolpidem CR 2019-0 Yes 12.5mg QD Take 12.5 [facility] (AMBIEN CR) 2-[address] 12.5 MG CR 20:41: mouth Hospit a tablet 03 daily. l mirtazapine 2018-0 Yes 45mg QD Take 45 mg [facility] (REMERON) 2-[address] 45 MG 20:41: nightly. Hospita tablet 03 l Fentanyl 2018-0 No 25 Memoria 5-09 microgram, l 15:14: Route: Ryan 00 IVP, ONCE, Dosing Weight 76.864, kg, Start date: 06/18/17 10:14:00 CDT, Stop date: 06/18/17 10:14:00 CDT Fentanyl 2018-0 No 25 Memoria 5-09 microgram, l 15:01: Route: [place] 00 IVP, ONCE, Dosing Weight 76.864, kg, Start date: 06/18/17 10:01:00 CDT, Stop date: 06/18/17 10:01:00 CDT Fentanyl 2018-0 No 25 Memoria 5-09 microgram, l 14:53: Route: [place] 00 IVP, ONCE, Dosing Weight 76.864, kg, Start date: 06/18/17 9:53:00 CDT, Stop date: 06/18/17 9:53:00 CDT Fentanyl 2018-0 No 25 Memoria 5-09 microgram, l 14:48: Route: Ryan 00 IVP, ONCE, Dosing Weight 76.864, kg, Start date: 06/18/17 9:48:00 CDT, Stop date: 06/18/17 9:48:00 CDT metoclopram No Route: IV, Memoria raman (ANES) 06-18 Drug form: l 14:30: INJ, ONCE, Stop date: 06/18/17 9:30:00 CDT ePHEDrine 2017-0 No Route: IV, Me moria (ANES) 06-18 Drug form: l 14:30: INJ, ONCE, Stop date: 06/18/17 9:30:00 CDT ceFAZolin No Route: IV, Me moria (ANES) 06-18 Drug form: l 14:30: INJ, ONCE, Stop date: 06/18/17 9:30:00 CDT propofol No Route: IV, Mem oria (ANES) 06-18 Drug form: l 14:30: INJ, ONCE, Stop date: 06/18/17 9:30:00 CDT ondansetron No Route: IV, Memoria (ANES) 06-18 Drug form: l 14:30: INJ, ONCE, Stop date: 06/18/17 9:30:00 CDT lidocaine No Route: IV, Me moria (ANES) 06-18 Drug form: l 14:30: INJ, ONCE, Stop date: 06/18/17 9:30:00 CDT fentaNYL 2017-0 No Route: IV, Mem oria (ANES) 06-18 Drug form: l 14:30: INJ, ONCE, Stop date: 06/18/17 9:30:00 CDT midazolam 2017-0 No Route: IV, Me moria (ANES) 06-18 Drug form: l 14:30: SOLN, 00 ONCE, Stop date: 06/18/17 9:30:00 CDT Acetaminoph No 100.4 F, M emoria en 06-18 Start l 14:21: date: 06/18/17 9:21:00 CDT, Duration: 30 day, Stop date: 07/18/17 9:20:00 CDT Morphine 0 No 2 mg, Memoria 06-18 Route: l 14:21: IVP, Q3H, [place] 00 Dosing Weight 76.864, kg, PRN Pain Score 1-3, Start date: 06/18/17 9:21:00 CDT, Duration: 30 day, Stop date: 07/18/17 9:20:00 CDT Calcium No 1,000 mL, Memor ia Chloride 06-18 Rate: 25 l 0.0014 13:48: ml/hr, Ryan MEQ/ML / 00 Infuse Potassium over: 40 [...] tab, PO, l tablet 15:33: PRN, 0 Ryan 00 Refill(s) 1 ML Yes SUB-Q, 3x/ Memoria glatiramer 5-02 week, 0 l acetate 40 15:33: Refill(s) [...] = 1 M emoria e 40 MG - tab, PO, l Enteric 15:32: Daily, # Corey n Coated 00 30 tab, 0 Tablet Refill(s) [Protonix] mirtazapine Yes 7.5 mg = 1 Memoria 7.5 mg oral 5-02 tab, PO, l tablet 15:32: Bedtime, # Kamini nn 00 30 tab, 0 Refill(s) Vancomycin No 2001 mg: Me moria 06-11 infuse l 15:00: over 2.5 Ryan 00 hours For adult patients only: Round to nearest 250 mg per Medical Staff approval MEDICATION WASTE Product Size: 1000 mg Product Wasted: ___ mg Ancef + No Notes: Memoria sterile 06-11 (Same As: l water 20 mL 15:00: [...] 18:53: mouth Hospita 57 daily. l ALPRAZolam Yes TK 1 T PO Me thodi [...] MG 00 by mouth Center tablet daily. Immunizations Ordered Immunization Filled Immunization Date Status Commen ts Source Name Name Influenza (whole) 2020-11-14 Completed [facility] 00:00:00 of Medicine Moderna SARS-CoV-2 2020-05-10 Completed [facility] Vaccination 00:00:00 of Medicine Moderna SARS-CoV-2 2020-05-10 Completed [facility] Vaccination 00:00:00 of Medicine Moderna SARS-CoV-2 2020-05-10 Completed [facility] Vaccination 00:00:00 of Medicine Moderna SARS-CoV-2 2020-05-10 Completed [facility] Vaccination 00:00:00 of Medicine Moderna SARS-CoV-2 2020-04-12 Completed [facility] Vaccination 00:00:00 of Medicine Moderna SARS-CoV-2 2020-04-12 Completed [facility] Vaccination 00:00:00 of Medicine Moderna SARS-CoV-2 2020-04-12 Completed [facility] Vaccination 00:00:00 of Medicine Moderna SARS-CoV-2 2020-04-12 Completed [facility] Vaccination 00:00:00 of Medicine Influenza Quad-PF 2018-10-15 Completed [facility] 00:00:00 of Medicine Influenza Quad-PF 2017-10-23 Completed [facility] 00:00:00 of Medicine Influenza (whole) 2013-09-13 Completed [facility] 00:00:00 of Medicine Influenza (whole) 2013-09-13 Completed [facility] 00:00:00 of Medicine Influenza (whole) 2013-09-13 Completed [facility] 00:00:00 of Medicine Influenza (whole) 2013-09-13 Completed [facility] 00:00:00 of Medicine Influenza (whole) 2013-09-13 Completed [facility] 00:00:00 of Medicine Influenza (whole) 2013-09-13 Completed [facility] 00:00:00 of Medicine Influenza (whole) 2013-09-13 Completed [facility] 00:00:00 of Medicine Vital Signs Vital Name Observation Time Observation Value Comments Source Systolic blood 2021-01-16 15:01:00 119 mm[Hg] [facility] pressure Medicine Diastolic blood 2021-01-16 15:01:00 82 mm[Hg] [facility] Medicine Heart rate 2021-01-16 15:01:00 75 /min [facility] ol[facility] of Medicine Respiratory rate 2021-01-16 15:01:00 16 /min [facility] Body height 2021-01-16 15:01:00 157.5 cm [facility] of [facility] Body weight 2021-01-16 15:01:00 69.945 kg [facility] BMI 2021-01-16 15:01:00 28.20 kg/m2 [facility] Oxygen saturation in 2021-01-16 15:01:00 97 /min [facility] of Arterial blood by Medicine Pulse oximetry Systolic blood 2020-11-20 14:28:00 122 mm[Hg] [facility] pressure Medicine Diastolic blood 2020-11-20 14:28:00 91 mm[Hg] [facility] Medicine Heart rate 2020-11-20 14:28:00 90 /min [facility] of Medicine Respiratory rate 2020-11-20 14:28:00 16 /min [facility] Body height 2020-11-20 14:28:00 157.5 cm [facility] Body weight 2020-11-20 14:28:00 [facility] BMI 2020-11-20 14:28:00 28.53 [facility]m2 [facility] Oxygen saturation in 2020-11-20 14:28:00 94 /min [facility] Arterial blood by Medicine Pulse oximetry Systolic blood 2020-06-06 19:54:00 121 mm[Hg] [facility] pressure Medicine Diastolic blood 2020-06-06 19:54:00 79 mm[Hg] [facility] Medicine Heart rate 2020-06-06 19:54:00 84 /min [facility] of Medicine Respiratory rate 2020-06-06 19:54:00 18 /min [facility] Body height 2020-06-06 19:54:00 157.5 cm [facility] Body weight 2020-06-06 19:54:00 67.813 kg [facility] of Medicine BMI 2020-06-06 19:54:00 27.34 kg/m2 [facility] Oxygen saturation in 2020-06-06 19:54:00 96 /min [facility] Arterial blood by Medicine Pulse oximetry Systolic blood 2020-06-06 19:54:00 121 mm[Hg] [facility] pressure Medicine Diastolic blood 2020-06-06 19:54:00 79 mm[Hg] [facility] Medicine Heart rate 2020-06-06 19:54:00 84 /min [facility] Medicine Respiratory rate 2020-06-06 19:54:00 18 /min [facility] Body height 2020-06-06 19:54:00 157.5 cm [facility] Body weight 2020-06-06 19:54:00 67.813 kg [facility] BMI 2020-06-06 19:54:00 27.34 kg/m2 [facility] Oxygen saturation in 2020-06-06 19:54:00 96 /min [facility] Arterial blood by Medicine Pulse oximetry Systolic blood 2020-05-17 18:55:00 130 mm[Hg] [facility] pressure Medicine Diastolic blood 2020-05-17 18:55:00 95 mm[Hg] [facility] of pressure Medicine Heart rate 2020-05-17 18:55:00 98 /min [facility] Body height 2020-05-17 18:55:00 157.5 cm [facility] Body weight 2020-05-17 18:55:00 68.04 kg [facility] BMI 2020-05-17 18:55:00 27.44 kg/m2 [facility] Systolic blood 2020-05-17 18:55:00 130 mm[Hg] [facility] pressure Medicine Diastolic blood 2020-05-17 18:55:00 95 mm[Hg] [facility] of pressure Medicine Heart rate 2020-05-17 18:55:00 98 /min [facility] Body height 2020-05-17 18:55:00 157.5 cm [facility] Body weight 2020-05-17 18:55:00 68.04 kg [facility] BMI 2020-05-17 18:55:00 27.44 kg/m2 [facility] Systolic blood 2019-09-27 19:24:00 116 mm[Hg] [facility] pressure Medicine Diastolic blood 2019-09-27 19:24:00 83 mm[Hg] [facility] pressure Medicine Heart rate 2019-09-27 19:24:00 69 /min [facility] Body temperature 2019-09-27 19:24:00 36.67 [facility] Respiratory rate 2019-09-27 19:24:00 16 /min [facility] Body height 2019-09-27 19:24:00 157.5 cm [facility] Body weight 2019-09-27 19:24:00 71.124 kg [facility] BMI 2019-09-27 19:24:00 28.68 kg/m2 [facility] Oxygen saturation in 2019-09-27 19:24:00 97 /min [facility] Arterial blood by Medicine Pulse oximetry Systolic blood 2019-09-27 19:24:00 116 mm[Hg] [facility] Medicine Diastolic blood 2019-09-27 19:24:00 83 mm[Hg] [facility] Medicine Heart rate 2019-09-27 19:24:00 69 /min [facility] Body temperature 2019-09-27 19:24:00 36.67 [facility] Respiratory rate 2019-09-27 19:24:00 16 /min [facility] Body height 2019-09-27 19:24:00 157.5 cm [facility] Body weight 2019-09-27 19:24:00 71.124 kg [facility] BMI 2019-09-27 19:24:00 28.68 kg/m2 [facility] Oxygen saturation in 2019-09-27 19:24:00 97 /min [facility] Arterial blood by Medicine Pulse oximetry Systolic blood 2019-04-22 14:23:00 138 mm[Hg] [facility] pressure Medicine Diastolic blood 2019-04-22 14:23:00 60 mm[Hg] [facility] Medicine Body temperature 2019-04-22 14:23:00 36.67 [facility] Body height 2019-04-22 14:23:00 157.5 cm [facility] Body weight 2019-04-22 14:23:00 73.936 kg [facility] BMI 2019-04-22 14:23:00 29.81 kg/m2 [facility] Systolic blood 2019-04-22 14:23:00 138 mm[Hg] [facility] pressure Medicine Diastolic blood 2019-04-22 14:23:00 60 mm[Hg] [facility] Body temperature 2019-04-22 14:23:00 36.67 [facility] Body height 2019-04-22 14:23:00 157.5 cm [facility] Body weight 2019-04-22 14:23:00 73.936 kg [facility] BMI 2019-04-22 14:23:00 29.81 kg/m2 [facility] Systolic blood 2019-03-19 14:57:00 143 mm[Hg] [facility] pressure Medicine Diastolic blood 2019-03-19 14:57:00 97 mm[Hg] [facility] Heart rate 2019-03-19 14:57:00 69 /min [facility] Respiratory rate 2019-03-19 14:57:00 16 /min [facility] Body height 2019-03-19 14:57:00 157.5 cm [facility] Body weight 2019-03-19 14:57:00 76.204 kg [facility] BMI 2019-03-19 14:57:00 30.73 kg/m2 [facility] Oxygen saturation in 2019-03-19 14:57:00 98 /min [facility] Arterial blood by [facility] Pulse oximetry Systolic blood 2019-03-19 14:57:00 143 mm[Hg] [facility] pressure Medicine Diastolic blood 2019-03-19 14:57:00 97 mm[Hg] [facility] Medicine Heart rate 2019-03-19 14:57:00 69 /min [facility] Respiratory rate 2019-03-19 14:57:00 16 /min [facility] Body height 2019-03-19 14:57:00 157.5 cm [facility] Body weight 2019-03-19 14:57:00 76.204 kg [facility] BMI 2019-03-19 14:57:00 30.73 kg/m2 [facility] Oxygen saturation in 2019-03-19 14:57:00 98 /min [facility] Arterial blood by [facility] Pulse oximetry Systolic blood 2020-06-14 13:59:00 125 mm[Hg] [facility] Diastolic blood 2020-06-14 13:59:00 87 mm[Hg] [facility] Heart rate 2020-06-14 13:59:00 80 /min [facility] Oxygen saturation in 2020-06-14 13:59:00 93 /min [facility] - Arterial blood by Medical Ce nter Pulse oximetry Respiratory rate 2020-06-14 12:23:00 20 /min [facility] Systolic (mm Hg) 2017-06-18 16:00:00 Percy rial [facility] Diastolic (mm Hg) 2017-06-18 16:00:00 Mem orial [facility] Systolic (mm Hg) 2017-06-18 15:30:00 Percy rial [place] Diastolic (mm Hg) 2017-06-18 15:30:00 Mem orial [place] Respitory Rate 2017-06-18 15:15:00 Memori al [facility] Systolic (mm Hg) 2017-06-18 15:15:00 Percy rial [facility] Diastolic (mm Hg) 2017-06-18 15:15:00 Mem orial [facility] Respitory Rate 2017-06-18 15:00:00 Memori al [facility] Respitory Rate 2017-06-18 14:45:00 Memori al [place] Temperature Oral (F) 2017-06-11 15:30:00 98.2 F [facility] Heart Rate 2017-06-11 15:30:00 [facility] [place] BMI Calculated 2017-06-11 14:39:00 Memori al [place] Height 2017-06-11 14:39:00 157.48 cm [facility] Weight 2017-06-11 14:39:00 [facility] Procedures Procedure Date / Time Performing Clinician Source Performed MR THORACIC SPINE WITH & 2020-06-14 14:15:[address] [facility] - WITHOUT IV CONTRAST Medical [facility] er MR CERVICAL SPINE WITH & 2020-06-14 14:15:[address] [facility] - WITHOUT IV CONTRAST Medical [facility] er MR BRAIN WITH & WITHOUT IV 2020-06-14 14:15:[address] [facility] XR CHEST 2 VIEWS 2020-06-14 12:04:00 Pedro Horner [facility] COMPREHENSIVE METABOLIC 2020-05-17 22:20:00 Robb Ruffin Ba [facility] VITAMIN D 25 HYDROXY 2020-05-17 22:20:00 Robb Ruffin [facility] CBC WITH MAN DIFF & 2020-05-17 22:20:00 Juvencio Robb [facility] ABSOLUTE WBC [facility] Cholecystectomy [facility] ERCP<sup>1</sup> [facility] G[facility] operation Naomioria l [place] Hysterectomy [facility] Pacemaker care [facility] Rotator cuff [facility] repair<sup>2</sup> Vascular access [facility] incision<sup>3</sup> Plan of Care Planned Activity Planned Date Details Comments Source Future Scheduled 2021-01-16 Pneumococcal Combined Ba [facility] Test 09:03:04 (1 of 2 - PPSV23) of Medicin e [code = Pneumococcal Combined (1 of 2 - PPSV23)] Future Scheduled 2021-01-16 [facility] SHOT [facility]:03:04 [code = TETANUS SHOT of Medi cine (ADULT)] Future Scheduled 2021-01-16 BMI FOLLOW UP PLAN [facility] Test 09:03:04 [code = BMI FOLLOW UP of Med icine PLAN] Future Scheduled 2021-01-16 Hepatitis C screening Ba [facility] Test 09:03:04 (procedure) [code = of Medic ine 543116427] Future Scheduled 2021-01-16 Human immunodeficiency [employer] Test 09:03:04 virus screening of Medicine (procedure) [code = 956595107] Future Scheduled 2021-01-16 Screening for [facility] Test 09:03:04 malignant neoplasm of of Med icine cervix (procedure) [code = 832061583] Future Scheduled 2021-01-16 MEDICARE AWV (Initial) [employer] Test 09:03:04 [code = MEDICARE AWV of Medi cine (Initial)] Future Scheduled 2021-01-16 ZOSTER VACCINE (1 of [facility] [facility] [employer] Test 09:03:04 2) [code = ZOSTER of Medicin e VACCINE (1 of 2)] Future Scheduled 2021-01-16 Screening for [facility] Test 09:03:04 malignant neoplasm of of Med icine breast (procedure) [code = 488313963] Future Scheduled 2021-01-16 Screening for [facility] Test 09:03:04 malignant neoplasm of of Med icine colon (procedure) [code = 800358718] Future Scheduled 2021-01-16 COVID-19 Vaccine (3 - [employer] Test 09:03:04 Booster for Moderna of Medic ine series) [code = COVID-19 Vaccine (3 - Booster for Moderna series)] Future Scheduled 2020-11-20 TETANUS SHOT (ADULT) [employer] Test 09:28:22 [code = TETANUS SHOT of Medi cine (ADULT)] Future Scheduled 2020-11-20 BMI FOLLOW UP PLAN [employer] Test 09:28:22 [code = BMI FOLLOW UP of Med icine PLAN] Future Scheduled 2020-11-20 Hepatitis C screening [employer] Test 09:28:22 (procedure) [code = of Medic ine 004340079] Future Scheduled 2020-11-20 Human immunodeficiency [employer] Test 09:28:22 virus screening of Medicine (procedure) [code = 236564515] Future Scheduled 2020-11-20 Screening for [facility] Test 09:28:22 malignant neoplasm of of Med icine cervix (procedure) [code = 784014060] Future Scheduled 2020-11-20 MEDICARE AWV (Initial) [employer] Test 09:28:22 [code = MEDICARE AWV of Medi cine (Initial)] Future Scheduled 2020-11-20 ZOSTER VACCINE (1 of [employer] Test 09:28:22 2) [code = ZOSTER of Medicin e VACCINE (1 of 2)] Future Scheduled 2020-11-20 Screening for [facility] Test 09:28:22 malignant neoplasm of of Med icine breast (procedure) [code = 394675176] Future Scheduled 2020-11-20 Screening for [facility] Test 09:28:22 malignant neoplasm of of Med icine colon (procedure) [code = 677710316] Future Scheduled 2020-11-20 FLU VACCINE > [address] [facility] Test 09:28:22 [code = FLU VACCINE > of Med icine 6 MONTHS] Diagnostic Test 2020-11-20 ECHO, COMPLETE [code = Expected: [facility] Pending 00:00:00 [id number]] 11/20/2020, of Medicine Expires: 05/21/2021 Future Scheduled 2020-10-[address] [facility] - Test 00:00:00 (Season Ended) [code = Medic al Center INFLUENZA VACCINE (Season Ended)] Future Scheduled 2016-10-[address] [facility] Test 00:[facility]:00 (procedure) [code = Medical Center 91460850] Future Scheduled 2010 SHINGLES VACCINES ([address] [facility] - Test 00:00:00 of 2) [code = SHINGLES Medic al Center VACCINES (1 of 2)] Future Scheduled 2003-05-[address] [facility] [facility] - Test 00:00:00 WELLNESS (YEAR 2 or Medical Center FIRST YEAR if no IPPE) [code = MEDICARE ANNUAL WELLNESS (YEAR 2 or FIRST YEAR if no IPPE)] Future Scheduled [address] Test 00:[facility]:00 malignant neoplasm of Medica l Center cervix (procedure) [code = 074236748] Future Scheduled 1979 DTAP/TDAP/TD [facility]ACCINES [facility] Test 00:[facility]00 (1 - Tdap) [code = Medical C enter DTAP/TDAP/TD VACCINES (1 - Tdap)] Future Scheduled 1978 HEPATITIS C SCREENING [facility] Test 00:[facility]00 [code = HEPATITIS C Medical Center SCREENING] Future Scheduled [address] [facility] Test 00:00:00 malignant neoplasm of Medica l Center breast (procedure) [code = 634156915] Future Scheduled [address] [facility] Test 00:00:00 malignant neoplasm of [facility] colon (procedure) [code = 323524799] Future Scheduled COVID-19 VACCINE (1) [facility] [code = COVID-19 Hospital VACCINE (1)] Future Scheduled Hepatitis C screening [facility] Test (procedure) [code = Hospital 228405591] Future Scheduled Screening for [facility] malignant neoplasm of Hospit al cervix (procedure) [code = 598058526] Future Scheduled BREAST CANCER [facility] SCREENING [code = Hospital BREAST CANCER SCREENING] Future Scheduled COLONOSCOPY SCREENING [facility] Test [code = COLONOSCOPY Hospital SCREENING] Future Scheduled SHINGLES VACCINES (#1) M ethodist Test [code = SHINGLES Hospital VACCINES (#1)] Future Scheduled INFLUENZA VACCINE [facility] Test [code = INFLUENZA Hospital VACCINE] Future Scheduled TETANUS SHOT (ADULT) [employer] Test [code = TETANUS SHOT of Medi cine (ADULT)] Future Scheduled BMI FOLLOW UP PLAN [employer] Test [code = BMI FOLLOW UP of Med icine PLAN] Future Scheduled HEPATITIS C SCREENING [employer] Test [code = HEPATITIS C of Medic ine SCREENING] Future Scheduled HIV SCREENING [code = [employer] [facility] HIV SCREENING] of Medicine Future Scheduled CERVICAL CANCER [facility] C olleann-marie Test SCREENING 3 YEAR of Medicine FOLLOW UP [code = CERVICAL CANCER SCREENING 3 YEAR FOLLOW UP] Future Scheduled MEDICARE AWV (Initial) [employer] Test [code = MEDICARE AWV of Medi cine (Initial)] Future Scheduled ZOSTER VACCINE (1 of [employer] Test 2) [code = ZOSTER of Medicin e VACCINE (1 of 2)] Future Scheduled MAMMOGRAM ANNUAL [code [employer] Test = MAMMOGRAM ANNUAL] of Medic ine Future Scheduled COLON CANCER [facility] John [facility] Test SCREENING: COLONOSCOPY of Me dicine [code = COLON CANCER SCREENING: COLONOSCOPY] Future Scheduled FLU VACCINE > 6 MONTHS [employer] Test [code = FLU VACCINE > of Med icine 6 MONTHS] Future Scheduled CBC WITH MAN DIFF & [employer] Test ABSOLUTE WBC [code = of Medi cine NOCPT] Future Scheduled TETANUS SHOT (ADULT) [employer] Test [code = TETANUS SHOT of Medi cine (ADULT)] Future Scheduled BMI FOLLOW UP PLAN [employer] Test [code = BMI FOLLOW UP of Med icine PLAN] Future Scheduled Hepatitis C screening [employer] Test (procedure) [code = of Medic ine 195958935] Future Scheduled Human immunodeficiency [employer] Test virus screening of Medicine (procedure) [code = 704642925] Future Scheduled Screening for [facility]ge Test malignant neoplasm of of Med icine cervix (procedure) [code = 688708694] Future Scheduled MEDICARE AWV (Initial) [employer] Test [code = MEDICARE AWV of Medi cine (Initial)] Future Scheduled ZOSTER VACCINE (1 of [employer] Test 2) [code = ZOSTER of Medicin e VACCINE (1 of 2)] Future Scheduled Screening for [facility]ge Test malignant neoplasm of of Med icine breast (procedure) [code = 216622281] Future Scheduled Screening for [facility]ge Test malignant neoplasm of of Med icine colon (procedure) [code = 516056105] Future Scheduled FLU VACCINE > 6 MONTHS [employer] Test [code = FLU VACCINE > of Med icine 6 MONTHS] Future Scheduled TETANUS SHOT (ADULT) [employer] Test [code = TETANUS SHOT of Medi cine (ADULT)] Future Scheduled BMI FOLLOW UP PLAN [employer] Test [code = BMI FOLLOW UP of Med icine PLAN] Future Scheduled Hepatitis C screening [employer] Test (procedure) [code = of Medic ine 885740579] Future Scheduled Human immunodeficiency [employer] Test virus screening of Medicine (procedure) [code = 554678750] Future Scheduled Screening for [facility] Col [facility]ge Test malignant neoplasm of of Med icine cervix (procedure) [code = 796648954] Future Scheduled MEDICARE AWV (Initial) [employer] Test [code = MEDICARE AWV of Medi cine (Initial)] Future Scheduled ZOSTER VACCINE (1 of [employer] Test 2) [code = ZOSTER of Medicin e VACCINE (1 of 2)] Future Scheduled Screening for [facility]ge Test malignant neoplasm of of Med icine breast (procedure) [code = 083809399] Future Scheduled Screening for [facility]ge Test malignant neoplasm of of Med icine colon (procedure) [code = 212025103] Future Scheduled FLU VACCINE > 6 MONTHS [employer] Test [code = FLU VACCINE > of Med icine 6 MONTHS] Future Scheduled TETANUS SHOT (ADULT) [employer] Test [code = TETANUS SHOT of Medi cine (ADULT)] Future Scheduled BMI FOLLOW UP PLAN [employer] Test [code = BMI FOLLOW UP of Med icine PLAN] Future Scheduled HEPATITIS C SCREENING [employer] Test [code = HEPATITIS C of Medic ine SCREENING] Future Scheduled HIV SCREENING [code = [employer] [facility] HIV SCREENING] of Medicine Future Scheduled CERVICAL CANCER [facility] Test SCREENING 3 YEAR of Medicine FOLLOW UP [code = CERVICAL CANCER SCREENING 3 YEAR FOLLOW UP] Future Scheduled MEDICARE AWV (Initial) [employer] Test [code = MEDICARE AWV of Medi [employer] (Initial)] Future Scheduled MAMMOGRAM ANNUAL [code [employer] Test = MAMMOGRAM ANNUAL] of Medic ine Future Scheduled COLON CANCER [facility] Test SCREENING: COLONOSCOPY of Me dicine [code = COLON CANCER SCREENING: COLONOSCOPY] Future Scheduled COMPREHENSIVE Ordered: [facility]ge Test METABOLIC PANEL [code 04/22/2019 of Med icine = 57716-2] Future Scheduled ABSOLUTE LYMPHOCYTE Ordered: [employer] Test COUNT [code = NOCPT] 04/22/2019 of [facility] Future Scheduled QUANTIFERON TB GOLD Ordered: [employer] Test PLUS 4 TUBES [code = 04/22/2019 of Medi [employer] 78738-3] Future Scheduled VITAMIN D 25 HYDROXY Ordered: [employer] Test [code = 1989-3] 04/22/2019 of Medicine Future Scheduled VITAMIN B12 [code = Ordered: [employer] [facility] 2131-9] 04/22/2019 of Medicine Future Scheduled TETANUS SHOT (ADULT) [employer] Test [code = TETANUS SHOT of Medi cine (ADULT)] Future Scheduled BMI FOLLOW UP PLAN [employer] Test [code = BMI FOLLOW UP of Med icine PLAN] Future Scheduled HEPATITIS C SCREENING [employer] Test [code = HEPATITIS C of Medic ine SCREENING] Future Scheduled HIV SCREENING [code = [employer] [facility] HIV SCREENING] of Medicine Future Scheduled CERVICAL CANCER [facility] C ollege Test SCREENING 3 YEAR of Medicine FOLLOW UP [code = CERVICAL CANCER SCREENING 3 YEAR FOLLOW UP] Future Scheduled MEDICARE AWV (Initial) [employer] Test [code = MEDICARE AWV of Medi [employer] (Initial)] Future Scheduled MAMMOGRAM ANNUAL [code [employer] Test = MAMMOGRAM ANNUAL] of Medic ine Future Scheduled COLON CANCER [facility] [employer] Test SCREENING: COLONOSCOPY of Me dicine [code = COLON CANCER SCREENING: COLONOSCOPY] Future Scheduled MRI BRAIN W WO 1 Occurrences [facility] Test CONTRAST [code = starting of Medicine 21714-7] 05/17/2020 until 12/17/2020 Future Scheduled MRI CERVICAL SPINE W 1 Occurrences [employer] Test WO CONTRAST [code = starting of Medic ine 22432-7] 05/17/2020 until 12/17/2020 Future Scheduled MRI THORACIC SPINE W 1 Occurrences [employer] Test WO CONTRAST [code = starting of Medic ine 54867-7] 05/17/2020 until 12/17/2020 Future Scheduled HEPATIC FUNCTION PANEL Every 4 Weeks for [facility] College Test [code = 57989-6] 6 Occurrences of Medicin e starting 04/22/2019 until 04/21/2020 Future Scheduled MRI BRAIN W WO 1 Occurrences [facility] C ollege Test CONTRAST [code = starting of Medicine 33801-2] 04/22/2019 until 11/22/2019 Future Scheduled MRI CERVICAL SPINE W 1 Occurrences [employer] Test WO CONTRAST [code = starting of Medic ine 33465-4] 04/22/2019 until 11/22/2019 Future Scheduled MRI THORACIC SPINE W 1 Occurrences [employer] Test WO CONTRAST [code = starting of Medic ine 96665-3] 04/22/2019 until 11/22/2019 Encounters Start End Encounter Admission Attending Care Care Encounter Source Date/Time Date/Time Type Type Clinicians Facility Department ID 2021-01-16 2021-01-16 Office ROBERTO CARLOS YIN [id number] [facility] 08:57:01 13:21:51 Visit KASSI AMBULATOR [id number] College Y [id number] [facility] [id number] Medi max 375 e 2021-01-16 2021-01-16 Outpatient ROBERTO CARLOS [facility] [id number] [facility] 07:51:20 09:11:51 [place] [employer] [facility] 2021-01-02 2021-01-02 Outpatient ROBERTO CARLOS S[facility]H [facility] [id number] [facility] 08:00:42 08:48:15 [place] [employer] [facility] 2020-12-15 2020-12-15 Outpatient ROBERTO CARLOS ROMERO [facility] [id number] [facility] 11:43:39 12:18:24 [facility] 2020-12-12 2020-12-12 Outpatient [facility]ANCISCO [facility] [id number] [facility] 07:58:21 08:45:29 [place] [employer] [facility] 2020-12-05 2020-12-05 Outpatient [facility]ISCO [facility] [id number] [facility] 07:57:41 08:44:26 [place] [employer] [facility] 2020-11-21 2020-11-21 Outpatient FRANCISCO [facility] [id number] [facility] 07:55:45 08:56:36 [place] [employer] [facility] 2020-11-20 2020-11-20 Outpatient [facility] [id number] [facility] 11:53:52 15:11:02 [facility] 2020-11-20 2020-11-20 Office YIN [facility] [id number] [facility] 09:04:21 14:56:47 Visit KASSI AMBULATOR [id number] [facility] [id number] Medi max 375 e 2020-11-14 2020-11-14 Outpatient FRANCISCO, [facility] [id number] [facility] 07:59:35 08:57:18 [place] [employer] [facility] 2020-11-07 2020-11-07 Outpatient FRANCISCO, [facility] [id number] [facility] 08:05:52 08:52:22 [place] [employer] [facility] 2020-10-31 2020-10-31 Outpatient FRANCISCO [facility] [id number] [facility] 07:48:11 08:59:22 [place] [employer] [facility] 2020-10-17 2020-10-17 Outpatient FRANCISCO [facility] [id number] [facility] 07:45:55 09:20:10 [place] [employer] [facility] [employer] 2020-10-02 2020-10-02 Outpatient FRANCISCO [facility] [id number] [facility] 08:07:40 08:07:40 [place] [employer] [facility] 2020-09-25 2020-09-25 Outpatient FRANCISCO, [facility] [id number] [facility] 07:45:42 08:57:26 [place] [employer] [facility] 2020-09-19 2020-09-19 Outpatient FRANCISCO, [facility] [id number] [facility] 07:44:48 11:47:17 [place] [employer] [facility] 2020-09-04 2020-09-05 Outpatient FRANCISCO, [facility] [id number] [facility] 07:44:23 10:56:07 [employer] 2020-08-28 2020-08-28 Outpatient FRANCISCO, [facility] [id number] [facility] 08:04:16 08:59:08 [employer] 2020-08-21 2020-08-21 Outpatient FRANCISCO, [facility] [id number] [facility] 10:43:36 13:31:22 [employer] 2020-08-10 2020-08-10 Outpatient KARUNA [facility] [id number] [facility] 13:58:44 14:45:16 [facility] [employer] 2020-06-14 2020-06-14 [facility] [id number] [address] 11:39:25 23:59:00 Encounter 1.5, [facility] 2020-06-14 2020-06-14 [facility] [id number] [facility] 11:38:48 11:38:48 Encounter 1.5, [facility] 2020-06-14 2020-06-14 [facility] [id number] 11:38:41 11:38:41 Encounter 1.5, [facility] 2020-06-14 2020-06-14 [facility] [id number] [address] 11:00:00 11:37:00 Encounter Pedro Luke s - [facility] 2020-06-14 2020-06-14 Outpatient EL CUGLENIS, [facility] [id number] [facility] 00:00:00 00:00:00 ROBB 2020-06-14 2020-06-14 Outpatient SIRI, [facility] [id number] [facility] 00:00:00 00:00:00 PEDRO 2020-06-14 2020-06-14 Outpatient BRENDAUT, [facility] [id number] [facility] 00:00:00 00:00:00 ROBB 2020-06-14 2020-06-14 Outpatient ESTIVENASCUT, [facility] [id number] [facility] 00:00:00 00:00:00 ROBB 2020-06-14 2020-06-14 Outside Siri, [facility] [id number] 00:00:00 00:00:[address] [facility] 2020-06-06 2020-06-06 Office Yin, BCM 1.2.840.114 [id number] [facility] 14:30:44 15:00:44 Visit Kassi Khan AMBULATOR 350.1.13.21 College Y 0.2.7.2.686 of [id number] [facility] 375 e 2020-06-06 2020-06-06 Office Humphrey, BCM 1.2.840.114 [id number] 14:30:44 15:00:44 Visit Kassi Khan AMBULATOR 350.1.13.21 Y 0.2.7.2.686 [id number] 2020-05-18 2020-05-18 Outside Juvencio, [facility] [id number] 00:00:00 00:00:00 Orders [facility] 2020-05-17 2020-05-17 Office Juvencio, BCM 1.2.840.114 [id number] [facility] 13:55:07 16:45:44 Visit Robb AMBULATOR 350.1.13.21 College John Y 0.2.7.2.686 of [id number] [facility] 830 e 2020-05-17 2020-05-17 Office Cuascut, BCM 1.2.840.114 [id number] 13:55:07 16:45:44 Visit Robb AMBULATOR 350.1.13.21 John Y 0.2.7.2.686 [id number] 2020-03-15 2020-03-15 Outpatient Shani_T [facility] [id number] 11:21:00 11:21:00 [id number] 2019-09-27 2019-09-27 Office Yin, BCM 1.2.840.114 [id number] [facility] 13:56:54 14:26:54 Visit Kassi Pantojan AMBULATOR 350.1.13.21 College Y 0.2.7.2.686 of [id number] [facility] 375 e 2019-09-27 2019-09-27 Office Yin, BCM 1.2.840.114 [id number] 13:56:54 14:26:54 Visit Kassi Pantojan AMBULATOR 350.1.13.21 Y 0.2.7.2.686 [id number] 2019-05-12 2019-05-12 Outpatient SLEH SLEH [id number] [facility] 00:00:00 00:00:00 [id number] 2019-04-22 2019-04-22 Office Cuascut, BCM 1.2.840.114 [id number] [facility] 08:50:14 10:51:00 Visit Robb AMBULATOR 350.1.13.21 College John Y 0.2.7.2.686 of [id number] [facility] 830 e 2019-04-22 2019-04-22 Office Cuascut, BCM 1.2.840.114 [id number] 08:50:14 10:51:00 Visit Robb AMBULATOR 350.1.13.21 John Y 0.2.7.2.686 [id number] 2019-03-19 2019-03-19 Office Yin, BCM 1.2.840.114 [id number] [facility] 08:06:22 10:32:22 Visit Kassi Pantojan AMBULATOR 350.1.13.21 College Y 0.2.7.2.686 of [id number] [facility] 375 e 2019-03-19 2019-03-19 Office ROBERTO CRALOS Yin 1.2.840.114 [id number] 08:06:22 10:32:22 Visit Kassi Khan AMBULATOR 350.1.13.21 Y 0.2.7.2.686 [id number] 2017-08-22 2017-08-22 Outpatient [facility] [id number] SLE 00:00:00 00:00:00 2017-08-22 2017-08-22 Outpatient [facility] [id number] SLE 00:00:00 00:00:00 [id number] 2017-06-18 2017-06-18 [facility] [id number] [facility] 12:54:00 16:05:00 Surgery [place] [address] l [facility] Results Test Description Test Time Test Comments Results Result [facility] e Comments MR, SPINE, Unlisted Reason THORACIC, 6 for Exam - WITHOUT / WITH 12:12:00 Click Yes and IV CONTRAST Enter Reason [facility] Below[facility] Reason for LASHELL WRIGHT Exam->G35 RHEA : (ICD-10-CM) - 1960 Multiple Sex: sclerosis F (HCCode)Anesthe shahab:->NoneDeos the patient *FINAL REPORT have an PATIENT ID: implanted [id number] Exam: MRI electronic cervical and device?->YesPAC thoracic spine with EMAKER and without contrast History: 60-year-old female presenting for follow-up of multiple sclerosis.Comparison studies: MRI 05/12/2019 Technique:Precontras t spine: Sagittal T1, T2 and inversion recovery, axial T1 and T2 cervical and thoracic. Postcontrast axial and sagittal R1Ngfhsabzobw contrast: 7.0 cc of Gadavist. Findings: Cervical [...] No abnormal cord enhancement. Signed: Andreas Hernandez [facility] Verified Date/Time: 06/15/2020 12:12:49 , SPINE, Unlisted Reason CERVICAL, 6 for Exam - WITHOUT / WITH 12:12:00 Click Yes and IV CONTRAST Enter Reason [facility] - Below[facility] Reason for LASHELL WRIGHT Exam->G35 RHEA : (ICD-10-CM) - 1960 Multiple Sex: sclerosis F (HCCode)Anesthe shahab:->NoneDeos the patient *FINAL REPORT have an PATIENT ID: implanted [id number] Exam: MRI electronic cervical and device?->YesPAC thoracic spine with EMAKER and without contrast History: 60-year-old female presenting for follow-up of multiple sclerosis.Comparison studies: MRI 05/12/2019 Technique:Precontras t spine: Sagittal T1, T2 and inversion recovery, axial T1 and T2 cervical and thoracic. Postcontrast axial and sagittal O9Adlbfkmmlwv contrast: 7.0 cc of Gadavist. Findings: Cervical [...] No abnormal cord enhancement. Signed: Andreas Hernandez [facility] Verified Date/Time: 06/15/2020 12:12:49 cervical 2020-05-0 Interface, External [facility] spine without & 6 Ris [...] cervical and thoracic. Postcontrast axial and sagittal G0Lntmtxnwwea contrast: 7.0 cc of Gadavist. Findings: Cervical [...] No abnormal cord enhancement. Signed: Andreas Hernandez [facility] Verified Date/Time: 06/15/2020 12:12:49 thoracic 2020-05-0 Interface, External [facility] spine without & 6 Ris [...] cervical and thoracic. Postcontrast axial and sagittal I5Gbmrtddnsle contrast: 7.0 cc of Gadavist. Findings: Cervical [...] No abnormal cord enhancement. Signed: Andreas Hernandez [facility] Verified Date/Time: 06/15/2020 12:12:49 , BRAIN, Unlisted Reason WITHOUT / WITH 6 for Exam - IV CONTRAST 11:52:00 Click Yes and Enter Reason [facility] - Below[facility] Reason for LASHELL WRIGHT Exam->G35 [facility] : (ICD-10-CM) - 1960 Multiple Sex: sclerosis F (HCCode)Anesthe shahab:->NoneDeos the patient *FINAL REPORT have an PATIENT ID: implanted [id number] Exam: MRI electronic brain with and device?->YesPAC [...] colossal septal interface, and in the right luz. T1 hypointense foci: No significant T1 hypointense lesions.Enhancing lesions: NoneCorpus callosum volume: Adequate for age in size and morphologyBrain volume: Adequate for age. Additional abnormalities: Small bilateral maxillary sinus retention cysts. IMPRESSION: 1.No new or enhancing lesions.2.Nonenhanci ng demyelinating lesions are unchanged from the prior brain MRI of 05/12/2019. Signed: Andreas Hernandez Verified Date/Time: 06/15/2020 11:52:36 brain without 2020-05-0 Interface, External [facility] with IV 6 Ris In - 06/15/2020 - Med ical contrast 11:52:00 11:54 AM [facility] REPORT Exam: MRI brain with and [...] colossal septal interface, and in the right luz. T1 hypointense foci: No significant T1 hypointense lesions.Enhancing lesions: NoneCorpus callosum volume: Adequate for age in size and morphologyBrain volume: Adequate for age. Additional abnormalities: Small bilateral maxillary sinus retention cysts. IMPRESSION: 1.No new or enhancing lesions.2.Nonenhanci ng demyelinating lesions are unchanged from the prior brain MRI of 05/12/2019. Signed: Andreas Hernandez Verified Date/Time: 06/15/2020 11:52:36 , CHEST, 2 Reason for VIEWS 5 Exam:->MULTIPLE 12:12:[address] [facility] : 1960 Sex: F [...] implanted cardiac device on the left. Signed: Shila Segura Verified Date/Time: 06/14/2020 12:12:57 Reading Location: [facility] Reading Room [address] [place] [address] Chest 2 Views Interface, External [place] [address] Ris In - 06/14/2020 - Med ical 12:12:00 12:15 PM CDTFINAL Center REPORT EXAM: RAD, CHEST, 2 VIEWSDATE: [...] implanted cardiac device on the left. Signed: Shila Segura MDReport Verified Date/Time: 06/14/2020 12:12:57 Reading Location: [facility] Reading Room [address] [place] [address] MIN D 25 HYDROXY 2020-05-18 09:22:50 Test Item Value Reference Range Interpretation Comme nts VITAMIN D 25-HYDROXY (test SEE BELOW NG/ML NOTE: 25-HYDROXYVITAMIN D ASSAY code = 1989-) INCLUDES 25-H YDROXYVITAMIN D2 AND D3. METHOD OLOGY IS CHEMILUMINESCEN T IMMUNOASSAY. $$$$$ INTERPRETIVE RANGES $$$$$PEDIATRIC (<17 YEARS) . . . . . . . . . . . NG/ ML 20-100ADULT: I NSUFFICIENT . . . . . . . . . . . . . . NG/ML <20 SUBOPTI MAL . . . . . . . . . . . . . . . N G/ML 20-29 OPTIMAL . . . . . . . . . . . . . . . . . NG/ML 30-100 Unless Otherwis e Indicated, All Testing Perform ed At: Clinical [facility], [address] [place] [address], [place] [address] Laboratory Di candelaria: Juan Mccarty M.D. MATTIA Number [id number] [place]. [id number] [facility] Center[facility]PREHENSIVE METABOLIC [id number] 09:01:02 Test Item Value Reference Range Interpretation Comments GLUCOSE (test code = See_Comment [Autom ated message] 2345-7) The system [employer] generated this result transmitted ref erence range: 70 - 99 MG/DL. The reference r socorro was not used to interpret this result as normal/abnor mal. BLOOD UREA NITROGEN See_Comment H [Automa kacie message] (test code = 3091-6) The [facility] tem which generated this result transmitted ref erence range: 8 - 23 M G/DL. The reference r socorro was not used to interpret this result as normal/abnor mal. CREATININE (test code = See_Comment [Au tomated message] 2160-0) The system [employer] generated this result transmitted ref erence range: 0.60 - 1 .30 MG/DL. The refe rence range was not u sed to interpret this result as normal/abnor mal. EGFR AA (test code = See_Comment [Autom ated message] 28333-3) The system [employer] generated this result transmitted ref erence range: >60 ML/MIN/1.73. Th e reference range was not used to int erpret this result as normal/abnormal . EGFR (test code = See_Comment [Automate d message] 42420-9) The system [employer] generated this result transmitted ref erence range: >60 ML/MIN/1.73. Th e reference range was not used to int erpret this result as normal/abnormal . BUN/CREAT RATIO (test See_Comment H [Auto mated message] code = 3097-3) The system [employer] [facility] generated this result transmitted ref erence range: 6 - 28 R ATIO. The reference r socorro was not used to interpret this result as normal/abnor mal. SODIUM (test code = See_Comment [Automa kacie message] 2951-2) The system [employer] generated this result transmitted ref erence range: 133 - 14 6 MEQ/L. The refe rence range was not u sed to interpret this result as normal/abnor mal. POTASSIUM (test code = See_Comment [Aut omated message] 2823-3) The system [employer] generated this result transmitted ref erence range: 3.5 - 5. 4 MEQ/L. The refe rence range was not u sed to interpret this result as normal/abnor mal. CHLORIDE (test code = See_Comment [Auto mated message] 2074-0) The system [employer] generated this result transmitted ref erence range: 95 - 107 MEQ/L. The reference r socorro was not used to interpret this result as normal/abnor mal. CO2 (test code = See_Comment [Automated message] 1962-09) The system [facility] generated this result transmitted ref erence range: 19 - 31 MEQ/L. The reference r socorro was not used to interpret this result as normal/abnor mal. CALCIUM (test code = See_Comment [Autom ated message] 84049-3) The system [employer] generated this result transmitted ref erence range: 8.5 - 10 .5 MG/DL. The refe rence range was not u sed to interpret this result as normal/abnor mal. PROTEIN TOTAL (test See_Comment [Automa kacie message] code = 2885-2) The system [employer] generated this result transmitted ref erence range: 6.1 - 8. 3 G/DL. The reference r socorro was not used to interpret this result as normal/abnor mal. ALBUMIN (test code = See_Comment [Autom ated message] 86544-6) The system [employer] generated this result transmitted ref erence range: 3.5 - 5. 2 G/DL. The reference r socorro was not used to interpret this result as normal/abnor mal. GLOBULINS, SERUM, TOTAL See_Comment [Au tomated message] (test code = 65721-6) The sy stem which generated this result transmitted ref erence range: 1.9 - 3. 7 G/DL. The reference r socorro was not used to interpret this result as normal/abnor mal. A/G RATIO (test code = See_Comment [Aut omated message] 1759-0) The system [employer] generated this result transmitted ref erence range: 1.0 - 2. 6 RATIO. The refe rence range was not u sed to interpret this result as normal/abnor mal. BILIRUBIN TOTAL (test See_Comment [Auto mated message] code = 1974-2) The system [employer] generated this result transmitted ref erence range: <=1.2 MG /DL. The reference r socorro was not used to interpret this result as normal/abnor mal. ALKALINE PHOSPHATASE 88 U/L 40-136 (test code = 6768-6) AST (SGOT) (test code = 34 U/L 9-40 1920-8) ALT (SGPT) (test code = 51 U/L 5-40 H Unless 1744-2) Otherwise Indic ated, All Testing Per formed At: [facility], [address] [place] [address] Laboratory Dire ctor: Juan catherine M.D. CLIA Num dorian [id number] [place] o. [id number] Lab Interpretation Abnormal (test code = 27022-7) [facility], THORACIC, WITHOUT / WITH IV CONTRAST 2019-05-12 15:56:00FINAL REPORT Examination:MR, SPINE, THORACIC, WITHOUT / WITH IV CONTRAST HISTORY: 59-year-old female with relapsing remitting multiple sclerosis, not currently on disease modifying therapy and presents for follow-up. Patient states she has no new symptoms or concerns for relapse.COMPARISON: None.TECHNIQUE: Sagittal T1 postcontrast; sagittal T2 and STIR. Axial T1 postcontrast,T2. Intravenous contrast: 7 mL Gadavist. FINDINGS:Spinal cord size: Normal. Enhancing lesions: None. T2 lesions: None. T1 lesions: None. Vertebrae: Normal alignment, height, and signal intensity. Superior endplate Schmorl's node at T11.Discs: No disc herniation or canal stenosis. Incidental finding: A 5.7 mm nerve root sleeve cyst in the right neural foramen at T6-T7. An 8 mm nerve root sleevecyst in the left neural foramen at T10-T11. IMPRESSION:No nonenhancing or enhancing lesion within the cord. Signed: Ramya Noel MDReport Verified Date/Time: 05/12/2019 15:56:57 Reading Location:[facility] Reading Room [address] [place] [address] MR, SPINE, CERVICAL, WITHOUT / WITH IV [id number] 15:51:00FINAL REPORT Examination: MR, SPINE, CERVICAL, WITHOUT / WITH [...] the cord. No enhancing additional nonenhancing lesions. Signed:Ramya Noel Verified Date/Time: 05/12/2019 15:51:43 Reading Location: [facility] Room [address] [place] [address] , BRAIN, WITHOUT / WITH IV [id number] 15:47:00FINAL REPORT Examination: MR, BRAIN, WITHOUT / WITH IV CONTRAST HISTORY: 59-year- old female with relapsing remitting multiple sclerosis, not currently on disease modifying therapy and presents for follow-up. Patient states she has no new symptoms or concerns for relapse.COMPARISON: Brain MRI performed at [facility] on July 24, 2015TECHNIQUE: Sagittal FLAIR with axial and coronal reconstructions; axial precontrast T1, postcontrast T2, FLAIR; axial, sagittal and coronal postcontrast T1. Contrast: Seven mL Gadavist. FINDINGS:T2 lesions: Number: Innumerable discrete T2 lesions. No new lesions. Size: Range in size from 1 mm to 14 mm. Location: Periventricular, deep, callosal septal interface, juxtacortical white matter. Luz. T1 "black holes": There are no l esions of cerebrospinal fluid equivalent intensity. Enhancing lesions: None. Corpus callosum volume:Normal, unchanged. Brain volume: Within normal limits for age, unchanged. Additional finding: Retention cyst in the right maxillary sinus. IMPRESSION:No new nonenhancing or enhancing lesion within thebrain when compared to prior brain MRI performed at [facility] on July 24, 2015. Unchanged nonenhancing lesions, consistent with multiple sclerosis. Signed: Ramya Noelort Verified Date/Time: 05/12/2019 15:47:11 Reading Location: [facility] Reading Room [address] [place] [address] [id number] 09:13:00 Test Item Value Reference Range Interpretation Comments POC-CREATININE 1.0 mg/dL 0.6-1.3 : TESTED AT B [facility] (BRIGITTE) (test 7199 [facility] code = 1859) A, [facility] 7 7030: [employer] Laminator/Techni jace ID = [id number] for BRISSA MCKOY ICA POC-EGFR 57 mL/min/1.73M2 (BRIGITTE) (test code = 1860) RAD, CHEST, 2 [id number] 09:02:00Reason for exam:->MRI pacemaker check FINAL REPORT [...] Cyrus Pretty Verified Date/Time:05/12/2019 09:02:30 Reading Location: [facility] Mammo Reading Room TISSUE [id number] 10:19:00 Surgical Pathology Report Case: [id number] Authorizing Provider: Shoshana Shepherd MD Collected: 05/06/2018 1434 Ordering Location: [facility] Endoscopy Received: 05/06/2018 1603 Services Pathologist: Augustus Lentz MD Specimen: Biopsy, Gastric, BX GASTRIC POUCH ERYTHEMA PART A GASTRIC POUCH, BIOPSY:CHRONIC INACTIVE GASTRITIS.NEGATIVE FOR INTESTINAL METAPLASIA, DYSPLASIA, OR INVASIVE CARCINOMA.WARTHIN STARRY STAIN FOR HELICOBACTER IS NEGATIVE. Signing Pathologist Direct Phone Line: [phone] signed by Augustus Lentz MD on 05/07/2018 at 10:19 [id number], [id number] abdominal pain, erythema Gastric pouch biopsy The [...] WARTHIN STARRYImmunohistochemistry technical testing was performed at [facility], Pathology Laboratory where it was developed [...] perform high complexity clinical laboratory testing.BLOOD BANK [id number] 15:10:00 Test Item Value Reference Range Interpretation Comments ABO/Rh (test code = ABO/Rh) O POS [facility] B[facility] [id number] 15:10:00 Test Item Value Reference Range Interpretation Comments Antibody Scrn (test Negative (06/11/17 10:10 code = Antibody Scrn) AM) [facility]GcxfuoeYKBHWUHQDQAN5791-82-24 15:10:00 Test Item Value Reference Range Interpretation Comments AGAP (test code = AGAP) 14.3 10.0-20.0 [facility] [id number] 15:10:00 Test Item Value Reference Range Interpretation Comments eGFR (test code = eGFR) 69 [facility] PasoTywvazzXLBENPWADFFU2131-30-76 15:10:00 Test Item Value Reference Range Interpretation Comments CO2 (test code = CO2) 27 24-32 [facility] [id number] 15:10:00 Test Item Value Reference Range Interpretation Comments Potassium Lvl (test code = Potassium 4.3 3.5-5.1 Lvl) [facility]maGdqnjvzUAUTHUPDHINL2966-07-63 15:10:00 Test Item Value Reference Range Interpretation Comments Calcium Lvl (test code = Calcium Lvl) 9.3 8.5-10.5 [facility] AlmaLwrbyvzYLYJRFLQSRWL6100-80-85 15:10:00 Test Item Value Reference Range Interpretation Comments Sodium Lvl (test code = Sodium Lvl) 143 135-145 [facility] AlmaFeveutiXMGMIUCGEKTE5325-92-08 15:10:00 Test Item Value Reference Range Interpretation Comments Creatinine Lvl (test code = Creatinine 0.93 0.50-1.40 Lvl) [facility] AlmaPubyzboXVOYMMCCGAON3611-09-21 15:10:00 Test Item Value Reference Range Interpretation Comments Chloride Lvl (test code = Chloride Lvl) 106 95-109 [facility] AlmaQofwiqjPEMLEKSBKBKS1834-70-84 15:10:00 Test Item Value Reference Range Interpretation Comments BUN (test code = BUN) 25 7-22 [facility] AlmaGauzixzBFOESDBBXRQD8213-81-95 15:10:00 Test Item Value Reference Range Interpretation Comments Glucose Lvl (test code = Glucose Lvl) 91 70-99 [facility]ZwiokvnDJEQPWFKDU9508-57-57 15:10:00 Test Item Value Reference Range Interpretation Comments INR (test code = INR) 0.91 1 0.85-1.17 [facility] AntonioGvhpyanLTQVQPCDYR9781-48-45 15:10:00 Test Item Value Reference Range Interpretation Comments PT (test code = PT) 12.3 s 12.0-14.7 [facility] AntonioZmisxtrQARANYMMPK4386-52-80 15:10:00 Test Item Value Reference Range Interpretation Comments WBC (test code = WBC) 6.7 3.7-10.4 [facility] AntonioWbjxzuqDXJSNNBTCB6989-38-68 15:10:00 Test Item Value Reference Range Interpretation Comments RBC (test code = RBC) 4.77 4.20-5.40 [facility] AntonioLohafjtVHVVXYFHHT6403-29-41 15:10:00 Test Item Value Reference Range Interpretation Comments Hgb (test code = Hgb) 15.1 12.0-16.0 [facility] AntonioFiodzxtAEQLOUSNQI6062-23-78 15:10:00 Test Item Value Reference Range Interpretation Comments MCHC (test code = MCHC) 33.3 32.0-36.0 [facility] AntonioPrxskzyDTSSMGESEE0034-05-02 15:10:00 Test Item Value Reference Range Interpretation Comments MCH (test code = MCH) 31.6 pg 27.0-31.0 [facility] AntonioGqwucfjBNAUXVCUNL4214-08-81 15:10:00 Test Item Value Reference Range Interpretation Comments MCV (test code = MCV) 95.0 80.0-98.0 [facility] AntonioYjdvmxlHHEOXIPFRJ0105-74-54 15:10:00 Test Item Value Reference Range Interpretation Comments Hct (test code = Hct) 45.3 36.0-48.0 [facility] AntonioNuwrqraTEYMQLEVPD7638-77-25 15:10:00 Test Item Value Reference Range Interpretation Comments RDW (test code = RDW) 13.4 11.5-14.5 [facility] AntonioYuamuzyOVCKSCTHFE9673-63-83 15:10:00 Test Item Value Reference Range Interpretation Comments MPV (test code = MPV) 7.4 7.4-10.4 [facility] AntonioQwucwetGPTQUXFMWU0313-95-79 15:10:00 Test Item Value Reference Range Interpretation Comments Platelet (test code = Platelet) 219 133-450 [facility] AntonioVjglhfrRNDHQENTUZ2234-17-83 15:10:00 Test Item Value Reference Range Interpretation Comments Segs-Bands # (test code = Segs-Bands #) 4.2 1.5-8.1 [facility] AntonioVdxdjdbHBEQLFFNZU2092-47-71 15:10:00 Test Item Value Reference Range Interpretation Comments Monocytes # (test code 0.7 See_Comment [Aut omated message] The = Monocytes #) system which generated this result tra nsmitted reference range : <=0.8. The reference r socorro was not used to int erpret this result as normal/abnormal . [facility] [id number] 15:10:00 Test Item Value Reference Range Interpretation Comments Lymphocytes # (test code = Lymphocytes 1.6 1.0-5.5 #) [facility] [id number] 15:10:00 Test Item Value Reference Range Interpretation Comments Eosinophils # (test code 0.3 See_Comment [A utomated message] The = Eosinophils #) system whic h generated this result tra nsmitted reference range : <=0.5. The reference r socorro was not used to int erpret this result as normal/abnormal . [facility] [id number] 15:10:00 Test Item Value Reference Range Interpretation Comments Eosinophils (test code = 3.8 See_Comment [A utomated message] The Eosinophils) system which ge nerated this result tra nsmitted reference range : <=4.0. The reference r socorro was not used to int erpret this result as normal/abnormal . [facility] [id number] 15:10:00 Test Item Value Reference Range Interpretation Comments Basophils (test code = 0.7 See_Comment [Aut omated message] The Basophils) system which ge nerated this result tra nsmitted reference range : <=1.0. The reference r socorro was not used to int erpret this result as normal/abnormal . [facility] Anton[id number] 15:10:00 Test Item Value Reference Range Interpretation Comments Segs (test code = Segs) 61.9 45.0-75.0 [facility] [id number] 15:10:00 Test Item Value Reference Range Interpretation Comments Lymphocytes (test code = Lymphocytes) 23.0 20.0-40.0 [facility] [id number] 15:10:00 Test Item Value Reference Range Interpretation Comments Monocytes (test code = Monocytes) 10.6 2.0-12.0 [facility] [id number] 08:31:00 Test Item Value Reference Range Interpretation Comments POC-GLUCOSE METER 73 mg/dL 70-110 TESTED AT [place] [address] ([facility]) (test code = [place] [address] 1538) CT, [id number] 08:00:00Reason for exam:->right lower quad painWhat is [...] Postsurgical change of the stomach. Signed: Lillie Carls[place]port Verified Date/Time: 03/25/2017 08:00:47 Reading Location: [facility] Diagnostic Imaging Reading Room - [place] [address] [id number] 06:09:00 Test Item Value Reference Range Interpretation Comments MAGNESIUM (BEAKER) (test code = 1.6 mg/dL 1.6-2.6 627) BASIC METABOLIC [id number] 06:09:00 Test Item Value Reference Range Interpretation [...] 697) EGFR (BEAKER) (test 62 mL/min/1.73 ESTIMA KACIE GFR IS code = 1092) sq m NOT ACCURATE CREATININE CLEARANCE IN PREDICTING GLOMERULAR FILTRATION RATE . ESTIMATED GFR I S NOT APPLICABLE FOR DIALYSIS PATIEN TS. CBC W/PLT COUNT & AUTO [id number] 05:43:00 Test Item Value Reference Range Interpretation [...] PERCENT (BEAKER) (test code = 2801) POCT-GLUCOSE [id number] 23:29:00 Test Item Value Reference Range Interpretation Comments POC-GLUCOSE METER 101 mg/dL 70-110 TESTED AT [place] [address] [facility] (test code = [place] 1538) [address] POCT-GLUCOSE [id number] 17:46:00 Test Item Value Reference Range Interpretation Comments POC-GLUCOSE METER 90 mg/dL 70-110 TESTED AT [place] [address] ([facility]) (test code = J[place] Vieira [facility] [address]38) POCT-GLUCOSE [id number] 12:51:00 Test Item Value Reference Range Interpretation Comments POC-GLUCOSE METER 89 mg/dL 70-110 TESTED AT [place] [address] ([facility]) (test code = [place]ira [facility] [address]38) POCT-GLUCOSE [id number] 08:48:00 Test Item Value Reference Range Interpretation Comments POC-GLUCOSE METER 199 mg/dL 70-110 H TESTED AT [place] [address] ([facility]) (test code = [place] [facility] 1538) [address] [id number] 08:16:00 Test Item Value Reference Range Interpretation Comments MAGNESIUM (BEAKER) (test code = 1.6 mg/dL 1.6-2.6 627) BASIC METABOLIC [id number] 08:16:00 Test Item Value Reference Range Interpretation [...] 697) EGFR (BEAKER) (test 63 mL/min/1.73 ESTIMA KACIE GFR IS code = 1092) sq m NOT ACCURATE CREATININE CLEARANCE IN PREDICTING GLOMERULAR FILTRATION RATE . ESTIMATED GFR I S NOT APPLICABLE FOR DIALYSIS PATIEN TS. CBC W/PLT COUNT & AUTO [id number] 06:41:00 Test Item Value Reference Range Interpretation [...] PERCENT (BEAKER) (test code = 2801) POCT-GLUCOSE [id number] 22:19:00 Test Item Value Reference Range Interpretation Comments POC-GLUCOSE METER 116 mg/dL 70-110 H TESTED AT [facility] 6720 (BEAKER) (test code = [place] [facility] 1538) [address] POCT-GLUCOSE [id number] 21:16:00 Test Item Value Reference Range Interpretation Comments POC-GLUCOSE METER 117 mg/dL 70-110 H TESTED AT [facility] 6720 (BEAKER) (test code = [place] [facility] 1538) [address] URINALYSIS W/ REFLEX URINE [id number] 18:57:00 Test Item Value Reference Range Interpretation [...] 516) SOURCE(BEAKER) (test code = 2795) POCT-GLUCOSE [id number] 17:05:00 Test Item Value Reference Range Interpretation Comments POC-GLUCOSE METER 92 mg/dL 70-110 TESTED AT [facility] 6720 ([facility]) (test code = [place] [facility] [address] 1538) RAD, ABDOMEN/KUB, 1 VIEW [id number] 12:49:00Reason for exam:->abdominal painShould this be performed at the bedside?->YesFINAL REPORT Technique: Frontal images of the abdomen COMPARISON: 03/19/2015 FINDINGS: Bowel gas pattern is nonspecific. Some residual contrast in the colon seen. No gross free intraperitoneal air. A stent projects in the upper abdomen centrally. No acute skeletal abnormality. Signed: Joby Johnson MDReport Verified Date/Time: 03/23/2017 12:49:51 Reading Location: [address] Transitional Reading Room POCT-GLUCOSE [id number] 08:59:00 Test Item Value Reference Range Interpretation Comments POC-GLUCOSE METER 107 mg/dL 70-110 TESTED AT [facility] 6720 ([facility]) (test code = [facility] Isha [facility] 1538) [address] [id number] 07:02:00 Test Item Value Reference Range Interpretation Comments MAGNESIUM (BEAKER) (test code = 1.8 mg/dL 1.6-2.6 627) BASIC METABOLIC [id number] 07:02:00 Test Item Value Reference Range Interpretation [...] 697) EGFR (BEAKER) (test 62 mL/min/1.73 ESTIMA KACIE GFR IS code = 1092) sq m NOT ACCURATE CREATININE CLEARANCE IN PREDICTING GLOMERULAR FILTRATION RATE . ESTIMATED GFR I S NOT APPLICABLE FOR DIALYSIS PATIEN TS. HEPATIC FUNCTION [id number] 07:02:00 Test Item Value Reference Range Interpretation [...] (test code = 24 U/L 6-55 347) [id number] 07:02:00 Test Item Value Reference Range Interpretation Comments AMYLASE (BEAKER) (test code = 349) 93 U/L 25-125 [id number] 07:02:00 Test Item Value Reference Range Interpretation Comments LIPASE (BEAKER) (test code = 749) 71 U/L 8-78 CBC W/PLT COUNT & AUTO [id number] 05:52:00 Test Item Value Reference Range Interpretation [...] PERCENT (BEAKER) (test code = 2801) POCT-GLUCOSE [id number] 21:26:00 Test Item Value Reference Range Interpretation Comments POC-GLUCOSE METER 96 mg/dL 70-110 TESTED AT [place] [address] ([facility]) (test code = BANNERALEXANDRE V[place] [facility] [address]38) POCT-GLUCOSE [id number] 17:51:00 Test Item Value Reference Range Interpretation Comments POC-GLUCOSE METER 104 mg/dL 70-110 TESTED AT [place] [id number] ([facility]) (test code = [facility] 1538) [address] POCT-GLUCOSE [id number] 15:36:00 Test Item Value Reference Range Interpretation Comments POC-GLUCOSE METER 101 mg/dL 70-110 TESTED AT [facility] 6720 (BEAKER) (test code = [place] 1533) [address] CBC W/PLT COUNT & AUTO [id number] 07:20:00 Test Item Value Reference Range Interpretation Comments WHITE BLOOD CELL COUNT (BEAKER) 6.3 K/ L 3.5-10.5 (test code = 775) RED BLOOD CELL COUNT (BEAKER) 3.58 M/ L 3.93-5.22 L (test code = 761) HEMOGLOBIN (BEAKER) (test code = 11.5 GM/DL 11.2-15.7 410) HEMATOCRIT (BEAKER) (test code = 36.3 % 34.1-44.9 411) [...] 0-1 PERCENT (BEAKER) (test code = 2801) [id number] 06:50:00 Test Item Value Reference Range Interpretation Comments MAGNESIUM (BEAKER) (test code = 2.0 mg/dL 1.6-2.6 627) BASIC METABOLIC [id number] 06:50:00 Test Item Value Reference Range Interpretation [...] 697) EGFR (BEAKER) (test 75 mL/min/1.73 ESTIMA KACIE GFR IS code = 1092) sq m NOT ACCURATE CREATININE CLEARANCE IN PREDICTING GLOMERULAR FILTRATION RATE . ESTIMATED GFR I S NOT APPLICABLE FOR DIALYSIS PATIEN TS. HEPATIC FUNCTION [id number] 06:50:00 Test Item Value Reference Range Interpretation [...] (test code = 27 U/L 6-55 347) [id number] 06:50:00 Test Item Value Reference Range Interpretation Comments AMYLASE (BEAKER) (test code = 349) 85 U/L 25-125 [id number] 06:50:00 Test Item Value Reference Range Interpretation Comments LIPASE (BEAKER) (test code = 749) 49 U/L 8-78 POCT-GLUCOSE [id number] 21:14:00 Test Item Value Reference Range Interpretation Comments POC-GLUCOSE METER 107 mg/dL 70-110 TESTED AT [facility] 6720 (BEAKER) (test code = [place] 1538) [address] CREATINE KINASE (CK), TOTAL AND [id number] 17:48:00 Test Item Value Reference Range Interpretation Comments CREATINE KINASE TOTAL (BEAKER) 116 U/L 29-200 (test code = 380) CREATINE KINASE-MB (BEAKER) (test 1.1 ng/mL 0.0-6.6 code = 750) CREATINE KINASE-MB INDEX (BEAKER) 0.9 % (test code = 395) CK-MB Reference Range:<6.7 Normal6.7-10.0 Borderline>10.0 AbnormalTROPONIN [id number] 17:48:00 Test Item Value Reference Range Interpretation [...] acidosis, acute neurological disease, and persistent tachyarrhythmia.TROPONIN [id number] 17:48:00 Test Item Value Reference Range Interpretation [...] failure, acidosis, acute neurological disease, and persistent tachyarrhythmia.[id number] 17:46:00 Test Item Value Reference Range Interpretation Comments LIPASE (BEAKER) (test code = 749) 108 U/L 8-78 H [id number] 17:46:00 Test Item Value Reference Range Interpretation Comments AMYLASE (BEAKER) (test code = 349) 122 U/L 25-125 POCT-GLUCOSE [id number] 17:08:00 Test Item Value Reference Range Interpretation Comments POC-GLUCOSE METER 112 mg/dL 70-110 H TESTED AT [place] [address] ([facility]) (test code = [facility] 1538) [address] POCT-GLUCOSE [id number] 11:41:00 Test Item Value Reference Range Interpretation Comments POC-GLUCOSE METER 100 mg/dL 70-110 TESTED AT [place] [address] ([facility]) (test code = [facility] 1538) [address] CREATINE KINASE (CK), TOTAL AND [id number] 11:13:00 Test Item Value Reference Range Interpretation Comments CREATINE KINASE TOTAL (BEAKER) 112 U/L 29-200 (test code = 380) CREATINE KINASE-MB ([facility]) (test 1.1 ng/mL 0.0-6.6 code = 750) CREATINE KINASE-MB INDEX ([facility]) 1.0 % (test code = 395) CK-MB Reference Range:<6.7 Normal6.7-10.0 Borderline>10.0 AbnormalTROPONIN [id number] 11:13:00 Test Item Value Reference Range Interpretation [...] failure, acidosis, acute neurological disease, and persistent tachyarrhythmia.[id number] 11:05:00 Test Item Value Reference Range Interpretation Comments LIPASE (BEAKER) (test code = 749) 48 U/L 8-78 [id number] 11:05:00 Test Item Value Reference Range Interpretation Comments AMYLASE (BEAKER) (test code = 349) 129 U/L 25-125 H HEPATIC FUNCTION [id number] 11:05:00 Test Item Value Reference Range Interpretation [...] 6-55 347) RAD, CHEST, 1 VIEW, NON [id number] 09:52:00Reason for exam:->chest painShould this be performed at the bedside?->YesFINAL REPORT Chest one view AP 03/21/2017 9:51 AM CLINICAL INDICATION: chest pain COMPARISON: 07/04/2015 IMPRESSION: Bibasilar subsegmental opacities suggest atelectasis. Cardiomediastinal contours are within normal limits. The central pulmonary vasculature is not engorged. Signed:Chinmay Nichols Verified Date/Time: 03/21/2017 09:52:14 Reading Location: [facility] Radiology Reading Room POCT-GLUCOSE [id number] 08:55:00 Test Item Value Reference Range Interpretation Comments POC-GLUCOSE METER 104 mg/dL 70-110 TESTED AT [facility] 6720 (BEAKER) (test code = [place] 1538) [address] [id number] 02:59:00 Test Item Value Reference Range Interpretation Comments MAGNESIUM (BEAKER) (test code = 1.3 mg/dL 1.6-2.6 L 627) BASIC METABOLIC [id number] 02:59:00 Test Item Value Reference Range Interpretation [...] 697) EGFR (BEAKER) (test 73 mL/min/1.73 ESTIMA KACIE GFR IS code = 1092) sq m NOT ACCURATE CREATININE CLEARANCE IN PREDICTING GLOMERULAR FILTRATION RATE . ESTIMATED GFR I S NOT APPLICABLE FOR DIALYSIS PATIEN TS. CBC W/PLT COUNT & AUTO [id number] 02:44:00 Test Item Value Reference Range Interpretation [...] PERCENT (BEAKER) (test code = 2801) POCT-GLUCOSE [id number] 22:51:00 Test Item Value Reference Range Interpretation Comments POC-GLUCOSE METER 102 mg/dL 70-110 TESTED AT [facility] 67[address] ([facility] (test code = [place] 1538) [address] POCT-GLUCOSE [id number] 17:12:00 Test Item Value Reference Range Interpretation Comments POC-GLUCOSE METER 103 mg/dL 70-110 TESTED AT [facility] 67[address] ([facility] (test code = [place] 1538) [address] POCT-GLUCOSE [id number] 13:24:00 Test Item Value Reference Range Interpretation Comments POC-GLUCOSE METER 93 mg/dL 70-110 TESTED AT [facility] 6720 (BEAKER) (test code = J[place] [id number] 1440) [id number] 01:37:00 Test Item Value Reference Range Interpretation Comments MAGNESIUM (BEAKER) (test code = 1.6 mg/dL 1.6-2.6 627) BASIC METABOLIC [id number] 01:37:00 Test Item Value Reference Range Interpretation [...] 697) EGFR (BEAKER) (test 78 mL/min/1.73 ESTIMA KACIE GFR IS code = 1092) sq m NOT ACCURATE CREATININE CLEARANCE IN PREDICTING GLOMERULAR FILTRATION RATE . ESTIMATED GFR I S NOT APPLICABLE FOR DIALYSIS PATIEN TS. CBC W/PLT COUNT & AUTO [id number] 01:26:00 Test Item Value Reference Range Interpretation [...] 0-1 PERCENT (BEAKER) (test code = 2801) [place], [id number] 23:51:00Reason for exam:->abnormal liver function test FINAL REPORT Fluoroscopy. History: Intraoperative. Findings: Radiologist wasnot present for the exam. Fluoroscopy was not performed by the undersigned. Please see operative report for details. Fluoroscopy Time: 166 min.Nine images IMPRESSION:Intraoperative fluoroscopy. Please see operative report for details. Signed: Manny Contreras MDReport Verified Date/Time: 03/19/201723:51:13 Reading Location: [address] Consult Reading Room POCT-GLUCOSE [id number] 23:24:00 Test Item Value Reference Range Interpretation Comments POC-GLUCOSE METER 135 mg/dL 70-110 H TESTED AT [facility] 6720 (BEAKER) (test code = [place] 1538) [address] BASIC METABOLIC [id number] 12:14:00 Test Item Value Reference Range Interpretation [...] 697) EGFR (BEAKER) (test 79 mL/min/1.73 ESTIMA KACIE GFR IS code = 1092) sq m NOT ACCURATE CREATININE CLEARANCE IN PREDICTING GLOMERULAR FILTRATION RATE . ESTIMATED GFR I S NOT APPLICABLE FOR DIALYSIS PATIEN TS. [id number] 11:49:00 Test Item Value Reference Range Interpretation Comments HEMOGLOBIN (BEAKER) (test code = 12.6 GM/DL 11.2-15.7 410) PREOP
[2021-02-10 03:28] LABS: Absolute Lymphocytes (CBC) 1.6 K/uL (0.7-4.9); Hematocrit 44.1 % (36.0-45.0); Lymphocytes % 22.9 % (15.3-44.8); MPV 7.6 fL (7.6-11.3); RBC Red Blood Cell Count 4.61 M/uL (3.86-4.86)
[2021-02-10 03:31] LABS: Protime INR 1.03
[2021-02-10 03:46] LABS: ALT/SGPT 74 U/L (12-78); AST/SGOT 45 U/L (15-37); Albumin 3.4 g/dL (3.4-5.0); Alkaline Phosphatase 83 U/L (45-117); BUN Blood Urea Nitrogen 24 mg/dL (7-18); Bicarbonate 24 mmol/L (21-32); Bilirubin Direct 0.1 mg/dL (0-0.2); Bilirubin Total 0.3 mg/dL (0.2-1.0); Glucose Level 144 mg/dL (74-106); NT PRO-BNP 77 pg/mL (<125); Potassium 3.8 mmol/L (3.5-5.1); Protein, Total 6.6 g/dL (6.4-8.2); Sodium Level 140 mmol/L (136-145); Troponin (Emerg Dept Use Only) < 0.02 ng/mL (0.0-0.045)
[2021-02-10] MEDS ORDERED: MECLIZINE HCL 12.5 MG TAB ONE ×2 (03:59→08:05)
[2021-02-10] MEDS ORDERED: NA CHLORIDE 0.9% 1,000 ML ONE (04:00)
[2021-02-10 04:47] LABS: Urine Blood Negative (Negative); Urine Glucose Negative (Negative); Urine Protein Negative (Negative); Urine Specific Gravity 1.025 (1.005-1.030); Urine pH 5.5 (5.0-7.0)
[2021-02-10] MEDS ORDERED: DIAZEPAM 5 MG TABLET ONE (06:49)
[2021-02-10] MEDS ORDERED: ASPIRIN EC 81 MG TAB PO ONE (08:09)
--- NOTE | 2021-02-10 08:12 | ER ---
Nurse's Notes [facility] Name: Antonietta Armando Age: 60 yrs Sex: Female : 1960 Arrival Date: 02/09/2021 Time: 20:27 Bed 11 Private MD: Diagnosis: Benign paroxysmal vertigo, unspecified ear;Dizziness and giddiness Presentation: 02/09 22:56 Chief complaint: Patient states: she has been feeling dizzy when she stands up for bb several days and her balance is off and she keeps running into rose. Coronavirus screen: At this time, the client does not indicate any symptoms associated with coronavirus-19. Ebola Screen: No symptoms or risks identified at this time. Initial Sepsis Screen: Does the patient meet any 2 criteria? No. Patient's initial sepsis screen is negative. Does the patient have a suspected source of infection? No. Patient's initial sepsis screen is negative. Risk Assessment: Do you want to hurt yourself or someone else? Patient reports no desire to harm self or others. Onset of symptoms was February 06, 2021. 22:56 Method Of Arrival: EMS: [facility] bb 22:56 Acuity: MAIRA 3 bb Triage Assessment: 23:02 General: Appears in no apparent distress. Behavior is calm, cooperative. Pain: Denies bb pain. Neuro: Level of Consciousness is awake, alert, obeys commands, Oriented to person, place, time, situation. Cardiovascular: Capillary refill Patient's skin is warm and dry. Respiratory: Airway is patent Respiratory effort is even, unlabored, Respiratory pattern is regular. 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 - Social history:: Smoking status: Patient denies any tobacco usage or history of. Screenin/01 02:35 Abuse screen: Denies threats or abuse. Nutritional screening: No deficits noted. bb Tuberculosis screening: No symptoms or risk factors identified. Fall Risk None identified. Assessment: 02:35 Reassessment: No changes from previously documented assessment. Patient is alert, bb oriented x 3, equal unlabored respirations, skin warm/dry/pink. 04:00 Reassessment: Patient is alert, oriented x 3, equal unlabored respirations, skin bb warm/dry/pink. pt resting quietly. 06:00 Reassessment: Patient is alert, oriented x 3, equal unlabored respirations, skin bb warm/dry/pink. awaiting diagnostic results and disposition. 07:49 General: Appears in no apparent distress. comfortable, Behavior is calm, cooperative, al4 appropriate for age. Pain: Denies pain. Neuro: Level of Consciousness is awake, alert, obeys commands, Oriented to person, place, time. Cardiovascular: Heart tones present Capillary refill < 3 seconds Patient's skin is warm and dry. Respiratory: Airway is patent Respiratory effort is even, unlabored, Respiratory pattern is regular, symmetrical. GI: No signs and/or symptoms were reported involving the gastrointestinal system. : No signs and/or symptoms were reported regarding the genitourinary system. EENT: No signs and/or symptoms were reported regarding the EENT system. Derm: No signs and/or symptoms reported regarding the dermatologic system. Musculoskeletal: No signs and/or symptoms reported regarding the musculoskeletal system. 08:18 Reassessment: patient resting comfortably. physician came to bedside and explained plan al4 of care to patient. 08:48 Reassessment: No changes from previously documented assessment. Patient is alert, al4 oriented x 3, equal unlabored respirations, skin warm/dry/pink. 08:51 Reassessment: patient is alert and oriented. patient is being discharged with ride from al4 family member. physician ordered discharged and is aware the doppler has not been done. Vital Signs: 02/09 22:56 BP 109 / 88; Pulse 61; Resp 16 S; Temp 97.6; Pulse Ox 100% on R/A; Weight 68.04 kg (R); bb Height 5 ft. 2 in. (157.48 cm) (R); Pain 0/10; 02/10 02:52 BP 122 / 76; Pulse 59; Resp 16; Temp 98.0; Pulse Ox 97% ; ds4 04:00 BP 120 / 77; Pulse 59; Resp 16 S; Pulse Ox 97% on R/A; bb 04:48 BP 142 / 103 LA Supine (auto/pedi); Pulse 59; ds4 04:52 BP 137 / 101 LA Sitting (auto/pedi); Pulse 59; ds4 04:56 BP 131 / 91 LA Standing (auto/pedi); Pulse 59; ds4 06:05 BP 128 / 85; Pulse 60; Resp 14 S; Pulse Ox 100% on R/A; bb 07:18 BP 134 / 83; Pulse 61; Resp 18; Pulse Ox 100% ; Pain 0/10; al4 02/09 22:56 Body Mass Index 27.44 (68.04 kg, 157.48 cm) bb ED Course: 02/09 20:27 Patient arrived in ED. 20:41 Neftaly Miranda MD is Attending Physician. [facility] 23:00 Triage completed. bb 23:00 Arm band placed on Patient placed in waiting room, Patient notified of wait time. bb 02/10 02:35 Patient has correct armband on for positive identification. Bed in low position. Call bb light in reach. 02:44 Neftaly Miranda MD is Attending Physician. [facility] 03:18 Masha Lind, IONA is Primary Nurse. bb 03:25 Inserted saline lock: 22 gauge in right forearm, using aseptic technique. Blood ds4 collected. 03:38 XRAY Chest (1 view) In Process Unspecified. EDMS 03:48 CT Head Brain wo Cont In Process Unspecified. EDMS 04:20 SARS-COV-2 RT PCR Sent. ds4 07:29 Attending Physician role handed off by Neftaly Miranda MD clare 07:29 Mark Phillips MD is Attending Physician. clare 08:11 Bartolome Dolan MD is Referral Physician. clare 08:47 No provider procedures requiring assistance completed. IV discontinued, intact, al4 bleeding controlled, No redness/swelling at site. Pressure dressing applied. Administered Medications: 04:00 Drug: NS 0.9% 1000 ml Route: IV; Rate: 1000 ml; Site: right antecubital; bb 05:00 Follow up: IV Status: Completed infusion; IV Intake: 1000ml bb 04:00 Drug: Meclizine 25 mg Route: PO; bb 05:00 Follow up: Response: No adverse reaction bb 06:56 Drug: Valium (diazepam) 5 mg Route: PO; bb 08:00 Follow up: Response: No adverse reaction al4 08:17 Drug: Meclizine 25 mg Route: PO; al4 08:49 Follow up: Response: No adverse reaction al4 08:17 Drug: Aspirin 162 mg Route: PO; al4 08:49 Follow up: Response: No adverse reaction al4 Intake: 05:00 IV: 1000ml; Total: 1000ml. bb Outcome: 08:12 Discharge ordered by . clare 08:47 Discharged to home ambulatory. al4 08:47 Condition: stable 08:47 Discharge instructions given to patient, Instructed on discharge instructions, follow up and referral plans. medication usage, Demonstrated understanding of instructions, follow-up care, medications, Prescriptions given X 2. 08:48 Patient left the ED. al4 Signatures: Dispatcher [employer] EDMS Mark Phillips MD MD cha Ballard, Brenda, RN RN bb Fredi Porras ds4 Neftaly Miranda MD MD 7 Eleanor Thorne Alexis al4 Corrections: (The following items were deleted from the chart) 02:53 02:39 Pulse 59bpm; Resp 16bpm; Pulse Ox 97%; Temp 98.0F; ds4 ds4
--- NOTE | 2021-02-10 08:12 | EDPHYS ---
Physician Documentation [facility] Name: Antonietta Armando Age: 60 yrs Sex: Female : 1960 Arrival Date: 02/09/2021 Time: 20:27 Bed 11 Private MD: ED Physician Mark Phillips HPI: 02/10 03:16 This 60 yrs old Female presents to ER via EMS with complaints of Dizziness. mh7 03:16 The patient presents with dizziness, sense of spinning. Onset: The symptoms/episode mh7 began/occurred 2 day(s) ago. Context: occurred at home, occurred while the patient was sitting, standing, just prior to the episode the patient experienced no apparent symptoms. Modifying factors: The symptoms are alleviated by lying down, the symptoms are aggravated by movement of head, standing up, changing position. 03:17 Associated signs and symptoms: Pertinent negatives: abdominal pain, agitation, ataxia, mh7 blurred vision, chest pain, combativeness, confusion, diaphoresis, focal weakness, head injury, headache, nausea, near-syncope, numbness, palpitations, seizure, shortness of breath, syncope, tingling, vomiting. Severity of symptoms: At their worst the symptoms were moderate 2 day(s) ago, in the emergency department the symptoms are unchanged. 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 - Social history:: Smoking status: Patient denies any tobacco usage or history of. ROS: 02/10 03:17 Constitutional: Negative for fever, chills, and weight loss, Eyes: Negative for injury, mh7 pain, redness, and discharge, ENT: Negative for injury, pain, and discharge, Neck: Negative for injury, pain, and swelling, Cardiovascular: Negative for chest pain, palpitations, and edema, Respiratory: Negative for shortness of breath, cough, wheezing, and pleuritic chest pain, Abdomen/GI: Negative for abdominal pain, nausea, vomiting, diarrhea, and constipation, Back: Negative for injury and pain, : Negative for injury, bleeding, discharge, and swelling, MS/Extremity: Negative for injury and deformity, Skin: Negative for injury, rash, and discoloration, Neuro: Negative for headache, weakness, numbness, tingling, and seizure, Psych: Negative for depression, anxiety, suicide ideation, homicidal ideation, and hallucinations, Allergy/Immunology: Negative for hives, rash, and allergies, Endocrine: Negative for neck swelling, polydipsia, polyuria, polyphagia, and marked weight changes, Hematologic/Lymphatic: Negative for swollen nodes, abnormal bleeding, and unusual bruising. Exam: 03:17 Constitutional: This is a well developed, well nourished patient who is awake, alert, mh7 and in no acute distress. Head/Face: Normocephalic, atraumatic. Eyes: Pupils equal round and reactive to light, extra-ocular motions intact. Lids and lashes normal. Conjunctiva and sclera are non-icteric and not injected. Cornea within normal limits. Periorbital areas with no swelling, redness, or edema. ENT: Nares patent. No nasal discharge, no septal abnormalities noted. Tympanic membranes are normal and external auditory canals are clear. Oropharynx with no redness, swelling, or masses, exudates, or evidence of obstruction, uvula midline. Mucous membranes moist. Neck: Trachea midline, no thyromegaly or masses palpated, and no cervical lymphadenopathy. Supple, full range of motion without nuchal rigidity, or vertebral point tenderness. No Meningismus. Chest/axilla: Normal chest wall appearance and motion. Nontender with no deformity. No lesions are appreciated. Cardiovascular: Regular rate and rhythm with a normal S1 and S2. No gallops, murmurs, or rubs. Normal PMI, no JVD. No pulse deficits. Respiratory: Lungs have equal breath sounds bilaterally, clear to auscultation and percussion. No rales, rhonchi or wheezes noted. No increased work of breathing, no retractions or nasal flaring. Abdomen/GI: Soft, non-tender, with normal bowel sounds. No distension or tympany. No guarding or rebound. No evidence of tenderness throughout. Back: No spinal tenderness. No costovertebral tenderness. Full range of motion. Skin: Warm, dry with normal turgor. Normal color with no rashes, no lesions, and no evidence of cellulitis. MS/ Extremity: Pulses equal, no cyanosis. Neurovascular intact. Full, normal range of motion. Psych: Awake, alert, with orientation to person, place and time. Behavior, mood, and affect are within normal limits. Vital Signs: 02/09 22:56 BP 109 / 88; Pulse 61; Resp 16 S; Temp 97.6; Pulse Ox 100% on R/A; Weight 68.04 kg (R); bb Height 5 ft. 2 in. (157.48 cm) (R); Pain 0/10; 02/10 02:52 BP 122 / 76; Pulse 59; Resp 16; Temp 98.0; Pulse Ox 97% ; ds4 04:00 BP 120 / 77; Pulse 59; Resp 16 S; Pulse Ox 97% on R/A; bb 04:48 BP 142 / 103 LA Supine (auto/pedi); Pulse 59; ds4 04:52 BP 137 / 101 LA Sitting (auto/pedi); Pulse 59; ds4 04:56 BP 131 / 91 LA Standing (auto/pedi); Pulse 59; ds4 06:05 BP 128 / 85; Pulse 60; Resp 14 S; Pulse Ox 100% on R/A; bb 07:18 BP 134 / 83; Pulse 61; Resp 18; Pulse Ox 100% ; Pain 0/10; al4 02/09 22:56 Body Mass Index 27.44 (68.04 kg, 157.48 cm) bb MDM: 07:29 Patient medically screened. clare 08:20 Differential diagnosis: cardiac arrhythmia, CVA, generalized weakness, clare hyperventilation, hypovolemia, idiopathic dizziness, near-syncope. Data reviewed: vital signs, nurses notes, lab test result(s), EKG, radiologic studies, CT scan, doppler, plain films. Data interpreted: shelter monitor: rate is 61 beats/min, Pulse oximetry: on room air is 100 %. Test interpretation: by ED physician or midlevel provider: ECG, plain radiologic studies. Counseling: I had a detailed discussion with the patient and/or guardian regarding: the historical points, exam findings, and any diagnostic results supporting the discharge/admit diagnosis, lab results, radiology results, the need for outpatient follow up, for definitive care, a family practitioner, a neurologist. 02/10 03:07 Order name: Basic Metabolic Panel [facility] 02/10 03:07 Order name: CBC with Diff; Complete Time: 04:21 mh7 02/10 03:07 Order name: LFT's; Complete Time: 04:21 7 02/10 03:07 Order name: Magnesium; Complete Time: 04:21 7 02/10 03:07 Order name: NT PRO-BNP; Complete Time: 04:21 7 02/10 03:07 Order name: PT-INR; Complete Time: 04:21 7 02/10 03:07 Order name: Troponin (emerg Dept Use Only); Complete Time: 04:21 7 02/10 03:07 Order name: XRAY Chest (1 view) [facility] 02/10 03:07 Order name: CT Head Brain wo Cont [facility] 02/10 03:08 Order name: Basic Metabolic Panel; Complete Time: 04:21 EDMS 02/10 04:00 Order name: SARS-COV-2 RT PCR; Complete Time: 04:53 EDMS 02/10 04:47 Order name: Urine Dipstick-Ancillary; Complete Time: 04:53 EDMS 02/10 03:07 Order name: EKG; Complete Time: 03:08 7 02/10 03:07 Order name: Cardiac monitoring; Complete Time: 03:08 7 02/10 03:07 Order name: EKG - Nurse/Tech; Complete Time: 03:58 7 02/10 03:07 Order name: IV Saline Lock; Complete Time: 03:24 7 02/10 03:07 Order name: Labs collected and sent; Complete Time: 03:24 7 02/10 03:07 Order name: O2 Per Protocol; Complete Time: 03:07 7 02/10 03:07 Order name: O2 Sat Monitoring; Complete Time: 03:07 7 02/10 03:07 Order name: Urine Dipstick-Ancillary (obtain specimen); Complete Time: 04:58 mh7 02/10 03:16 Order name: Orthostatics; Complete Time: 04:57 mh7 Administered Medications: 04:00 Drug: NS 0.9% 1000 ml Route: IV; Rate: 1000 ml; Site: right antecubital; bb 05:00 Follow up: IV Status: Completed infusion; IV Intake: 1000ml bb 04:00 Drug: Meclizine 25 mg Route: PO; bb 05:00 Follow up: Response: No adverse reaction bb 06:56 Drug: Valium (diazepam) 5 mg Route: PO; bb 08:00 Follow up: Response: No adverse reaction al4 08:17 Drug: Meclizine 25 mg Route: PO; al4 08:49 Follow up: Response: No adverse reaction al4 08:17 Drug: Aspirin 162 mg Route: PO; al4 08:49 Follow up: Response: No adverse reaction al4 Disposition Summary: 02/10/21 08:12 Discharge Ordered Location: Home clare Problem: new clare Symptoms: have improved clare Condition: Stable clare Diagnosis - Benign paroxysmal vertigo, unspecified ear clare - Dizziness and giddiness clare Followup: clare - With: Private Physician - When: 2 - 3 days - Reason: Recheck today's complaints, Continuance of care, Re-evaluation by your physician Followup: clare - With: Bartolome Dolan MD - When: 2 - 3 days - Reason: Recheck today's complaints, Re-evaluation by your physician Discharge Instructions: - Discharge Summary Sheet clare - Benign Positional Vertigo clare - Dizziness clare - Vertigo clare - Vertigo, [id number] clare - Aspirin and Your Heart clare - Dizziness, [id number] clare Forms: - Medication Reconciliation Form clare - Thank You Letter clare - Antibiotic Education clare - Prescription Opioid Use clare Prescriptions: - Meclizine 25 mg Oral Tablet - take 1 tablet by ORAL route every 8 hours As needed; 30 tablet; Refills: 0, clare Product Selection Permitted - Zofran 4 mg Oral Tablet - take 1 tablet by ORAL route every 12 hours As needed; 20 tablet; Refills: 0, clare Product Selection Permitted Signatures: Dispatcher [employer] Mark Enriquez MD MD cha Ballard, Brenda, RN RN Neftaly Rose MD MD Hiren Soler4 Corrections: (The following items were deleted from the chart) 04:00 03:09 CORONAVIRUS+MR.LAB.BRZ ordered. EDMS EDMS
[2021-02-10] MEDS ORDERED: ASPIRIN 81 MG CHEWABLE TABLET ONE (08:13)
--- NOTE | 2021-02-10 08:21 | RAD REPORT ---
EXAM DESCRIPTION: RAD - Chest Single View - 02/10/2021 3:39 am CLINICAL HISTORY: Dizziness COMPARISON: June 2019 TECHNIQUE: AP portable chest image was obtained 02/10/2021 3:39 am . FINDINGS: Lungs are clear. Heart and vasculature are normal. No measurable pleural effusion and no p neumothorax. No acute bony abnormality seen. No acute aortic findings suspected. Right-sided Port-A-C ath is in place unchanged in position. Left-sided pacemaker in place. IMPRESSION: No acute cardiopulmonary process. No significant change from comparison study.
[2021-02-10 08:57] VITALS: TEMP 98
[2021-02-10 09:03] VITALS: O2SAT 100
[2021-02-10 09:05] VITALS: BP 134/83
--- NOTE | 2021-02-10 18:52 | RAD REPORT ---
EXAM DESCRIPTION: CT - Head Brain Wo Cont - 02/10/2021 6:44 am CLINICAL HISTORY: Dizziness COMPARISON: CT Head/Brain Without Contrast 06/21/2019 TECHNIQUE: Head/brain axial images acquired without contrast. Coronal and sagittal reformats created . Exam performed according to departmental dose-optimization program which includes automated exposur e control, adjustment of mA and/or kV according to patient size, and/or use of iterative reconstructi on technique. FINDINGS: No midline shift, mass effect, intracranial hemorrhage, or hydrocephalus. Mild hypodense subcortical and deep cerebral white matter abnormality. Small right maxillary sinus mucous retention cyst or polyp. Mastoid air cells clear. No skull fracture or significant skull lesion. IMPRESSION: Mild cerebral white matter disease most likely represents chronic small vessel ischemia. Electronically signed by: Dave Duran MD 02/10/2021 4:48 AM DISTRIBUTION ESTIMATOR Due to temporary technical issues with the PACS/Fluency reporting system, reports are being signed by the in house radiologists without review as a courtesy to insure prompt reporting. The interpreting radiologist is fully responsible for the content of the report.
== END 2021-02-10 08:48 | disposition home or self-care (01) ==
LOC: ER 20:23
DX: H81.10 Benign paroxysmal vertigo, unspecified ear (principal); Z88.6 Allergy status to analgesic agent; Z20.822 Contact with and (suspected) exposure to COVID-19; Z95.0 Presence of cardiac pacemaker
CPT/HCPCS: 93005; 85025; 80048; 36415; 83735; 85610; 80076; 81003; 84484; 83880; 70450; 71045; 96360; 99284; U0003; J7030; J8597

== ENCOUNTER 2023-10-07 17:04 | Observation (INO) | payer OTHER ==
--- NOTE | 2023-10-07 17:36 | RAD REPORT ---
EXAM DESCRIPTION: CT - Ct Stroke Brain Wo Cont - 10/07/2023 5:20 pm CLINICAL HISTORY: Slurred speech COMPARISON: 2021 TECHNIQUE: Computed axial tomography of the head was obtained. All CT scans are performed using dose optimization technique as appropriate and may include automated exposure control or mA/KV adjustment according to patient size. FINDINGS: An intracranial bleed is not seen . The ventricles are normal in caliber. No extra-axial fluid collection is noted. Mild to moderate low-density within periventricular, deep and subcortical white matter likely ischemi c changes secondary to small vessel disease Fluid within the sinuses/ mastoids is not seen. IMPRESSION: No acute intracranial abnormality is seen. If patient's symptoms persist MRI of the bra in would be recommended Dr Desouza of the emergency room was notified at 5:30 p.m. September
--- NOTE | 2023-10-07 18:02 | RAD REPORT ---
EXAM DESCRIPTION: CTHead angio10/07/2023 5:40 pm CLINICAL HISTORY: numbness and slurred speech COMPARISON: none TECHNIQUE: 100 cc Isovue [address] angiogram of the head was obtained. 3D MIPS reconstruction performed. All CT scans are performed using dose optimization technique as appropriate and may include automated exposure control or mA/KV adjustment according to patient size. FINDINGS: The distal internal carotid, basilar, anterior cerebral, middle cerebral and posterior cer ebral arteries do not demonstrate a significant stenosis An aneurysm is not seen No large vessel occlusion IMPRESSION: No significant vascular abnormality is displayed
--- NOTE | 2023-10-07 18:02 | RAD REPORT ---
EXAM DESCRIPTION: CT 5:40 pm CLINICAL HISTORY: Slurred speech Diplopia Slurred speech and numbness COMPARISON: None TECHNIQUE: 100 cc Isovue [address] angiogram of the neck was obtained. 3D MIPS reconstruction performed. All CT scans are performed using dose optimization technique as appropriate and may include automated exposure control or mA/KV adjustment according to patient size. FINDINGS: Visualized aortic arch and great vessels unremarkable Common carotid, internal carotid and external carotid arteries bilaterally demonstrate minimal plaque Right vertebral artery terminates into the PICA. Vertebral arteries appear unremarkable No dissection is seen. No high-grade stenosis [place] crieria Mild stenosis 0 to 49 % Moderate stenosis 50-69% Severe stenosis 70-99% IMPRESSION: No significant vascular abnormality is displayed
[2023-10-07 18:08] LABS: PT Prothrombin Time 11.5 SECONDS (9.4-12.5); PTT, Activated Partial Thromb 33.1 SECONDS (24.3-36.9); Protime INR 1.03
[2023-10-07 18:25] LABS: Absolute Eosinophils 0.2 K/uL (0-0.5); Absolute Lymphocytes (CBC) 1.3 K/uL (0.7-4.9); Absolute Monocytes 0.5 K/uL (0.1-1.3); Absolute Neutrophil 4.4 K/uL (1.8-8.0); Basophils % 0.6 % (0-1.3); Eosinophils % 3.1 % (0-4.4); Hematocrit 53.8 % (36.0-45.0); Hemoglobin 17.1 g/dL (12.0-15.0); Lymphocytes % 19.6 % (15.3-44.8); MCH 28.7 pg (27.0-35.0); MCHC 31.7 g/dL (32.0-36.0); MCV 90.4 fL (80-100); MPV 7.5 fL (7.6-11.3); Monocytes % 7.8 % (3.3-12.3); Neutrophils % 68.9 % (41.7-73.7); Nucleated Red Blood Cells % 0.1 % (0-0); Platelets 171 thou/uL (152-406); RBC Red Blood Cell Count 5.95 M/uL (3.86-4.86); Red Cell Distribution Width 16.8 % (12.1-15.2)
--- NOTE | 2023-10-07 18:27 | RAD REPORT ---
EXAM DESCRIPTION: [place] Single View10/07/2023 6:03 pm CLINICAL HISTORY: Chest pain COMPARISON: 2022 FINDINGS: The lungs appear clear of acute infiltrate. The heart is normal size. Central venous catheter in place. A Pacemaker leads are in place. IMPRESSION: No acute abnormalities displayed
[2023-10-07] MEDS ORDERED: NA CHLORIDE 0.9% 100 ML ONE (19:14)
[2023-10-07] MEDS ORDERED: WATER FOR INJ,STERILE 10 ML ONE (19:14)
[2023-10-07 19:20] LABS: Potassium 3.6 mEq/L (3.5-5.1)
[2023-10-07 19:21] LABS: Albumin 3.5 g/dL (3.4-5.0); Bilirubin Direct 0.1 mg/dL (0-0.2); Bilirubin Indirect, Calculated 0.3 mg/dL (0.2-0.8); Bilirubin Total 0.4 mg/dL (0.2-1.0); Globulin 3.5 g/dL (2.3-3.5); Magnesium 1.9
[2023-10-07 19:22] LABS: Anion Gap 9.6 mEq/L (5.0-15.0)
[2023-10-07 19:30] LABS: Troponin High Sensitivity 6.7 (<58.9)
--- NOTE | 2023-10-07 19:34 | EDPHYS ---
Physician Documentation [facility] Name: Antonietta Armando Age: 63 yrs Sex: Female : 1960 Arrival Date: 10/07/2023 Time: 17:04 Bed 5 Private MD: ED Physician Lily Desouza HPI: 10/06 17:56 This 63 yrs old Female presents to ER via Wheelchair with complaints of repeated falls sp3 and slurred speech. 17:56 63-year-old female with a history of multiple sclerosis currently on an infusion sp3 regimen in [place] once per month with Dr. 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 Unknown of exact onset however patient found by sister at 3:30 PM. Patient denies any chest pain, shortness of breath, syncope, focal motor weakness, bleeding, vomiting, diarrhea, travel history, known sick contacts, fever, or any other signs or symptoms on ROS at this time. Stroke alert was initiated when patient arrived.. 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 - Infectious Disease History:: Denies. - Social history:: Smoking status: Patient denies any tobacco usage or history of. ROS: 17:59 Constitutional: Negative for fever, chills, and weight loss, Eyes: Negative for injury, sp3 pain, redness, and discharge, Neck: Negative for injury, pain, and swelling, Cardiovascular: Negative for chest pain, palpitations, and edema, Respiratory: Negative for shortness of breath, cough, wheezing, and pleuritic chest pain, Abdomen/GI: Negative for abdominal pain, nausea, vomiting, diarrhea, and constipation, Back: Negative for injury and pain, MS/Extremity: Negative for injury and deformity, Skin: Negative for injury, rash, and discoloration, Psych: Negative for depression, anxiety, suicide ideation, homicidal ideation, and hallucinations, Allergy/Immunology: Negative for hives, rash, and allergies, Endocrine: Negative for neck swelling, polydipsia, polyuria, polyphagia, and marked weight changes, 17:59 All other systems are negative, Exam: 17:59 Constitutional: This is a well developed, well nourished patient who is awake, alert, sp3 and in no acute distress. Head/Face: Normocephalic, atraumatic. Eyes: Pupils equal round and reactive to light, extra-ocular motions intact. Lids and lashes normal. Conjunctiva and sclera are non-icteric and not injected. Cornea within normal limits. Periorbital areas with no swelling, redness, or edema. Chest/axilla: Normal chest wall appearance and motion. Nontender with no deformity. No lesions are appreciated. Cardiovascular: Regular rate and rhythm with a normal S1 and S2. No gallops, murmurs, or rubs. Normal PMI, no JVD. No pulse deficits. Respiratory: Lungs have equal breath sounds bilaterally, clear to auscultation and percussion. No rales, rhonchi or wheezes noted. No increased work of breathing, no retractions or nasal flaring. Abdomen/GI: Soft, non-tender, with normal bowel sounds. No distension or tympany. No guarding or rebound. No evidence of tenderness throughout. Back: No spinal tenderness. No costovertebral tenderness. Full range of motion. Skin: Warm, dry with normal turgor. Normal color with no rashes, no lesions, and no evidence of cellulitis. MS/ Extremity: Pulses equal, no cyanosis. Neurovascular intact. Full, normal range of motion. Psych: Awake, alert, with orientation to person, place and time. Behavior, mood, and affect are within normal limits. 17:59 Neuro: Patient has slurred speech is her only current neurological symptom. Cranial nerves II through XII are intact. No focal motor weakness or laterality. NIH stroke scale at 1 due to speech only. CT scan of the head noncontrast negative with angiograms pending. Patient has stable vital signs and is in no acute distress., 18:02 ECG was reviewed by the Attending Physician. EKG demonstrates normal sinus rhythm at 89 sp3 bpm with normal intervals, normal QRS, normal axis, normal ST/T-segment's without evidence of acute ischemia. Vital Signs: 17:11 Weight 72.57 kg (R); Height 5 ft. 2 in. (R); kc6 18:05 BP 104 / 78; Pulse 87; Resp 19; Temp 98(O); Pulse Ox 99% on R/A; Height 5 ft. 2 in. ; tm6 Pain 0/10; 18:20 BP 125 / 100; Pulse 79; Pulse Ox 95% on R/A; Pain 0/10; tm6 19:00 BP 132 / 89; Pulse 76; Resp 18; Pulse Ox 95% on R/A; al5 19:30 BP 135 / 85; Pulse 77; Resp 19; Pulse Ox 96% on R/A; al5 20:00 BP 135 / 83; Pulse 85; Resp 15; Pulse Ox 97% on R/A; al5 20:30 BP 127 / 81; Pulse 73; Resp 15; Pulse Ox 94% on R/A; al5 21:00 BP 123 / 73; Pulse 72; Resp 17; Pulse Ox 94% on R/A; al5 22:00 BP 130 / 76; Pulse 72; Resp 18; Pulse Ox 95% on R/A; al5 17:11 Body Mass Index 29.26 (72.57 kg, 157.48 cm) kc6 18:05 Pain Scale: Adult tm6 18:20 Pain Scale: Adult tm6 NIH Stroke Scale Scores: 17:58 NIHSS Score: 1 ph 18:09 NIHSS Score: 1 tm6 MDM: 17:10 Patient medically screened. sp3 18:01 Data reviewed: vital signs, nurses notes, lab test result(s), EKG, radiologic studies. sp3 ED course: 63-year-old female with PMH above and multiple sclerosis now with slurred speech and generalized weakness. Scans were initially negative and at this time her NIH stroke scale is a 1. I am not highly suspicious of CVA at this time and I believe her symptoms are more related to her MS. I would discussed with neurology as well as await the rest of her workup. Exact time of onset is also not known. The bleeding risk of TNKase at this time is greater than the potential benefit. This is also been discussed with the patient and family. Disposition and further intervention pending diagnostic workup.. 19:31 ED course: Full workup negative in terms of CT scan and imaging including angiograms. sp3 Blood work reviewed. At this time I do not believe patient had a TIA or CVA event this is likely a multiple sclerosis flare. I discussed the case with Dr. Dolan who agrees states to get a MRI in the morning to assess white plaques. We have also started steroids 1 g daily with first dose given in the ED as per Dr. Dolan's instructions. Patient will be admitted to Dr. Harman whom I have spoken with as well via telephone. I discussed the case with the patient as well and all questions have been answered. Patient's multiple sclerosis medication is currently Ocrevus.. 10/06 17:51 Order name: Basic Metabolic Panel; Complete Time: 19: 3 10/06 17:51 Order name: CBC with Diff; Complete Time: 18: [facility] 10/06 17:51 Order name: Hepatic Function; Complete Time: 19: 3 10/06 17:51 Order name: High Sensitivity Troponin; Complete Time: 19: 3 10/06 17:51 Order name: Magnesium; Complete Time: 19: 3 10/06 17:51 Order name: Protime (+inr); Complete Time: 18: 3 10/06 17:51 Order name: Ptt, Activated; Complete Time: 18: [facility] 10/06 17:57 Order name: Glucose, Ancillary Testing; Complete Time: 18:26 [facility] 10/06 20:12 Order name: Magnesium [facility] 10/06 20:12 Order name: Urinalysis W/Microscopic [facility] 10/06 20:12 Order name: Creatine Phosphokinase [facility] 10/06 20:12 Order name: Thyroid Stimulating Hormone [facility] 10/06 20:12 Order name: CBC with Automated Diff [facility] 10/06 20:12 Order name: CBC with Automated Diff [facility] 10/06 20:12 Order name: Comprehensive Metabolic Panel [facility] 10/06 20:12 Order name: Comprehensive Metabolic Panel [facility] 10/06 17:18 Order name: Ct Stroke Brain Wo Cont; Complete Time: 18:26 EDMS 10/06 17:26 Order name: Head angio; Complete Time: 18:26 MS 10/06 17:26 Order name: Neck Angio; Complete Time: 18: [facility] 10/06 17:51 Order name: Stroke CXR 1 View; Complete Time: 18:28 sp3 10/06 20:12 Order name: Brain With Cont [facility] 10/06 17:51 Order name: EKG; Complete Time: 17:52 sp3 10/06 20:12 Order name: CONS Physician Consult [facility] 10/06 20:13 Order name: Occupational Therapy Consult [facility] 10/06 20:13 Order name: Physical Therapy Consult [facility] 10/06 17:51 Order name: Cardiac monitoring; Complete Time: 17:52 sp3 10/06 17:51 Order name: EKG - Nurse/Tech; Complete Time: 17:52 sp3 10/06 17:51 Order name: IV Saline Lock; Complete Time: 17:52 sp3 10/06 17:51 Order name: Labs collected and sent; Complete Time: 17:52 sp3 10/06 17:51 Order name: NPO; Complete Time: 18:04 sp3 10/06 17:51 Order name: O2 Per Protocol; Complete Time: 17:52 sp3 10/06 17:51 Order name: O2 Sat Monitoring; Complete Time: 17:52 sp3 10/06 17:51 Order name: Stroke Swallow Screen; Complete Time: 17:54 sp3 Administered Medications: 19:26 Drug: MethylPrednisoLONE IVP 1000 mg IVP once Route: IVP; Site: right antecubital; al5 20:36 Follow up: Response: No adverse reaction al5 22:10 Drug: Ondansetron IVP 4 mg IVP once; over 2 minutes Route: IVP; Site: right antecubital;al5 22:51 Follow up: Response: No adverse reaction; Nausea is decreased al5 Disposition Summary: 10/07/23 19:33 Hospitalization Ordered Notes: Hospitalization Status: Inpatient Admission sp3 Provider: Greg Vergara sp3 Location: Telemetry/[facility] (Inpatient) sp3 Condition: Stable sp3 Problem: an acute exacerbation sp3 Symptoms: have worsened sp3 Bed/Room Type: Standard sp3 Room Assignment: 430(10/07/23 21:03) ty Diagnosis - Multiple sclerosis flare, slurred speech sp3 Forms: - Medication Reconciliation Form sp3 - SBAR form sp3 - Leadership Thank You Letter sp3 NIH Stroke Scale - NIH Stroke Score Date: 10/07/2023 Time: 17:58 Total Score = 1 10. Dysarthria (speech clarity - read or repeat words) - 0(Normal) 11. Extinction and Inattention (visual/tactile/auditory/spatial/personal) - 0(No abnormality) 1a. Level of Consciousness (LOC) - 0(Alert) 1b. Level of Consciousness (LOC) (Month \T\ Age) - 0(Both) 1c. LOC Commands (Open \T\ Closes Eyes/Sand Sifter) - 0(Both) 2. Best Gaze (Lateral Gaze Paresis) - 0(Normal) 3. Visual Field Loss - 0(No visual loss) 4. Facial Palsy - 0(Normal) 5a. Left Arm: Motor (10-second hold) - 0(No drift) 5b. Right Arm: Motor (10-second hold) - 0(No drift) 6a. Left Leg: Motor (5-second hold - always test supine) - 0(No drift) 6b. Right Leg: Motor (5-second hold - always test supine) - 0(No drift) 7. Limb Ataxia (finger/nose \T\ heel/lew - test with eyes open) - 0(Absent) 8. Sensory Loss (pinprick arms/legs/face) - 0(Normal) 9. Best Language: Aphasia (description/naming/reading) - 1(Mild to moderate aphasia) Initials: NIH Stroke Scale - NIH Stroke Score Date: 10/07/2023 Time: 18:09 Total Score = 1 10. Dysarthria (speech clarity - read or repeat words) - 0(Normal) 11. Extinction and Inattention (visual/tactile/auditory/spatial/personal) - 0(No abnormality) 1a. Level of Consciousness (LOC) - 0(Alert) 1b. Level of Consciousness (LOC) (Month \T\ Age) - 0(Both) 1c. LOC Commands (Open \T\ Closes Eyes/Sand Sifter) - 0(Both) 2. Best Gaze (Lateral Gaze Paresis) - 0(Normal) 3. Visual Field Loss - 0(No visual loss) 4. Facial Palsy - 0(Normal) 5a. Left Arm: Motor (10-second hold) - 0(No drift) 5b. Right Arm: Motor (10-second hold) - 0(No drift) 6a. Left Leg: Motor (5-second hold - always test supine) - 0(No drift) 6b. Right Leg: Motor (5-second hold - always test supine) - 0(No drift) 7. Limb Ataxia (finger/nose \T\ heel/lew - test with eyes open) - 0(Absent) 8. Sensory Loss (pinprick arms/legs/face) - 0(Normal) 9. Best Language: Aphasia (description/naming/reading) - 1(Mild to moderate aphasia) Initials: tm6 Signatures: Dispatcher [employer] EDMS Haylee Harris RN RN Lily Servin MD MD sp3 Beatriz Sage RN RN kc6 Lam Mason Amanda, RN RN al5 Corrections: (The following items were deleted from the chart) 17:36 17:11 PSHx: Coronary artery bypass graft; kc6 kc6 17:52 17:52 BASIC METABOLIC PANEL+C.LAB.BRZ ordered. EDKY EDMS 17:52 17:52 CBC+H.LAB.BRZ ordered. EDKY EDMS 17:52 17:52 HEPATIC FUNCTION+C.LAB.BRZ ordered. EDMS EDMS 17:52 17:52 Troponin High Sensitivity+C.LAB.BRZ ordered. EDMS EDMS 17:52 17:52 MAGNESIUM+C.LAB.BRZ ordered. EDKY EDMS 17:52 17:52 PROTIME (+INR)+COAG.LAB.BRZ ordered. EDMS EDMS 17:52 17:52 PTT, ACTIVATED+COAG.LAB.BRZ ordered. EDKY EDMS 17:52 17:52 Chest Single View+RAD.RAD.BRZ ordered. EDKY EDMS 18:01 17:56 63-year-old female with a history of multiple sclerosis currently on an sp3 infusion regimen in [place] once per month with Dr. 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 Patient denies any chest pain, shortness of breath, syncope, focal motor weakness, bleeding, vomiting, diarrhea, travel history, known sick contacts, fever, or any other signs or symptoms on ROS at this time. Stroke alert was initiated when patient arrived.. sp3 19:38 19:31 ED course: Full workup negative in terms of CT scan and imaging including sp3 angiograms. Blood work reviewed. At this time I do not believe patient had a TIA or CVA event this is likely a multiple sclerosis flare. I discussed the case with Dr. Dolan who agrees states to get a MRI in the morning to assess white plaques. We have also started steroids 1 g daily with first dose given in the ED as per Dr. Dolan's instructions. Patient will be admitted to Dr. Harman whom I have spoken with as well via telephone. I discussed the case with the patient as well and all questions have been answered.. sp3 21:03 19:33 sp3 ty
--- NOTE | 2023-10-07 19:34 | ER ---
Nurse's Notes [facility] Name: Antonietta Armando Age: 63 yrs Sex: Female : 1960 Arrival Date: 10/07/2023 Time: 17:04 Bed 5 Private MD: Diagnosis: Multiple sclerosis flare, slurred speech Presentation: 10/06 17:11 Chief complaint: Patient states: she fell at 1530 and had 3 repeated falls after that. kc6 pt cannot recall if she hit her head or had LOC. denies use of blood thinners. pt states she started having slurred speech, headache, blurry vision, and impaired gait shortly after her first fall. code stroke called in triage, pt taken to CT via wheelchair. 17:11 Coronavirus screen: At this time, the client does not indicate any symptoms associated kc6 with coronavirus-19. 17:11 Method Of Arrival: Wheelchair kc6 17:11 An acute neurological deficit is present. The charge nurse has been notified. kc6 Pre-hospital glucose is not applicable to this patient. 17:21 Ebola Screen: No symptoms or risks identified at this time. Initial Sepsis Screen: Does ph the patient meet any 2 criteria? No. Patient's initial sepsis screen is negative. Does the patient have a suspected source of infection? No. Patient's initial sepsis screen is negative. Risk Assessment: Do you want to hurt yourself or someone else? Patient reports no desire to harm self or others. Onset of symptoms was October 07, 2023 at 15:30. 17:21 Acuity: MAIRA 2 ph Triage Assessment: 17:11 The onset of the patients symptoms was October 07, 2023 at 15:30. General: Appears in no kc6 apparent distress. comfortable, well groomed, well developed, Behavior is calm, cooperative, appropriate for age. 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 - Infectious Disease History:: Denies. - Social history:: Smoking status: Patient denies any tobacco usage or history of. Screenin:54 [place] Swallow Protocol Exclusion Criteria: Unable to remain alert for testing: No NPO tm6 for medical/surgical reason by provider order No Tracheostomy tube present No No thin liquids due to preexisting dysphagia/baseline modified diet thickened liquids No Exclusion Criteria Result: Proceed Brief Cognitive Screen What is your name? Normal, Where are you right now? Normal, What year is it? Normal. Oral Mechanism Examination Facial Symmetry: Normal, Motion: Normal, Lip Closure: Normal, Oral Mechanism Result: Normal. 3 oz Water Swallow Challenge: Pt able to drink all water without stopping, coughing, choking or throat clearing: Yes Result: PASS. 17:57 [facility] ED Fall Risk Assessment (Adult) History of falling in the last 3 months, tm6 including since admission Yes- fall prone (multiple falls) (3 pts) Confusion or Disorientation No (0 pts) Intoxicated or Sedated No (0 pts) Impaired Gait No (0 pts) Mobility Assist Device Used No (0 pt) Altered Elimination No (0 pt) Score/Fall Risk Level 3 or more points = High Risk Oriented to surroundings, Maintained a safe environment, Educated pt \T\ family on fall prevention, incl call for assistance when getting out of bed. Abuse screen: Denies threats or abuse. Denies injuries from another. Nutritional screening: No deficits noted. Tuberculosis screening: No symptoms or risk factors identified. Assessment: 17:11 Reassessment: Code stroke called overhead, pt taken to CT by IONA Henderson. ph 17:57 General: Appears in no apparent distress. Pain: Denies pain. Neuro: Level of tm6 Consciousness is awake, alert, obeys commands, Oriented to person, place, time, situation, Reports difficulty speaking/finding words. Cardiovascular: Patient's skin is warm and dry. Rhythm is regular. Respiratory: Airway is patent Respiratory effort is even, unlabored, Respiratory pattern is regular, symmetrical. GI: No signs and/or symptoms were reported involving the gastrointestinal system. Abdomen is flat, non-distended. : No signs and/or symptoms were reported regarding the genitourinary system. EENT: No signs and/or symptoms were reported regarding the EENT system. Derm: No signs and/or symptoms reported regarding the dermatologic system. Musculoskeletal: No signs and/or symptoms reported regarding the musculoskeletal system. 17:58 VAN Scoring: Arm Drift: Patients demonstrates NO arm weakness. Patient is VAN Negative. ph 19:27 TNKase (Tenecteplase) Screening: Not Applicable. General: Appears in no apparent al5 distress. Behavior is calm, cooperative. Pain: Denies pain. Neuro: Level of Consciousness is awake, alert, obeys commands, Oriented to person, place, time, situation, Speech is normal. Cardiovascular: Patient's skin is warm and dry. Respiratory: Airway is patent Respiratory effort is even, unlabored, Respiratory pattern is regular, symmetrical. GI: No signs and/or symptoms were reported involving the gastrointestinal system. : No signs and/or symptoms were reported regarding the genitourinary system. EENT: No signs and/or symptoms were reported regarding the EENT system. Derm: No signs and/or symptoms reported regarding the dermatologic system. Musculoskeletal: No signs and/or symptoms reported regarding the musculoskeletal system. 19:27 [place] Swallow Protocol Brief Cognitive Screen What is your name? Normal, Where are you al5 right now? Normal, What year is it? Normal. Oral Mechanism Examination Facial Symmetry: Normal, Motion: Normal, Lip Closure: Normal, Oral Mechanism Result: Normal. 3 oz Water Swallow Challenge: Pt able to drink all water without stopping, coughing, choking or throat clearing: Yes Result: PASS MD Notified: Lily Desouza MD. 20:10 Reassessment: Patient appears in no apparent distress at this time. No changes from al5 previously documented assessment. Patient and/or family updated on plan of care and expected duration. Pain level reassessed. Patient is alert, oriented x 3, equal unlabored respirations, skin warm/dry/pink. 21:00 Reassessment: Patient appears in no apparent distress at this time. No changes from al5 previously documented assessment. Patient and/or family updated on plan of care and expected duration. Pain level reassessed. Patient is alert, oriented x 3, equal unlabored respirations, skin warm/dry/pink. Vital Signs: 17:11 Weight 72.57 kg (R); Height 5 ft. 2 in. (R); kc6 18:05 BP 104 / 78; Pulse 87; Resp 19; Temp 98(O); Pulse Ox 99% on R/A; Height 5 ft. 2 in. ; tm6 Pain 0/10; 18:20 BP 125 / 100; Pulse 79; Pulse Ox 95% on R/A; Pain 0/10; tm6 19:00 BP 132 / 89; Pulse 76; Resp 18; Pulse Ox 95% on R/A; al5 19:30 BP 135 / 85; Pulse 77; Resp 19; Pulse Ox 96% on R/A; al5 20:00 BP 135 / 83; Pulse 85; Resp 15; Pulse Ox 97% on R/A; al5 20:30 BP 127 / 81; Pulse 73; Resp 15; Pulse Ox 94% on R/A; al5 21:00 BP 123 / 73; Pulse 72; Resp 17; Pulse Ox 94% on R/A; al5 22:00 BP 130 / 76; Pulse 72; Resp 18; Pulse Ox 95% on R/A; al5 17:11 Body Mass Index 29.26 (72.57 kg, 157.48 cm) kc6 18:05 Pain Scale: Adult tm6 18:20 Pain Scale: Adult tm6 NIH Stroke Scale Scores: 17:58 NIHSS Score: 1 ph 18:09 NIHSS Score: 1 tm6 ED Course: 17:05 Patient arrived in ED. ra3 17:06 Cori Francisco FNP-C [facility]. kb 17:06 Lily Desouza MD is Attending Physician. kb 17:15 Haylee Harris, IONA is Primary Nurse. ph 17:21 Ct Stroke Brain Wo Cont In Process Unspecified. EDMS 17:22 Triage completed. ph 17:22 Arm band placed on. ph 17:32 Inserted saline lock: 22 gauge in right forearm, using aseptic technique. Blood kc6 collected. Flushed with 10 mL NS. 17:32 Patient maintains SpO2 saturation greater than 95% on room air. kc6 17:42 Head angio In Process Unspecified. EDMS 17:42 Neck Angio In Process Unspecified. EDMS 17:52 EKG done, by ED staff, reviewed by Lily Desouza MD. tm6 17:57 Patient has correct armband on for positive identification. Placed in gown. Bed in low tm6 position. Call light in reach. Side rails up X2. Fall risk band placed. Provided Education on: use of call beaulieu. Client placed on continuous cardiac and pulse oximetry monitoring. NIBP monitoring applied. pyrotechnician on. Pulse ox on. NIBP on. Door closed. Noise minimized. Warm blanket given. Pillow given. 18:04 Stroke CXR 1 View In Process Unspecified. EDMS 19:33 Greg Vergara MD is Hospitalizing Provider. sp3 22:15 No provider procedures requiring assistance completed. Patient admitted, IV remains in al5 place. Administered Medications: 19:26 Drug: MethylPrednisoLONE IVP 1000 mg IVP once Route: IVP; Site: right antecubital; al5 20:36 Follow up: Response: No adverse reaction al5 22:10 Drug: Ondansetron IVP 4 mg IVP once; over 2 minutes Route: IVP; Site: right antecubital;al5 22:51 Follow up: Response: No adverse reaction; Nausea is decreased al5 Medication: 17:57 VIS not applicable for this client. tm6 Outcome: 19:33 Decision to Hospitalize by Provider. sp3 22:50 Admitted to Med/surg accompanied by tech, via wheelchair, room 430, with chart, al5 22:50 Condition: good 22:50 Instructed on the need for admit, 22:51 Patient left the ED. al5 NIH Stroke Scale - NIH Stroke Score Date: 10/07/2023 Time: 17:58 Total Score = 1 10. Dysarthria (speech clarity - read or repeat words) - 0(Normal) 11. Extinction and Inattention (visual/tactile/auditory/spatial/personal) - 0(No abnormality) 1a. Level of Consciousness (LOC) - 0(Alert) 1b. Level of Consciousness (LOC) (Month \T\ Age) - 0(Both) 1c. LOC Commands (Open \T\ Closes Eyes/Drapery Counselor) - 0(Both) 2. Best Gaze (Lateral Gaze Paresis) - 0(Normal) 3. Visual Field Loss - 0(No visual loss) 4. Facial Palsy - 0(Normal) 5a. Left Arm: Motor (10-second hold) - 0(No drift) 5b. Right Arm: Motor (10-second hold) - 0(No drift) 6a. Left Leg: Motor (5-second hold - always test supine) - 0(No drift) 6b. Right Leg: Motor (5-second hold - always test supine) - 0(No drift) 7. Limb Ataxia (finger/nose \T\ heel/lew - test with eyes open) - 0(Absent) 8. Sensory Loss (pinprick arms/legs/face) - 0(Normal) 9. Best Language: Aphasia (description/naming/reading) - 1(Mild to moderate aphasia) Initials: NIH Stroke Scale - NIH Stroke Score Date: 10/07/2023 Time: 18:09 Total Score = 1 10. Dysarthria (speech clarity - read or repeat words) - 0(Normal) 11. Extinction and Inattention (visual/tactile/auditory/spatial/personal) - 0(No abnormality) 1a. Level of Consciousness (LOC) - 0(Alert) 1b. Level of Consciousness (LOC) (Month \T\ Age) - 0(Both) 1c. LOC Commands (Open \T\ Closes Eyes/Drapery Counselor) - 0(Both) 2. Best Gaze (Lateral Gaze Paresis) - 0(Normal) 3. Visual Field Loss - 0(No visual loss) 4. Facial Palsy - 0(Normal) 5a. Left Arm: Motor (10-second hold) - 0(No drift) 5b. Right Arm: Motor (10-second hold) - 0(No drift) 6a. Left Leg: Motor (5-second hold - always test supine) - 0(No drift) 6b. Right Leg: Motor (5-second hold - always test supine) - 0(No drift) 7. Limb Ataxia (finger/nose \T\ heel/lew - test with eyes open) - 0(Absent) 8. Sensory Loss (pinprick arms/legs/face) - 0(Normal) 9. Best Language: Aphasia (description/naming/reading) - 1(Mild to moderate aphasia) Initials: tm6 Signatures: Dispatcher [employer] EDCori Gamble, BELLE-C SOLID WASTE MANAGER-Haylee Quintanilla, RN RN Lily Desouza MD MD sp3 Beatriz Sage RN RN kc6 Lorena Bernal RN RN tm6 Fanny Salinas ra3 Marj Swann RN RN al5 Corrections: (The following items were deleted from the chart) 17:36 17:11 PSHx: Coronary artery bypass graft; kc6 kc6
--- NOTE | 2023-10-07 20:04 | P.HP ---
Certification for Inpatient Patient admitted to: Observation With expected LOS: <2 Midnights Patient will require the following post-hospital care: None Practitioner: I am a practitioner with admitting privileges, knowledge of patient current condition, hospital course, and medical plan of care. Services: Services provided to patient in accordance with Admission requirements found in Title 42 Section 412.3 of the Code of Federal Regulations Patient History Date of Service: 10/07/23 Reason for admission: Weakness History of Present Illness: 63-year-old female with past medical history of MS on Q6 monthly infusion therapy with Ocrevus at [facility] with Dr Chatterjee , hypertension, GERD, gastric bypass, history of pacemaker for cardiac arrest in the past; presented because of progressive weakness since the last 5 days with associated difficulty in thinking intermittent confusion, 2 episodes of falls as well as a drowsiness. Patient states she is unable to recall things. She also states she appears confused sometimes. She denies any headache or dizziness. She denies any nocturia or dysuria. She states she may have had fever yesterday but she is not sure. She was brought in by the family and friends today because she has been feeling progressively weak. Patient states his last flareup was 1 year ago. sHe states his last dose of Ocrevus was 6 months ago she is due for next dose in next week . on arrival in the ED vital signs were stable, not febrile, CBC was unremarkable, BMP was also unremarkable except for creatinine of 1.23. Head CT shows no acute intracranial pathology, CTA of the head and neck show was negative for acute findings. Chest x-ray shows no acute infiltrate. Patient is being admitted for possible MS flare. Neurology Dr. Dolan discussed with and recommended IV steroids and MRI in a.m. Allergies chlorhexidine Allergy (Mild, Verified 09/10/15 08:02) Hives hydrocodone bitartrate [From Vicodin] Allergy (Mild, Verified 09/10/15 08:01) Unknown Chlorhexidine Allergy (Uncoded 08/17/17 12:03) Unknown Chlorhexidine Gl Allergy (Uncoded 05/04/16 20:52) Unknown Chlorhexidine Glucon Allergy (Uncoded 05/07/17 16:18) Unknown Chlorhexidine Glucona Allergy (Uncoded 11/13/16 13:13) Unknown Home Medications: Aspirin 81 mg PO DAILY 09/09/15 Cholecalciferol (Vitamin D3) [Vitamin D 5,000 IU Cap*] 5,000 unit PO DAILY 09/09/15 Dexlansoprazole [Dexilant] 60 mg PO DAILY 09/09/15 Escitalopram [Lexapro*] 10 mg PO DAILY 09/09/15 Sucralfate [Carafate] 1 tab PO BID 09/09/15 Zolpidem Tartrate [Ambien*] 10 mg PO BEDTIME 09/09/15 dilTIAZem HCL [Cartia Xt] 120 mg PO DAILY 09/09/15 - Past Medical/Surgical History Diabetic: No -: bradycardia -: multiple sclerosis -: gastric bypass 2010 -: pacemaker placement in 2016 - Family History Family History: Reviewed- Non-Contributory - Social History Smoking Status: Never smoker Smoking therapy provided: No Patient receptive to therapy: No Alcohol use: No Caffeine use: Yes Place of Residence: Home Review of Systems 10-point ROS is otherwise unremarkable General: Weakness, Malaise Neurological: Weakness, Confusion Physical Examination - Physical Exam General: Alert, In no apparent distress, Oriented x3 HEENT: Atraumatic, Normocephalic Neck: Supple, 2+ carotid pulse no bruit, JVD not distended Respiratory: Clear to auscultation bilaterally, Normal air movement Cardiovascular: Normal pulses, Regular rate/rhythm, Normal S1 S2 Gastrointestinal: Normal bowel sounds, Soft and benign, Non-distended, No ascites, No tenderness Musculoskeletal: No clubbing, No swelling Neurological: Normal gait, Normal speech, Normal strength at 5/5 x4 extr, Normal tone Urinary: Dialysis catheter, Bladder distention - Studies Laboratory Data (last 24 hrs) 10/07/23 10/07/23 10/07/23 17:55 17:55 17:55 WBC 6.40 Hgb 17.1 H Hct 53.8 H Plt Count 171 PT 11.5 INR 1.03 APTT 33.1 Sodium 139 Potassium 3.6 BUN 19 H Creatinine 1.23 H Glucose 158 H Magnesium 1.9 Total Bilirubin 0.4 AST 9 L ALT 19 Alkaline Phosphatase 105 Assessment and Plan - Problems (Diagnosis) (1) Weakness Onset Date: 09/11/15 Current Visit: No Status: Acute (2) Multiple sclerosis Current Visit: Yes Status: Acute - Plan Impression Acute multiple sclerosis exacerbation Hypertensioncontrolled GERD Status post pacemaker Plan We admit patient to MedSurg Place in telemetry Start gentle IV fluid with LR Obtain urinalysis to rule out infectious etiology of line Start IV Solu-Medrol Neurology consult with Dr. Dolan. MRI brain in a.m. to follow lesions as per neurology recommendation PT and OT Continue PPI Continue sertraline Full code Lovenox for DVT prophylaxis - Advance Directives Does patient have a Living Will: Yes Does patient have a Durable POA for Healthcare: Yes
[2023-10-07] MEDS ORDERED: ONDANSETRON 4 MG/2 ML VIAL IV PRN (20:06)
[2023-10-07] MEDS ORDERED: ALBUTEROL 2.5 MG/3 ML NEB SOL NEB PRN (20:06)
[2023-10-07] MEDS ORDERED: MORPHINE 2 MG/ML SYR IV PRN (20:06)
[2023-10-07] MEDS ORDERED: MELATONIN 5 MG TABLET PO PRN (20:08)
[2023-10-07] MEDS ORDERED: LORAZEPAM 0.5 MG TABLET PO PRN (20:08)
[2023-10-07] MEDS ORDERED: HYDRALAZINE HCL 20 MG/ML VIAL IV PRN (20:08)
[2023-10-07] MEDS ORDERED: ONDANSETRON 4 MG/2 ML VIAL ONE (22:08)
[2023-10-07 23:00] VITALS: BMI 29.2
[2023-10-07] MEDS: METHYLPRED NA SUC 250 MG in NA CHLORIDE 0.9% 100 ML IV SCH (23:24)
[2023-10-07] MEDS: NA CHLORIDE 0.9% 1,000 ML IV SCH (23:24)
[2023-10-08] MEDS ORDERED: METHYLPREDNISOLONE 125 MG INJ IV SCH
[2023-10-08] MEDS: ACETAMINOPHEN 500 MG TAB PO PRN (05:04)
--- NOTE | 2023-10-08 06:48 | P.PN ---
Date of Service: 10/08/23 Subjective: feeling significantly better since given steroids in ER feels close to her normal baseline this morning similar to past MS flare ups. States she usually has flare ups 3-4 weeks prior to her next ocrevus infusions reports some nausea/vomiting during the night over the last 3 days ROS: 10 point ROS as noted above, otherwise negative Physical Exam: GEN: Alert, oriented, NAD HEENT: Normal conjunctiva, sclera anicteric CV: Regular rate and rhythm (paced), no edema Pulm: Nonlabored respirations on room air, clear bilaterally ABD: Soft, nontender, nondistended Integumentary: No rashes Neuro: Normal speech, normal affect vitals reviewed Problem List: Acute on chronic multiple sclerosis exacerbation Chronic Anemia Hypertension GERD Hx Gastric Bypass (2010) Acute on chronic multiple sclerosis exacerbation On admission presents with progressively worsening weakness, intermittent confusion for last few days. Reportedly fell multiple times day of admission prior to coming to ER. Has hx of MS; gets Ocrevus infusions every 6 months - Due for next dose next week Reports last flare up was ~[address] brain, CTA head/neck, CXR all negative for any acute findings Neurology consulted continue IV steroids continue IV fluids PT/OT eval monitor on tele, continue neurochecks MRI ordered to further eval, r/o CVA; was unable to get done here d/t pacemaker Chronic Anemia Stable. Daily labs Hypertension GERD confirm home meds, restart as appropriate VTE: Lovenox Code: Full Dispo: Home, ~1 day Pending neuro recs Time Spent Managing Pts Care (In Minutes): 41
[2023-10-08 08:00] LABS: Absolute Monocytes 0.1 K/uL (0.1-1.3); Absolute Neutrophil 9.3 K/uL (1.8-8.0); Eosinophils % 0.1 % (0-4.4); Hematocrit 35.2 % (36.0-45.0); Hemoglobin 11.5 g/dL (12.0-15.0); Lymphocytes % 9.3 % (15.3-44.8); MCH 29.2 pg (27.0-35.0); MCHC 32.7 g/dL (32.0-36.0); MCV 89.5 fL (80-100); MPV 7.7 fL (7.6-11.3); Monocytes % 0.6 % (3.3-12.3); Platelets 311 thou/uL (152-406); RBC Red Blood Cell Count 3.93 M/uL (3.86-4.86); Red Cell Distribution Width 15.9 % (12.1-15.2)
[2023-10-08 08:21] LABS: ALT/SGPT 19 U/L (13-56); Albumin 3.3 g/dL (3.4-5.0); Albumin/Globulin Ratio 0.9 (1.1-1.8); Alkaline Phosphatase 98 U/L (45-117); Anion Gap 11.3 mEq/L (5.0-15.0); BUN Blood Urea Nitrogen 21 mg/dL (7-18); Bicarbonate 23 mEq/L (21-32); Bilirubin Total 0.4 mg/dL (0.2-1.0); Creatine Phosphokinase 107 U/L (26-192); Globulin 3.5 g/dL (2.3-3.5); Glomerular Filtration Rate 62 ml/min (=/>90); Glucose Level 200 mg/dL (74-106); Magnesium 1.9 mg/dL (1.6-2.4); Potassium 4.3 mEq/L (3.5-5.1); Protein, Total 6.8 g/dL (6.4-8.2); Sodium Level 137 mEq/L (136-145); Thyroid Stimulating Hormone 0.246 uIU/mL (0.358-3.740)
[2023-10-08 08:22] LABS: AST/SGOT < 10 U/L (15-37)
[2023-10-08] MEDS: PANTOPRAZOLE 40MG TABLET PO SCH (08:40)
[2023-10-08] MEDS: ENOXAPARIN 40 MG/0.4 ML SQ SCH (08:41)
[2023-10-08 10:29] LABS: Calcium Oxalate Crystals- Ur Moderate /HPF (None Seen); Specific Gravity > 1.030 (1.005-1.030); Sqamous Epithelial <5 /HPF (None Seen); Transitional Epithelial <5 /HPF (None Seen); Urine Bacteria 20-50 /HPF (<20); Urine Bilirubin NEGATIVE (Negative); Urine Blood Negative (Negative); Urine Clarity Extremely Turbid (Clear); Urine Color Yellow (Yellow); Urine Culture Reflex Order NOT NEEDED; Urine Glucose NEGATIVE (Negative); Urine Ketones NEGATIVE (Negative); Urine Micro Reflex YN NO BILL MICROSCOPIC; Urine Mucus Slight /HPF (None Seen); Urine Nitrite NEGATIVE (Negative); Urine Protein TRACE (Negative); Urine Urobilinogen Normal (Normal); Urine WBC <5 /HPF (<5)
[2023-10-08 10:39] VITALS: O2SAT 95
[2023-10-08] MEDS: METHYLPREDNISOLONE 125 MG INJ ONE (10:55)
[2023-10-08 11:59] LABS: Blood Morphology Comment NOT SEEN (NOT SEEN); Platelet Estimate ADEQ; White Blood Cell Scan OK (OK)
[2023-10-08] MEDS: METHYLPREDNISOLONE 125 MG INJ IV SCH (11:59)
[2023-10-08 12:08] VITALS: BP 147/83; TEMP 97.3
--- NOTE | 2023-10-08 15:47 | PN ---
The patient was admitted as inpatient and the patient had MS, which was clear for multiple sclerosis. Patient had weakness and confusion. Labs and CAT scans were all okay. Patient was given IV steroi ds and she went back to her baseline in 12 hours. Therefore, patient will be converted to Obs and wi ll be discharged home. I approved this code 44 based on the clinical information provided. PEDRO/JOHANNA Voice ID: [id number] Report ID: [id number]
--- NOTE | 2023-10-09 12:57 | EKG ---
Test Date: 2023-10-07 Test Time: 17:50:02 Financial Accounting Manager: MICH MEASUREMENT RESULTS: Intervals: Rate: 89 CA: 142 QRSD: 78 QT: 358 QTc: 435 [place]: P: 34 CA: 142 QRS: 38 T: 13 INTERPRETIVE STATEMENTS: Normal sinus rhythm Low voltage QRS Borderline ECG Compared to ECG 05/07/2022 18:22:21 No significant changes Electronically Signed On 10-09-23 12:55:21 CDT by Julio Zuniga
--- NOTE | 2023-10-13 13:03 | P.DS ---
Admission Date: 10/07/23 Discharge Date: 10/08/23 Disposition: ROUTINE DISCHARGE Discharge Condition: GOOD Reason for Admission: Weakness Consultations: Neurology - Dr. 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 Patient states she is unable to recall things. She also states she appears confused sometimes. She denies any headache or dizziness. She denies any nocturia or dysuria. She states she may have had fever yesterday but she is not sure. She was brought in by the family and friends today because she has been feeling progressively weak. Patient states his last flareup was 1 year ago. sHe states his last dose of Ocrevus was 6 months ago she is due for next dose in next week . on arrival in the ED vital signs were stable, not febrile, CBC was unremarkable, BMP was also unremarkable except for creatinine of 1.23. Head CT shows no acute intracranial pathology, CTA of the head and neck show was negative for acute findings. Chest x-ray shows no acute infiltrate. Patient is being admitted for possible MS flare. Neurology Dr. Dolan discussed with and recommended IV steroids and MRI in a.m. Hospital Course: Problem List: Acute on chronic multiple sclerosis exacerbation Chronic Anemia Hypertension GERD Hx Gastric Bypass (2010) Physician discharge instructions: Patient presented with generalized weakness, intermittent confusion, frequent falls, most consistent with an acute on chronic multiple sclerosis exacerbation. She reports she has a history of MS, and this episode felt similar to her past flare ups. She feels she occasionally gets flare ups a few weeks prior to her next scheduled ocrevus infusions (scheduled every [address]). [address] brain, CTA head/neck, CXR all negative for any acute findings. Dr. Dolan, neurology, was consulted and recommended IV steroids (1gm solumedrol daily) and MRI to further eval, however MRI was unable to be done d/t having a pacemaker. The following morning, she felt significant improvement and reported feeling nearly back to her baseline. She received a total of 1650mg of IV Solumedrol. Patient was feeling better, near her baseline, strength improved, confusion resolved, and was deemed stable for discharge with medrol dose pack. No evidence of infection. Discussed urinalysis noted a few bacteria, no leukocyte esterase, no nitrites, no WBCs, and the possibility of not the most clean catch due to her allergy to chlorhexidine - wasn't used. She reported no symptoms of UTI, no fever, no leukocytosis. No indication for any antibiotics as UTI is not suspected at this time. Her flare up is most likely related to her interruption of her schedule / stress / and nearing time for her next transfusion - which she reports is a common period of time for flare ups to occur. TSH this hospitalization was noted to be slightly low 0.246. No signs/symptoms of hyperthyroidism. This can be seen during acute illness/stressor - such as her recent COVID infection and this episode. Recomment follow up with PCP to discuss repeat thyroid studies in the near future. Medications: Medrol dose pack Follow up: PCP 3-5 days Neurology as scheduled next week. Please call to schedule / confirm appointments Physical Exam: GEN: Alert, oriented, NAD HEENT: Normal conjunctiva, sclera anicteric CV: Regular rate and rhythm (paced), no edema Pulm: Nonlabored respirations on room air, clear bilaterally ABD: Soft, nontender, nondistended Integumentary: No rashes Neuro: Normal speech, normal affect Vital Signs/Physical Exam: Temp Pulse Resp BP Pulse Ox 97.3 F 72 20 147/83 H 91 10/08/23 12:00 10/08/23 12:00 10/08/23 12:00 10/08/23 12:00 10/08/23 12:00 Laboratory Data at Discharge: WBC 10.30 thou/uL (4.3-10.9) 10/08/23 08:56 Hgb 11.5 g/dL (12.0-15.0) L D 10/08/23 08:56 Hct 35.2 % (36.0-45.0) L 10/08/23 08:56 Plt Count 311 thou/uL (152-406) D 10/08/23 08:56 PT 11.5 SECONDS (9.4-12.5) 10/07/23 17:55 INR 1.03 10/07/23 17:55 APTT 33.1 SECONDS (24.3-36.9) 10/07/23 17:55 Sodium 137 mEq/L (136-145) 10/08/23 07:27 Potassium 4.3 mEq/L (3.5-5.1) D 10/08/23 07:27 BUN 21 mg/dL (7-18) H 10/08/23 07:27 Creatinine 1.02 mg/dL (0.55-1.02) 10/08/23 07:27 Glucose 200 mg/dL (74-106) H 10/08/23 07:27 Magnesium 1.9 mg/dL (1.6-2.4) 10/08/23 07:27 Total Bilirubin 0.4 mg/dL (0.2-1.0) 10/08/23 07:27 AST < 10 U/L (15-37) L 10/08/23 07:27 ALT 19 U/L (13-56) 10/08/23 07:27 Alkaline Phosphatase 98 U/L (45-117) 10/08/23 07:27 Home Medications: Escitalopram [Lexapro*] 10 mg PO DAILY 09/09/15 dilTIAZem HCL [Cartia Xt] 180 mg PO DAILY 09/09/15 Omeprazole [Prilosec] 1 tab PO DAILY 10/07/23 Prazosin HCl 2 cap PO DAILY 10/07/23 Propranolol HCl 1 tab PO DAILY 10/07/23 Sertraline [Zoloft*] 1 tab PO DAILY 10/07/23 Zolpidem Tartrate [Ambien Cr] 1 tab PO DAILY 10/07/23 Methylprednisolone [Medrol dosepack] 4 mg PO DIRECTED #1 julia 10/08/23 New Medications: Methylprednisolone [Medrol dosepack] 4 mg PO DIRECTED #1 julia Physician Discharge Instructions: Physician discharge instructions: Patient presented with generalized weakness, intermittent confusion, frequent falls, most consistent with an acute on chronic multiple sclerosis exacerbation. She reports she has a history of MS, and this episode felt similar to her past flare ups. She feels she occasionally gets flare ups a few weeks prior to her next scheduled ocrevus infusions (scheduled every [address] brain, CTA head/neck, CXR all negative for any acute findings. Dr. Dolan, neurology, was consulted and recommended IV steroids (1gm solumedrol daily) and MRI to further eval, however MRI was unable to be done d/t having a pacemaker. The following morning, she felt significant improvement and reported feeling nearly back to her baseline. She received a total of 1650mg of IV Solumedrol. Patient was feeling better, near her baseline, strength improved, confusion resolved, and was deemed stable for discharge with medrol dose pack. No evidence of infection. Discussed urinalysis noted a few bacteria, no leukocyte esterase, no nitrites, no WBCs, and the possibility of not the most clean catch due to her allergy to chlorhexidine - wasn't used. She reported no symptoms of UTI, no fever, no leukocytosis. No indication for any antibiotics as UTI is not suspected at this time. Her flare up is most likely related to her interruption of her schedule / stress / and nearing time for her next transfusion - which she reports is a common period of time for flare ups to occur. TSH this hospitalization was noted to be slightly low 0.246. No signs/symptoms of hyperthyroidism. This can be seen during acute illness/stressor - such as her recent COVID infection and this episode. Recomment follow up with PCP to discuss repeat thyroid studies in the near future. Medications: Medrol dose pack Follow up: PCP 3-5 days Neurology as scheduled next week. Please call to schedule / confirm appointments Followup: Светлана Kim NP [Primary Care Provider] - 1-2 Weeks
== END 2023-10-08 15:05 | disposition home or self-care (01) ==
LOC: ER 17:04 → ERHOLD 20:06 → INTOOBSV 20:06 → 4TH 22:54
PROVIDERS: ADMIT Internal Medicine; ATTEND Hospitalist
DX: G35 Multiple sclerosis (principal); R53.1 Weakness; I10 Essential (primary) hypertension; K21.9 Gastro-esophageal reflux disease without esophagitis; R41.0 Disorientation, unspecified; D64.9 Anemia, unspecified; Z95.0 Presence of cardiac pacemaker; Z98.84 Bariatric surgery status; Z86.16 Personal history of COVID-19; Z91.81 History of falling
CPT/HCPCS: 93005; 85025 ×2; 81001; 80048; 36415 ×2; 83735 ×2; 82550; 85610; 82565; 82947; 80076; 85730; 84443; 84484; 80053; 70496; 70498; 70450; 71045; 96375; 96374; 99285; Q9967; J1650; J2919 ×4; J2405; J7030; G0378 ×4